=== PATIENT | male | born 1930 | race Caucasian/White ===

== ENCOUNTER 2016-04-29 14:27 | Inpatient (IN) | payer MEDICARE ==
[~2016-04-29] VITALS: Ht 175.3 cm; Wt 71.0 kg
[~2016-04-29 14:27] MED LIST: ALLE24TA PO; AMOX875T PO; APIX2.5 PO; D31000TA PO; DILT120C49 PO; DILTCD300 PO; DONE10TA14 PO; ECOT81TA2 PO; LIPI80TA16 PO; MONT10TA2 PO; NAME10TA PO; PRED10PA PO; REME15TA PO; VITA500T49 PO; ZITH200S PO
[2016-04-29 14:30] VITALS: BP 109/58; PULSE 65; RESP 15; TEMP 98.2; O2SAT 95
[2016-04-29] MEDS ORDERED: ONDANSETRON HCL 4 MG/2 ML VIAL IVP ONE (15:15)
[2016-04-29] MEDS ORDERED: MORPHINE SULFATE 4 MG/ML INJ IV PUSH ONE (15:15)
[2016-04-29] MEDS ORDERED: SODIUM CHLORIDE 0.9% FLUSH 5 ML FLUSH IVF PRN (15:15)
--- NOTE | 2016-04-29 15:56 | PD ---
HPI . Abdominal pain Chief Complaint: Abdominal Pain Time Seen by Provider: 15:02 Travel History International Travel<30 days: No Contact w/Intl Traveler<30days: No Traveled to known affect area: No History of Present Illness HPI History is obtained mainly from the . The patient is hard of hearing. He is otherwise lucid and able to give his own history. The patient is status post a triple a repair done [place] [address] Zambrano. He has had loose stools for the last 4-5 weeks. He has had lower abdominal pain for about the last 3 weeks. As also been suffering from weight loss. He was seen by his primary care provider who ordered some outpatient labs. He was also seen as an outpatient by gastroenterology. He had a CT of his abdomen and pelvis done this morning. 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 The patient was subsequently instructed to come to the hospital for further evaluation and treatment. The patient reports minimal pain at this time. The patient and his deny any blood loss. He has not been running a fever. He has not had any urinary tract symptoms. PFSH Past Medical History Hx Anticoagulant Therapy: Yes (ELOQUIS) AAA: Yes Alzheimer's Disease: No Arthritis: Yes Asthma: No Atrial Fibrillation: Yes Autoimmune Disease: No Blood Disorders: No Anxiety: Yes Depression: Yes Heart Rhythm Problems: No Cancer: No High Cholesterol: Yes Chemotherapy: No Chest Pain: No Congestive Heart Failure: No COPD: No Cerebrovascular Accident: Yes Dementia: Yes (Per "slight dementia") Diabetes: No Diminished Hearing: No Endocrine: No Gastrointestinal Disorders: Yes (ESOPHAGEAL STRICTURE) GERD: No Glaucoma: No Genitourinary: No Headaches: No Hepatitis: No Hiatal Hernia: No Hypertension: Yes Immune Disorder: No Implanted Vascular Access Dvce: Yes Kidney Stones: No Musculoskeletal: No Neurologic: No Psychiatric: No Reproductive: No Respiratory: No Immunizations Current: Yes Migraines: No Radiation Therapy: Yes Renal Failure: No Seizures: No Sickle Cell Disease: No Sleep Apnea: No Thyroid Disease: No Ulcer: No Influenza Vaccination: Yes (2016) Past Surgical History Abdominal Aneurysm Repair: Yes Abdominal Surgery: No AICD: No Appendectomy: Yes Arteriovenous Shunt: No Body Medical Devices: DENTAL IMPLANTS/ hx ofneuro stimulator but removed Cardiac Surgery: No Cholecystectomy: No Ear Surgery: No Endocrine Surgery: No Eye Surgery: No Genitourinary Surgery: No Gynecologic Surgery: No Insulin Pump: No Joint Replacement: Yes (right hip replacement) Neurologic Surgery: No Oral Surgery: Yes (implants) Pacemaker: No Thoracic Surgery: No Other Surgery: Yes (,REPAIR OF THE STOMACH LINING) Social History Alcohol Use: No Tobacco Use: No Substance Use: No Allergies-Medications (Allergen,Severity, Reaction): Coded Allergies: Hydrocodone (Verified Allergy, Severe, RASH, 03/07/15) Lisinopril (Verified Allergy, Severe, esophageal spasms, 03/07/15) Pentoxifylline (Verified Allergy, Severe, 03/07/15) Pletal (Verified Allergy, Severe, tachycardia.PENTOXIFYLINE CAUSES UNKNOWN REACTION, 03/07/15) Nonsteroidal Anti-Inflammatory Agts (Verified Allergy, Intermediate, RED RASH, 03/07/15) Sulfa (Verified Adverse Reaction, Unknown, 03/07/15) Reported Meds & Prescriptions Reported Meds & Active Scripts Active Zithromax (Azithromycin) 200 Mg/5 Ml Prema 500 Mg PO DAILY 5 Days UNKNOWN DOSE Amoxil (Amoxicillin) 875 Mg Tab 875 Mg PO BID 14 Days Sterapred Ds 12 Day Pack (Prednisone) 10 Mg Cristóbal 10 Mg PO DIRECTED USE DIRECTED Diltiazem Cd 120 mg 120 Mg Cap 120 Mg PO DAILY 30 Days Diltiazem Cd 300 mg (Diltiazem HCl) 300 Mg Cap 300 Mg PO DAILY 30 Days Ecotrin Low Strength (Aspirin) 81 Mg Tabec 81 Mg PO DAILY 30 Days Eliquis (Apixaban) 2.5 Mg Tab 2.5 Mg PO BID 30 Days Reported Vitamin B12 (Cyanocobalamin) Unknown Strength Tab Unknown Dose PO DAILY Judie-D 24 Hour Allergy (Fexofenadine-Pseudoephedrine) 24 Hour Tab 24 Hour PO DAILY Remeron 15 mg (Mirtazapine) 15 Mg Tab 1 Tab PO HS Namenda (Memantine) 10 Mg Tab 10 Mg PO BID D3 (Cholecalciferol) 1,000 Unit Tab 1,000 Unit PO DAILY Donepezil 10 mg 10 Mg Tab 10 Mg PO HS Singulair (Montelukast Sodium) 10 Mg Tab 10 Mg PO DAILY Lipitor (Atorvastatin Calcium) 80 Mg Tab 80 Mg PO HS Review of Systems Except as stated in HPI: all other systems reviewed are Neg General / Constitutional: No: Fever, Chills Respiratory: No: Shortness of Breath Gastrointestinal: Positive: Diarrhea, Abdominal Pain, No: Nausea, Vomiting, Hematemesis, Hematochezia Genitourinary: No: Urgency, Frequency, Dysuria Neurologic: No: Weakness, Dizziness Physical Exam Narrative GENERAL: Pleasant, elderly man who got in no acute distress. SKIN: Warm and dry. HEENT. HEAD: Atraumatic. Normocephalic. EYES: Pupils equal and round. ENT: No nasal bleeding or discharge. Mucous membranes pink and moist. NECK: Trachea midline. Neck is supple. CARDIOVASCULAR: Regular rate and rhythm. Heart sounds are normal. RESPIRATORY: No accessory muscle use. Lungs are clear with full air movement throughout. GASTROINTESTINAL: Abdomen soft. Minimal lower abdominal tenderness. Nondistended. MUSCULOSKELETAL: No obvious deformities. No edema. NEUROLOGICAL: Awake and alert. No obvious cranial nerve deficits. Motor grossly within normal limits. Normal speech. PSYCHIATRIC: Appropriate mood and affect; insight and judgment normal. Data Data Last Documented VS Vital Signs Date Time Temp Pulse Resp B/P Pulse Ox O2 Delivery O2 Flow Rate FiO2 04/29/16 14:30 98.2 65 15 109/58 95 Orders Complete Blood Count With Diff (04/29/16 15:10) Comprehensive Metabolic Panel (04/29/16 15:10) Lactic Acid (04/29/16 15:10) Prothrombin Time / Inr (Pt) (04/29/16 15:10) Act Partial Throm Time (Ptt) (04/29/16 15:10) Urinalysis - C+S If Indicated (04/29/16 15:10) Iv Access Insert/Monitor (04/29/16 15:10) Ecg Monitoring (04/29/16 15:10) Oximetry (04/29/16 15:10) Morphine Inj (Morphine Inj) (04/29/16 15:15) Ondansetron Inj (Zofran Inj) (04/29/16 15:15) Sodium Chloride 0.9% Flush (Ns Flush) (04/29/16 15:15) Electrocardiogram (04/29/16 15:10) Piperacil-Tazo 4.5 Gm Premix (Zosyn 4.5 (04/29/16 16:00) Blood Culture (04/29/16 15:47) Consult Vascular Surgery (04/29/16 ) Consult Gastroenterology (04/29/16 ) Consult Infectious Disease (04/29/16 ) Admit Order (Ed Use Only) (04/29/16 15:59) Labs Laboratory Tests Test 04/29/16 04/29/16 15:40 15:45 White Blood Count 9.4 TH/MM3 Red Blood Count 4.44 MIL/MM3 Hemoglobin 12.7 GM/DL Hematocrit 38.9 % Mean Corpuscular Volume 87.8 FL Mean Corpuscular Hemoglobin 28.6 PG Mean Corpuscular Hemoglobin 32.5 % Concent Red Cell Distribution Width 14.1 % Platelet Count 356 TH/MM3 Mean Platelet Volume 8.0 FL Neutrophils (%) (Auto) 72.8 % Lymphocytes (%) (Auto) 14.4 % Monocytes (%) (Auto) 11.8 % Eosinophils (%) (Auto) 0.7 % Basophils (%) (Auto) 0.3 % Neutrophils # (Auto) 6.9 TH/MM3 Lymphocytes # (Auto) 1.4 TH/MM3 Monocytes # (Auto) 1.1 TH/MM3 Eosinophils # (Auto) 0.1 TH/MM3 Basophils # (Auto) 0.0 TH/MM3 CBC Comment DIFF FINAL Differential Comment Prothrombin Time 12.3 SEC Prothromb Time International 1.1 RATIO Ratio Activated Partial 30.3 SEC Thromboplast Time Sodium Level 140 MEQ/L Potassium Level 4.0 MEQ/L Chloride Level 106 MEQ/L Carbon Dioxide Level 25.0 MEQ/L Anion Gap 9 MEQ/L Blood Urea Nitrogen 9 MG/DL Creatinine 0.89 MG/DL Estimat Glomerular Filtration 81 ML/MIN Rate Random Glucose 115 MG/DL Calcium Level 9.4 MG/DL Total Bilirubin 0.5 MG/DL Aspartate Amino Transf 17 U/L (AST/SGOT) Alanine Aminotransferase 15 U/L (ALT/SGPT) Alkaline Phosphatase 71 U/L Total Protein 7.1 GM/DL Albumin 2.8 GM/DL Lactic Acid Level 1.4 mmol/L MDM Medical Decision Making Medical Screen Exam Complete: Yes Emergency Medical Condition: Yes Differential Diagnosis Differential diagnosis of abdominal pain includes but is not limited to gastritis, pancreatitis, hepatitis, gastroenteritis, gallbladder disease, constipation, urinary retention, UTI, peptic ulcer disease, diverticulitis or appendicitis Narrative Course Patient presents to us at the request of Dr. 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 I have discussed the case with Dr. Zambrano. He has requested that I admit the patient to the hospitalist service. He has requested antibiotics along with blood cultures and a consult ID. He also requests that I consult Dr. Clement. Physician Communication Physician Communication Dr. Zambrano, Dr. Khan Diagnosis Primary Impression: Abdominal pain Qualified Code: R10.30 - Lower abdominal pain Admitting Information Admitting Physician Requests: Admit Condition: Stable Orly Lawson MD Apr 29, 2016 15:56
[2016-04-29] MEDS ORDERED: PIPERACIL-TAZO 4.5 GM PREMIX 100 ML IV ONE (16:00)
[2016-04-29 16:13] LABS: AUTOMATED NEUTROPHIL # 6.9 TH/MM3 (1.8-7.7); BASOPHIL % 0.3 % (0.0-2.0); EOSINOPHIL # 0.1 TH/MM3 (0-0.4); EOSINOPHIL % 0.7 % (0.0-4.0); HEMATOCRIT 38.9 % (39.0-51.0); HEMO FLAGS DIFF FINAL; LYMPH % 14.4 % (9.0-44.0); LYMPHOCYTE # 1.4 TH/MM3 (1.0-4.8); MEAN CELL VOLUME 87.8 FL (80.0-100.0); MEAN CORPUSCULAR HEMOGLOBIN 28.6 PG (27.0-34.0); MEAN CORPUSCULAR HGB CONC 32.5 % (32.0-36.0); MONO % 11.8 % (0.0-8.0); NEUT % 72.8 % (16.0-70.0); PLATELET COUNT 356 TH/MM3 (150-450); RED BLOOD COUNT 4.44 MIL/MM3 (4.50-5.90); RED CELL DISTRIBUTION WIDTH 14.1 % (11.6-17.2); WHITE BLOOD COUNT 9.4 TH/MM3 (4.0-11.0)
[2016-04-29 16:27] VITALS: O2SAT 100
[2016-04-29 16:32] LABS: APTT (PATIENT) 30.3 SEC (24.3-30.1); INTERNATIONAL NORMALIZED RATIO 1.1 RATIO; PROTHROMBIN TIME - PATIENT 12.3 SEC (9.8-11.6)
[2016-04-29 16:40] LABS: ANION GAP 9 MEQ/L (5-15); AST (GOT) 17 U/L (15-37); BLOOD UREA NITROGEN 9 MG/DL (7-18); CHLORIDE 106 MEQ/L (98-107); GLOMERULAR FILTRATION RATE 81 ML/MIN (>89); SODIUM (NA) 140 MEQ/L (136-145)
[2016-04-29 16:43] LABS: ALKALINE PHOSPHATASE 71 U/L (45-117); ALT (GPT) 15 U/L (12-78); TOTAL BILIRUBIN ADULT 0.5 MG/DL (0.2-1.0)
[2016-04-29] MEDS ORDERED: SODIUM CHLORIDE 0.9% FLUSH 5 ML FLUSH FLUSH PRN (16:45)
[2016-04-29] MEDS ORDERED: NALOXONE HCL 0.4 MG/ML AMP IV PRN (16:45)
--- NOTE | 2016-04-29 16:53 | HHI.HP ---
[facility] Service [facility] Primary Care Physician Clinton Clements MD Admission Diagnosis abdominal pain Diagnoses: Chief Complaint: abdominal pain Travel History International Travel<30 Days: No Contact w/Intl Traveler <30 Da: No Traveled to Known Affected Are: No History of Present Illness [age] past medical history of abdominal aortic aneurysm repair, peripheral vascular disease status post endarterectomy, history of atrial fibrillation, and dementia who presented with abdominal pain. Patient is a very poor historian secondary to dementia and most medical history taken from his was at the bedside. Per patient's patient's been having diarrhea for the past 5-6 weeks that has been intermittent. She then stated that three weeks ago he started to have chronic abdominal pain. Patient went to see Dr. 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 At the moment patient denies any abdominal pain. He denies nausea or vomiting. Patient has never had any fevers the past few weeks. He has no complaints at all. Review of Systems Constitutional: DENIES: Diaphoretic episodes, Fatigue, Fever, Weight gain, Weight loss, Chills, Dizziness, Change in appetite, Night Sweats Endocrine: DENIES: Heat/cold intolerance, Polydipsia, Polyuria, Polyphagia Eyes: DENIES: Blurred vision, Diplopia, Eye inflammation, Eye pain, Vision loss , Photosensitivity, Double Vision Ears, nose, mouth, throat: DENIES: Tinnitus, Hearing loss, Vertigo, Nasal discharge, Oral lesions, Throat pain, Hoarseness, Ear Pain, Running Nose, Epistaxis, Sinus Pain, Toothache, Odynophagia Respiratory: DENIES: Apneas, Cough, Snoring, Wheezing, Hemoptysis, Sputum production, Shortness of breath Cardiovascular: DENIES: Chest pain, Palpitations, Syncope, Dyspnea on Exertion , PND, Lower Extremity Edema, Orthopnea, Claudication Gastrointestinal: DENIES: Abdominal pain, Black stools, Bloody stools, Constipation, Diarrhea, Nausea, Vomiting, Difficulty Swallowing, Anorexia Genitourinary: DENIES: Sexual dysfunction, Urinary frequency, Urinary incontinence, Urgency, Hematuria, Dysuria, Nocturia, Penile Discharge, Testicular Pain, Testicular Swelling Musculoskeletal: DENIES: Joint pain, Muscle aches, Stiffness, Joint Swelling, Back pain, Neck pain Integumentary: DENIES: Abnormal pigmentation, Nail changes, Pruritus, Rash Hematologic/lymphatic: DENIES: Bruising, Lymphadenopathy Immunologic/allergic: DENIES: Eczema, Urticaria Neurologic: DENIES: Abnormal gait, Headache, Localized weakness, Paresthesias, Seizures, Speech Problems, Tremor, Poor Balance Psychiatric: DENIES: Anxiety, Confusion, Mood changes, Depression, Hallucinations, Agitation, Suicidal Ideation, Homicidal Ideation, Delusions Past Family Social History Past Medical History History of atrial fibrillation Dementia Questionable TIA History bacteremia History of benign polyps Abdomen aneurysm Cataracts Past Surgical History Right hip replacement, thoracic picomole endoscopy, endarterectomy the left leg peripheral vascular disease Positive removal, MRI of interest repair, prostate seed Reported Medications Reported Meds & Active Scripts Active Zithromax (Azithromycin) 200 Mg/5 Ml Prema 500 Mg PO DAILY 5 Days UNKNOWN DOSE Amoxil (Amoxicillin) 875 Mg Tab 875 Mg PO BID 14 Days Sterapred Ds 12 Day Pack (Prednisone) 10 Mg Cristóbal 10 Mg PO DIRECTED USE DIRECTED Diltiazem Cd 120 mg 120 Mg Cap 120 Mg PO DAILY 30 Days Diltiazem Cd (Diltiazem HCl) 300 Mg Cap 300 Mg PO DAILY 30 Days Ecotrin (Aspirin) 81 Mg Tabec 81 Mg PO DAILY 30 Days Eliquis (Apixaban) 2.5 Mg Tab 2.5 Mg PO BID 30 Days Reported Vitamin B12 (Cyanocobalamin) Unknown Strength Tab Unknown Dose PO DAILY Judie-D 24 Hour Allergy (Fexofenadine-Pseudoephedrine) 24 Hour Tab 24 Hour PO DAILY Remeron 15 mg (Mirtazapine) 15 Mg Tab 1 Tab PO HS Namenda (Memantine) 10 Mg Tab 10 Mg PO BID D3 (Cholecalciferol) 1,000 Unit Tab 1,000 Unit PO DAILY Donepezil 10 mg 10 Mg Tab 10 Mg PO HS Singulair (Montelukast Sodium) 10 Mg Tab 10 Mg PO DAILY Lipitor (Atorvastatin Calcium) 80 Mg Tab 80 Mg PO HS Allergies: Coded Allergies: Hydrocodone (Verified Allergy, Severe, RASH, 03/07/15) Lisinopril (Verified Allergy, Severe, esophageal spasms, 03/07/15) Pentoxifylline (Verified Allergy, Severe, 03/07/15) Pletal (Verified Allergy, Severe, tachycardia.PENTOXIFYLINE CAUSES UNKNOWN REACTION, 03/07/15) Nonsteroidal Anti-Inflammatory Agts (Verified Allergy, Intermediate, RED RASH, 03/07/15) Sulfa (Verified Adverse Reaction, Unknown, 03/07/15) Family History Noncontributory Social History Patient was at home with his . He smoked for 40+ years but stopped thirty years ago. Denies any alcohol is her drug use. Physical Exam Vital Signs Vital Signs Date Time Temp Pulse Resp B/P Pulse Ox O2 Delivery O2 Flow Rate FiO2 04/29/16 16:27 100 Room Air 04/29/16 14:30 98.2 65 15 109/58 95 Physical Exam GENERAL: This is a well-nourished, well-developed patient, in no apparent distress. SKIN: No rashes, ecchymoses or lesions. Cool and dry. HEAD: Atraumatic. Normocephalic. No temporal or scalp tenderness. EYES: Pupils equal round and reactive. Extraocular motions intact. No scleral icterus. No injection or drainage. ENT: Nose without bleeding, purulent drainage or septal hematoma. Throat without erythema, tonsillar hypertrophy or exudate. Uvula midline. Airway patent. NECK: Trachea midline. No JVD or lymphadenopathy. Supple, nontender, no meningeal signs. CARDIOVASCULAR: Regular rate and rhythm without murmurs, gallops, or rubs. RESPIRATORY: Clear to auscultation. Breath sounds equal bilaterally. No wheezes , rales, or rhonchi. GASTROINTESTINAL: Abdomen soft, non-tender, nondistended. No hepato-splenomegaly , or palpable masses. No guarding. MUSCULOSKELETAL: Extremities without clubbing, cyanosis, or edema. No joint tenderness, effusion, or edema noted. No calf tenderness. Negative Homans sign bilaterally. NEUROLOGICAL: Awake and alert. Cranial nerves II through XII intact. Motor and sensory grossly within normal limits. Five out of 5 muscle strength in all muscle groups. Normal speech. Laboratory Laboratory Tests Test 04/29/16 04/29/16 15:40 15:45 White Blood Count 9.4 Red Blood Count 4.44 Hemoglobin 12.7 Hematocrit 38.9 Mean Corpuscular Volume 87.8 Mean Corpuscular Hemoglobin 28.6 Mean Corpuscular Hemoglobin 32.5 Concent Red Cell Distribution Width 14.1 Platelet Count 356 Mean Platelet Volume 8.0 Neutrophils (%) (Auto) 72.8 Lymphocytes (%) (Auto) 14.4 Monocytes (%) (Auto) 11.8 Eosinophils (%) (Auto) 0.7 Basophils (%) (Auto) 0.3 Neutrophils # (Auto) 6.9 Lymphocytes # (Auto) 1.4 Monocytes # (Auto) 1.1 Eosinophils # (Auto) 0.1 Basophils # (Auto) 0.0 CBC Comment DIFF FINAL Differential Comment Prothrombin Time 12.3 Prothromb Time International 1.1 Ratio Activated Partial 30.3 Thromboplast Time Sodium Level 140 Potassium Level 4.0 Chloride Level 106 Carbon Dioxide Level 25.0 Anion Gap 9 Blood Urea Nitrogen 9 Creatinine 0.89 Estimat Glomerular Filtration 81 Rate Random Glucose 115 Calcium Level 9.4 Aspartate Amino Transf 17 (AST/SGOT) Albumin 2.8 Lactic Acid Level 1.4 Date/Time Procedure Status Source Growth 04/29/16 16:00 Aerobic Blood Culture Received Blood Peripheral Pending 04/29/16 16:00 Anaerobic Blood Culture Received Blood Peripheral Pending Result Diagram: 04/29/16 1540 04/29/[address] scan report showed 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 -Patient given a dose of Zosyn will continue his Zosyn. -Pending labs. -ED physician already consulted and spoke to Dr. Zambrano Vascular surgeon, GI and infectious disease consults were also placed. History of atrial fibrillation, chronic anticoagulation, dementia, peripheral vascular disease -Resume home medication but will hold this for possible surgery. DVT prophylaxis -On Lovenox but eliquis held for possible surgery. Code Status full Discussed Condition With patient and his Physician Certification 2 Midnight Certification Type: Admission for Inpatient Services Order for Inpatient Services The services are ordered in accordance with Medicare regulations or non- Medicare payer requirements, as applicable. In the case of services not specified as inpatient-only, they are appropriately provided as inpatient services in accordance with the 2-midnight benchmark. Estimated LOS (days): 3 3 days is the estimated time the patient will need to remain in the hospital, assuming treatment plan goals are met and no additional complications. Post-Hospital Plan: Margareth Broussard MD Apr 29, 2016 16:53
[2016-04-29 17:52] VITALS: BP 119/58; PULSE 54; RESP 12; O2SAT 98
[2016-04-29] MEDS ORDERED: VITA10003 PO (17:55)
[2016-04-29] MEDS ORDERED: FEXO15TA PO (17:55)
[2016-04-29] MEDS ORDERED: NAME10TA PO (17:55)
[2016-04-29] MEDS ORDERED: MONT10TA2 PO (17:55)
[2016-04-29] MEDS ORDERED: ATOR1TAB18 PO (17:55)
[2016-04-29] MEDS ORDERED: ALIG4CAP PO (17:55)
[2016-04-29] MEDS ORDERED: ARIC10TA PO (17:55)
[2016-04-29] MEDS ORDERED: APIX2.5T PO (17:55)
[2016-04-29] MEDS ORDERED: METO25TA3 PO (17:55)
[2016-04-29] MEDS ORDERED: SENITAB3 PO (17:55)
[2016-04-29] MEDS ORDERED: OMEP20TA PO (17:55)
[2016-04-29] MEDS: SODIUM CHLOR 0.45% 1000 ML INJ 1,000 ML IV SCH (19:09)
[2016-04-29] MEDS: ENOXAPARIN SODIUM 40 MG/0.4 ML SYRINGE SQ SCH (19:32)
[2016-04-29] MEDS: SODIUM CHLORIDE 0.9% FLUSH 5 ML FLUSH FLUSH SCH (21:00)
[2016-04-29] MEDS ORDERED: ONDANSETRON HCL 4 MG/2 ML VIAL IVP PRN (21:00)
[2016-04-29] MEDS: ATORVASTATIN 80 MG TAB PO SCH (21:43)
[2016-04-29] MEDS: DONEPEZIL HCL 5 MG TAB PO SCH (21:43)
[2016-04-29] MEDS: MIRTAZAPINE 15 MG TAB PO SCH (21:43)
[2016-04-29] MEDS: MEMANTINE HCL 10 MG TAB PO SCH (21:43)
[2016-04-29 21:45] VITALS: BP 145/70; PULSE 65; RESP 16; O2SAT 97
[2016-04-29] MEDS: PIPERACIL-TAZO 3.375 GM PREMIX 50 ML IV SCH (23:04)
[2016-04-30] VITALS (9 sets, daily range): BP systolic 107–145; BP diastolic 54–65; PULSE 54–70; RESP 16–20; TEMP 96–97.7; O2SAT 96–99
[2016-04-30] MEDS: PIPERACIL-TAZO 3.375 GM PREMIX 50 ML IV SCH ×4 (05:27→22:31)
--- NOTE | 2016-04-30 05:43 | MB ---
cc: FREDERICK ROPER MD DATE OF CONSULTATION April 29, 2009. ROOM NUMBER A12 in the emergency department REFERRING PHYSICIAN Dr. 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 HISTORY This is an 85-year-old male with a several-week history of upper mid-abdominal pain, not really related to eating. He saw Dr. Gómez Clement in the office a few days ago for this pain. 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 I do not have the report but I have looked at the films with the radiologist here at the hospital. I also discussed the case with Dr. Clement and communicated with Dr. Zambrano. The patient had an abdominal aortic aneurysm repaired by Dr. Zambrano in 2007. He has had no sign of GI bleeding, no black stools. Recently has had decreased appetite and not eating as well and has been losing some weight according to his . He also has some dementia. SOCIAL HISTORY He is . His is with him at the bedside. PAST MEDICAL HISTORY His medical history is remarkable for - 1. Gastroesophageal reflux disease. 2. Hypertension. 3. Peripheral vascular disease. 4. Hyperlipidemia. 5. Dementia. 6. Peptic ulcer in 1998. SURGICAL HISTORY 1. He has had rotator cuff repair in 2013. 2. He had a colonoscopy in [address] Adkins and may have had another scope done 2014 by [facility]. 3. He has had nasal polyps removed. 4. He has had prostate seeds for prostate cancer. 5. He had a right hip replacement. 6. Left cataract extraction. 7. Right cataract extraction. 8. Left carpal tunnel surgery. 9. Left leg endarterectomy in 1991. 10. Esophageal dilation in the past. 11. He suffered a broken leg in 1947. 12. Appendectomy in 1941. PRIMARY CARE DOCTOR Dr. Clinton Clements. MEDICATIONS His medications include - 1. Memantine which is a substitute for Namenda 10 mg twice daily. 2. Eliquis 2.5 mg twice daily. 3. Omeprazole 20 mg daily. 4. Judie 180 mg daily. 5. Align probiotic daily. 6. Vitamin D3 1000 international units daily. 7. Metoprolol 25 mg twice daily. 8. Montelukast 10 mg daily. 9. Donepezil L 10 mg daily. 10. Atorvastatin 80 mg daily. 11. Senior multivitamin daily. ALLERGIES CELEBREX. PLETAL. LISINOPRIL. SULFAMETHOXAZOLE. FAMILY HISTORY Negative for colon cancer, polyps or Crohn's disease. REVIEW OF SYSTEMS Remarkable for the recent lower epigastric pain and decreased appetite and some modest weight loss. He states his bowel movements have been normal. No shortness of breath. No fever or chills. The remainder of the review of systems is negative. PHYSICAL EXAMINATION GENERAL: A well-developed male in no acute distress. VITAL SIGNS: Blood pressure is 109/58, pulse 65 and regular, respirations are 15, nonlabored; temperature is 98.2. EYES: Sclerae anicteric. NECK: Supple without masses. No lymphadenopathy or JVD. LUNGS: Clear to auscultation and percussion. HEART SOUNDS: Regular, without murmur, gallop or rub. ABDOMEN: Soft with some mild firmness in the mid-abdomen just above the umbilicus and he also has some mild tenderness in that area. He has a well-healed transverse scar. Bowel sounds are normoactive and there are no audible bruits. No organomegaly. No detectable ascites. RECTAL: Deferred. EXTREMITIES: No cyanosis, clubbing or edema. SKIN: Warm and dry. NEUROLOGIC: He was alert with a pleasant affect, but not or completely oriented. He knew the correct year but not the month. LABORATORY DATA His lab work reveals normal electrolytes. Creatinine is 0.89. Lactic acid 1.4. LFTs are normal. Albumin is low at 2.8. INR is 1.1. Hemoglobin is 12.7 with a normal MCV of 87.8, white count 9.4, platelet count 356,000. IMAGING STUDIES The outpatient CT as discussed above. IMPRESSION Several weeks of upper abdominal pain with a localized inflammatory reaction noted between his graft repair and a loop of mid-jejunum. PLAN Per Dr. Zambrano, the patient has had blood cultures drawn and will be getting a WBC scan. Depending upon the results, consideration will be given for enteroscopy to try to reach this area in question. Judging from its location on CT scan, it may be difficult to reach with a standard enteroscope. Other options include double balloon enteroscopy, barium contrast studies and CT enterography or MR enterography. I reviewed the risks of the enteroscopy with the patient and his at the bedside as well as the options and informed consent obtained. We will follow with you. We will also discuss possibly holding his Eliquis for the endoscopic procedure. MD WENDI Huynh/BHAVIN /5:49 PM /5:23 AM MO
[2016-04-30] MEDS: SODIUM CHLOR 0.45% 1000 ML INJ 1,000 ML IV SCH ×2 (05:59→19:19)
[2016-04-30 07:48] LABS: HEMATOCRIT 38.6 % (39.0-51.0); MEAN CELL VOLUME 88.2 FL (80.0-100.0); MEAN CORPUSCULAR HEMOGLOBIN 29.4 PG (27.0-34.0); MEAN CORPUSCULAR HGB CONC 33.4 % (32.0-36.0); PLATELET COUNT 284 TH/MM3 (150-450); RED BLOOD COUNT 4.38 MIL/MM3 (4.50-5.90); RED CELL DISTRIBUTION WIDTH 14.3 % (11.6-17.2); REVIEW FLAG FINAL; WHITE BLOOD COUNT 10.1 TH/MM3 (4.0-11.0)
[2016-04-30 08:01] LABS: BICARBONATE 25.6 MEQ/L (21.0-32.0)
[2016-04-30] MEDS: SODIUM CHLORIDE 0.9% FLUSH 5 ML FLUSH FLUSH SCH ×2 (09:00→21:00)
[2016-04-30] MEDS ORDERED: DILTIAZEM-CD 300 MG CAP ER PO SCH (09:00)
[2016-04-30] MEDS: ASPIRIN EC 81 MG TABEC PO SCH (09:26)
[2016-04-30] MEDS: MONTELUKAST SODIUM 10 MG TAB PO SCH (09:26)
[2016-04-30] MEDS: MEMANTINE HCL 10 MG TAB PO SCH ×2 (09:26→21:12)
[2016-04-30] MEDS: DILTIAZEM-CD 120 MG CAP ER PO SCH (09:26)
--- NOTE | 2016-04-30 10:33 | HHI.GIFU ---
GI Follow-up Note Consult Follow-up Subjective: Patient laying in bed comfortably, no new complaints and denies any current abdominal pain. at bedside. WBC scan planned for today. BC neg so far. Labs stable. Objective: PHYSICAL EXAMINATION: Vitals signs stable No fever CHEST: non-labored breathing ABDOMEN: Soft, nondistended, no tenderness today. EXTREMITIES: No clubbing, cyanosis, or edema. SKIN: warm and dry AUCTIONEER TOBACCO: pleasant affect Available Data (labs, X- Rays, Procedues) : ASSESSMENT/PLAN: 1. Abdominal pain-improved. 2.Small bowel inflammatory process-etiology to be determined. Await results WBC scan. If suggests infection suggest cooling off further with antibiotics. Will follow. It was a pleasure seeing Doni Lujan. Thank you for this consult. Entered by: Ciraan Armas MD Apr 30, 2016 10:33
--- NOTE | 2016-04-30 10:44 | HHI.PR ---
Subjective Remarks f/u for abdominal pain Patient only complaint is that the room is too cold. His is at the bedside. patient denied any abdominal pain today. Denied any N/V and remains afebrile. Objective Vitals Vital Signs Date Time Temp Pulse Resp B/P Pulse Ox O2 Delivery O2 Flow Rate FiO2 04/30/16 08:00 96.0 61 20 145/65 97 04/30/16 04:37 60 04/30/16 03:38 97.7 57 18 145/64 96 04/30/16 01:45 70 16 125/63 97 Room Air 04/29/16 21:45 65 16 145/70 97 Room Air 04/29/16 17:52 54 12 119/58 98 Room Air 04/29/16 16:27 100 Room Air 04/29/16 14:30 98.2 65 15 109/58 95 I/O 04/29/16 04/29/16 04/29/16 04/30/16 04/30/16 04/30/16 07:00 15:00 23:00 07:00 15:00 23:00 Output Total 300 ml Balance -300 ml Output Urine Total 300 ml Result Diagram: 04/30/16 0628 04/30/16627 Objective Remarks GENERAL: in NAD CARDIOVASCULAR: Regular rate and rhythm without murmurs, gallops, or rubs. RESPIRATORY: Breath sounds equal bilaterally. No accessory muscle use. GASTROINTESTINAL: Abdomen soft, non-tender, nondistended. MUSCULOSKELETAL: No cyanosis, or edema. BACK: Nontender without obvious deformity. No CVA tenderness. Medications and IVs Current Medications Morphine Sulfate (Morphine Inj) 4 mg ONCE ONCE IV PUSH ; Start 04/29/16 at 15:15 ; Stop 04/29/16 at 15:16; Status DC Ondansetron HCl (Zofran Inj) 4 mg ONCE ONCE IVP ; Start 04/29/16 at 15:15; Stop 04/29/16 at 15:16; Status DC IV Flush 2 ml 2 ml UNSCH PRN IVF FLUSH AFTER USING IV ACCESS; Start 04/29/16 at 15:15; Stop 04/29/16 at 17:59; Status DC Piperacillin Sod/ Tazobactam Sod 100 ml @ 200 mls/hr ONCE ONCE IV Last administered on 04/29/16t 16:53; Start 04/29/16 at 16:00; Stop 04/29/16 at 16:30; Status DC Sodium Chloride (1/2 NS 1000 ml Inj) 1,000 ml @ 75 mls/hr [id number] IV Last administered on 04/29/16 19:09; Start 04/29/16 at 16:39 IV Flush (NS Flush) 2 ml UNSCH PRN FLUSH FLUSH AFTER USING IV ACCESS; Start 04/29/16 at 16:45 IV Flush (NS Flush) 2 ml BID FLUSH ; Start 04/29/16 at 21:00 Ondansetron HCl (Zofran Inj) 4 mg Q6H PRN IVP NAUSEA OR VOMITING; Start at 21:00 Enoxaparin Sodium (Lovenox Inj) 40 mg Q24H SQ ; Start 04/29/16 at 18:00 Naloxone HCl 0.4 mg 0.4 mg UNSCH PRN IV SEE LABEL COMMENTS; Start 04/29/16 at 16 :45 Piperacillin Sod/ Tazobactam Sod (Zosyn 3.375 Gm Premix) 50 ml @ 100 mls/hr Q6H IV Last administered on 04/30/16 05:27; Start 04/29/16 at 23:00 Aspirin (Ecotrin Ec) 81 mg DAILY PO Last administered on 04/30/16 09:26; Start 04/30/16 at 09:00 Atorvastatin Calcium (Lipitor) 80 mg HS PO Last administered on 04/29/16 21:43 ; Start 04/29/16 at 21:00 Diltiazem HCl (Cardizem Cd) 120 mg DAILY PO Last administered on 04/30/16 09: 26; Start 04/30/16 at 09:00 Diltiazem HCl (Cardizem Cd) 300 mg DAILY PO ; Start 04/30/16 at 09:00; Status UNV Memantine (Namenda) 10 mg BID PO Last administered on 04/30/16 09:26; Start at 21:00 Mirtazapine (Remeron) 15 mg HS PO Last administered on 04/29/16 21:43; Start at 21:00 Montelukast Sodium (Singulair) 10 mg DAILY PO Last administered on 04/30/16 09 :26; Start 04/30/16 at 09:00 Donepezil HCl (Aricept) 10 mg HS PO Last administered on 04/29/16 21:43; Start 04/29/16 at 21:00 A/P Assessment and Plan 85 y/o with a history of abdominal aortic repair Acute abdominal pain -asymptomatic at the moment. 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 -continue Zosyn. -pending WBC scan to determine further management. -Vascular and GI ff. -pending ID recommendations. History of atrial fibrillation, chronic anticoagulation, dementia, peripheral vascular disease -per vascular wants to proceed with endoscopic evaluation will need to hold eliquis. -continue with current medication. DVT prophylaxis -On Lovenox but eliquis held for possible surgery. Margareth Khan MD Apr 30, 2016 10:44
--- NOTE | 2016-04-30 12:55 | MB ---
cc: NABIL HECK M.D., KETUL AGNONE, LOUIS M. MD BILLMEIER, DAVID W. M.D. DATE OF CONSULTATION: 04/30/[address] scan questioned aortoenteric fistula. HISTORY OF PRESENT ILLNESS This 85-year-old old male on June 13, 2007 underwent open surgical repair of his enlarging pararenal aortic aneurysm. He recovered uneventfully. Beginning in February of this year, he developed diarrhea. With medical treatment, diarrhea dissipated but he then began experiencing vague mid abdominal pain and lost his appetite. As a result, he has lost approximately 10 pounds. The mid abdominal pain has gradually progressed. No associated constipation or diarrhea. No nausea or vomiting. No fever or chills. He has seen no evidence of blood in his bowel movements. He was evaluated earlier this week by Gómez Clement MD. He requested a CT scan of the abdomen which was performed yesterday. Dr. Jed Loya described "The appearance of aorta has changed since the previous CT angiogram performed February 2013 with indurated changes now present in the paraaortic tissues at the infrarenal level. There are a couple of loops of small bowel now seen in close proximity to the endo graft most conspicuously seen in the left paraaortic region. A tiny low-density collection containing a bubble of gas is present in intimate association with the anterolateral wall of the aortic graft. The appearance is worsened for infectious/inflammatory complication, either on the endo graft, bowel or both." PHYSICAL EXAMINATION GENERAL: A well-developed, well-nourished 85-year-old male with diminished cognitive function. He is alert, oriented to person, place and time, but his recent and remote recall seem somewhat impaired. His answers many of his medical questions for him. LUNGS: Symmetrically expanded and clear. CARDIAC: Rhythm is sinus. ABDOMEN: Soft, nontender. A well-healed transverse supraumbilical trans birectus scar is noted. No incisional hernias. No palpable masses, aneurysms or peritoneal signs. NEUROLOGIC: No gross focal deficit. I reviewed the CT scan and discussed the radiographic findings with Clinton Childers. I also discussed clinical findings with Gómez Clement MD. 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 White blood cell scan to evaluate paraaortic inflammation. Blood cultures. Empiric IV antibiotics - broad-spectrum. I will follow with you. Thank you for allowing me to participate in this gentleman's care. MD ZENON Michael/ANTONIETA /9:08 AM /12:40 PM
--- NOTE | 2016-04-30 16:59 | PD.ID.CON ---
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 Primary Care Physician Clinton Clements MD Diagnoses: History of Present Illness is an 85 y/o CM with PMHx of open surgical repair of enlarging pararenal aortic aneurysm (May 2007), PVD status post endarterectomy, h/o atrial fibrillation, and dementia who presented with abdominal pain. Patient is a very poor historian secondary to dementia and most medical history taken from medical records. Per patient's patient's been having diarrhea for the past 5-6 weeks that has been intermittent. She then stated that three weeks ago he started to have abdominal pain. Patient went to see Dr. 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 Patient has been seen by Vascular Surgery and is undergoing WBC scan. At the time of my evaluation, patient denies any abdominal pain. He denies nausea or vomiting. Patient has never had any fevers the past few weeks. He has no complaints at all. Weight loss of 10 pounds. No blood in stool or tarry stools. ID is consulted for evaluation and Mment of abdominal aortic fistula and possible aortitis. Review of Systems ROS Limitations: Poor Historian Constitutional: DENIES: Diaphoretic episodes, Fatigue, Fever, Weight gain, Weight loss, Chills, Dizziness, Change in appetite, Night Sweats Endocrine: DENIES: Heat/cold intolerance, Polydipsia, Polyuria, Polyphagia Eyes: DENIES: Blurred vision, Diplopia, Eye inflammation, Eye pain, Vision loss , Photosensitivity, Double Vision Ears, nose, mouth, throat: DENIES: Tinnitus, Hearing loss, Vertigo, Nasal discharge, Oral lesions, Throat pain, Hoarseness, Ear Pain, Running Nose, Epistaxis, Sinus Pain, Toothache, Odynophagia Respiratory: DENIES: Apneas, Cough, Snoring, Wheezing, Hemoptysis, Sputum production, Shortness of breath Cardiovascular: DENIES: Chest pain, Palpitations, Syncope, Dyspnea on Exertion , PND, Lower Extremity Edema, Orthopnea, Claudication Gastrointestinal: COMPLAINS OF: Abdominal pain, DENIES: Black stools, Bloody stools, Constipation, Diarrhea, Nausea, Vomiting, Difficulty Swallowing, Anorexia Genitourinary: DENIES: Sexual dysfunction, Urinary frequency, Urinary incontinence, Urgency, Hematuria, Dysuria, Nocturia, Penile Discharge, Testicular Pain, Testicular Swelling Musculoskeletal: DENIES: Joint pain, Muscle aches, Stiffness, Joint Swelling, Back pain, Neck pain Integumentary: DENIES: Abnormal pigmentation, Nail changes, Pruritus, Rash Hematologic/lymphatic: DENIES: Bruising, Lymphadenopathy Immunologic/allergic: DENIES: Eczema, Urticaria Neurologic: DENIES: Abnormal gait, Headache, Localized weakness, Paresthesias, Seizures, Speech Problems, Tremor, Poor Balance Psychiatric: DENIES: Anxiety, Confusion, Mood changes, Depression, Hallucinations, Agitation, Suicidal Ideation, Homicidal Ideation, Delusions Except as stated in HPI: all other systems reviewed are Neg Past Family Social History Allergies: Coded Allergies: Hydrocodone (Verified Allergy, Severe, RASH, 03/07/15) Lisinopril (Verified Allergy, Severe, esophageal spasms, 03/07/15) Pentoxifylline (Verified Allergy, Severe, 03/07/15) Pletal (Verified Allergy, Severe, tachycardia.PENTOXIFYLINE CAUSES UNKNOWN REACTION, 03/07/15) Nonsteroidal Anti-Inflammatory Agts (Verified Allergy, Intermediate, RED RASH, 03/07/15) Sulfa (Verified Adverse Reaction, Unknown, 03/07/15) Past Medical History History of atrial fibrillation Dementia Questionable TIA History bacteremia History of benign polyps Abdomen aneurysm Cataracts Past Surgical History 1. He has had rotator cuff repair in 2013. 2. He had a colonoscopy [place] [address] Adkins and may have had another scope done 2014 by [facility]. 3. He has had nasal polyps removed. 4. He has had prostate seeds for prostate cancer. 5. He had a right hip replacement. 6. Left cataract extraction. 7. Right cataract extraction. 8. Left carpal tunnel surgery. 9. Left leg endarterectomy in 1991. 10. Esophageal dilation in the past. 11. He suffered a broken leg in 194. 12. Appendectomy in 194. Reported Medications Reported Meds & Active Scripts Active Reported Senior Vites (Multiple Vitamins W/ Minerals) 1 Tab Tab 1 Tab PO HS Atorvastatin (Atorvastatin Calcium) 80 Mg Tab 80 Mg PO HS Aricept (Donepezil) 10 Mg Tab 10 Mg PO HS Singulair (Montelukast Sodium) 10 Mg Tab 10 Mg PO HS Metoprolol Tartrate 25 Mg Tab 25 Mg PO BID Vitamin D-3 (Cholecalciferol) 1,000 Unit Tab 1,000 Units PO DAILY Align (Lactobacillus Rhamnosus (GG)) Unknown Strength Cap 1 Cap PO DAILY Judie Allergy (Fexofenadine HCl) 180 Mg Tab 180 Mg PO DAILY Omeprazole 20 Mg Tab 20 Mg PO DAILY Namenda (Memantine) 10 Mg Tab 10 Mg PO BID Eliquis (Apixaban) 2.5 Mg Tab 2.5 Mg PO BID Active Ordered Medications Current Medications Medications (Trade) Dose Ordered Sig/Yuri Route Start Time Stop Time Status Last Admin (02/22 NS 1000 ml Inj) 1,000 ml @ 75 mls/hr [id number] IV 04/29/16 16:39 04/29/16 19:09 (NS Flush) 2 ml UNSCH PRN FLUSH 04/29/16 16:45 (NS Flush) 2 ml BID FLUSH 04/29/16 21:00 (Zofran Inj) 4 mg Q6H PRN IVP 04/29/16 21:00 (Lovenox Inj) 40 mg Q24H SQ 04/29/16 18:00 Naloxone HCl 0.4 mg 0.4 mg UNSCH PRN IV 04/29/16 16:45 (Zosyn 3.375 Gm Premix) 50 ml @ 100 mls/hr Q6H IV 04/29/16 23:00 04/30/16 17:11 (Ecotrin Ec) 81 mg DAILY PO 04/30/16 09:00 04/30/16 09:26 (Lipitor) 80 mg HS PO 04/29/16 21:00 04/29/16 21:43 (Cardizem Cd) 120 mg DAILY PO 04/30/16 09:00 04/30/16 09:26 (Namenda) 10 mg BID PO 04/29/16 21:00 04/30/16 09:26 (Remeron) 15 mg HS PO 04/29/16 21:00 04/29/16 21:43 (Singulair) 10 mg DAILY PO 04/30/16 09:00 04/30/16 09:26 Donepezil HCl 10 mg 10 mg HS PO 04/29/16 21:00 04/29/16 21:43 (Diflucan 100 Mg Premix Bag) 50 ml @ 50 mls/hr Q24H IV 04/30/16 18:00 Family History reviewed and NC to ID issues. Social History Patient was at home with his . He smoked for 40+ years but stopped thirty years ago. Denies any alcohol is her drug use. Physical Exam Vital Signs Vital Signs Date Time Temp Pulse Resp B/P Pulse Ox O2 Delivery O2 Flow Rate FiO2 04/30/16 16:00 96.2 54 18 107/54 97 04/30/16 15:48 62 04/30/16 12:00 96.0 62 18 119/58 99 04/30/16 08:00 96.0 61 20 145/65 97 04/30/16 04:37 60 04/30/16 03:38 97.7 57 18 145/64 96 04/30/16 01:45 70 16 125/63 97 Room Air 04/29/16 21:45 65 16 145/70 97 Room Air 04/29/16 17:52 54 12 119/58 98 Room Air Physical Exam GENERAL: This is a well-nourished, well-developed patient, in no apparent distress. SKIN: No rashes, ecchymoses or lesions. Cool and dry. HEAD: Atraumatic. Normocephalic. No temporal or scalp tenderness. EYES: Pupils equal round and reactive. Extraocular motions intact. No scleral icterus. No injection or drainage. ENT: Nose without bleeding, purulent drainage or septal hematoma. Throat without erythema, tonsillar hypertrophy or exudate. Uvula midline. Airway patent. NECK: Trachea midline. No JVD or lymphadenopathy. Supple, nontender, no meningeal signs. CARDIOVASCULAR: Regular rate and rhythm without murmurs, gallops, or rubs. RESPIRATORY: Clear to auscultation. Breath sounds equal bilaterally. No wheezes , rales, or rhonchi. GASTROINTESTINAL: Abdomen soft, non-tender, nondistended. No hepato-splenomegaly , or palpable masses. No guarding. MUSCULOSKELETAL: Extremities without clubbing, cyanosis, or edema. No joint tenderness, effusion, or edema noted. No calf tenderness. Negative Homans sign bilaterally. NEUROLOGICAL: Awake and alert. Grossly non focal Psych: cooperative IV line sites with no e.o infection. Laboratory Laboratory Tests Test 04/30/16 06:28 White Blood Count 10.1 Red Blood Count 4.38 Hemoglobin 12.9 Hematocrit 38.6 Mean Corpuscular Volume 88.2 Mean Corpuscular Hemoglobin 29.4 Mean Corpuscular Hemoglobin 33.4 Concent Red Cell Distribution Width 14.3 Platelet Count 284 Mean Platelet Volume 8.0 Sodium Level 142 Potassium Level 4.0 Chloride Level 108 Carbon Dioxide Level 25.6 Anion Gap 8 Blood Urea Nitrogen 8 Creatinine 0.75 Estimat Glomerular Filtration 99 Rate Random Glucose 88 Calcium Level 9.3 Date/Time Procedure Status Source Growth 04/29/16 16:00 Aerobic Blood Culture - Preliminary Resulted Blood Peripheral NO GROWTH IN 1 DAY 04/29/16 16:00 Anaerobic Blood Culture - Preliminary Resulted Blood Peripheral NO GROWTH IN 1 DAY Result Diagram: 04/30/1628 04/30/16627 Assessment and Plan Assessment and Plan 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 s/p Open surgical repair of enlarging pararenal aortic aneurysm (May 2007). Recs: Continue Zosyn IV Start Diflucan IV Follow blood cultures. Check CRP. Follow WBC Scan results. Await Vascular surgery input. If patient undergoes surgery recommend sending specimen to micro as well as pathology. covering for me this weekend. Shannan Luong MD Apr 30, 2016 16:59
[2016-04-30] MEDS: ENOXAPARIN SODIUM 40 MG/0.4 ML SYRINGE SQ SCH (17:01)
[2016-04-30] MEDS: FLUCONAZOLE 100 MG PREMIX BAG 50 ML IV SCH (18:31)
--- NOTE | 2016-04-30 19:57 | EKG ---
Date Performed: 04/29/2016 Time Performed: 15:50:34 PTAGE: 85 years EKG: SINUS BRADYCARDIA BORDERLINE ECG PREVIOUS TRACING : 03/07/2015 20.43 Compared to the previous tracing, now sinus bradycardia DOCTOR: Jose Ramos Interpretating Date/Time 05/03/2016 07:54:38
[2016-04-30] MEDS: DONEPEZIL HCL 5 MG TAB PO SCH (21:12)
[2016-04-30] MEDS: MIRTAZAPINE 15 MG TAB PO SCH (21:12)
[2016-04-30] MEDS: ATORVASTATIN 80 MG TAB PO SCH (21:12)
[2016-05-01] VITALS (8 sets, daily range): BP systolic 102–135; BP diastolic 51–63; PULSE 55–67; RESP 16–22; TEMP 95.7–98.2; O2SAT 93–98
[2016-05-01] MEDS: PIPERACIL-TAZO 3.375 GM PREMIX 50 ML IV SCH ×4 (06:00→23:51)
[2016-05-01] MEDS: SODIUM CHLORIDE 0.9% FLUSH 5 ML FLUSH FLUSH SCH ×2 (09:00→20:56)
[2016-05-01] MEDS: DILTIAZEM-CD 120 MG CAP ER PO SCH (09:23)
[2016-05-01] MEDS: MEMANTINE HCL 10 MG TAB PO SCH ×2 (09:23→20:56)
[2016-05-01] MEDS: ASPIRIN EC 81 MG TABEC PO SCH (09:23)
[2016-05-01] MEDS: MONTELUKAST SODIUM 10 MG TAB PO SCH (09:23)
--- NOTE | 2016-05-01 10:27 | RADRPT ---
EXAM DATE/TIME: 04/30/2016 11:08 [facility] COMPARISON: No previous studies available for comparison. EXTERNAL COMPARISON : [facility], CT ABDOMEN AND PELVIS WITH CONTRAST, April 29, 2016 INDICATIONS : Infection. Abdominal abscess. Aortic enteric fistula. Abdominal pain for two weeks. DOSE: 20.5 mCi Tc99m Ceretec labeled white blood cells IV PLANAR IMAGIN min, 3 hrs, 20 hrs SPECT IMAGIN hrs IMAGNG: SPECT/CT imaging with fusion was performed. RADIATION DOSE: 4.67 CTDIvol (mGy) MEDICAL HISTORY : Carcinoma, prostate. Dementia. Gastroesophageal reflux disease. SURGICAL HISTORY : Abdominal aortic aneurysm repair. Right hip replacement. ENCOUNTER: Initial ACUITY: 2 weeks PAIN SCALE: 5/10 LOCATION: Bilateral lower quadrant TECHNIQUE: Following the in vitro labeling of autologous white cells and reinjection, whole body scan was perfor med at the specified times. Imaging was performed at specified times in sagittal, axial and coronal planes. Attenuation correction was performed with computed tomography and both the attenuation corre ction and non-attenuation corrected data sets were reviewed. FINDINGS: There is a 3.7 cm abdominal aortic aneurysm. There is increased activity along the anterior left late ral aspect of the distal abdominal aorta. There some minimal activity seen in the sigmoid colon. Ther e are diverticula seen throughout the sigmoid colon. No abscess is seen. CONCLUSION: Increased activity at the anterior left lateral aspect of the aorta consistent with aortitis. Jed Major MD on May 01, 2016 at 10:21 Board Certified Radiologist. This report was verified electronically.
--- NOTE | 2016-05-01 11:14 | HHI.GIFU ---
GI Follow-up Note Consult Follow-up Subjective: Patient laying in bed comfortably, no new complaints and denies abdominal pain. not present. Objective: PHYSICAL EXAMINATION: Vitals signs stable No fever ABDOMEN: Soft, nondistended, nontender. EXTREMITIES: No clubbing, cyanosis, or edema. SKIN: warm and dry. 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 Will review and discuss with Dr Zambrano. Can perform enteroscopy tuesday. ASSESSMENT/PLAN: It was a pleasure seeing Doni Lujan. Thank you for this consult. Entered by: Ciaran Armas MD May 01, 2016 11:14
--- NOTE | 2016-05-01 11:35 | HHI.PR ---
Subjective Remarks f/u for abdominal pain and infection. patient has no complaints. Denied any abdominal pain. remains afebrile. no N/V. Objective Vitals Vital Signs Date Time Temp Pulse Resp B/P Pulse Ox O2 Delivery O2 Flow Rate FiO2 05/01/16 08:00 96.0 60 18 135/63 96 05/01/16 04:17 97.9 67 22 129/58 93 05/01/16 01:53 97.8 63 16 112/57 94 04/30/16 20:04 96.4 58 18 115/56 96 04/30/16 20:00 58 04/30/16 16:00 96.2 54 18 107/54 97 04/30/16 15:48 62 04/30/16 12:00 96.0 62 18 119/58 99 I/O 04/30/16 04/30/16 04/30/16 05/01/16 05/01/16 05/01/16 07:00 15:00 23:00 07:00 15:00 23:00 Intake Total 560 ml 240 ml 690 ml Output Total 300 ml 250 ml 300 ml 250 ml Balance -300 ml 310 ml -60 ml 440 ml Intake Oral 560 ml 240 ml 240 ml IV Total 450 ml Output Urine Total 300 ml 250 ml 300 ml 250 ml # Voids 2 # Bowel Movements 0 Result Diagram: 04/30/1662704/30/16627 Objective Remarks GENERAL: in NAD CARDIOVASCULAR: Regular rate and rhythm without murmurs, gallops, or rubs. RESPIRATORY: Breath sounds equal bilaterally. No accessory muscle use. GASTROINTESTINAL: Abdomen soft, non-tender, nondistended. MUSCULOSKELETAL: No cyanosis, or edema. BACK: Nontender without obvious deformity. No CVA tenderness. Medications and IVs Current Medications Morphine Sulfate (Morphine Inj) 4 mg ONCE ONCE IV PUSH ; Start 04/29/16 at 15:15 ; Stop 04/29/16 at 15:16; Status DC Ondansetron HCl (Zofran Inj) 4 mg ONCE ONCE IVP ; Start 04/29/16 at 15:15; Stop 04/29/16 at 15:16; Status DC IV Flush 2 ml 2 ml UNSCH PRN IVF FLUSH AFTER USING IV ACCESS; Start 04/29/16 at 15:15; Stop 04/29/16 at 17:59; Status DC Piperacillin Sod/ Tazobactam Sod 100 ml @ 200 mls/hr ONCE ONCE IV Last administered on 04/29/16 16:53; Start 04/29/16 at 16:00; Stop 04/29/16 at 16:30; Status DC Sodium Chloride (1/2 NS 1000 ml Inj) 1,000 ml @ 75 mls/hr [id number] IV Last administered on 04/29/16 19:09; Start 04/29/16 at 16:39 IV Flush (NS Flush) 2 ml UNSCH PRN FLUSH FLUSH AFTER USING IV ACCESS; Start 04/29/16 at 16:45 IV Flush (NS Flush) 2 ml BID FLUSH ; Start 04/29/16 at 21:00 Ondansetron HCl (Zofran Inj) 4 mg Q6H PRN IVP NAUSEA OR VOMITING; Start at 21:00 Enoxaparin Sodium (Lovenox Inj) 40 mg Q24H SQ ; Start 04/29/16 at 18:00 Naloxone HCl 0.4 mg 0.4 mg UNSCH PRN IV SEE LABEL COMMENTS; Start 04/29/16 at 16 :45 Piperacillin Sod/ Tazobactam Sod (Zosyn 3.375 Gm Premix) 50 ml @ 100 mls/hr Q6H IV Last administered on 05/01/16 06:00; Start 04/29/16 at 23:00 Aspirin (Ecotrin Ec) 81 mg DAILY PO Last administered on 05/01/16 09:23; Start 04/30/16 at 09:00 Atorvastatin Calcium (Lipitor) 80 mg HS PO Last administered on 04/30/16 21:12 ; Start 04/29/16 at 21:00 Diltiazem HCl (Cardizem Cd) 120 mg DAILY PO Last administered on 05/01/16 09: 23; Start 04/30/16 at 09:00 Diltiazem HCl (Cardizem Cd) 300 mg DAILY PO ; Start 04/30/16 at 09:00; Status UNV Memantine (Namenda) 10 mg BID PO Last administered on 05/01/16 09:23; Start at 21:00 Mirtazapine (Remeron) 15 mg HS PO Last administered on 04/30/16 21:12; Start 04/29/16 at 21:00 Montelukast Sodium (Singulair) 10 mg DAILY PO Last administered on 05/01/16 09 :23; Start 04/30/16 at 09:00 Donepezil HCl 10 mg 10 mg HS PO Last administered on 04/30/16 21:12; Start 04/29/16 at 21:00 Fluconazole/ Sodium Chloride (Diflucan 100 Mg Premix Bag) 50 ml @ 50 mls/hr Q24H IV Last administered on 04/30/16 18:31; Start 04/30/16 at 18:00 A/P Assessment and Plan 85 y/o with a history of abdominal aortic repair Acute abdominal pain -asymptomatic at the moment. 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 -continue Zosyn. - WBC scan shows aortitis. -Vascular and GI ff. -ID started dilfucan and continue with zosyn. History of atrial fibrillation, chronic anticoagulation, dementia, peripheral vascular disease -per vascular wants to proceed with endoscopic evaluation will need to hold eliquis. -continue with current medication. DVT prophylaxis -On Lovenox but eliquis held for possible surgery. If no surgery will restart eliquis. Discharge Planning patient continues to require IV medication. Margareth Khan MD May 01, 2016 11:35
[2016-05-01] MEDS: SODIUM CHLOR 0.45% 1000 ML INJ 1,000 ML IV SCH ×2 (18:30→20:56)
[2016-05-01] MEDS: FLUCONAZOLE 100 MG PREMIX BAG 50 ML IV SCH (18:33)
[2016-05-01] MEDS: ENOXAPARIN SODIUM 40 MG/0.4 ML SYRINGE SQ SCH (18:37)
[2016-05-01] MEDS: ATORVASTATIN 80 MG TAB PO SCH (20:56)
[2016-05-01] MEDS: MIRTAZAPINE 15 MG TAB PO SCH (20:56)
[2016-05-01] MEDS: DONEPEZIL HCL 5 MG TAB PO SCH (20:56)
[2016-05-02 04:00] VITALS: BP 116/49; PULSE 62; RESP 17; TEMP 97.7; O2SAT 98
[2016-05-02] MEDS: PIPERACIL-TAZO 3.375 GM PREMIX 50 ML IV SCH ×4 (04:12→23:05)
[2016-05-02] MEDS: MEMANTINE HCL 10 MG TAB PO SCH ×2 (07:46→20:42)
[2016-05-02] MEDS: MONTELUKAST SODIUM 10 MG TAB PO SCH (07:46)
[2016-05-02] MEDS: ASPIRIN EC 81 MG TABEC PO SCH (07:46)
[2016-05-02] MEDS: DILTIAZEM-CD 120 MG CAP ER PO SCH (07:46)
[2016-05-02] MEDS: SODIUM CHLORIDE 0.9% FLUSH 5 ML FLUSH FLUSH SCH ×2 (07:50→20:41)
[2016-05-02 08:02] VITALS: BP 117/49; PULSE 53; RESP 17; TEMP 97.6; O2SAT 97
--- NOTE | 2016-05-02 10:45 | HHI.GIFU ---
GI Follow-up Note Consult Follow-up Subjective: Patient laying in bed comfortably, no new complaints and denies any abd pain. Had a loose BM this am. at bedside. Objective: PHYSICAL EXAMINATION: Vitals signs stable No fever HEENT: Anicteric CHEST: non-labored breathing CARDIAC: Regular rate and rhythm. ABDOMEN: Soft, nondistended, nontender. EXTREMITIES: No clubbing, cyanosis, or edema. 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 Available Data (labs, X- Rays, Procedues) : ASSESSMENT/PLAN: 1. Aortitis-no pain since starting Abx. Before proceeding with enteroscopy I would like to discuss with Dr Zambrano. May be best to give extended Abx Tx before enteroscopy. If continues to develop diarrhea should check for C.Diff. It was a pleasure seeing Doni Lujan. Thank you for this consult. Entered by: Ciaran Armas MD May 02, 2016 10:45
[2016-05-02 11:50] VITALS: BP 124/47; PULSE 59; RESP 19; TEMP 97.5; O2SAT 96
--- NOTE | 2016-05-02 12:15 | HHI.PR ---
Subjective Remarks f/u for aortitis is at the bedside. Patient has no complaints. Tolerating PO intake. small bout of watery stool this morning. Denied any N/V or abdominal pain. Objective Vitals Vital Signs Date Time Temp Pulse Resp B/P Pulse Ox O2 Delivery O2 Flow Rate FiO2 05/02/16 11:50 97.5 59 19 124/47 96 05/02/16 08:02 97.6 53 17 117/49 97 05/02/16 04:00 97.7 62 17 116/49 98 05/01/16 23:00 98.2 60 17 102/51 97 05/01/16 22:00 61 05/01/16 19:24 97.9 60 21 134/62 98 05/01/16 16:00 95.9 55 18 127/60 98 I/O 05/01/16 05/01/16 05/01/16 05/02/16 05/02/16 05/02/16 07:00 15:00 23:00 07:00 15:00 23:00 Intake Total 690 ml 480 ml 1790 ml 1812 ml 120 ml Output Total 250 ml 300 ml 250 ml 300 ml Balance 440 ml 180 ml 1540 ml 1512 ml 120 ml Intake Oral 240 ml 480 ml 1040 ml 240 ml 120 ml IV Total 450 ml 750 ml 1572 ml Output Urine Total 250 ml 300 ml 250 ml 300 ml # Voids 2 5 # Bowel Movements 0 Result Diagram: 04/30/1662704/30/16627 Objective Remarks GENERAL: in NAD CARDIOVASCULAR: Regular rate and rhythm without murmurs, gallops, or rubs. RESPIRATORY: Breath sounds equal bilaterally. No accessory muscle use. GASTROINTESTINAL: Abdomen soft, non-tender, nondistended. MUSCULOSKELETAL: No cyanosis, or edema. BACK: Nontender without obvious deformity. No CVA tenderness. Medications and IVs Current Medications Morphine Sulfate (Morphine Inj) 4 mg ONCE ONCE IV PUSH ; Start 04/29/16 at 15:15 ; Stop 04/29/16 at 15:16; Status DC Ondansetron HCl (Zofran Inj) 4 mg ONCE ONCE IVP ; Start 04/29/16 at 15:15; Stop 04/29/16 at 15:16; Status DC IV Flush 2 ml 2 ml UNSCH PRN IVF FLUSH AFTER USING IV ACCESS; Start 04/29/16 at 15:15; Stop 04/29/16 at 17:59; Status DC Piperacillin Sod/ Tazobactam Sod 100 ml @ 200 mls/hr ONCE ONCE IV Last administered on 04/29/16 16:53; Start 04/29/16 at 16:00; Stop 04/29/16 at 16:30; Status DC Sodium Chloride (1/2 NS 1000 ml Inj) 1,000 ml @ 75 mls/hr [id number] IV Last administered on 05/01/16 20:56; Start 04/29/16 at 16:39 IV Flush (NS Flush) 2 ml UNSCH PRN FLUSH FLUSH AFTER USING IV ACCESS; Start 04/29/16 at 16:45 IV Flush (NS Flush) 2 ml BID FLUSH ; Start 04/29/16 at 21:00 Ondansetron HCl (Zofran Inj) 4 mg Q6H PRN IVP NAUSEA OR VOMITING; Start at 21:00 Enoxaparin Sodium (Lovenox Inj) 40 mg Q24H SQ Last administered on 05/01/16 18 :37; Start 04/29/16 at 18:00 Naloxone HCl 0.4 mg 0.4 mg UNSCH PRN IV SEE LABEL COMMENTS; Start 04/29/16 at 16 :45 Piperacillin Sod/ Tazobactam Sod (Zosyn 3.375 Gm Premix) 50 ml @ 100 mls/hr Q6H IV Last administered on 05/02/16 11:17; Start 04/29/16 at 23:00 Aspirin (Ecotrin Ec) 81 mg DAILY PO Last administered on 05/02/16 07:46; Start 04/30/16 at 09:00 Atorvastatin Calcium (Lipitor) 80 mg HS PO Last administered on 05/01/16 20:56 ; Start 04/29/16 at 21:00 Diltiazem HCl (Cardizem Cd) 120 mg DAILY PO Last administered on 05/02/16 07: 46; Start 04/30/16 at 09:00 Diltiazem HCl (Cardizem Cd) 300 mg DAILY PO ; Start 04/30/16 at 09:00; Status UNV Memantine (Namenda) 10 mg BID PO Last administered on 05/02/16 07:46; Start at 21:00 Mirtazapine (Remeron) 15 mg HS PO Last administered on 05/01/16 20:56; Start 04/29/16 at 21:00 Montelukast Sodium (Singulair) 10 mg DAILY PO Last administered on 05/02/16 07 :46; Start 04/30/16 at 09:00 Donepezil HCl 10 mg 10 mg HS PO Last administered on 05/01/16 20:56; Start 04/29/16 at 21:00 Fluconazole/ Sodium Chloride (Diflucan 100 Mg Premix Bag) 50 ml @ 50 mls/hr Q24H IV Last administered on 05/01/16 18:33; Start 04/30/16 at 18:00 Apixaban (Eliquis) 2.5 mg BID PO ; Start 05/02/16 at 11:30 A/P Assessment and Plan 85 y/o with a history of abdominal aortic repair Aortitis -asymptomatic at the moment. 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 -continue Zosyn. - WBC scan shows aortitis. -Vascular and GI ff. -on dilfucan and zosyn per ID. - d/w Dr. Rosales over the phone. He wants to hold off on the enteroscopy and stated he will speak to Dr. Zambrano. History of atrial fibrillation, chronic anticoagulation, dementia, peripheral vascular disease -d/w Dr. Rosales since procedure is being held he is okay with me restarting eliquis. I will restart that today. -continue with current medication. watery stool -small amount. -continue to monitor. -start probiotics. DVT prophylaxis -since I am restarting eliquis will d/c lovenox Discharge Planning patient continues to require IV medication and possible procedure. Margareth Khan MD May 02, 2016 12:15
[2016-05-02] MEDS: SODIUM CHLOR 0.45% 1000 ML INJ 1,000 ML IV SCH (12:23)
[2016-05-02] MEDS: APIXABAN 2.5 MG TABLET PO SCH ×2 (12:26→20:42)
[2016-05-02] MEDS: LACTOBACILLUS ACIDOPHILUS TAB PO SCH ×2 (12:58→17:22)
[2016-05-02 16:00] VITALS: BP 99/51; PULSE 57; RESP 17; TEMP 98; O2SAT 98
[2016-05-02] MEDS: FLUCONAZOLE 100 MG PREMIX BAG 50 ML IV SCH (18:01)
[2016-05-02 20:00] VITALS: BP 121/60; PULSE 58; PULSE 61; RESP 17; TEMP 98.3; O2SAT 97
[2016-05-02] MEDS: ATORVASTATIN 80 MG TAB PO SCH (20:41)
[2016-05-02] MEDS: MIRTAZAPINE 15 MG TAB PO SCH (20:42)
[2016-05-02] MEDS: DONEPEZIL HCL 5 MG TAB PO SCH (20:42)
[2016-05-03] VITALS (7 sets, daily range): BP systolic 124–163; BP diastolic 60–68; PULSE 58–73; RESP 17–19; TEMP 96.3–98.2; O2SAT 93–98
[2016-05-03] MEDS: SODIUM CHLOR 0.45% 1000 ML INJ 1,000 ML IV SCH ×2 (00:13→14:39)
[2016-05-03 05:11] LABS: HEMATOCRIT 34.7 % (39.0-51.0); MEAN CELL VOLUME 87.2 FL (80.0-100.0); MEAN CORPUSCULAR HEMOGLOBIN 29.1 PG (27.0-34.0); MEAN CORPUSCULAR HGB CONC 33.3 % (32.0-36.0); PLATELET COUNT 299 TH/MM3 (150-450); RED BLOOD COUNT 3.98 MIL/MM3 (4.50-5.90); RED CELL DISTRIBUTION WIDTH 14.4 % (11.6-17.2); REVIEW FLAG FINAL
[2016-05-03] MEDS: PIPERACIL-TAZO 3.375 GM PREMIX 50 ML IV SCH ×3 (05:14→16:46)
[2016-05-03 05:33] LABS: BICARBONATE 24.8 MEQ/L (21.0-32.0); POTASSIUM 3.8 MEQ/L (3.5-5.1)
[2016-05-03] MEDS: SODIUM CHLORIDE 0.9% FLUSH 5 ML FLUSH FLUSH SCH ×2 (09:00→21:00)
[2016-05-03] MEDS: LACTOBACILLUS ACIDOPHILUS TAB PO SCH ×3 (10:05→16:46)
[2016-05-03] MEDS: APIXABAN 2.5 MG TABLET PO SCH ×2 (10:06→21:00)
[2016-05-03] MEDS: MEMANTINE HCL 10 MG TAB PO SCH ×2 (10:06→21:00)
[2016-05-03] MEDS: MONTELUKAST SODIUM 10 MG TAB PO SCH (10:07)
[2016-05-03] MEDS: ASPIRIN EC 81 MG TABEC PO SCH (10:07)
[2016-05-03] MEDS: DILTIAZEM-CD 120 MG CAP ER PO SCH (10:07)
--- NOTE | 2016-05-03 14:01 | HHI.IDPN ---
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 Patient is a very poor historian secondary to dementia and most medical history taken from medical records. Per patient's patient's been having diarrhea for the past 5-6 weeks that has been intermittent. She then stated that three weeks ago he started to have abdominal pain. Patient went to see Dr. 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 Patient has been seen by Vascular Surgery and underwent a WBC scan. ID is following for evaluation and Mment of abdominal aortic fistula and possible aortitis. Overnight events reviewed No fevers No rash No diarrhea Patients reports dementia is mild. She also reports symptoms of watery diarrhea since feb 2016. She also reports patient has been on flagyl prior to admission. Antibiotics Zosyn IV Diflucan IV Lines Line sites with no e.o infection. Past Medical History reviewed Allergies: Coded Allergies: Hydrocodone (Verified Allergy, Severe, RASH, 03/07/15) Lisinopril (Verified Allergy, Severe, esophageal spasms, 03/07/15) Pentoxifylline (Verified Allergy, Severe, 03/07/15) Pletal (Verified Allergy, Severe, tachycardia.PENTOXIFYLINE CAUSES UNKNOWN REACTION, 03/07/15) Nonsteroidal Anti-Inflammatory Agts (Verified Allergy, Intermediate, RED RASH, 03/07/15) Sulfa (Verified Adverse Reaction, Unknown, 03/07/15) Objective . Vital Signs Date Time Temp Pulse Resp B/P Pulse Ox O2 Delivery O2 Flow Rate FiO2 05/03/16 11:59 96.5 67 18 140/64 97 05/03/16 08:00 96.7 62 17 163/68 93 05/03/16 04:00 97.8 71 17 124/61 96 05/03/16 00:00 98.1 73 17 130/61 94 05/02/16 20:00 98.3 61 17 121/60 97 05/02/16 20:00 58 05/02/16 16:00 98.0 57 17 99/51 98 05/02/16 05/02/16 05/03/16 15:00 23:00 07:00 Intake Total 1300 ml 712 ml 890 ml Output Total 400 ml 900 ml 400 ml Balance 900 ml -188 ml 490 ml Intake Oral 600 ml 240 ml 240 ml IV Total 700 ml 472 ml 650 ml Output Urine Total 400 ml 900 ml 400 ml # Bowel Movements 1 . Laboratory Tests Test 05/03/16 04:23 White Blood Count 8.0 TH/MM3 Red Blood Count 3.98 MIL/MM3 Hemoglobin 11.6 GM/DL Hematocrit 34.7 % Mean Corpuscular Volume 87.2 FL Mean Corpuscular Hemoglobin 29.1 PG Mean Corpuscular Hemoglobin 33.3 % Concent Red Cell Distribution Width 14.4 % Platelet Count 299 TH/MM3 Mean Platelet Volume 7.9 FL Laboratory Tests Test 05/02/16 05/03/16 13:55 04:23 C-Reactive Protein 1.90 MG/DL Sodium Level 143 MEQ/L Potassium Level 3.8 MEQ/L Chloride Level 110 MEQ/L Carbon Dioxide Level 24.8 MEQ/L Anion Gap 8 MEQ/L Blood Urea Nitrogen 6 MG/DL Creatinine 0.64 MG/DL Estimat Glomerular Filtration 119 ML/MIN Rate Random Glucose 89 MG/DL Calcium Level 9.3 MG/DL Imaging Last Impressions Tumor Localization 04/30/16 0000 Signed Impressions: Service Date/Time: Saturday, April 30, 2016 11:08 - CONCLUSION: Increased activity at the anterior left lateral aspect of the aorta consistent with aortitis. Jed Major MD Physical Exam GENERAL: This is a well-nourished, well-developed patient, in no apparent distress. SKIN: No rashes, ecchymoses or lesions. Cool and dry. HEAD: Atraumatic. Normocephalic. No temporal or scalp tenderness. EYES: Pupils equal round and reactive. Extraocular motions intact. No scleral icterus. No injection or drainage. ENT: Nose without bleeding, purulent drainage or septal hematoma. Throat without erythema, tonsillar hypertrophy or exudate. Uvula midline. Airway patent. NECK: Trachea midline. Supple, nontender, no meningeal signs. CARDIOVASCULAR: HS audible. No murmur. RESPIRATORY: Clear to auscultation. Breath sounds equal bilaterally. GASTROINTESTINAL: Abdomen soft, non-tender, nondistended. MUSCULOSKELETAL: Extremities without clubbing, cyanosis, or edema. No joint tenderness, effusion, or edema noted. No calf tenderness. Negative Homans sign bilaterally. NEUROLOGICAL: Awake and alert. Grossly non focal Psych: cooperative IV line sites with no e.o infection. 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 s/p Open surgical repair of enlarging pararenal aortic aneurysm (May 2007). Recs: Continue Zosyn IV Continue Diflucan IV Follow blood cultures. Reviewed WBC scan results concerning for infection related aortitis. Follow RPR, hepatitis and HIV as part of workup for aortitis. Await Vascular surgery input. If patient undergoes surgery recommend sending specimen to micro as well as pathology. [email or web address] patients D.w Shannan Elliott MD May 03, 2016 14:01
--- NOTE | 2016-05-03 16:02 | HHI.PR ---
Subjective Remarks f/u for abdominal pain. Patient has no complaints. Denied any N/V. his at bedside. patient stated he is doing well. Objective Vitals Vital Signs Date Time Temp Pulse Resp B/P Pulse Ox O2 Delivery O2 Flow Rate FiO2 05/03/16 11:59 96.5 67 18 140/64 97 05/03/16 08:00 96.7 62 17 163/68 93 05/03/16 04:00 97.8 71 17 124/61 96 05/03/16 00:00 98.1 73 17 130/61 94 05/02/16 20:00 98.3 61 17 121/60 97 05/02/16 20:00 58 05/02/16 16:00 98.0 57 17 99/51 98 I/O 05/02/16 05/02/16 05/02/16 05/03/16 05/03/16 05/03/16 07:00 15:00 23:00 07:00 15:00 23:00 Intake Total 1812 ml 1300 ml 712 ml 890 ml 720 ml Output Total 300 ml 400 ml 900 ml 400 ml 850 ml Balance 1512 ml 900 ml -188 ml 490 ml -130 ml Intake Oral 240 ml 600 ml 240 ml 240 ml 720 ml IV Total 1572 ml 700 ml 472 ml 650 ml Output Urine Total 300 ml 400 ml 900 ml 400 ml 850 ml # Bowel Movements 1 1 Result Diagram: 05/03/16 0423 05/03/16 042 Objective Remarks GENERAL: in NAD CARDIOVASCULAR: Regular rate and rhythm without murmurs, gallops, or rubs. RESPIRATORY: Breath sounds equal bilaterally. No accessory muscle use. GASTROINTESTINAL: Abdomen soft, non-tender, nondistended. MUSCULOSKELETAL: No cyanosis, or edema. BACK: Nontender without obvious deformity. No CVA tenderness. Medications and IVs Current Medications Morphine Sulfate (Morphine Inj) 4 mg ONCE ONCE IV PUSH ; Start 04/29/16 at 15:15 ; Stop 04/29/16 at 15:16; Status DC Ondansetron HCl (Zofran Inj) 4 mg ONCE ONCE IVP ; Start 04/29/16 at 15:15; Stop 04/29/16 at 15:16; Status DC IV Flush 2 ml 2 ml UNSCH PRN IVF FLUSH AFTER USING IV ACCESS; Start 04/29/16 at 15:15; Stop 04/29/16 at 17:59; Status DC Piperacillin Sod/ Tazobactam Sod 100 ml @ 200 mls/hr ONCE ONCE IV Last administered on 04/29/16 16:53; Start 04/29/16 at 16:00; Stop 04/29/16 at 16:30; Status DC Sodium Chloride (1/2 NS 1000 ml Inj) 1,000 ml @ 75 mls/hr [id number] IV Last administered on 05/03/16 14:39; Start 04/29/16 at 16:39 IV Flush (NS Flush) 2 ml UNSCH PRN FLUSH FLUSH AFTER USING IV ACCESS; Start 04/29/16 at 16:45 IV Flush (NS Flush) 2 ml BID FLUSH ; Start 04/29/16 at 21:00 Ondansetron HCl (Zofran Inj) 4 mg Q6H PRN IVP NAUSEA OR VOMITING; Start at 21:00 Enoxaparin Sodium (Lovenox Inj) 40 mg Q24H SQ Last administered on 05/01/16 18 :37; Start 04/29/16 at 18:00; Stop 05/02/16 at 12:16; Status DC Naloxone HCl 0.4 mg 0.4 mg UNSCH PRN IV SEE LABEL COMMENTS; Start 04/29/16 at 16 :45 Piperacillin Sod/ Tazobactam Sod (Zosyn 3.375 Gm Premix) 50 ml @ 100 mls/hr Q6H IV Last administered on 05/03/16 14:42; Start 04/29/16 at 23:00 Aspirin (Ecotrin Ec) 81 mg DAILY PO Last administered on 05/03/16 10:07; Start 04/30/16 at 09:00 Atorvastatin Calcium (Lipitor) 80 mg HS PO Last administered on 05/02/16 20:41 ; Start 04/29/16 at 21:00 Diltiazem HCl (Cardizem Cd) 120 mg DAILY PO Last administered on 05/03/16 10: 07; Start 04/30/16 at 09:00 Diltiazem HCl (Cardizem Cd) 300 mg DAILY PO ; Start 04/30/16 at 09:00; Status UNV Memantine (Namenda) 10 mg BID PO Last administered on 05/03/16 10:06; Start at 21:00 Mirtazapine (Remeron) 15 mg HS PO Last administered on 05/02/16 20:42; Start 04/29/16 at 21:00 Montelukast Sodium (Singulair) 10 mg DAILY PO Last administered on 05/03/16 10 :07; Start 04/30/16 at 09:00 Donepezil HCl 10 mg 10 mg HS PO Last administered on 05/02/16 20:42; Start 04/29/16 at 21:00 Fluconazole/ Sodium Chloride (Diflucan 100 Mg Premix Bag) 50 ml @ 50 mls/hr Q24H IV Last administered on 05/02/16 18:01; Start 04/30/16 at 18:00 Apixaban (Eliquis) 2.5 mg BID PO Last administered on 05/03/16 10:06; Start at 11:30 Lactobacillus Acidophilus (Lactinex) 1 tab TID PO Last administered on 14:39; Start 05/02/16 at 13:00 A/P Assessment and Plan 85 y/o with a history of abdominal aortic repair Aortitis -asymptomatic at the moment. 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 -continue Zosyn. - WBC scan shows aortitis. -Vascular and GI ff. -on dilfucan and zosyn per ID. - d/w Dr. Zambrano over the phone. He stated that patient is high risk for complication with surgery so want to continue with conservative management since he is doing well. recommend antibiotics per ID and f/u with him in 2 weeks. He will repeat the scan today. -d/w ID and need ECHO for final antibiotics recommendations. Due to dx he will need IV antibiotics. History of atrial fibrillation, chronic anticoagulation, dementia, peripheral vascular disease -on eliquis. -continue with current medication. watery stool -small amount. -continue to monitor. -on probiotics. DVT prophylaxis -on eliquis Discharge Planning patient will need long course IV antibiotics pending ECHO. Margareth Khan MD May 03, 2016 16:02
[2016-05-03] MEDS: FLUCONAZOLE 100 MG PREMIX BAG 50 ML IV SCH (16:43)
[2016-05-03] MEDS ORDERED: cefTRIAXone INJ 2,000 MG in SODIUM CHLORIDE 0.9% INJ 100 ML IV SCH (21:00)
[2016-05-03] MEDS: DONEPEZIL HCL 5 MG TAB PO SCH (21:00)
[2016-05-03] MEDS: MIRTAZAPINE 15 MG TAB PO SCH (21:00)
[2016-05-03] MEDS: ATORVASTATIN 80 MG TAB PO SCH (21:00)
--- NOTE | 2016-05-03 21:02 | HHI.PR ---
Addendum to Inpatient Note Addendum Reason: Additional Documentation Additional Information d/w : who in turn d.w : conservative medical management as infective aortitis at present time. DC Zosyn IV DC Diflucan IV Start Ceftriaxone IV Start flagyl oral. Will follow 2D ECHO results in am PICC line consult. Will provide DC antibiotic orders in am. Shannan Luong MD May 03, 2016 21:02
[2016-05-03] MEDS ORDERED: SOLU250I IV PUSH (21:04)
[2016-05-03] MEDS ORDERED: EPIN1INJ21 SQ (21:04)
[2016-05-03] MEDS ORDERED: EPIN1INJ21 IV PUSH (21:04)
[2016-05-03] MEDS ORDERED: CEFT2INJ2 IV (21:04)
[2016-05-03] MEDS ORDERED: METR-1 PO (21:06)
--- NOTE | 2016-05-03 21:11 | HHI.FF ---
cc: Clinton Clements MD; Nilda Rangel MD Infusion Therapy Location of Infusion Therapy: [facility] IV Infusion Order Patient Information Appointment Date: May 03, 2016 Patient Weight 71 kg Diagnosis: Diagnosis Infective aortitis Coded Allergies: Hydrocodone (Verified Allergy, Severe, RASH, 03/07/15) Lisinopril (Verified Allergy, Severe, esophageal spasms, 03/07/15) Pentoxifylline (Verified Allergy, Severe, 03/07/15) Pletal (Verified Allergy, Severe, tachycardia.PENTOXIFYLINE CAUSES UNKNOWN REACTION, 03/07/15) Nonsteroidal Anti-Inflammatory Agts (Verified Allergy, Intermediate, RED RASH, 03/07/15) Sulfa (Verified Adverse Reaction, Unknown, 03/07/15) Administer Medication Ceftriaxone 2 grams IV q 24 hours Start Treatment: May 03, 2016 Stop Treatment: Jun 11, 2016 Additional Information Additional Medications flagyl 500 mg po tid for 30 days. Venous access: PICC Line Additional Instructions [x] Peripheral flush and dressing changes per protocol [x] Implanted port and central pipelines manager: * Implanted port: 10 ml Normal Saline followed by 5 ml Heparin 100 units/ml Heparin flush after each use and monthly to maintain. [] May leave port accessed during therapy. [] May leave peripheral site accessed for duration of therapy. [x] If patient has SOB or respiratory distress, check oxygen saturation. If less than 90% or clinical signs of respiratory distress, administer oxygen at 2 L/min. via nasal cannula and notify physician. [x] Anaphylaxis/Reaction orders: * Stop infusion. * Keep IV line open with saline flush. * Notify physician. * Monitor vital signs every 15 minutes until symptoms resolve. * Check Oxygen saturation; Oxygen at 2 L/min. via nasal cannula if less than 90% or clinical signs of respiratory distress. * Administer diphenhydramine (Benadryl) 25 mg IV STAT, (unless patient has received as pre-med). May repeat once, if necessary. * Solu-Cortef 250 mg IVP over 30-60 seconds, use 100 mg vials for each dissolution. * Epinephrine (1mg/1 ml) 0.3 mg subcutaneously or IVP now with any signs of respiratory distress. * Check with physician for new additional pre-med orders if patient is re- challenged or re-treated. [x] May remove PICC line when treatment complete, after confirming with Physician. [x] If the patient is admitted to the hospital, the ED, or transferred via [facility] , complete transfer form including medication reconciliation order sheet. Laboratory Tests Weekly Labs: CBC w/diff, Creatinine, CRP, LFT's (Hepatic function test) Additional Information Please draw weekly labs, fax to number below and Call with abnormals, change in clinical condition or problems to: Dr.Reba Rangel or or covering ID Physician Follow up appt: Patient to schedule follow up appt with Dr.Reba Rangel within 2 weeks post discharge. Follow up with PCP Follow up with other MDs as planned. Counseling: Counseled about medication side effects Counseled about PICC line care and hand hygiene. Shannan Luong MD May 03, 2016 21:11
[2016-05-03] MEDS: metroNIDAZOLE 500 MG TAB PO SCH (22:00)
[2016-05-04 01:10] VITALS: BP 132/60; PULSE 70; RESP 18; TEMP 98.5; O2SAT 94
[2016-05-04 04:36] VITALS: BP 120/53; PULSE 67; RESP 18; TEMP 98.2; O2SAT 94
[2016-05-04] MEDS: metroNIDAZOLE 500 MG TAB PO SCH ×2 (05:47→14:21)
[2016-05-04] MEDS: SODIUM CHLOR 0.45% 1000 ML INJ 1,000 ML IV SCH (05:47)
[2016-05-04 08:05] VITALS: BP 118/56; PULSE 57; RESP 18; TEMP 96.3; O2SAT 94
[2016-05-04] MEDS: ASPIRIN EC 81 MG TABEC PO SCH (08:09)
[2016-05-04] MEDS: APIXABAN 2.5 MG TABLET PO SCH (08:09)
[2016-05-04] MEDS: LACTOBACILLUS ACIDOPHILUS TAB PO SCH ×2 (08:10→13:00)
[2016-05-04] MEDS: MEMANTINE HCL 10 MG TAB PO SCH (08:10)
[2016-05-04] MEDS: MONTELUKAST SODIUM 10 MG TAB PO SCH (08:10)
[2016-05-04] MEDS: DILTIAZEM-CD 120 MG CAP ER PO SCH (08:11)
[2016-05-04] MEDS: SODIUM CHLORIDE 0.9% FLUSH 5 ML FLUSH FLUSH SCH (08:11)
--- NOTE | 2016-05-04 08:46 | EC ---
Study Study Date:05/03/2016 STUDY CONCLUSIONS SUMMARY - Left ventricle: The cavity size was normal. Wall thickness was increased in a pattern of mild LVH. There was concentric hypertrophy. Systolic function was normal. The estimated ejection fraction was in the range of 60% to 65%. Wall motion was normal; there were no regional wall motion abnormalities. Features are consistent with a pseudonormal left ventricular filling pattern, with concomitant abnormal relaxation and increased filling pressure (grade 2 diastolic dysfunction). - Mitral valve: Mildly calcified annulus. Mildly thickened leaflets, . - Pericardium, extracardiac: A small pericardial effusion was identified circumferential to the heart. There was no evidence of hemodynamic compromise. If LV function is below 40, please consider prescribing an ACEI or ARB or document rationale for non-use. PROCEDURE DATA STUDY STATUS: Elective. Procedure: Transthoracic echocardiography. Image quality was good. Scanning was performed from the parasternal, apical, and subcostal acoustic windows. Study completion: The patient tolerated the procedure well. Transthoracic echocardiography. M-mode, complete 2D, complete spectral Doppler, and color Doppler. Height: Height: 69in. Weight: Weight: 155.7lb. Body mass index: BMI: 23kg/m^2. Body surface area: BSA: 1.86m^2. Patient status: Inpatient. CARDIAC ANATOMY LEFT VENTRICLE: The cavity size was normal. Wall thickness was increased in a pattern of mild LVH. There was concentric hypertrophy. Systolic function was normal. The estimated ejection fraction was in the range of 60% to 65%. Wall motion was normal; there were no regional wall motion abnormalities. Features are consistent with a pseudonormal left ventricular filling pattern, with concomitant abnormal relaxation and increased filling pressure (grade 2 diastolic dysfunction). AORTIC VALVE: Mildly thickened leaflets. Doppler: There was no stenosis. Trace to mild regurgitation. Peak gradient: 12mm Hg (S). MITRAL VALVE: Mildly calcified annulus. Mildly thickened leaflets, . Doppler: There was no evidence for stenosis. Trace regurgitation. Valve area by pressure half-time: 3.44cm^2. Indexed valve area by pressure half-time: 1.85cm^2/m^2. Peak gradient: 4mm Hg (D). LEFT ATRIUM: The atrium was mildly dilated. PULMONIC VALVE: Not well visualized. Doppler: There was no evidence for stenosis. Trace regurgitation. TRICUSPID VALVE: The valve appears to be grossly normal. Doppler: There was no evidence for stenosis. Trace to mild regurgitation. Peak gradient: 29mm Hg (D). PERICARDIUM: A small pericardial effusion was identified circumferential to the heart. There was no evidence of hemodynamic compromise. Patient weight: 155.7lb _Ejection fraction:_ 65-75% _Fractional shortening:_ 32% up to 5Kg 5-11.5Kg 11.6-22.9Kg 23-45Kg 45-57Kg Aortic Root 7-13 <17 13-22 17-27 17-27 LA diam 6-13 <23 24-38 33-47 37-40 RVID 10-17 7-15 7-15 7-18 8-17 LVIDd 12-22 <32 24-38 33-47 37-40 LVPW 2-4 3-6 5-7 6-8 7-8 IVS 2-4 3-6 5-7 6-8 7-8 BASIC MEASUREMENTS ADULT NORMAL Left ventricle LV internal dimension, ED, chordal *38.5 mm 43-52 level, PLAX LV internal dimension, ES, chordal *21.4 mm 23-38 level, PLAX Fractional shortening, chordal level, 44 % >29 PLAX LV posterior wall thickness, ED 12.2 mm IVS/LVPW ratio, ED 1.01 <1.3 Ventricular septum Septal thickness, ED 12.3 mm Aortic valve Leaflet separation *13 mm 15-26 Left atrium Anterior-posterior dimension 48 mm Anterior-posterior dimension index *2.58 cm/m^2 <2.2 BASIC MEASUREMENTS ADULT NORMAL Aortic valve Leaflet separation *13 mm 15-26 Aorta Root diameter, ED 33 mm 20-37 DOPPLER MEASUREMENTS ADULT NORMAL Aortic valve Peak velocity, S 175 cm/s Peak gradient, S 12 mm Hg Mitral valve Peak E-wave velocity 97.2 cm/s Peak A-wave velocity 69.1 cm/s Pressure half-time 64 ms Peak gradient, D 4 mm Hg Peak E/A ratio 1.4 Valve area, pressure half-time 3.44 cm^2 Valve area index, pressure half-time 1.85 cm^2/m^2 Tricuspid valve Peak gradient, D 29 mm Hg Maximal inflow velocity 271 cm/s Systemic veins Estimated CVP 10 mm Hg Pulmonic valve Peak velocity, S 77.4 cm/s LEGEND: Mean values are shown as u=mean value. Asterisk (*) auguste values outside specified normal range. Prepared and signed by Jose Ramos [id number]
--- NOTE | 2016-05-04 09:14 | HHI.GIFU ---
GI Follow-up Note Consult Follow-up Subjective: Patient laying in bed comfortably, denies any further abd pain and eating ok. 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 Aortitis-Per chart notes the plan is for outpt antibiotics per I.D. and f/u with Dr Zambrano in 2 weeks. I did not hear back from Dr Zamrbano regarding endoscopy. Myself or one of my partners available if endoscopic evaluation recommended in the future. Will sign off. It was a pleasure seeing Doni Lujan. Thank you for this consult. Entered by: Ciaran Armas MD May 04, 2016 09:14
--- NOTE | 2016-05-04 10:38 | RADRPT ---
EXAM DATE/TIME: 05/04/2016 10:08 [facility] COMPARISON: CHEST SINGLE AP, May 04, 2016, 9:55. INDICATIONS : Post repositioning of PICC line MEDICAL HISTORY : None. SURGICAL HISTORY : PICC line right arm ENCOUNTER: Subsequent ACUITY: 1 day PAIN SCORE: 0/10 LOCATION: Right chest FINDINGS: A single view of the chest demonstrates repositioning of a right upper extremity PICC line. Its tip i s now in the superior vena cava. Heart and mediastinal structures are stable. Lungs remain free of significant congestion or airspace disease. CONCLUSION: Repositioned right upper extremity PICC line which is now in good position. Erick Bailey MD on May 04, 2016 at 10:34 Board Certified Radiologist. This report was verified electronically.
--- NOTE | 2016-05-04 10:42 | RADRPT ---
EXAM DATE/TIME: 05/04/2016 09:55 [facility] COMPARISON: CHEST SINGLE AP, May 16, 2014, 17:30. INDICATIONS: PIC line placement. MEDICAL HISTORY: None. SURGICAL HISTORY: None. ENCOUNTER: Subsequent ACUITY: 3 days PAIN SCORE: 0/10 LOCATION: Right chest FINDINGS: There is a PICC line in place from the right arm. The tip is directed into the right internal jugula r vein and off the superior aspect of the image. The heart size is normal. There is some minimal in creased density identified at the right base. The left lung is clear. No effusion is seen. CONCLUSION: 1. PICC line in place from the right arm with the tip directed superiorly into the right internal ju gular vein. The superior aspect of the tip is not seen. 2. Patchy consolidation or atelectasis at the right lung base. Jed Major MD on May 04, 2016 at 10:32 Board Certified Radiologist. This report was verified electronically.
--- NOTE | 2016-05-04 11:25 | HHI.PR ---
Addendum to Inpatient Note Addendum Reason: Additional Documentation Additional Information ECHO reviewed: no vegetations. d/w : outpt follow up with no provided. office notified. Will sign off please call back if any change in clinical condition or questions. Shannan Luong MD May 04, 2016 11:25
--- NOTE | 2016-05-04 11:47 | HHI.FF ---
Face to Face Verification Diagnosis: (1) Dementia (2) Aortitis (3) COPD exacerbation (4) Atrial fibrillation Home Health Nursing Order: Medical education Signs/symptoms of disease process Medication education-adverse effect Nursing assessment with vital signs IV medication administration I have seen patient Doni Lujan on 05/04/16. My clinical findings support the need for the requested home health care services because: Ltd mobility - disease progression Limited ability to care for self High risk of falls Infection w/ risk of complications Injectable med education/admin I certify that my clinical findings support that this patient is homebound because: Impaired cognitive ability/safety Unsteady gait/balance Margareth Khan MD May 04, 2016 11:47
[2016-05-04 12:00] VITALS: BP 138/65; PULSE 66; RESP 19; TEMP 96.5; O2SAT 97
--- NOTE | 2016-05-04 15:47 | HHI.DS ---
Discharge Summary Admission Date Apr 29, 2016 at 16:01 Discharge Date: May 04, 2016 Admitting Diagnosis abdominal pain (1) Aortitis ICD Code: I77.6 Diagnosis: Principal Procedures none Brief History - From Admission Is [age] past medical history of abdominal aortic aneurysm repair, peripheral vascular disease status post endarterectomy, history of atrial fibrillation, and dementia who presented with abdominal pain. Patient is a very poor historian secondary to dementia and most medical history taken from his was at the bedside. Per patient's patient's been having diarrhea for the past 5-6 weeks that has been intermittent. She then stated that three weeks ago he started to have chronic abdominal pain. Patient went to see Dr. 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 At the moment patient denies any abdominal pain. He denies nausea or vomiting. Patient has never had any fevers the past few weeks. He has no complaints at all. CBC/BMP: 05/03/16 0423 05/03/16 0423 Significant Findings Laboratory Tests Test 05/02/16 05/03/16 13:55 04:23 C-Reactive Protein 1.90 MG/DL (0.00-0.30) Red Blood Count 3.98 MIL/MM3 (4.50-5.90) Hemoglobin 11.6 GM/DL (13.0-17.0) Hematocrit 34.7 % (39.0-51.0) Chloride Level 110 MEQ/L (98-107) Blood Urea Nitrogen 6 MG/DL (7-18) Imaging Last Impressions Chest X-Ray 05/04/16 0000 Signed Impressions: Service Date/Time: Wednesday, May 04, 2016 10:08 - CONCLUSION: Repositioned right upper extremity PICC line which is now in good position. Erick Bailey MD Tumor Localization 04/30/16 0000 Signed Impressions: Service Date/Time: Saturday, April 30, 2016 11:08 - CONCLUSION: Increased activity at the anterior left lateral aspect of the aorta consistent with aortitis. Jed Major MD PE at Discharge GENERAL: in NAD CARDIOVASCULAR: Regular rate and rhythm without murmurs, gallops, or rubs. RESPIRATORY: Breath sounds equal bilaterally. No accessory muscle use. GASTROINTESTINAL: Abdomen soft, non-tender, nondistended. MUSCULOSKELETAL: No cyanosis, or edema. BACK: Nontender without obvious deformity. No CVA tenderness. Pt update on day of discharge patient had no complaints. had a lot of questions on management. she was at the bedside. patient denied any abdominal pain. no n/v and remained afebrile. Hospital Course 85 y/o with a history of abdominal aortic repair Aortitis -presented with abdominal pain that resolved quickly. 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 -GI and vascular initially consulted and patient was put on Zosyn. -after WBC GI stated most likely GI system is not involved. - d/w Dr. Zambrano over the phone. He stated that patient is high risk for complication with surgery so want to continue with conservative management since he is doing well. recommend antibiotics per ID and f/u with him in 2 weeks. He will repeat scan at visit. -ID d/c with PICC on Rocephin and Flagyl for a total of 6 weeks of treatment.. History of atrial fibrillation, chronic anticoagulation, dementia, peripheral vascular disease -home medication resumed. watery stool -small amount due to antibiotics that resolved quickly. -was put on probiotics. Pt Condition on Discharge: Stable Discharge Disposition: Disch w/ Home Health Serv Discharge Time: > 30 minutes Discharge Instructions DIET: Follow Instructions for: Heart Healthy Diet Activities you can perform: Regular-No Restrictions Follow up Referrals: Appointment for Follow Up - 2 Weeks @ [facility] with Dr.Reba Rangel PCP Follow-up - 10 Days New Medications: Ceftriaxone Inj (Ceftriaxone Inj) 2 Gm/50 Ml Bagp 2 GM IV Q24H Infective aortitis Days 36 Ref 0 BAG Epinephrine Inj (Epinephrine Inj) 1 Mg/Ml Inj 0.3 MG IV PUSH ONCE PRN ALLERGIC REACTION #1 VIAL Epinephrine Inj (Epinephrine Inj) 1 Mg/Ml Inj 0.3 MG SQ ONCE Give with any signs of respiratory distress. PRN ALLERGIC REACTION #1 VIAL Hydrocortisone Inj (Solu-Cortef Inj) 250 Mg Inj 250 MG IV PUSH ONCE Give over 30-60 seconds. PRN ALLERGIC REACTION #1 Ref 0 VIAL Metronidazole (Flagyl) 500 Mg Tab 500 MG PO TID Infective aortitis Days 30 Ref 0 TAB Continued Medications: Apixaban (Eliquis) 2.5 Mg Tab 2.5 MG PO BID Blood Clot Prevention Ref 0 TAB Atorvastatin (Atorvastatin) 80 Mg Tab 80 MG PO HS Cholesterol Management #30 Ref 0 TAB Cholecalciferol (Vitamin D-3) 1,000 Unit Tab 1000 UNITS PO DAILY #30 Ref 0 TAB Donepezil (Aricept) 10 Mg Tab 10 MG PO HS Dementia #30 Ref 0 TAB Fexofenadine (Judie Allergy) 180 Mg Tab 180 MG PO DAILY Allergy Management #30 Ref 0 TAB Lactobacillus Rhamnosus (GG) (Align) Unknown Strength Cap 1 CAP PO DAILY Nutritional Supplement Ref 0 CAP Memantine (Namenda) 10 Mg Tab 10 MG PO BID Alzheimer Disease #30 Ref 0 TAB Metoprolol Tartrate (Metoprolol Tartrate) 25 Mg Tab 25 MG PO BID #60 Ref 0 TAB Montelukast (Singulair) 10 Mg Tab 10 MG PO HS #30 Ref 0 TAB Multiple Vitamins W/ Minerals (Senior Vites) 1 Tab Tab 1 TAB PO HS Omeprazole (Omeprazole) 20 Mg Tab 20 MG PO DAILY #30 Ref 0 TAB Margareth Khan MD May 04, 2016 15:46
== END 2016-05-04 17:31 | disposition home health service (06) | DRG 546 ==
LOC: NEPA 14:27 → NEDA 16:01 → NEDH 20:49 → NEPFCDU 04-30 02:45 → N07A 05-01 23:07
PROVIDERS: ADMIT Family Medicine; ATTEND Family Medicine
PROC: 02HV33Z Insertion of Infusion Device into Superior Vena Cava, Percutaneous Approach (ICD-10-PCS; principal; 2016-05-04)
DX: I77.6 Arteritis, unspecified (principal); I77.2 Rupture of artery; I48.91 Unspecified atrial fibrillation; F03.90 Unspecified dementia, unspecified severity, without behavioral disturbance, psychotic disturbance, mood disturbance, and anxiety; H91.90 Unspecified hearing loss, unspecified ear; R63.4 Abnormal weight loss; M19.90 Unspecified osteoarthritis, unspecified site; I10 Essential (primary) hypertension; I71.4 Abdominal aortic aneurysm, without rupture; I73.9 Peripheral vascular disease, unspecified; K21.9 Gastro-esophageal reflux disease without esophagitis; E78.5 Hyperlipidemia, unspecified; F32.9 Major depressive disorder, single episode, unspecified; F41.9 Anxiety disorder, unspecified; Z68.23 Body mass index [BMI] 23.0-23.9, adult; Z79.01 Long term (current) use of anticoagulants; Z85.46 Personal history of malignant neoplasm of prostate; Z86.73 Personal history of transient ischemic attack (TIA), and cerebral infarction without residual deficits; Z87.891 Personal history of nicotine dependence; Z88.2 Allergy status to sulfonamides; Z96.641 Presence of right artificial hip joint
CPT/HCPCS: 36569; 71010; 76937; 78806; 78807; 78999; 80048; 80053; 80074; 83605; 85025; 85027; 85610; 85730; 86140; 86592; 86703; 87040; 93005; 93306; 99284; A9569; J0696; J1450; J1650; J2543

== ENCOUNTER → 2016-08-20 | Outpatient (CLI) | payer MEDICARE ==
[~2016-08-20] MED LIST changes: +ALIG4CAP PO; -ALLE24TA PO; -AMOX875T PO; -APIX2.5 PO; +APIX2.5T PO; +ARIC10TA PO; +ATOR1TAB18 PO; +CEFT2INJ2 IV; -D31000TA PO; -DILT120C49 PO; -DILTCD300 PO; -DONE10TA14 PO; -ECOT81TA2 PO; +EPIN1INJ21 IV PUSH; +EPIN1INJ21 SQ; +FEXO15TA PO; -LIPI80TA16 PO; +METO25TA3 PO; +METR-1 PO; +OMEP20TA PO; -PRED10PA PO; -REME15TA PO; +SENITAB3 PO; +SOLU250I IV PUSH; +VITA10003 PO; -VITA500T49 PO; -ZITH200S PO
== END ==
LOC: PLAB 10:58
PROVIDERS: ATTEND Specialist
DX: I79.1 Aortitis in diseases classified elsewhere (principal)
CPT/HCPCS: 36415; 86140

== ENCOUNTER → 2016-10-12 | Outpatient (CLI) | payer MEDICARE ==
[~2016-10-12] MED LIST changes: +CEPH-460 PO; +DONE10TA7 PO; +FURO1TAB62 PO; +HYDR-3516 PO; +LEVA750T9 PO; +MULTTAB67 PO; +OXYGENDME NAS.CANULA; +POTA10CA PO; +VITA100064 PO
== END ==
LOC: PLAB 10:33
PROVIDERS: ATTEND Specialist
DX: I79.1 Aortitis in diseases classified elsewhere (principal)
CPT/HCPCS: 36415; 86140

== ENCOUNTER 2016-11-10 08:27 | Emergency (ER) | payer MEDICARE ==
[~2016-11-10] VITALS: Ht 175.3 cm; Wt 65.0 kg
[~2016-11-10 08:27] MED LIST changes: -CEPH-460 PO; -DONE10TA7 PO; -FURO1TAB62 PO; -HYDR-3516 PO; -LEVA750T9 PO; -MULTTAB67 PO; -OXYGENDME NAS.CANULA; -POTA10CA PO; -VITA100064 PO
[2016-11-10 08:39] VITALS: BP 134/63; PULSE 88; RESP 18; TEMP 99.7
[2016-11-10] MEDS ORDERED: VITA100064 PO (09:01)
[2016-11-10] MEDS ORDERED: MULTTAB67 PO (09:01)
[2016-11-10] MEDS ORDERED: DONE10TA7 PO (09:01)
--- NOTE | 2016-11-10 09:12 | PD ---
HPI Chief Complaint: Abdominal Pain Time Seen by Provider: 08:44 Travel History International Travel<30 days: No Contact w/Intl Traveler<30days: No Traveled to known affect area: No History of Present Illness HPI This patient is brought in by his . He has dementia and she provides the history. Tuesday he saw his infectious disease specialist Dr. Nilda Rangel and had a CT of abdomen and pelvis ordered to evaluate his aorta given his history of aortitis earlier this year. At that time he was feeling fine according to the . Literally the following day he developed abdominal pain and fever. Duration of illness is not 24 hours. Symptoms severity was moderate. However waxes and wanes. At this time the patient says he feels fine and has no abdominal pain. No alleviating factors. His appetite is decreased. No diarrhea or vomiting or productive cough or sore throat. No exacerbating factors. Location of abdominal pain was periumbilical. He started on an oral antibiotic 2 days ago but does not know what kind PFSH Past Medical History Hx Anticoagulant Therapy: Yes (ELOQUIS) AAA: Yes Alzheimer's Disease: No Arthritis: Yes Asthma: No Atrial Fibrillation: Yes Autoimmune Disease: No Blood Disorders: No Anxiety: No Depression: No Heart Rhythm Problems: No Cancer: No High Cholesterol: Yes Chemotherapy: No Chest Pain: No Congestive Heart Failure: No COPD: No Cerebrovascular Accident: Yes Dementia: Yes (Per "slight dementia") Diabetes: No Diminished Hearing: No Endocrine: No GERD: No Glaucoma: No Genitourinary: No Headaches: No Hepatitis: No Hiatal Hernia: No Hypertension: Yes Immune Disorder: No Implanted Vascular Access Dvce: Yes Kidney Stones: No Medical other: Yes (REFLUX, GASTRIC ULCERS, ESOPHAGEAL STRICTURE,PROSTATE CANCER) Musculoskeletal: No Neurologic: No Psychiatric: No Reproductive: No Respiratory: No Immunizations Current: Yes Migraines: No Radiation Therapy: Yes Renal Failure: No Seizures: No Sickle Cell Disease: No Sleep Apnea: No Thyroid Disease: No Ulcer: No Past Surgical History Abdominal Aneurysm Repair: Yes Abdominal Surgery: No AICD: No Appendectomy: Yes Arteriovenous Shunt: No Body Medical Devices: DENTAL IMPLANTS/ hx ofneuro stimulator but removed Cardiac Surgery: No Cholecystectomy: No Ear Surgery: No Endocrine Surgery: No Eye Surgery: No Genitourinary Surgery: No Gynecologic Surgery: No Insulin Pump: No Joint Replacement: Yes (right hip replacement) Neurologic Surgery: No Oral Surgery: Yes (implants) Pacemaker: No Thoracic Surgery: No Other Surgery: Yes (,REPAIR OF THE STOMACH LINING) Social History Alcohol Use: No Tobacco Use: No Substance Use: No Allergies-Medications (Allergen,Severity, Reaction): Coded Allergies: cilostazol (Unverified Allergy, Severe, tachycardia.PENTOXIFYLINE CAUSES UNKNOWN REACTION, 11/10/16) hydrocodone (Unverified Allergy, Severe, RASH, 11/10/16) lisinopril (Unverified Allergy, Severe, esophageal spasms, 11/10/16) pentoxifylline (Unverified Allergy, Severe, 11/10/16) diclofenac (Unverified Allergy, Intermediate, RED RASH, 11/10/16) etodolac (Unverified Allergy, Intermediate, RED RASH, 11/10/16) flurbiprofen (Unverified Allergy, Intermediate, RED RASH, 11/10/16) ibuprofen (Unverified Allergy, Intermediate, RED RASH, 11/10/16) indomethacin (Unverified Allergy, Intermediate, RED RASH, 11/10/16) ketoprofen (Unverified Allergy, Intermediate, RED RASH, 11/10/16) ketorolac (Unverified Allergy, Intermediate, RED RASH, 11/10/16) naproxen (Unverified Allergy, Intermediate, RED RASH, 11/10/16) oxaprozin (Unverified Allergy, Intermediate, RED RASH, 11/10/16) celecoxib (Verified Allergy, Unknown, 11/10/16) Sulfa (Sulfonamide Antibiotics) (Unverified Adverse Reaction, Unknown, ) Reported Meds & Prescriptions Reported Meds & Active Scripts Active Epinephrine Inj 1 Mg/Ml Inj 0.3 Mg SQ ONCE PRN Give with any signs of respiratory distress. Epinephrine Inj 1 Mg/Ml Inj 0.3 Mg IV PUSH ONCE PRN Solu-Cortef Inj (Hydrocortisone Sodium Succinate) 250 Mg Inj 250 Mg IV PUSH ONCE PRN Give over 30-60 seconds. Reported Multiple Vitamin 1 Tab 1 Tab PO DAILY Donepezil 10 Mg Tab 10 Mg PO HS Vitamin D3 (Cholecalciferol) 1,000 Unit Tab 1,000 Units PO DAILY Atorvastatin (Atorvastatin Calcium) 80 Mg Tab 80 Mg PO HS Singulair (Montelukast Sodium) 10 Mg Tab 10 Mg PO HS Metoprolol Tartrate 25 Mg Tab 25 Mg PO BID Align (Lactobacillus Rhamnosus (GG)) Unknown Strength Cap 1 Cap PO DAILY Judie Allergy (Fexofenadine HCl) 180 Mg Tab 180 Mg PO DAILY Omeprazole 20 Mg Tab 20 Mg PO DAILY Namenda (Memantine) 10 Mg Tab 10 Mg PO BID Eliquis (Apixaban) 2.5 Mg Tab 2.5 Mg PO BID Review of Systems General / Constitutional: Positive: Fever Eyes: No: Visual changes HENT: No: Headaches Cardiovascular: No: Chest Pain or Discomfort Respiratory: No: Shortness of Breath Gastrointestinal: Positive: Abdominal Pain, Loss of Appetite Genitourinary: No: Dysuria Musculoskeletal: No: Pain Skin: No Rash Neurologic: No: Weakness Psychiatric: No: Depression Endocrine: No: Polydipsia Hematologic/Lymphatic: No: Easy Bruising Physical Exam Narrative GENERAL: Well-nourished, well-developed patient in no apparent distress. SKIN: Focused skin assessment reveals no rash and nodules. Skin is Warm and dry. HEAD: Atraumatic. Normocephalic. EYES: Pupils equal and round. No scleral icterus. No injection or drainage. ENT: No nasal bleeding or discharge. Mucous membranes pink and moist. Throat clear NECK: Trachea midline. No JVD. No meningeal signs CARDIOVASCULAR: Regular rate and rhythm. No murmur appreciated. RESPIRATORY: No accessory muscle use. Clear to auscultation. Breath sounds equal bilaterally. GASTROINTESTINAL: Abdomen soft, non-tender, nondistended. Hepatic and splenic margins not palpable. MUSCULOSKELETAL: No obvious deformities. No clubbing. No cyanosis. No edema. NEUROLOGICAL: Awake and alert. No obvious cranial nerve deficits. Motor grossly within normal limits. Normal speech. PSYCHIATRIC: Appropriate mood and affect; insight and judgment reduced from dementia. Data Data Last Documented VS Vital Signs Date Time Temp Pulse Resp B/P (MAP) Pulse Ox O2 Delivery O2 Flow Rate FiO2 11/10/16 08:39 99.7 88 18 134/63 (86) Room Air Orders Orders Iv Access Insert/Monitor (11/10/16 09:04) Complete Blood Count With Diff (11/10/16 09:04) Comprehensive Metabolic Panel (11/10/16 09:04) Chest, Single Ap (11/10/16 ) Blood Culture (11/10/16 09:04) Urinalysis - C+S If Indicated (11/10/16 09:29) Labs Laboratory Tests Test 11/10/16 09:10 11/10/16 09:19 Urine Collection Type CLEAN CATCH Urine Color YELLOW Urine Turbidity CLEAR Urine pH 5.0 Urine Specific [place] 1.020 Urine Protein TRACE mg/dL Urine Glucose (UA) NEG mg/dL Urine Ketones NEG mg/dL Urine Occult Blood NEG Urine Nitrite NEG Urine Bilirubin NEG Urine Leukocyte Esterase NEG Urine RBC 0-3 /hpf Urine WBC 3-5 /hpf Urine Squamous Epithelial Cells 6-8 /hpf Urine Transitional Epithelial Cells 0-5 /hpf Urine Hyaline Casts 25-49 /lpf Microscopic Urinalysis Comment CULT NOT INDICATED Urine Collection Time 09:10 White Blood Count 12.2 TH/MM3 Red Blood Count 4.80 MIL/MM3 Hemoglobin 13.8 GM/DL Hematocrit 43.2 % Mean Corpuscular Volume 90.0 FL Mean Corpuscular Hemoglobin 28.7 PG Mean Corpuscular Hemoglobin Concent 31.9 % Red Cell Distribution Width 14.8 % Platelet Count 265 TH/MM3 Mean Platelet Volume 7.7 FL Neutrophils (%) (Auto) 94.4 % Lymphocytes (%) (Auto) 2.5 % Monocytes (%) (Auto) 2.4 % Eosinophils (%) (Auto) 0.0 % Basophils (%) (Auto) 0.7 % Neutrophils # (Auto) 11.5 TH/MM3 Lymphocytes # (Auto) 0.3 TH/MM3 Monocytes # (Auto) 0.3 TH/MM3 Eosinophils # (Auto) 0.0 TH/MM3 Basophils # (Auto) 0.1 TH/MM3 CBC Comment DIFF FINAL Differential Comment Blood Urea Nitrogen 17 MG/DL Creatinine 1.10 MG/DL Random Glucose 118 MG/DL Total Protein 7.3 GM/DL Albumin 2.9 GM/DL Calcium Level 10.0 MG/DL Alkaline Phosphatase 107 U/L Aspartate Amino Transf (AST/SGOT) 25 U/L Alanine Aminotransferase (ALT/SGPT) 13 U/L Total Bilirubin 1.0 MG/DL Sodium Level 136 MEQ/L Potassium Level 3.9 MEQ/L Chloride Level 100 MEQ/L Carbon Dioxide Level 23.7 MEQ/L Anion Gap 12 MEQ/L Estimat Glomerular Filtration Rate 63 ML/MIN [facility] Medical Decision Making Medical Screen Exam Complete: Yes Emergency Medical Condition: Yes Medical Record Reviewed: Yes Differential Diagnosis Aortitis, sepsis, pneumonia, flu syndrome Narrative Course I have reviewed the patient's electronic medical record. Reviewed his discharge summary from April 2016 when he was hospitalized for aortitis. I reviewed his outpatient CT from this morning. It is essentially stable from April. No abscess or fistula but there is hazy inflammatory changes around the periaortic fat. IV placed CBC has white cell, 12 otherwise normal Metabolic profile is normal LFTs are normal Urinalysis is normal I reviewed his chest x-ray which shows a new right lower lobe infiltrate, thought likely to be inflammatory 2 blood cultures obtained Patient looks clinically well. He has no tachycardia or hypotension or significant leukocytosis. I reviewed his situation in detail with his infectious disease specialist Dr. Rangel. She knows him well and just saw him [address] findings are chronic and not requiring any acute change of therapy. Given the chest x-ray finding she recommended that I write him one week of Levaquin and she will see him in the office next week. I reviewed in detail with the and questions were answered. Dr. Rangel reports that patient is not an operative candidate and this is palliative therapy. The reports that patient is DNR. Diagnosis Primary Impression: Abdominal pain Qualified Codes: R10.33 - Periumbilical pain Additional Impressions: Aortitis Dementia Qualified Codes: G30.9 - Alzheimer's disease, unspecified; F02.80 - Dementia in other diseases classified elsewhere without behavioral disturbance Community acquired pneumonia Qualified Codes: J18.1 - Lobar pneumonia, unspecified organism Additional Instructions: Follow-up with Dr. Rangel next week Follow-up primary care physician Med/Other Pt SpecificInfo: Prescription(s) given Disposition: 01 DISCHARGE HOME Condition: Stable Jayce Cancino MD Nov 10, 2016 09:12
[2016-11-10 09:35] LABS: AUTOMATED NEUTROPHIL # 11.5 TH/MM3 (1.8-7.7); BASOPHIL # 0.1 TH/MM3 (0-0.2); BASOPHIL % 0.7 % (0.0-2.0); HEMATOCRIT 43.2 % (39.0-51.0); LYMPH % 2.5 % (9.0-44.0); LYMPHOCYTE # 0.3 TH/MM3 (1.0-4.8); MEAN CORPUSCULAR HEMOGLOBIN 28.7 PG (27.0-34.0); MEAN CORPUSCULAR HGB CONC 31.9 % (32.0-36.0); MONO % 2.4 % (0.0-8.0); NEUT % 94.4 % (16.0-70.0); PLATELET COUNT 265 TH/MM3 (150-450); RED CELL DISTRIBUTION WIDTH 14.8 % (11.6-17.2); WHITE BLOOD COUNT 12.2 TH/MM3 (4.0-11.0)
[2016-11-10 09:35] LABS: BLOOD, URINE NEG (NEG); GLUCOSE,URINE NEG (NEG); KETONE, URINE NEG (NEG); NITRITE,URINE NEG (NEG)
--- NOTE | 2016-11-10 09:40 | RADRPT ---
EXAM DATE/TIME: 11/10/2016 09:26 [facility] COMPARISON: CHEST SINGLE AP, May 04, 2016, 10:08. INDICATIONS : Fever. MEDICAL HISTORY : Aneurysm, abdominal. Carcinoma, prostatic. Hypertension. Afib SURGICAL HISTORY : Abdominal aortic aneurysm repair. ENCOUNTER: Initial ACUITY: 2 days PAIN SCORE: 0/10 LOCATION: Bilateral chest FINDINGS: New alveolar infiltrate right lower lobe. Left lung clear. The heart and pulmonary vascularity are n ormal. Degenerative changes present about both shoulders with resection of the distal left clavicle. CONCLUSION: New right lower lobe opacity, probably inflammatory. Stephane Pablo MD FACR on November 10, 2016 at 9:38 Board Certified Radiologist. This report was verified electronically.
[2016-11-10 09:41] LABS: HEMO FLAGS DIFF FINAL
[2016-11-10 09:48] LABS: METHOD OF COLLECTION CLEAN CATCH; URINE COLOR YELLOW (YELLW/STRAW)
[2016-11-10 09:49] LABS: COMMENT (UR) CULT NOT INDICATED; CULTURE IF INDICATED CULT NOT INDICATED; RBC, URINE 0-3 /hpf (0-3); TRANSITIONAL EPI CELLS, URINE 0-5 /hpf
[2016-11-10 09:54] LABS: CHLORIDE 100 MEQ/L (98-107); POTASSIUM 3.9 MEQ/L (3.5-5.1); SODIUM (NA) 136 MEQ/L (136-145)
[2016-11-10 10:00] LABS: ANION GAP 12 MEQ/L (5-15); BICARBONATE 23.7 MEQ/L (21.0-32.0); BLOOD UREA NITROGEN 17 MG/DL (7-18)
[2016-11-10 10:03] LABS: GLOMERULAR FILTRATION RATE 63 ML/MIN (>89)
[2016-11-10 10:04] LABS: ALT (GPT) 13 U/L (12-78)
[2016-11-10 10:06] LABS: ALKALINE PHOSPHATASE 107 U/L (45-117)
[2016-11-10 10:09] LABS: AST (GOT) 25 U/L (15-37)
[2016-11-10] MEDS ORDERED: LEVA750T9 PO (10:19)
== END 2016-11-10 10:37 | disposition home or self-care (01) ==
LOC: PHED 08:27
DX: R10.33 Periumbilical pain (principal); I77.6 Arteritis, unspecified; G30.9 Alzheimer's disease, unspecified; F02.80 Dementia in other diseases classified elsewhere, unspecified severity, without behavioral disturbance, psychotic disturbance, mood disturbance, and anxiety; J18.1 Lobar pneumonia, unspecified organism; B96.20 Unspecified Escherichia coli [E. coli] as the cause of diseases classified elsewhere; I10 Essential (primary) hypertension; I48.91 Unspecified atrial fibrillation; M19.90 Unspecified osteoarthritis, unspecified site; E78.00 Pure hypercholesterolemia, unspecified; Z86.73 Personal history of transient ischemic attack (TIA), and cerebral infarction without residual deficits; Z79.01 Long term (current) use of anticoagulants; Z79.899 Other long term (current) drug therapy; Z85.46 Personal history of malignant neoplasm of prostate; Z87.19 Personal history of other diseases of the digestive system; Z66 Do not resuscitate
CPT/HCPCS: 71010; 80053; 81001; 85025; 87040; 87077; 87186; 87205; 99284

== ENCOUNTER 2016-11-11 10:28 | Inpatient (IN) | payer MEDICARE ==
[~2016-11-11] VITALS: Ht 180.3 cm; Wt 65.8 kg
[~2016-11-11 10:28] MED LIST changes: -ARIC10TA PO; -CEFT2INJ2 IV; +DONE10TA7 PO; +LEVA750T9 PO; -METR-1 PO; +MULTTAB67 PO; -SENITAB3 PO; -VITA10003 PO; +VITA100064 PO
[2016-11-11 10:30] VITALS: BP 123/62; PULSE 111; RESP 20; TEMP 98.4; O2SAT 94
[2016-11-11] MEDS ORDERED: PIPERACIL-TAZO 4.5 GM PREMIX 100 ML IV ONE (11:15)
--- NOTE | 2016-11-11 11:15 | PD ---
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 Given the patient's age conservative treatment was pursued and patient has been following with Dr. Rangel this kept him on oral Keflex since the initial concern that the patient had a systemic infection. He's been doing well but over the past 2 days he's been reporting increasing abdominal discomfort, constant, moderate severity in the center of his abdomen and he's been increasingly weak. He was seen in the emergency department yesterday. He had a CT scan performed at [facility] which was reassuring. Labs were obtained which demonstrated a mild leukocytosis of 12 and the patient was discharged home on Levaquin per Dr. Kendrick recommendations. Patient returns today because blood cultures drawn yesterday grew gram-negative rods in both bottles concerning for bacteremia. PFSH Past Medical History Hx Anticoagulant Therapy: Yes (ELOQUIS) AAA: Yes Alzheimer's Disease: No Arthritis: Yes Asthma: No Atrial Fibrillation: Yes Autoimmune Disease: No Blood Disorders: No Anxiety: No Depression: No Heart Rhythm Problems: No Cancer: No Cardiovascular Problems: Yes (AAA) High Cholesterol: Yes Chemotherapy: No Chest Pain: No Congestive Heart Failure: No COPD: No Cerebrovascular Accident: Yes Dementia: Yes (Per "slight dementia") Diabetes: No Diminished Hearing: No Endocrine: No Gastrointestinal Disorders: Yes (Esophageal stricture, reflux, gastric ulcers ) GERD: No Glaucoma: No Genitourinary: No Headaches: No Hepatitis: No Hiatal Hernia: No Hypertension: Yes Immune Disorder: No Implanted Vascular Access Dvce: Yes Kidney Stones: No Medical other: Yes (Prostate CA) Musculoskeletal: No Neurologic: No Psychiatric: No Reproductive: No Respiratory: No Immunizations Current: Yes Migraines: No Radiation Therapy: Yes Renal Failure: No Seizures: No Sickle Cell Disease: No Sleep Apnea: No Thyroid Disease: No Ulcer: No Tetanus Vaccination: Unknown Influenza Vaccination: Yes Past Surgical History Abdominal Aneurysm Repair: Yes Abdominal Surgery: No AICD: No Appendectomy: Yes Arteriovenous Shunt: No Body Medical Devices: Dental implants Cardiac Surgery: No Cholecystectomy: No Ear Surgery: No Endocrine Surgery: No Eye Surgery: No Genitourinary Surgery: No Gynecologic Surgery: No Insulin Pump: No Joint Replacement: Yes (Right hip replacement) Neurologic Surgery: No Oral Surgery: Yes (Implants) Pacemaker: No Thoracic Surgery: No Other Surgery: Yes (Repair of stomach lining ) Social History Alcohol Use: Yes (1-2 glasses wine/day) Tobacco Use: No Substance Use: No Allergies-Medications (Allergen,Severity, Reaction): Coded Allergies: cilostazol (Unverified Allergy, Severe, tachycardia.PENTOXIFYLINE CAUSES UNKNOWN REACTION, 11/10/16) hydrocodone (Unverified Allergy, Severe, RASH, 11/10/16) lisinopril (Unverified Allergy, Severe, esophageal spasms, 11/10/16) pentoxifylline (Unverified Allergy, Severe, 11/10/16) diclofenac (Unverified Allergy, Intermediate, RED RASH, 11/10/16) etodolac (Unverified Allergy, Intermediate, RED RASH, 11/10/16) flurbiprofen (Unverified Allergy, Intermediate, RED RASH, 11/10/16) ibuprofen (Unverified Allergy, Intermediate, RED RASH, 11/10/16) indomethacin (Unverified Allergy, Intermediate, RED RASH, 11/10/16) ketoprofen (Unverified Allergy, Intermediate, RED RASH, 11/10/16) ketorolac (Unverified Allergy, Intermediate, RED RASH, 11/10/16) naproxen (Unverified Allergy, Intermediate, RED RASH, 11/10/16) oxaprozin (Unverified Allergy, Intermediate, RED RASH, 11/10/16) celecoxib (Verified Allergy, Unknown, 11/10/16) Sulfa (Sulfonamide Antibiotics) (Unverified Adverse Reaction, Unknown, ) Reported Meds & Prescriptions Reported Meds & Active Scripts Active Levaquin (Levofloxacin) 750 Mg Tablet 750 Mg PO DAILY 7 Days Epinephrine Inj 1 Mg/Ml Inj 0.3 Mg SQ ONCE PRN Give with any signs of respiratory distress. Epinephrine Inj 1 Mg/Ml Inj 0.3 Mg IV PUSH ONCE PRN Solu-Cortef Inj (Hydrocortisone Sodium Succinate) 250 Mg Inj 250 Mg IV PUSH ONCE PRN Give over 30-60 seconds. Reported Multiple Vitamin 1 Tab 1 Tab PO DAILY Donepezil 10 Mg Tab 10 Mg PO HS Vitamin D3 (Cholecalciferol) 1,000 Unit Tab 1,000 Units PO DAILY Atorvastatin (Atorvastatin Calcium) 80 Mg Tab 80 Mg PO HS Singulair (Montelukast Sodium) 10 Mg Tab 10 Mg PO HS Metoprolol Tartrate 25 Mg Tab 25 Mg PO BID Align (Lactobacillus Rhamnosus (GG)) Unknown Strength Cap 1 Cap PO DAILY Judie Allergy (Fexofenadine HCl) 180 Mg Tab 180 Mg PO DAILY Omeprazole 20 Mg Tab 20 Mg PO DAILY Namenda (Memantine) 10 Mg Tab 10 Mg PO BID Eliquis (Apixaban) 2.5 Mg Tab 2.5 Mg PO BID Review of Systems ROS Limitations: Poor Historian Physical Exam Narrative GENERAL frail elderly male in no acute distress SKIN: Focused skin assessment warm and dry. HEAD: Atraumatic. Normocephalic. EYES: Pupils equal and round. No injection or drainage. ENT: Dry mucous membranes. NECK: Trachea midline. CARDIOVASCULAR: Regular rate and rhythm. No murmur appreciated. RESPIRATORY: Clear to auscultation. Breath sounds equal bilaterally. GASTROINTESTINAL: Abdomen soft, non-tender, nondistended. MUSCULOSKELETAL: No obvious deformities. NEUROLOGICAL: Awake but confused. No obvious cranial nerve deficits. Moving all extremities. Data Data Last Documented VS Vital Signs Date Time Temp Pulse Resp B/P (MAP) Pulse Ox O2 Delivery O2 Flow Rate FiO2 11/11/16 12:15 87 18 129/51 (77) 98 Room Air 11/11/16 10:30 98.4 Orders Orders Complete Blood Count With Diff (11/11/16 10:56) Basic Metabolic Panel (Bmp) (11/11/16 10:56) Lactic Acid (11/11/16 10:56) ^ Insert Iv (11/11/16 10:56) Piperacil-Tazo 4.5 Gm Premix (Zosyn 4.5 (11/11/16 11:15) Sodium Chlor 0.9% 1000 Ml Inj (Ns 1000 M (11/11/16 12:15) Sodium Chlor 0.9% 1000 Ml Inj (Ns 1000 M (11/11/16 12:15) Admit Order (Ed Use Only) (11/11/16 12:36) Labs Laboratory Tests Test 11/11/16 11:10 White Blood Count 10.7 TH/MM3 Red Blood Count 4.67 MIL/MM3 Hemoglobin 13.4 GM/DL Hematocrit 41.2 % Mean Corpuscular Volume 88.3 FL Mean Corpuscular Hemoglobin 28.7 PG Mean Corpuscular Hemoglobin Concent 32.5 % Red Cell Distribution Width 14.2 % Platelet Count 222 TH/MM3 Mean Platelet Volume 7.4 FL Neutrophils (%) (Auto) 90.7 % Lymphocytes (%) (Auto) 4.1 % Monocytes (%) (Auto) 3.8 % Eosinophils (%) (Auto) 0.1 % Basophils (%) (Auto) 1.3 % Neutrophils # (Auto) 9.8 TH/MM3 Lymphocytes # (Auto) 0.4 TH/MM3 Monocytes # (Auto) 0.4 TH/MM3 Eosinophils # (Auto) 0.0 TH/MM3 Basophils # (Auto) 0.1 TH/MM3 CBC Comment DIFF FINAL Differential Comment Blood Urea Nitrogen 16 MG/DL Creatinine 0.91 MG/DL Random Glucose 104 MG/DL Calcium Level 10.1 MG/DL Sodium Level 137 MEQ/L Potassium Level 4.0 MEQ/L Chloride Level 100 MEQ/L Carbon Dioxide Level 25.3 MEQ/L Anion Gap 12 MEQ/L Estimat Glomerular Filtration Rate 79 ML/MIN Lactic Acid Level 3.0 mmol/L MDM Medical Decision Making Medical Screen Exam Complete: Yes Emergency Medical Condition: Yes Medical Record Reviewed: Yes (patient was admitted with abdominal pain in April and there was concern for a 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 He started to follow with Dr. Rangel and not time and he was maintained on Keflex. He was seen yesterday in the emergency department and blood cultures were obtained.) Interpretation(s) Afebrile, tachycardic, normotensive No leukocytosis 91% neutrophils Lecture lites are reassuring Lactic acid is 3 Differential Diagnosis Sepsis, bacteremia, ischemic colitis, urinary tract infection Narrative Course This is an 86-year-old male who presents to the emergency department with abdominal discomfort. He was seen in the emergency department yesterday and had blood cultures which grew gram-negative rods and 2 bottles. He returns today with persistent abdominal pain. He is tachycardic on arrival. Blood work is notable for a lactic acid of 3. He was given 2 L of IV fluid and he was given Zosyn. Cultures were deferred as they were obtained yesterday. I spoke to Dr. Rangel who recommended the patient be admitted for IV antibiotics and she is concerned that he may be septic in the setting of his chronic aortitis. CT abdomen and pelvis was performed at [facility] yesterday which was unchanged from prior. Physician Communication Physician Communication Discussed with Dr. Rangel and Dr. Art Diagnosis Primary Impression: Sepsis Qualified Codes: A41.9 - Sepsis, unspecified organism Admitting Information Admitting Physician Requests: Admit Latia Martin MD Nov 11, 2016 11:15
[2016-11-11 11:23] LABS: AUTOMATED NEUTROPHIL # 9.8 TH/MM3 (1.8-7.7); BASOPHIL # 0.1 TH/MM3 (0-0.2); BASOPHIL % 1.3 % (0.0-2.0); EOSINOPHIL % 0.1 % (0.0-4.0); HEMATOCRIT 41.2 % (39.0-51.0); LYMPH % 4.1 % (9.0-44.0); LYMPHOCYTE # 0.4 TH/MM3 (1.0-4.8); MEAN CELL VOLUME 88.3 FL (80.0-100.0); MEAN CORPUSCULAR HEMOGLOBIN 28.7 PG (27.0-34.0); MEAN CORPUSCULAR HGB CONC 32.5 % (32.0-36.0); MONO % 3.8 % (0.0-8.0); NEUT % 90.7 % (16.0-70.0); PLATELET COUNT 222 TH/MM3 (150-450); RED BLOOD COUNT 4.67 MIL/MM3 (4.50-5.90); RED CELL DISTRIBUTION WIDTH 14.2 % (11.6-17.2); WHITE BLOOD COUNT 10.7 TH/MM3 (4.0-11.0)
[2016-11-11 11:44] LABS: HEMO FLAGS DIFF FINAL
[2016-11-11 11:51] LABS: BICARBONATE 25.3 MEQ/L (21.0-32.0)
[2016-11-11 12:15] VITALS: BP 129/51; PULSE 87; RESP 18; O2SAT 98
[2016-11-11] MEDS ORDERED: SODIUM CHLOR 0.9% 1000 ML INJ 1,000 ML IV ONE ×2 (12:15)
[2016-11-11] MEDS ORDERED: BISACODYL 10 MG SUPP RECTAL PRN (12:45)
[2016-11-11] MEDS ORDERED: MAGNESIUM HYDROXIDE SUSP 30 ML CUP PO PRN (12:45)
[2016-11-11] MEDS ORDERED: SENNOSIDES 8.6 MG TAB PO PRN (12:45)
[2016-11-11] MEDS ORDERED: ONDANSETRON HCL 4 MG/2 ML VIAL IVP PRN (12:45)
[2016-11-11] MEDS ORDERED: ACETAMINOPHEN 325 MG TAB PO PRN (12:45)
[2016-11-11] MEDS ORDERED: SODIUM CHLORIDE 0.9% FLUSH 10 ML FLUSH IV FLUSH PRN (12:45)
[2016-11-11] MEDS ORDERED: LACTULOSE SYRUP 20 GM/30 ML CUP PO PRN (12:45)
[2016-11-11 13:25] LABS: BLOOD, URINE SMALL (NEG); GLUCOSE,URINE NEG (NEG); KETONE, URINE 15 mg/dL (NEG); NITRITE,URINE NEG (NEG)
[2016-11-11 13:29] LABS: METHOD OF COLLECTION CLEAN CATCH; URINE COLOR YELLOW (YELLW/STRAW)
[2016-11-11 13:30] LABS: COMMENT (UR) CULT NOT INDICATED; CULTURE IF INDICATED CULT NOT INDICATED; WBC, URINE 0-2 /hpf (0-5)
--- NOTE | 2016-11-11 15:28 | HHI.HP ---
[facility] Physician Clinton Clements MD Admission Diagnosis sepsis Diagnoses: (1) Sepsis (2) Abdominal pain (3) Dementia (4) Aortitis (5) Paroxysmal atrial fibrillation Travel History International Travel<30 Days: No Contact w/Intl Traveler <30 Da: No Traveled to Known Affected Are: No Sepsis Criteria SIRS Criteria (2 or more): Temp > 100.9 or < 96.8, Heart rate over 90 Sepsis Criteria (SIRS+source): Infect source susp/known Severe Sepsis (+one): Lactate >2 Criteria Outcome: Meets sepsis criteria History of Present Illness This is a pleasant 86 year-old female with past medical history of dementia, paroxysmal A. 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 He was evaluated by Dr. Zambrano of vascular surgery at that time, the patient and his opting to not pursue surgery. The patient has been on suppressive antibiotics with Keflex and has been followed by Dr. Rangel of infectious disease. History is obtained from the patient's as he has dementia and is a poor historian. 2 days ago his noted that he appeared weak and had difficulty ambulating in the morning. He had a low-grade fever of 100.7 and had shaking chills and was more confused. She got him up out of bed and he later went back to bed. Upon further questioning he did endorse some abdominal upset. He also got a abdominal CT scan at [facility] yesterday which had been ordered by Dr. Rangel. Later in the day he was not any improved and so his brought him to the ER last night, blood cultures were drawn and he was placed on Levaquin by mouth and discharged home. This morning he was still weak and actually fell in the bathroom requiring the help of neighbors to get him up. Today the blood cultures are coming back positive for gram-negative prisca. The patient was called by Dr. Rangel's office to return to the ER for the positive blood cultures. The patient denies any abdominal pain. Denies any dysuria. His states his urine appeared darker but no foul smell. Abdominal CT scan shows a stable abdomen with findings of aortitis but no definite fistula or abscess. Review of Systems ROS Limitations: Poor Historian, Other Constitutional: COMPLAINS OF: Fever (dementia), Chills Cardiovascular: DENIES: Chest pain, Palpitations Gastrointestinal: COMPLAINS OF: Diarrhea (patient had one episode of diarrhea on Tuesday), DENIES: Nausea, Vomiting Genitourinary: DENIES: Urgency, Hematuria, Dysuria Musculoskeletal: DENIES: Back pain, Neck pain Neurologic: COMPLAINS OF: Abnormal gait (disequilibrium), DENIES: Localized weakness Psychiatric: COMPLAINS OF: Confusion, DENIES: Anxiety Past Family Social History Past Medical History Paroxysmal atrial fibrillation Aortitis Abdomen aortic aneurysm status post repair in 2007 Dementia TIA HTN MSSA sepsis 2014 Peripheral vascular disease with endarterectomy in the left leg Cataracts History of pneumonia History of prostate cancer History of benign polyps Past Surgical History Open abdominal aortic aneurysm repair in 2007, Right hip replacement, thoracic picomole endoscopy, endarterectomy the left leg peripheral vascular disease Positive removal, MRI of interest repair, prostate seed Reported Medications Allergies Coded Allergies Type Severity Reaction Last Updated Verified cilostazol Allergy Severe tachycardia.PENTOXIFYLINE CAUSES UNKNOWN REACTION No hydrocodone Allergy Severe RASH 11/10/16 No lisinopril Allergy Severe esophageal spasms 11/10/16 No pentoxifylline Allergy Severe 11/10/16 No diclofenac Allergy Intermediate RED RASH 11/10/16 No etodolac Allergy Intermediate RED RASH 11/10/16 No flurbiprofen Allergy Intermediate RED RASH 11/10/16 No ibuprofen Allergy Intermediate RED RASH 11/10/16 No indomethacin Allergy Intermediate RED RASH 11/10/16 No ketoprofen Allergy Intermediate RED RASH 11/10/16 No ketorolac Allergy Intermediate RED RASH 11/10/16 No naproxen Allergy Intermediate RED RASH 11/10/16 No oxaprozin Allergy Intermediate RED RASH 11/10/16 No celecoxib Allergy Unknown 11/10/16 Yes Sulfa (Sulfonamide Antibiotics) Adverse Reaction Unknown 11/10/16 No Active Scripts Medications Dose Route/Sig Max Daily Dose Days Date Category Dose Instructions Levaquin (Levofloxacin) 750 Mg Tablet 750 Mg PO DAILY 7 11/10/16 Rx Multiple Vitamin 1 Tab 1 Tab PO DAILY 11/10/16 Reported Donepezil 10 Mg Tab 10 Mg PO HS 11/10/16 Reported Vitamin D3 (Cholecalciferol) 1,000 Unit Tab 1,000 Units PO DAILY 11/10/16 Reported Epinephrine Inj 1 Mg/Ml Inj 0.3 Mg SQ ONCE PRN 05/03/16 Rx Give with any signs of respiratory distress. Epinephrine Inj 1 Mg/Ml Inj 0.3 Mg IV PUSH ONCE PRN 05/03/16 Rx Solu-Cortef Inj (Hydrocortisone Sodium Succinate) 250 Mg Inj 250 Mg IV PUSH ONCE PRN 05/03/16 Rx Give over 30-60 seconds. Atorvastatin (Atorvastatin Calcium) 80 Mg Tab 80 Mg PO HS 04/29/16 Reported Singulair (Montelukast Sodium) 10 Mg Tab 10 Mg PO HS 04/29/16 Reported Metoprolol Tartrate 25 Mg Tab 25 Mg PO BID 04/29/16 Reported Align (Lactobacillus Rhamnosus (GG)) Unknown Strength Cap 1 Cap PO DAILY 04/29/16 Reported Judie Allergy (Fexofenadine HCl) 180 Mg Tab 180 Mg PO DAILY 04/29/16 Reported Omeprazole 20 Mg Tab 20 Mg PO DAILY 04/29/16 Reported Namenda (Memantine) 10 Mg Tab 10 Mg PO BID 04/29/16 Reported Eliquis (Apixaban) 2.5 Mg Tab 2.5 Mg PO BID 04/29/16 Reported Allergies: Coded Allergies: cilostazol (Unverified Allergy, Severe, tachycardia.PENTOXIFYLINE CAUSES UNKNOWN REACTION, 11/10/16) hydrocodone (Unverified Allergy, Severe, RASH, 11/10/16) lisinopril (Unverified Allergy, Severe, esophageal spasms, 11/10/16) pentoxifylline (Unverified Allergy, Severe, 11/10/16) diclofenac (Unverified Allergy, Intermediate, RED RASH, 11/10/16) etodolac (Unverified Allergy, Intermediate, RED RASH, 11/10/16) flurbiprofen (Unverified Allergy, Intermediate, RED RASH, 11/10/16) ibuprofen (Unverified Allergy, Intermediate, RED RASH, 11/10/16) indomethacin (Unverified Allergy, Intermediate, RED RASH, 11/10/16) ketoprofen (Unverified Allergy, Intermediate, RED RASH, 11/10/16) ketorolac (Unverified Allergy, Intermediate, RED RASH, 11/10/16) naproxen (Unverified Allergy, Intermediate, RED RASH, 11/10/16) oxaprozin (Unverified Allergy, Intermediate, RED RASH, 11/10/16) celecoxib (Verified Allergy, Unknown, 11/10/16) Sulfa (Sulfonamide Antibiotics) (Unverified Adverse Reaction, Unknown, ) Family History Reviewed and noncontributory Social History He lives with his . No alcohol tobacco or drug use. Physical Exam Vital Signs Vital Signs Date Time Temp Pulse Resp B/P (MAP) Pulse Ox O2 Delivery O2 Flow Rate FiO2 11/11/16 14:00 11/11/16 12:15 87 18 129/51 (77) 98 Room Air 11/11/16 10:30 98.4 111 20 123/62 (82) 94 Room Air Physical Exam GENERAL: Well-nourished, well-developed pleasant, lean elderly CM patient in NAD. SKIN: Warm and dry. HEAD: Normocephalic. EYES: No scleral icterus. No injection or drainage. NECK: Supple, trachea midline. No JVD or lymphadenopathy. CARDIOVASCULAR: Regular rate and rhythm without murmurs, gallops, or rubs. RESPIRATORY: Breath sounds equal bilaterally. No accessory muscle use. GASTROINTESTINAL: BS+. Abdomen soft, non-tender all 4 quadrants, nondistended. EXTREMITIES: No cyanosis, or edema. NEUROLOGICAL: Awake, alert, and oriented to self, place. Non-focal. Laboratory Laboratory Tests Test 11/11/16 11:10 11/11/16 13:20 11/11/16 13:50 White Blood Count 10.7 Red Blood Count 4.67 Hemoglobin 13.4 Hematocrit 41.2 Mean Corpuscular Volume 88.3 Mean Corpuscular Hemoglobin 28.7 Mean Corpuscular Hemoglobin Concent 32.5 Red Cell Distribution Width 14.2 Platelet Count 222 Mean Platelet Volume 7.4 Neutrophils (%) (Auto) 90.7 Lymphocytes (%) (Auto) 4.1 Monocytes (%) (Auto) 3.8 Eosinophils (%) (Auto) 0.1 Basophils (%) (Auto) 1.3 Neutrophils # (Auto) 9.8 Lymphocytes # (Auto) 0.4 Monocytes # (Auto) 0.4 Eosinophils # (Auto) 0.0 Basophils # (Auto) 0.1 CBC Comment DIFF FINAL Differential Comment Blood Urea Nitrogen 16 Creatinine 0.91 Random Glucose 104 Calcium Level 10.1 Sodium Level 137 Potassium Level 4.0 Chloride Level 100 Carbon Dioxide Level 25.3 Anion Gap 12 Estimat Glomerular Filtration Rate 79 Lactic Acid Level 3.0 1.7 Urine Collection Type CLEAN CATCH Urine Color YELLOW Urine Turbidity CLEAR Urine pH 5.0 Urine Specific Remer 1.032 Urine Protein 30 Urine Glucose (UA) NEG Urine Ketones 15 Urine Occult Blood SMALL Urine Nitrite NEG Urine Bilirubin NEG Urine Leukocyte Esterase NEG Urine RBC 10-14 Urine WBC 0-2 Urine Squamous Epithelial Cells 6-8 Microscopic Urinalysis Comment CULT NOT INDICATED Urine Collection Time 13:20 Result Diagram: 11/11/16 1110 11/11/16 1110 Septic Shock Reassessment Heart: Regular rate and rhythm Lungs: Clear Skin: Warm Peripheral Pulses: Bounding Right Radial Bounding Left Radial Capillary Refill: <2 seconds Caprini VTE Risk Assessment Caprini VTE Risk Assessment: Mod/High Risk (score >= 2) Caprini Risk Assessment Model Point Value = 1 Point Value = 2 Point Value = 3 Point Value = 5 Age 41-60 Minor surgery BMI > 25 kg/m2 Swollen legs Varicose veins or History of unexplained or recurrent spontaneous Oral contraceptives or hormone replacement Sepsis (< 1 month) Serious lung disease, including pneumonia (< 1 month) Abnormal pulmonary function Acute myocardial infarction Congestive heart failure (< 1 month) History of inflammatory bowel disease Medical patient at bed rest Age 61-74 Arthroscopic surgery Major open surgery (> 45 min) Laparoscopic surgery (> 45 min) Malignancy Confined to bed (> 72 hours) Immobilizing plaster cast Central venous access Age >= 75 History of VTE Family history of VTE Factor V Leiden Prothrombin [id number] Lupus anticoagulant Anticardiolipin antibodies Elevated serum homocysteine Heparin-induced thrombocytopenia Other congenital or acquired thrombophilia Stroke (< 1 month) Elective arthroplasty Hip, pelvis, or leg fracture Acute spinal cord injury (< 1 month) Prophylaxis Regimen Total Risk Factor Score Risk Level Prophylaxis Regimen 0-1 Low Early ambulation 2 Moderate Order ONE of the following: *Sequential Compression Device (SCD) *Heparin 5000 units SQ BID 3-4 Higher Order ONE of the following medications: *Heparin 5000 units SQ TID *Enoxaparin/Lovenox 40 mg SQ daily (WT < 150 kg, CrCl > 30 mL/min) *Enoxaparin/Lovenox 30 mg SQ daily (WT < 150 kg, CrCl > 10-29 mL/min) *Enoxaparin/Lovenox 30 mg SQ BID (WT < 150 kg, CrCl > 30 mL/min) AND/OR *Sequential Compression Device (SCD) 5 or more Highest Order ONE of the following medications: *Heparin 5000 units SQ TID (Preferred with Epidurals) *Enoxaparin/Lovenox 40 mg SQ daily (WT < 150 kg, CrCl > 30 mL/min) *Enoxaparin/Lovenox 30 mg SQ daily (WT < 150 kg, CrCl > 10-29 mL/min) *Enoxaparin/Lovenox 30 mg SQ BID (WT < 150 kg, CrCl > 30 mL/min) AND *Sequential Compression Device (SCD) Assessment and Plan Assessment and Plan -Gram-negative prisca bacteremia/sepsis - presumed etiology is the aortitis. I reviewed the abdominal CT scan from November [address] scan of the abdomen and pelvis with findings of aortic aneurysm repair and aortitis or periaortitis without evidence of abscess formation or fistula formation. Urinalysis is clear and chest x-rays negative. Initial lactic acid was 3 but repeat is 1.6. We'll place the patient on Zosyn IV. Continue with IV fluids normal saline at 100 mL/h. Consult infectious disease. I discussed the patient with Dr. Rangel. -Paroxysmal atrial fibrillation - continue metoprolol and Eliquis. -Abdomen aortic aneurysm status post repair in 2007 -Dementia - continue Namenda and Aricept -HTN - continue metoprolol -Peripheral vascular disease with endarterectomy in the left leg - continue Eliquis -Generalized weakness - consult PT -FULL CODE status - discussed with patient and at bedside -DVT px - eliquis Problem Qualifiers (1) Sepsis: Qualified Codes: A41.9 - Sepsis, unspecified organism Sydnee Art MD Nov 11, 2016 15:28
[2016-11-11] MEDS: SODIUM CHLOR 0.9% 1000 ML INJ 1,000 ML IV SCH ×2 (16:22→21:20)
[2016-11-11] MEDS: PIPERACIL-TAZO 3.375 GM PREMIX 50 ML IV SCH (17:10)
[2016-11-11 17:33] VITALS: BP 127/62; PULSE 84; RESP 20; TEMP 100.7; O2SAT 93
[2016-11-11 20:00] VITALS: BP 92/47; PULSE 65; RESP 20; TEMP 97.6; O2SAT 92
[2016-11-11] MEDS: DOCUSATE SODIUM 50 MG/SENNA 8.6 MG TAB PO SCH (20:19)
[2016-11-11] MEDS: MONTELUKAST SODIUM 10 MG TAB PO SCH (20:19)
[2016-11-11] MEDS: DONEPEZIL HCL 5 MG TAB PO SCH (20:19)
[2016-11-11] MEDS: MEMANTINE HCL 10 MG TAB PO SCH (20:19)
[2016-11-11] MEDS: APIXABAN 2.5 MG TABLET PO SCH (20:19)
[2016-11-11] MEDS: METOPROLOL TARTRATE 25 MG TAB PO SCH (20:19)
[2016-11-11] MEDS: SODIUM CHLORIDE 0.9% FLUSH 10 ML FLUSH IV FLUSH SCH (20:20)
[2016-11-11] MEDS: ATORVASTATIN 40 MG TAB PO SCH (20:20)
[2016-11-11 22:54] VITALS: PULSE 68
[2016-11-12] VITALS: BP 106/60; PULSE 62; RESP 18; TEMP 97.6; O2SAT 95
[2016-11-12] MEDS: PIPERACIL-TAZO 3.375 GM PREMIX 50 ML IV SCH ×5 (00:12→22:02)
[2016-11-12 04:00] VITALS: BP 120/71; PULSE 67; RESP 18; TEMP 97.8; O2SAT 95
[2016-11-12] MEDS: SODIUM CHLORIDE 0.9% FLUSH 10 ML FLUSH IV FLUSH SCH ×2 (08:14→21:00)
[2016-11-12] MEDS: DOCUSATE SODIUM 50 MG/SENNA 8.6 MG TAB PO SCH ×2 (08:14→21:00)
[2016-11-12 08:16] VITALS: BP 127/68; PULSE 69; RESP 19; TEMP 96.7; O2SAT 91
[2016-11-12] MEDS: MEMANTINE HCL 10 MG TAB PO SCH ×2 (09:00→22:02)
[2016-11-12] MEDS: APIXABAN 2.5 MG TABLET PO SCH ×2 (09:32→22:01)
[2016-11-12] MEDS: METOPROLOL TARTRATE 25 MG TAB PO SCH ×2 (09:33→22:01)
[2016-11-12] MEDS: LORATADINE 10 MG TAB PO SCH (09:33)
[2016-11-12] MEDS: CHOLECALCIFEROL (VIT D3) 1000 UNIT TAB PO SCH (09:33)
[2016-11-12] MEDS: SODIUM CHLOR 0.9% 1000 ML INJ 1,000 ML IV SCH ×2 (09:33→22:03)
[2016-11-12] MEDS: LACTOBACILLUS ACIDOPHILUS TAB PO SCH (09:33)
[2016-11-12] MEDS: PANTOPRAZOLE SOD 20 MG DELAYED RELEASE TAB PO SCH (09:35)
[2016-11-12] MEDS: MULTIVITAMIN TAB PO SCH (09:35)
--- NOTE | 2016-11-12 11:12 | HHI.PR ---
Subjective Remarks Patient denies fever, abdominal pain. About to work with PT. Patient is irritated he has to be in the hospital and tells me that "I pray that you all ." Objective Vitals Vital Signs Date Time Temp Pulse Resp B/P (MAP) Pulse Ox O2 Delivery O2 Flow Rate FiO2 11/12/16 08:16 96.7 69 19 127/68 (87) 91 11/12/16 04:00 97.8 67 18 120/71 (87) 95 11/12/16 00:00 97.6 62 18 106/60 (75) 95 11/11/16 22:54 68 11/11/16 20:00 97.6 65 20 92/47 (62) 92 11/11/16 17:33 100.7 84 20 127/62 (83) 93 11/11/16 14:00 11/11/16 12:15 87 18 129/51 (77) 98 Room Air I/O 11/11/16 11/11/16 11/11/16 11/12/16 11/12/16 11/12/16 07:00 15:00 23:00 07:00 15:00 23:00 Intake Total 2100 ml 1050 ml 1690 ml Output Total 60 ml 503 ml Balance 2040 ml 1050 ml 1187 ml Intake Oral 940 ml IV Total 2100 ml 1050 ml 750 ml Output Urine Total 60 ml 503 ml # Bowel Movements 4 Result Diagram: 11/11/16 1110 11/11/16 1110 Objective Remarks GENERAL: Well-nourished, well-developed elderly male patient. SKIN: Warm and dry. HEAD: Normocephalic. EYES: No scleral icterus. No injection or drainage. NECK: Supple, trachea midline. No JVD or lymphadenopathy. CARDIOVASCULAR: Regular rate and rhythm without murmurs, gallops, or rubs. RESPIRATORY: Breath sounds equal bilaterally. No accessory muscle use. GASTROINTESTINAL: BS+ Abdomen soft, non-tender, nondistended. EXTREMITIES: No cyanosis, or edema. NEUROLOGICAL: Awake, alert, and oriented to self not date. A/P Problem List: (1) Sepsis ICD Code: A41.9 - Sepsis, unspecified organism Status: Acute (2) Abdominal pain ICD Code: R10.9 - Unspecified abdominal pain Status: Acute (3) Dementia ICD Code: F03.90 - Dementia Status: Chronic (4) Aortitis ICD Code: I77.6 - Arteritis, unspecified Status: Acute (5) Paroxysmal atrial fibrillation ICD Code: I48.0 - Paroxysmal atrial fibrillation Status: Acute Assessment and Plan -Gram-negative prisca bacteremia/sepsis - presumed etiology is the aortitis. I reviewed the abdominal CT scan from November [address] scan of the abdomen and pelvis with findings of aortic aneurysm repair and aortitis or periaortitis without evidence of abscess formation or fistula formation. Urinalysis is clear and chest x-rays negative. Initial lactic acid was 3 but repeat is 1.6. Continue patient on Zosyn IV. Continue with IV fluids normal saline at 100 mL/h. Consult infectious disease. I discussed the patient with Dr. Rangel. -Paroxysmal atrial fibrillation - continue metoprolol and Eliquis. -Abdomen aortic aneurysm status post repair in 2007 -Dementia - continue Namenda and Aricept -HTN - continue metoprolol -Peripheral vascular disease with endarterectomy in the left leg - continue Eliquis -Generalized weakness - consult PT -FULL CODE status -DVT px - eliquis Problem Qualifiers (1) Sepsis: Qualified Codes: A41.9 - Sepsis, unspecified organism Sydnee Art MD Nov 12, 2016 11:12
--- NOTE | 2016-11-12 11:46 | PD.CONS ---
History of Present Illness Service Infection disease Consult Requested By Dr Sydnee Art Reason for Consult Bacteremia Primary Care Physician Clinton Clements MD Diagnoses: (1) Gram negative septicemia (2) PNA (pneumonia) (3) Aortitis (4) Dementia History of Present Illness Patient is well known to ID service - he has a h/o Aortitis with strep bacteremia in the past - he is not a candidate for surgery because of his comorbid conditions and he has been on suppressive Cephalexin and he has been stable. On day prior to admission he had a CT scan at [facility] just as a follow up and later that day noticed a low grade fever and ? abdominal pain so he came to ER- work up showed a pneumonia and patient was stable and so he was discharged on PO Levofloxacin. The next day my office was called that his blood cultures 2 of 4 bottles grew GNR and so patient was sent back for admissions. Patient says he feels fine except for a little more mucus production which he says has improved today. Review of Systems Constitutional: COMPLAINS OF: Fever, DENIES: Chills Endocrine: DENIES: Polyuria Eyes: DENIES: Eye inflammation Ears, nose, mouth, throat: DENIES: Nasal discharge, Oral lesions Respiratory: COMPLAINS OF: Sputum production, DENIES: Shortness of breath Cardiovascular: DENIES: Chest pain Gastrointestinal: DENIES: Abdominal pain, Vomiting Genitourinary: DENIES: Urgency, Dysuria Musculoskeletal: DENIES: Back pain Integumentary: DENIES: Pruritus Neurologic: COMPLAINS OF: Poor Balance, DENIES: Headache, Speech Problems Psychiatric: DENIES: Anxiety Past Family Social History Allergies: Coded Allergies: cilostazol (Unverified Allergy, Severe, tachycardia.PENTOXIFYLINE CAUSES UNKNOWN REACTION, 11/10/16) hydrocodone (Unverified Allergy, Severe, RASH, 11/10/16) lisinopril (Unverified Allergy, Severe, esophageal spasms, 11/10/16) pentoxifylline (Unverified Allergy, Severe, 11/10/16) diclofenac (Unverified Allergy, Intermediate, RED RASH, 11/10/16) etodolac (Unverified Allergy, Intermediate, RED RASH, 11/10/16) flurbiprofen (Unverified Allergy, Intermediate, RED RASH, 11/10/16) ibuprofen (Unverified Allergy, Intermediate, RED RASH, 11/10/16) indomethacin (Unverified Allergy, Intermediate, RED RASH, 11/10/16) ketoprofen (Unverified Allergy, Intermediate, RED RASH, 11/10/16) ketorolac (Unverified Allergy, Intermediate, RED RASH, 11/10/16) naproxen (Unverified Allergy, Intermediate, RED RASH, 11/10/16) oxaprozin (Unverified Allergy, Intermediate, RED RASH, 11/10/16) celecoxib (Verified Allergy, Unknown, 11/10/16) Sulfa (Sulfonamide Antibiotics) (Unverified Adverse Reaction, Unknown, ) Past Medical History Paroxysmal atrial fibrillation Aortitis Abdomen aortic aneurysm status post repair in 2007 Dementia TIA HTN MSSA sepsis 2014 Peripheral vascular disease with endarterectomy in the left leg Cataracts History of pneumonia History of prostate cancer History of benign polyps Past Surgical History Open abdominal aortic aneurysm repair in 2007, Right hip replacement, thoracic picomole endoscopy, endarterectomy the left leg peripheral vascular disease Social History 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 SKIN: No rashes, ecchymoses or lesions. Cool and dry. HEAD: Atraumatic. Normocephalic. No temporal or scalp tenderness. EYES: Pupils equal round and reactive. Extraocular motions intact. No scleral icterus. No injection or drainage. ENT: Nose without bleeding, purulent drainage or septal hematoma. Throat without erythema, tonsillar hypertrophy or exudate. Uvula midline. Airway patent. NECK: Trachea midline. No JVD or lymphadenopathy. Supple, nontender, no meningeal signs. CARDIOVASCULAR: Regular rate and rhythm without murmurs, gallops, or rubs. RESPIRATORY: . Breath sounds decreased No wheezes,Occ rales GASTROINTESTINAL: Abdomen soft, non-tender, nondistended. No hepato-splenomegaly , or palpable masses. No guarding. MUSCULOSKELETAL: Extremities without clubbing, cyanosis, or edema. No joint tenderness, effusion, or edema noted. No calf tenderness. Negative Homans sign bilaterally. NEUROLOGICAL: Awake and alert. Some memory loss Cranial nerves II through XII intact. Motor and sensory grossly within normal limits. Five out of 5 muscle strength in all muscle groups. Normal speech. Laboratory Laboratory Tests Test 11/11/16 13:20 11/11/16 13:50 Urine Collection Type CLEAN CATCH Urine Color YELLOW Urine Turbidity CLEAR Urine pH 5.0 Urine Specific [place] 1.032 Urine Protein 30 Urine Glucose (UA) NEG Urine Ketones 15 Urine Occult Blood SMALL Urine Nitrite NEG Urine Bilirubin NEG Urine Leukocyte Esterase NEG Urine RBC 10-14 Urine WBC 0-2 Urine Squamous Epithelial Cells 6-8 Microscopic Urinalysis Comment CULT NOT INDICATED Urine Collection Time 13:20 Lactic Acid Level 1.7 Result Diagram: 11/11/16 1110 11/11/16 1110 Assessment and Plan Problem List: (1) Gram negative septicemia ICD Codes: A41.50 - Gram-negative sepsis, unspecified Status: Acute Plan: Source uncertain CT scan showed stable aortitis with no abscess Continue IV Zosyn Repeat blood culture today to show if clearing bacteremia (2) PNA (pneumonia) ICD Codes: J18.9 - Pneumonia, unspecified organism Status: Acute Plan: Check Sputum culture Add Levofloxacin 500 mg daily (3) Aortitis ICD Codes: I77.6 - Arteritis, unspecified Status: Acute (4) Dementia ICD Codes: F03.90 - Dementia Status: Chronic Nilda Rangel MD Nov 12, 2016 11:46
[2016-11-12] MEDS ORDERED: LEVOFLOXACIN 500 MG TAB PO ONE (12:00)
[2016-11-12 12:33] VITALS: BP 111/55; PULSE 67; RESP 19; TEMP 98.6; O2SAT 91
[2016-11-12 16:58] VITALS: BP 115/62; PULSE 70; RESP 19; TEMP 98; O2SAT 91
[2016-11-12 20:45] VITALS: BP 135/75; PULSE 71; RESP 16; TEMP 97.6; O2SAT 90
[2016-11-12] MEDS: DONEPEZIL HCL 5 MG TAB PO SCH (22:01)
[2016-11-12] MEDS: MONTELUKAST SODIUM 10 MG TAB PO SCH (22:02)
[2016-11-12] MEDS: ATORVASTATIN 40 MG TAB PO SCH (22:02)
[2016-11-13] VITALS (9 sets, daily range): BP systolic 115–128; BP diastolic 59–73; PULSE 55–67; RESP 16–20; TEMP 95.5–97.9; O2SAT 90–97
[2016-11-13] MEDS: PIPERACIL-TAZO 3.375 GM PREMIX 50 ML IV SCH ×4 (05:59→22:11)
[2016-11-13] MEDS: METOPROLOL TARTRATE 25 MG TAB PO SCH ×2 (08:35→20:14)
[2016-11-13] MEDS: PANTOPRAZOLE SOD 20 MG DELAYED RELEASE TAB PO SCH (08:35)
[2016-11-13] MEDS: MEMANTINE HCL 10 MG TAB PO SCH ×2 (08:35→20:14)
[2016-11-13] MEDS: LORATADINE 10 MG TAB PO SCH (08:36)
[2016-11-13] MEDS: APIXABAN 2.5 MG TABLET PO SCH ×2 (08:36→20:14)
[2016-11-13] MEDS: LACTOBACILLUS ACIDOPHILUS TAB PO SCH (08:36)
[2016-11-13] MEDS: DOCUSATE SODIUM 50 MG/SENNA 8.6 MG TAB PO SCH ×2 (08:36→20:15)
[2016-11-13] MEDS: MULTIVITAMIN TAB PO SCH (08:36)
[2016-11-13] MEDS: CHOLECALCIFEROL (VIT D3) 1000 UNIT TAB PO SCH (08:36)
[2016-11-13] MEDS: SODIUM CHLORIDE 0.9% FLUSH 10 ML FLUSH IV FLUSH SCH ×2 (08:37→20:14)
--- NOTE | 2016-11-13 11:31 | HHI.PR ---
Subjective Remarks Patient's states the patient has been complaining of abdominal pain but is unable to qualify it further. No vomiting. The patient has been more sleepy than usual this morning. Nurse states that his oxygen dips to 89% when he is sleeping. Objective Vitals Vital Signs Date Time Temp Pulse Resp B/P (MAP) Pulse Ox O2 Delivery O2 Flow Rate FiO2 11/13/16 08:00 95.5 64 20 120/73 (89) 90 11/13/16 04:38 97.8 67 16 115/65 (82) 97 11/13/16 01:45 97.9 63 18 118/66 (83) 90 11/12/16 20:45 97.6 71 16 135/75 (95) 90 11/12/16 16:58 98.0 70 19 115/62 (79) 91 11/12/16 12:33 98.6 67 19 111/55 (73) 91 I/O 11/12/16 11/12/16 11/12/16 11/13/16 11/13/16 11/13/16 07:00 15:00 23:00 07:00 15:00 23:00 Intake Total 1690 ml 1230 ml 50 ml 100 ml Output Total 503 ml 350 ml Balance 1187 ml 1230 ml 50 ml -250 ml Intake Oral 940 ml IV Total 750 ml 1230 ml 50 ml 100 ml Output Urine Total 503 ml 350 ml # Bowel Movements 4 Result Diagram: 11/11/16 1110 11/11/16 1110 Objective Remarks GENERAL: Well-nourished, well-developed elderly male patient. SKIN: Warm and dry. HEAD: Normocephalic. EYES: No scleral icterus. No injection or drainage. NECK: Supple, trachea midline. No JVD or lymphadenopathy. CARDIOVASCULAR: Regular rate and rhythm without murmurs, gallops, or rubs. RESPIRATORY: Breath sounds equal bilaterally. Clear to auscultation bilaterally. No accessory muscle use. GASTROINTESTINAL: Bowel sounds are hyperactive, Abdomen soft, tender to palpation in the right upper quadrant, nondistended. EXTREMITIES: No cyanosis, or edema. NEUROLOGICAL: Awake, alert, and oriented to self not date. A/P Problem List: (1) Sepsis ICD Code: A41.9 - Sepsis, unspecified organism Status: Acute (2) Abdominal pain ICD Code: R10.9 - Unspecified abdominal pain Status: Acute (3) Dementia ICD Code: F03.90 - Dementia Status: Chronic (4) Aortitis ICD Code: I77.6 - Arteritis, unspecified Status: Acute (5) Paroxysmal atrial fibrillation ICD Code: I48.0 - Paroxysmal atrial fibrillation Status: Acute Assessment and Plan -Escherichia coli bacteremia/sepsis -unclear source. He does have aortitis. Urinalysis was clear. I reviewed the abdominal CT scan from November [address] scan of the abdomen and pelvis with findings of aortic aneurysm repair and aortitis or periaortitis without evidence of abscess formation or fistula formation. Urinalysis is clear and chest x-rays negative. Initial lactic acid was 3 but repeat is 1.6. Continue patient on Zosyn IV. Will DC IV fluids as he is mildly hypoxemic. Infectious disease following/Dr. Rangel. I will order an abdominal ultrasound to evaluate the gallbladder as he' s having some right upper quadrant abdominal pain. -Hypoxemia, lungs are clear on exam. We'll place 2 L oxygen via nasal cannula. DuoNeb's 4 times a day. DC IV fluids. Check chest x-ray. -Paroxysmal atrial fibrillation - continue metoprolol and Eliquis. -Abdomen aortic aneurysm status post repair in 2007 -Dementia - continue Namenda and Aricept -HTN - continue metoprolol -Peripheral vascular disease with endarterectomy in the left leg - continue Eliquis -Generalized weakness - consult PT, discussed with nursing to get him up to chair. -FULL CODE status -DVT px - eliquis Discussed with at bedside. Problem Qualifiers (1) Sepsis: Qualified Codes: A41.9 - Sepsis, unspecified organism Sydnee Art MD Nov 13, 2016 11:31
--- NOTE | 2016-11-13 13:30 | RADRPT ---
EXAM DATE/TIME: 11/13/2016 13:22 [facility] COMPARISON: CHEST SINGLE AP, November 10, 2016, 9:26. INDICATIONS : Short of breath. MEDICAL HISTORY : None. SURGICAL HISTORY : None. ENCOUNTER: Subsequent ACUITY: 3 days PAIN SCORE: 6/10 LOCATION: Bilateral chest FINDINGS: Portable AP view of the chest demonstrates a normal-sized cardiac silhouette with calcification of th e aorta. There are bibasilar pleural-parenchymal opacities, increased from the prior study with bilat eral interstitial opacities. No pneumothorax is present. CONCLUSION: 1. Bilateral pleural effusions, increased from the prior study. 2. Bilateral interstitial and airspace opacities characteristic of pulmonary edema. Jed Ferro MD on November 13, 2016 at 13:28 Board Certified Radiologist. This report was verified electronically.
[2016-11-13] MEDS ORDERED: FUROSEMIDE 40 MG/4 ML VIAL IV PUSH ONE (14:00)
--- NOTE | 2016-11-13 19:16 | RADRPT ---
EXAM DATE/TIME: 11/13/2016 18:42 [facility] COMPARISON: No previous studies available for comparison. INDICATIONS : Right upper quadrant pain. MEDICAL HISTORY : Hypercholesterolemia. Arthritis. Carcinoma, prostate. Dementia. Diarrhea. Hemophilia. CVA. AAA. SURGICAL HISTORY : Abdominal aortic aneurysm repair. Appendectomy. Cataracts. Right hip replacement. Seed implant in p rostate. ENCOUNTER: Initial ACUITY: 1 day PAIN SCORE: 3/10 LOCATION: Right upper quadrant MEASUREMENTS: LIVER: 14.8 cm length COMMON DUCT: 6 mm RIGHT KIDNEY: 11.5 x 6.1 x 5.7 cm FINDINGS: LIVER: Normal echotexture without focal lesion or ductal dilatation. COMMON DUCT: No intraluminal mass or stone visualized. GALLBLADDER: Contains no stones, demonstrates no wall thickening or pericholecystic fluid. PANCREAS: The visualized portions are within normal limits. RIGHT KIDNEY: No evidence of hydronephrosis, stone, or solid mass. A small parapelvic cyst. CONCLUSION: 1. Unremarkable gallbladder. 2. Small right parapelvic cyst. Venkatesh Stahl MD on November 13, 2016 at 19:14 Board Certified Radiologist. This report was verified electronically.
[2016-11-13] MEDS: DONEPEZIL HCL 5 MG TAB PO SCH (20:15)
[2016-11-13] MEDS: ATORVASTATIN 40 MG TAB PO SCH (20:15)
[2016-11-13] MEDS: MONTELUKAST SODIUM 10 MG TAB PO SCH (20:15)
[2016-11-14] VITALS (9 sets, daily range): BP systolic 101–148; BP diastolic 62–76; PULSE 55–73; RESP 16–22; TEMP 96.6–98.6; O2SAT 90–98
[2016-11-14] MEDS: PIPERACIL-TAZO 3.375 GM PREMIX 50 ML IV SCH ×4 (04:56→21:59)
[2016-11-14 07:18] LABS: AUTOMATED NEUTROPHIL # 6.9 TH/MM3 (1.8-7.7); BASOPHIL % 0.5 % (0.0-2.0); EOSINOPHIL # 0.2 TH/MM3 (0-0.4); EOSINOPHIL % 2.1 % (0.0-4.0); HEMO FLAGS DIFF FINAL; LYMPH % 12.4 % (9.0-44.0); LYMPHOCYTE # 1.1 TH/MM3 (1.0-4.8); MEAN CORPUSCULAR HEMOGLOBIN 29.2 PG (27.0-34.0); MEAN CORPUSCULAR HGB CONC 33.2 % (32.0-36.0); MONO % 10.5 % (0.0-8.0); NEUT % 74.5 % (16.0-70.0); PLATELET COUNT 225 TH/MM3 (150-450); RED BLOOD COUNT 4.32 MIL/MM3 (4.50-5.90); RED CELL DISTRIBUTION WIDTH 14.4 % (11.6-17.2); WHITE BLOOD COUNT 9.2 TH/MM3 (4.0-11.0)
[2016-11-14 07:37] LABS: BICARBONATE 27.4 MEQ/L (21.0-32.0); POTASSIUM 3.2 MEQ/L (3.5-5.1)
--- NOTE | 2016-11-14 08:43 | HHI.IDPN ---
Subjective Subjective Remarks Feels well No fever Denies any abdominal pain Has some cough Antibiotics Zosyn and Levofloxacin Lines Peripheral IV line Past Medical History Paroxysmal atrial fibrillation Aortitis Abdomen aortic aneurysm status post repair in 2007 Dementia TIA HTN MSSA sepsis 2014 Peripheral vascular disease with endarterectomy in the left leg Cataracts History of pneumonia History of prostate cancer History of benign polyps Past Surgical History Open abdominal aortic aneurysm repair in 2007, Right hip replacement, thoracic picomole endoscopy, endarterectomy the left leg peripheral vascular disease Allergies: Coded Allergies: cilostazol (Unverified Allergy, Severe, tachycardia.PENTOXIFYLINE CAUSES UNKNOWN REACTION, 11/10/16) hydrocodone (Unverified Allergy, Severe, RASH, 11/10/16) lisinopril (Unverified Allergy, Severe, esophageal spasms, 11/10/16) pentoxifylline (Unverified Allergy, Severe, 11/10/16) diclofenac (Unverified Allergy, Intermediate, RED RASH, 11/10/16) etodolac (Unverified Allergy, Intermediate, RED RASH, 11/10/16) flurbiprofen (Unverified Allergy, Intermediate, RED RASH, 11/10/16) ibuprofen (Unverified Allergy, Intermediate, RED RASH, 11/10/16) indomethacin (Unverified Allergy, Intermediate, RED RASH, 11/10/16) ketoprofen (Unverified Allergy, Intermediate, RED RASH, 11/10/16) ketorolac (Unverified Allergy, Intermediate, RED RASH, 11/10/16) naproxen (Unverified Allergy, Intermediate, RED RASH, 11/10/16) oxaprozin (Unverified Allergy, Intermediate, RED RASH, 11/10/16) celecoxib (Verified Allergy, Unknown, 11/10/16) Sulfa (Sulfonamide Antibiotics) (Unverified Adverse Reaction, Unknown, ) Review of Systems Constitutional Constitutional Remarks No fevers GI/Abdomen GI/Abdomen Remarks Denies abdominal pain, nausea , vomiting Objective . Vital Signs Date Time Temp Pulse Resp B/P (MAP) Pulse Ox O2 Delivery O2 Flow Rate FiO2 11/14/16 08:20 92 Nasal Cannula 4.00 11/14/16 08:00 96.7 55 20 123/70 (87) 97 11/14/16 04:12 98.6 61 22 148/76 (100) 98 11/14/16 00:00 98.0 60 16 101/62 (75) 93 11/13/16 21:30 95 Nasal Cannula 4.00 11/13/16 20:11 97.9 65 16 115/61 (79) 92 11/13/16 16:05 93 Nasal Cannula 4.00 11/13/16 16:00 97.2 67 20 128/59 (82) 91 11/13/16 12:00 96.5 55 20 125/66 (85) 92 11/13/16 11:30 92 Venturi Mask 31 . Laboratory Tests Test 11/14/16 06:47 White Blood Count 9.2 TH/MM3 Red Blood Count 4.32 MIL/MM3 Hemoglobin 12.6 GM/DL Hematocrit 38.0 % Mean Corpuscular Volume 88.0 FL Mean Corpuscular Hemoglobin 29.2 PG Mean Corpuscular Hemoglobin Concent 33.2 % Red Cell Distribution Width 14.4 % Platelet Count 225 TH/MM3 Mean Platelet Volume 7.8 FL Neutrophils (%) (Auto) 74.5 % Lymphocytes (%) (Auto) 12.4 % Monocytes (%) (Auto) 10.5 % Eosinophils (%) (Auto) 2.1 % Basophils (%) (Auto) 0.5 % Neutrophils # (Auto) 6.9 TH/MM3 Lymphocytes # (Auto) 1.1 TH/MM3 Monocytes # (Auto) 1.0 TH/MM3 Eosinophils # (Auto) 0.2 TH/MM3 Basophils # (Auto) 0.0 TH/MM3 CBC Comment DIFF FINAL Differential Comment Laboratory Tests Test 11/14/16 06:47 Blood Urea Nitrogen 8 MG/DL Creatinine 0.54 MG/DL Random Glucose 103 MG/DL Calcium Level 9.2 MG/DL Sodium Level 143 MEQ/L Potassium Level 3.2 MEQ/L Chloride Level 110 MEQ/L Carbon Dioxide Level 27.4 MEQ/L Anion Gap 6 MEQ/L Estimat Glomerular Filtration Rate 144 ML/MIN Microbiology Date/Time Source Procedure Growth Status 11/12/16 12:00 Blood Peripheral Aerobic Blood Culture - Preliminary NO GROWTH IN 1 DAY Resulted 11/12/16 12:00 Blood Peripheral Anaerobic Blood Culture - Preliminary NO GROWTH IN 1 DAY Resulted 11/12/16 11:45 Blood Peripheral Aerobic Blood Culture - Preliminary NO GROWTH IN 1 DAY Resulted 11/12/16 11:45 Blood Peripheral Anaerobic Blood Culture - Preliminary NO GROWTH IN 1 DAY Resulted Physical Exam GENERAL: This is a chronically ill pleasant patient, in no apparent distress- sitting up in chair SKIN: No rashes, ecchymoses or lesions. Cool and dry. HEAD: Atraumatic. Normocephalic. No temporal or scalp tenderness. EYES: Pupils equal round and reactive. Extraocular motions intact. No scleral icterus. No injection or drainage. ENT: Nose without bleeding, purulent drainage or septal hematoma. Throat without erythema, tonsillar hypertrophy or exudate. Uvula midline. Airway patent. NECK: Trachea midline. No JVD or lymphadenopathy. Supple, nontender, no meningeal signs. CARDIOVASCULAR: Regular rate and rhythm without murmurs, gallops, or rubs. RESPIRATORY: . Breath sounds decreased No wheezes,Occ rales GASTROINTESTINAL: Abdomen soft, non-tender, nondistended. No hepato-splenomegaly , or palpable masses. No guarding. No mass felt MUSCULOSKELETAL: Extremities without clubbing, cyanosis, or edema. No joint tenderness, effusion, or edema noted. No calf tenderness. Negative Homans sign bilaterally. NEUROLOGICAL: Awake and alert. Some memory loss Cranial nerves II through XII intact. Motor and sensory grossly within normal limits. Five out of 5 muscle strength in all muscle Assessment & Plan Diagnosis: (1) Gram negative septicemia ICD Codes: A41.50 - Gram-negative sepsis, unspecified Status: Acute Plan: Source uncertain CT scan showed stable aortitis with no abscess Continue IV Zosyn Follow repeat blood cultures- if they remain negative today - patient can be changed to PO antibiotics on 11/15 (2) E coli bacteremia ICD Codes: R78.81 - Bacteremia Plan: Follow repeat blood cultures Check LFTs and CRP today (3) PNA (pneumonia) ICD Codes: J18.9 - Pneumonia, unspecified organism Status: Acute Plan: Check Sputum culture Continue Levofloxacin 500 mg daily (4) Aortitis ICD Codes: I77.6 - Arteritis, unspecified Status: Acute (5) Dementia ICD Codes: F03.90 - Dementia Status: Chronic Nilda Rangel MD Nov 14, 2016 08:43
[2016-11-14] MEDS: DOCUSATE SODIUM 50 MG/SENNA 8.6 MG TAB PO SCH ×2 (09:00→21:58)
[2016-11-14] MEDS: PANTOPRAZOLE SOD 20 MG DELAYED RELEASE TAB PO SCH (09:01)
[2016-11-14] MEDS: LEVOFLOXACIN 500 MG TAB PO SCH (09:01)
[2016-11-14] MEDS: LACTOBACILLUS ACIDOPHILUS TAB PO SCH (09:01)
[2016-11-14] MEDS: APIXABAN 2.5 MG TABLET PO SCH ×2 (09:01→21:59)
[2016-11-14] MEDS: CHOLECALCIFEROL (VIT D3) 1000 UNIT TAB PO SCH (09:02)
[2016-11-14] MEDS: MULTIVITAMIN TAB PO SCH (09:02)
[2016-11-14] MEDS: SODIUM CHLORIDE 0.9% FLUSH 10 ML FLUSH IV FLUSH SCH ×2 (09:02→22:00)
[2016-11-14] MEDS: MEMANTINE HCL 10 MG TAB PO SCH ×2 (09:02→21:58)
[2016-11-14] MEDS: METOPROLOL TARTRATE 25 MG TAB PO SCH ×2 (09:02→21:59)
[2016-11-14] MEDS: LORATADINE 10 MG TAB PO SCH (09:02)
[2016-11-14 09:59] LABS: INDIRECT BILIRUBIN 0.3 MG/DL (0.0-0.8); TOTAL BILIRUBIN ADULT 0.5 MG/DL (0.2-1.0)
[2016-11-14] MEDS: POTASSIUM CHLORIDE 25 MEQ EFFERVESCENT TAB PO SCH ×2 (12:15→21:59)
[2016-11-14] MEDS: FUROSEMIDE 20 MG/2 ML VIAL IV PUSH SCH ×2 (12:16→17:01)
--- NOTE | 2016-11-14 12:43 | HHI.PR ---
Subjective Remarks Patient is doing better today, more alert. Off oxygen, sat on room air was 92% . Drinking coffee. Patient denies abdominal pain or shortness of breath. Discussed with at bedside. Objective Vitals Vital Signs Date Time Temp Pulse Resp B/P (MAP) Pulse Ox O2 Delivery O2 Flow Rate FiO2 11/14/16 12:00 96.9 62 20 117/62 (80) 92 11/14/16 09:03 73 11/14/16 08:20 92 Nasal Cannula 4.00 11/14/16 08:00 96.7 55 20 123/70 (87) 97 11/14/16 04:12 98.6 61 22 148/76 (100) 98 11/14/16 00:00 98.0 60 16 101/62 (75) 93 11/13/16 21:30 95 Nasal Cannula 4.00 11/13/16 20:11 97.9 65 16 115/61 (79) 92 11/13/16 16:05 93 Nasal Cannula 4.00 11/13/16 16:00 97.2 67 20 128/59 (82) 91 I/O 11/13/16 11/13/16 11/13/16 11/14/16 11/14/16 11/14/16 07:00 15:00 23:00 07:00 15:00 23:00 Intake Total 720 ml 100 ml Output Total 1400 ml 600 ml Balance -680 ml 100 ml -600 ml Intake Oral 570 ml IV Total 150 ml 100 ml Output Urine Total 1400 ml 600 ml # Voids 1 2 Result Diagram: 11/14/1647 11/14/16 0647 Objective Remarks GENERAL: Well-nourished, well-developed elderly male patient. SKIN: Warm and dry. HEAD: Normocephalic. EYES: No scleral icterus. No injection or drainage. NECK: Supple, trachea midline. No JVD or lymphadenopathy. CARDIOVASCULAR: Regular rate and rhythm without murmurs, gallops, or rubs. RESPIRATORY: Breath sounds equal bilaterally. Clear to auscultation bilaterally. No accessory muscle use. GASTROINTESTINAL: Bowel sounds are hyperactive, Abdomen soft, tender to palpation in the right upper quadrant, nondistended. EXTREMITIES: No cyanosis, or edema. NEUROLOGICAL: Awake, alert, and oriented to self not date. A/P Problem List: (1) Sepsis ICD Code: A41.9 - Sepsis, unspecified organism Status: Acute (2) Abdominal pain ICD Code: R10.9 - Unspecified abdominal pain Status: Acute (3) Dementia ICD Code: F03.90 - Dementia Status: Chronic (4) Aortitis ICD Code: I77.6 - Arteritis, unspecified Status: Acute (5) Paroxysmal atrial fibrillation ICD Code: I48.0 - Paroxysmal atrial fibrillation Status: Acute Assessment and Plan -Escherichia coli bacteremia/sepsis -unclear source. He does have aortitis. Urinalysis was clear. Abdominal ultrasound showed normal gallbladder. I reviewed the abdominal CT scan from November [address] scan of the abdomen and pelvis with findings of aortic aneurysm repair and aortitis or periaortitis without evidence of abscess formation or fistula formation. Urinalysis is clear and chest x-rays negative. Initial lactic acid was 3 but repeat is 1.6. Infectious disease following/Dr. Rangel. Continue Zosyn and Levaquin as per ID. Blood cultures drawn 11/12 are negative for 2 days. -Hypoxemia due to pulmonary edema, improved now stable on room air status post Lasix. Continue Lasix 20 mg IV twice a day. Check BMP in the morning. I will check a 2-D echocardiogram as well. -Paroxysmal atrial fibrillation - continue metoprolol and Eliquis. -Abdomen aortic aneurysm status post repair in 2007 -Dementia - continue Namenda and Aricept -HTN - continue metoprolol -Peripheral vascular disease with endarterectomy in the left leg - continue Eliquis -Generalized weakness -continue physical therapy. -FULL CODE status -DVT px - eliquis Discussed with at bedside. Problem Qualifiers (1) Sepsis: Qualified Codes: A41.9 - Sepsis, unspecified organism Sydnee Art MD Nov 14, 2016 12:43
[2016-11-14] MEDS: MONTELUKAST SODIUM 10 MG TAB PO SCH (21:58)
[2016-11-14] MEDS: DONEPEZIL HCL 5 MG TAB PO SCH (21:58)
[2016-11-14] MEDS: ATORVASTATIN 40 MG TAB PO SCH (21:59)
[2016-11-15 00:02] VITALS: BP 125/78; PULSE 71; RESP 18; TEMP 97.9; O2SAT 92
[2016-11-15 04:02] VITALS: BP 121/69; PULSE 68; RESP 16; TEMP 97.6; O2SAT 93
[2016-11-15 05:57] LABS: POTASSIUM 3.2 MEQ/L (3.5-5.1)
[2016-11-15] MEDS: PIPERACIL-TAZO 3.375 GM PREMIX 50 ML IV SCH ×3 (05:59→17:00)
[2016-11-15 06:00] LABS: BICARBONATE 27.5 MEQ/L (21.0-32.0)
[2016-11-15 08:00] VITALS: BP 128/72; PULSE 90; RESP 18; TEMP 97.1; O2SAT 96
[2016-11-15] MEDS: DOCUSATE SODIUM 50 MG/SENNA 8.6 MG TAB PO SCH (09:00)
[2016-11-15] MEDS: POTASSIUM CHLORIDE 25 MEQ EFFERVESCENT TAB PO SCH (09:00)
[2016-11-15] MEDS: METOPROLOL TARTRATE 25 MG TAB PO SCH (09:19)
[2016-11-15] MEDS: LORATADINE 10 MG TAB PO SCH (09:19)
[2016-11-15] MEDS: LACTOBACILLUS ACIDOPHILUS TAB PO SCH (09:19)
[2016-11-15] MEDS: APIXABAN 2.5 MG TABLET PO SCH (09:19)
[2016-11-15] MEDS: CHOLECALCIFEROL (VIT D3) 1000 UNIT TAB PO SCH (09:19)
[2016-11-15] MEDS: MEMANTINE HCL 10 MG TAB PO SCH (09:19)
[2016-11-15] MEDS: PANTOPRAZOLE SOD 20 MG DELAYED RELEASE TAB PO SCH (09:20)
[2016-11-15] MEDS: FUROSEMIDE 20 MG/2 ML VIAL IV PUSH SCH (09:20)
[2016-11-15] MEDS: SODIUM CHLORIDE 0.9% FLUSH 10 ML FLUSH IV FLUSH SCH (09:20)
[2016-11-15] MEDS: LEVOFLOXACIN 500 MG TAB PO SCH (09:20)
[2016-11-15] MEDS: MULTIVITAMIN TAB PO SCH (09:20)
[2016-11-15 09:32] VITALS: O2SAT 93
--- NOTE | 2016-11-15 10:05 | HHI.IDPN ---
Subjective Subjective Remarks Feels well No fever Denies any abdominal pain Has some cough Antibiotics Zosyn and Levofloxacin Lines Peripheral IV line Past Medical History Paroxysmal atrial fibrillation Aortitis Abdomen aortic aneurysm status post repair in 2007 Dementia TIA HTN MSSA sepsis 2015 Peripheral vascular disease with endarterectomy in the left leg Cataracts History of pneumonia History of prostate cancer History of benign polyps Past Surgical History Open abdominal aortic aneurysm repair in 2007, Right hip replacement, thoracic picomole endoscopy, endarterectomy the left leg peripheral vascular disease Allergies: Coded Allergies: cilostazol (Unverified Allergy, Severe, tachycardia.PENTOXIFYLINE CAUSES UNKNOWN REACTION, 11/10/16) hydrocodone (Unverified Allergy, Severe, RASH, 11/10/16) lisinopril (Unverified Allergy, Severe, esophageal spasms, 11/10/16) pentoxifylline (Unverified Allergy, Severe, 11/10/16) diclofenac (Unverified Allergy, Intermediate, RED RASH, 11/10/16) etodolac (Unverified Allergy, Intermediate, RED RASH, 11/10/16) flurbiprofen (Unverified Allergy, Intermediate, RED RASH, 11/10/16) ibuprofen (Unverified Allergy, Intermediate, RED RASH, 11/10/16) indomethacin (Unverified Allergy, Intermediate, RED RASH, 11/10/16) ketoprofen (Unverified Allergy, Intermediate, RED RASH, 11/10/16) ketorolac (Unverified Allergy, Intermediate, RED RASH, 11/10/16) naproxen (Unverified Allergy, Intermediate, RED RASH, 11/10/16) oxaprozin (Unverified Allergy, Intermediate, RED RASH, 11/10/16) celecoxib (Verified Allergy, Unknown, 11/10/16) Sulfa (Sulfonamide Antibiotics) (Unverified Adverse Reaction, Unknown, ) Objective . Vital Signs Date Time Temp Pulse Resp B/P (MAP) Pulse Ox O2 Delivery O2 Flow Rate FiO2 11/15/16 09:32 93 Nasal Cannula 4.00 11/15/16 08:00 97.1 90 18 128/72 (90) 96 11/15/16 04:02 97.6 68 16 121/69 (86) 93 11/15/16 00:02 97.9 71 18 125/78 (94) 92 11/14/16 21:10 98.2 70 16 135/72 (93) 97 11/14/16 19:30 95 Nasal Cannula 4.00 11/14/16 15:47 96.6 59 20 111/62 (78) 90 11/14/16 12:00 96.9 62 20 117/62 (80) 92 11/15/16 11/15/16 11/16/16 15:00 23:00 07:00 Output Total 800 ml Balance -800 ml Output Urine Total 800 ml . Laboratory Tests Test 11/14/16 06:47 White Blood Count 9.2 TH/MM3 Red Blood Count 4.32 MIL/MM3 Hemoglobin 12.6 GM/DL Hematocrit 38.0 % Mean Corpuscular Volume 88.0 FL Mean Corpuscular Hemoglobin 29.2 PG Mean Corpuscular Hemoglobin Concent 33.2 % Red Cell Distribution Width 14.4 % Platelet Count 225 TH/MM3 Mean Platelet Volume 7.8 FL Neutrophils (%) (Auto) 74.5 % Lymphocytes (%) (Auto) 12.4 % Monocytes (%) (Auto) 10.5 % Eosinophils (%) (Auto) 2.1 % Basophils (%) (Auto) 0.5 % Neutrophils # (Auto) 6.9 TH/MM3 Lymphocytes # (Auto) 1.1 TH/MM3 Monocytes # (Auto) 1.0 TH/MM3 Eosinophils # (Auto) 0.2 TH/MM3 Basophils # (Auto) 0.0 TH/MM3 CBC Comment DIFF FINAL Differential Comment Laboratory Tests Test 11/14/16 06:47 11/15/16 04:58 Blood Urea Nitrogen 8 MG/DL 9 MG/DL Creatinine 0.54 MG/DL 0.63 MG/DL Random Glucose 103 MG/DL 98 MG/DL Calcium Level 9.2 MG/DL 9.2 MG/DL Sodium Level 143 MEQ/L 142 MEQ/L Potassium Level 3.2 MEQ/L 3.2 MEQ/L Chloride Level 110 MEQ/L 107 MEQ/L Carbon Dioxide Level 27.4 MEQ/L 27.5 MEQ/L Anion Gap 6 MEQ/L 8 MEQ/L Estimat Glomerular Filtration Rate 144 ML/MIN 120 ML/MIN Total Bilirubin 0.5 MG/DL Direct Bilirubin 0.2 MG/DL Indirect Bilirubin 0.3 MG/DL Aspartate Amino Transf (AST/SGOT) 35 U/L Alanine Aminotransferase (ALT/SGPT) 25 U/L Alkaline Phosphatase 69 U/L C-Reactive Protein 10.00 MG/DL Total Protein 5.8 GM/DL Albumin 2.0 GM/DL Microbiology Date/Time Source Procedure Growth Status 11/12/16 12:00 Blood Peripheral Aerobic Blood Culture - Preliminary NO GROWTH IN 2 DAYS Resulted 11/12/16 12:00 Blood Peripheral Anaerobic Blood Culture - Preliminary NO GROWTH IN 2 DAYS Resulted 11/12/16 11:45 Blood Peripheral Aerobic Blood Culture - Preliminary NO GROWTH IN 2 DAYS Resulted 11/12/16 11:45 Blood Peripheral Anaerobic Blood Culture - Preliminary NO GROWTH IN 2 DAYS Resulted Physical Exam GENERAL: This is a chronically ill pleasant patient, in no apparent distress- sitting up in chair SKIN: No rashes, ecchymoses or lesions. Cool and dry. HEAD: Atraumatic. Normocephalic. No temporal or scalp tenderness. EYES: Pupils equal round and reactive. Extraocular motions intact. No scleral icterus. No injection or drainage. ENT: Nose without bleeding, purulent drainage or septal hematoma. Throat without erythema, tonsillar hypertrophy or exudate. Uvula midline. Airway patent. NECK: Trachea midline. No JVD or lymphadenopathy. Supple, nontender, no meningeal signs. CARDIOVASCULAR: Regular rate and rhythm without murmurs, gallops, or rubs. RESPIRATORY: . Breath sounds decreased No wheezes no rales , bases decreased GASTROINTESTINAL: Abdomen soft, non-tender, nondistended. No hepato-splenomegaly , or palpable masses. No guarding. No mass felt MUSCULOSKELETAL: Extremities without clubbing, cyanosis, or edema. No joint tenderness, effusion, or edema noted. No calf tenderness. Negative Homans sign bilaterally. NEUROLOGICAL: Awake and alert. Some memory loss Cranial nerves II through XII intact. Motor and sensory grossly within normal limits. Five out of 5 muscle strength in all muscle Assessment & Plan Diagnosis: (1) Bacteremia ICD Codes: R78.81 - Bacteremia Status: Acute Plan: repeat cultures have been negative plan to dc on levaquin x 2 weeks he should hold keflex until completion fu in office 2 weeks cbc bmp bc crp in 2 weeks (2) Dementia ICD Codes: F03.90 - Dementia Status: Chronic (3) Aortitis ICD Codes: I77.6 - Arteritis, unspecified Status: Acute (4) Chronic pain ICD Codes: G89.29 - Chronic pain Status: Acute Yolande Olmos Nov 15, 2016 10:05
--- NOTE | 2016-11-15 10:15 | ECHRPT ---
Indication: shortness of breath CONCLUSIONS Normal left ventricular size and wall thickness. The left ventricular systolic function is normal wi th an estimated ejection fraction in the range of 60-65%. Left ventricular diastolic function parameters a re normal. The right ventricle is mildly dilated. Mild thickening of the mitral valve leaflets. Mild mitral valve regurgitation. Moderate mitral annular calcification. Mild mitral valve stenosis. Mild mitral valve regurgitation. Diffuse calcification of the aortic valve. Mild aortic valve regurgitation. Mild aortic valve stenosis. There is mild tricuspid valve regurgitation. Moderate pulmonary hypertension. The estimated pulmonary arterial pressure is 56 mmHg. Mild pulmonary valve regurgitation. There is a small pericardial effusion present. A moderate left sided pleural effusion is noted. BP: 121 / 69 HR: 86 Rhythm: Sinus MEASUREMENTS (Male / Female) Normal Values Technical Quality:Fair 2D ECHO LV Diastolic Diameter PLAX 3.4 cm 4.2 - 5.9 / 3.9 - 5.3 cm LV Systolic Diameter PLAX 2.2 cm IVS Diastolic Thickness 1.0 cm 0.6 - 1.0 / 0.6 - 0.9 cm LVPW Diastolic Thickness 1.0 cm 0.6 - 1.0 / 0.6 - 0.9 cm LV Relative Wall Thickness 0.6 RV Internal Dim ED PLAX 3.3 cm LVOT Diameter 2.0 cm LA Systolic Diameter LX 3.9 cm 3.0 - 4.0 / 2.7 - 3.8 cm M-MODE Aortic Root Diameter MM 2.3 cm LA Systolic Diameter MM 3.9 cm LA Ao Ratio MM 1.7 AV Cusp Separation MM 0.9 cm DOPPLER AV Peak Velocity 229.0 cm/s AV Peak Gradient 21.0 mmHg AV Mean Gradient 9.0 mmHg AV Velocity Time Integral 43.7 cm AI Peak Velocity 239.0 cm/s AI Peak Gradient 22.8 mmHg AI Pressure Half Time 404.0 ms LVOT Peak Velocity 87.2 cm/s LVOT Peak Gradient 3.0 mmHg LVOT Velocity Time Integral 16.0 cm LVOT Cardiac Index 2365.7 cm/minm AV Area Cont Eq vti 1.2 cm AV Area Cont Eq pk 1.2 cm MV Peak Velocity 106.0 cm/s MV Peak Gradient 4.5 mmHg MV Mean Velocity 53.8 cm/s MV Mean Gradient 1.0 mmHg MV Area PHT 2.0 cm Mitral E Point Velocity 88.8 cm/s Mitral A Point Velocity 70.6 cm/s Mitral E to A Ratio 1.3 LV E' Lateral Velocity 5.9 cm/s Mitral E to LV E' Lateral Ratio 14.9 LV E' Septal Velocity 4.3 cm/s Mitral E to LV E' Septal Ratio 20.7 TR Peak Velocity 339.0 cm/s TR Peak Gradient 46.0 mmHg Right Atrial Pressure 10.0 mmHg Pulmonary Artery Systolic Pressu 56.0 mmHg Right Ventricular Systolic Press 56.0 mmHg PV Peak Velocity 70.0 cm/s PV Peak Gradient 2.0 mmHg FINDINGS LEFT VENTRICLE Normal left ventricular size and wall thickness. The left ventricular systolic function is normal wi th an estimated ejection fraction in the range of 60-65%. Left ventricular diastolic function parameters a re normal. RIGHT VENTRICLE The right ventricle is mildly dilated. LEFT ATRIUM The left atrial size is normal. RIGHT ATRIUM The right atrial size is normal. ATRIAL SEPTUM Normal atrial septal thickness without atrial level shunting by limited color doppler interrogation. AORTA The aortic root and proximal ascending aorta are normal in size on limited imaging. MITRAL VALVE Mild thickening of the mitral valve leaflets. Mild mitral valve regurgitation. Moderate mitral annular calcification. Mild mitral valve stenosis. Mild mitral valve regurgitation. AORTIC VALVE Diffuse calcification of the aortic valve. Mild aortic valve regurgitation. Mild aortic valve stenosis. Aortic valve area is 1.2 cm. Aortic valve mean gradient is 9 mmHg. TRICUSPID VALVE There is mild tricuspid valve regurgitation. The estimated pulmonary arterial pressure is 56 mmHg. PULMONARY VALVE Mild pulmonary valve regurgitation. VESSELS The inferior vena cava is normal in size. PERICARDIUM There is a small pericardial effusion present. A moderate left sided pleural effusion is noted. Tran Hoyos MD, FACC (Electronically Signed) Final Date:15 November 2016 10:13
--- NOTE | 2016-11-15 11:54 | HHI.FF ---
Face to Face Verification Diagnosis: (1) Dementia (2) E coli bacteremia (3) Sepsis Physical Therapy Order: Evaluate and Treat Home Health Nursing Order: Medical education I have seen patient Doni Lujan on 11/15/16. My clinical findings support the need for the requested home health care services because: Ltd mobility - disease progression Need for psychosocial assistance Impaired cognition/judgement I certify that my clinical findings support that this patient is homebound because: Impaired cognitive ability/safety Need for psychosocial assistance Sydnee Art MD Nov 15, 2016 11:54
[2016-11-15] MEDS ORDERED: LEVA750T9 PO (11:55)
[2016-11-15 12:00] VITALS: BP 130/76; PULSE 85; RESP 17; TEMP 97.7; O2SAT 95
--- NOTE | 2016-11-15 12:06 | HHI.DS ---
Discharge Summary Admission Date Nov 11, 2016 at 12:37 Discharge Date: Nov 15, 2016 Admitting Diagnosis sepsis (1) Sepsis ICD Code: A41.9 - Sepsis, unspecified organism Status: Acute (2) Abdominal pain ICD Code: R10.9 - Unspecified abdominal pain Status: Acute (3) Dementia ICD Code: F03.90 - Dementia Status: Chronic (4) Aortitis ICD Code: I77.6 - Arteritis, unspecified Status: Acute (5) Paroxysmal atrial fibrillation ICD Code: I48.0 - Paroxysmal atrial fibrillation Status: Acute Procedures none Brief History - From Admission This is a pleasant 86 year-old female with past medical history of dementia, paroxysmal A. 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 He was evaluated by Dr. Zambrano of vascular surgery at that time, the patient and his opting to not pursue surgery. The patient has been on suppressive antibiotics with Keflex and has been followed by Dr. Rangel of infectious disease. History is obtained from the patient's as he has dementia and is a poor historian. 2 days ago his noted that he appeared weak and had difficulty ambulating in the morning. He had a low-grade fever of 100.7 and had shaking chills and was more confused. She got him up out of bed and he later went back to bed. Upon further questioning he did endorse some abdominal upset. He also got a abdominal CT scan at [facility] yesterday which had been ordered by Dr. Rangel. Later in the day he was not any improved and so his brought him to the ER last night, blood cultures were drawn and he was placed on Levaquin by mouth and discharged home. This morning he was still weak and actually fell in the bathroom requiring the help of neighbors to get him up. Today the blood cultures are coming back positive for gram-negative prisca. The patient was called by Dr. Rangel's office to return to the ER for the positive blood cultures. The patient denies any abdominal pain. Denies any dysuria. His states his urine appeared darker but no foul smell. Abdominal CT scan shows a stable abdomen with findings of aortitis but no definite fistula or abscess. CBC/BMP: 11/14/16 0647 11/15/16 0458 Significant Findings Laboratory Tests Test 11/14/16 06:47 11/15/16 04:58 Red Blood Count 4.32 MIL/MM3 (4.50-5.90) Hemoglobin 12.6 GM/DL (13.0-17.0) Hematocrit 38.0 % (39.0-51.0) Neutrophils (%) (Auto) 74.5 % (16.0-70.0) Monocytes (%) (Auto) 10.5 % (0.0-8.0) Monocytes # (Auto) 1.0 TH/MM3 (0-0.9) Creatinine 0.54 MG/DL (0.60-1.30) Potassium Level 3.2 MEQ/L (3.5-5.1) 3.2 MEQ/L (3.5-5.1) Chloride Level 110 MEQ/L (98-107) C-Reactive Protein 10.00 MG/DL (0.00-0.30) Total Protein 5.8 GM/DL (6.4-8.2) Albumin 2.0 GM/DL (3.4-5.0) Imaging Last Impressions Gall Bladder Ultrasound 11/13/16 0000 Signed Impressions: Service Date/Time: Sunday, November 13, 2016 18:42 - CONCLUSION: 1. Unremarkable gallbladder. 2. Small right parapelvic cyst. Venkatesh Stahl MD Chest X-Ray 11/13/16 0000 Signed Impressions: Service Date/Time: Sunday, November 13, 2016 13:22 - CONCLUSION: 1. Bilateral pleural effusions, increased from the prior study. 2. Bilateral interstitial and airspace opacities characteristic of pulmonary edema. Jed Ferro MD PE at Discharge GENERAL: Well-nourished, well-developed elderly male patient. SKIN: Warm and dry. HEAD: Normocephalic. EYES: No scleral icterus. No injection or drainage. NECK: Supple, trachea midline. No JVD or lymphadenopathy. CARDIOVASCULAR: Regular rate and rhythm without murmurs, gallops, or rubs. RESPIRATORY: Breath sounds equal bilaterally. Clear to auscultation bilaterally. No accessory muscle use. GASTROINTESTINAL: Bowel sounds are hyperactive, Abdomen soft, tender to palpation in the right upper quadrant, nondistended. EXTREMITIES: No cyanosis, or edema. NEUROLOGICAL: Awake, alert, and oriented to self not date. Hospital Course The patient was admitted and treated for Escherichia coli bacteremia sepsis. The source was not clear. Abdominal ultrasound showed a normal gallbladder. Urinalysis was clear.- He does have aortitis, however abdominal CT scan from November [address] scan of the abdomen and pelvis with findings of aortic aneurysm repair and aortitis or periaortitis without evidence of abscess formation or fistula formation. [place] disease Dr. Rangel was consulted. The patient was treated with Zosyn and Levaquin. Repeat blood cultures drawn 11/12 are negative for 3 days. The patient is recommended to continue on Levaquin by mouth for 14 more days and to follow-up with Dr. Rangel within 2 weeks of discharge. The patient also had mild hypoxemia due to pulmonary edema/fluid overload. He was treated with diuretics and is stable on room air. 2-D echocardiogram revealed preserved ejection fraction. The patient will be discharged home today with home health care and physical therapy. I discussed follow-up plans with his . Pt Condition on Discharge: Stable Discharge Disposition: Disch w/ Home Health Serv Discharge Time: > 30 minutes Discharge Instructions DIET: Follow Instructions for: As Tolerated, No Restrictions Activities you can perform: Regular-No Restrictions Continued Medications: Apixaban (Eliquis) 2.5 Mg Tab 2.5 MG PO BID for Blood Clot Prevention, TAB 0 Refills Atorvastatin (Atorvastatin) 80 Mg Tab 80 MG PO HS for Cholesterol Management, #30 TAB 0 Refills Cholecalciferol (Vitamin D3) 1,000 Unit Tab 1000 UNITS PO DAILY for Nutritional Supplement, #1 BOTTLE 0 Refills Donepezil (Donepezil) 10 Mg Tab 10 MG PO HS for Dementia, #30 TAB 0 Refills Epinephrine Inj (Epinephrine Inj) 1 Mg/Ml Inj 0.3 MG IV PUSH ONCE PRN for ALLERGIC REACTION, #1 VIAL Epinephrine Inj (Epinephrine Inj) 1 Mg/Ml Inj 0.3 MG SQ ONCE PRN for ALLERGIC REACTION, #1 VIAL Give with any signs of respiratory distress. Fexofenadine (Judie Allergy) 180 Mg Tab 180 MG PO DAILY for Allergy Management, #30 TAB 0 Refills Hydrocortisone Inj (Solu-Cortef Inj) 250 Mg Inj 250 MG IV PUSH ONCE PRN for ALLERGIC REACTION, #1 VIAL 0 Refills Give over 30-60 seconds. Lactobacillus Rhamnosus (GG) (Align) Unknown Strength Cap 1 CAP PO DAILY for Nutritional Supplement, CAP 0 Refills Levofloxacin (Levaquin) 750 Mg Tablet 750 MG PO DAILY for Infection, #14 TAB 0 Refills (This prescription has been renewed) Memantine (Namenda) 10 Mg Tab 10 MG PO BID for Alzheimer Disease, #30 TAB 0 Refills Metoprolol Tartrate (Metoprolol Tartrate) 25 Mg Tab 25 MG PO BID, #60 TAB 0 Refills Montelukast (Singulair) 10 Mg Tab 10 MG PO HS, #30 TAB 0 Refills Multiple Vitamin (Multiple Vitamin) 1 Tab 1 TAB PO DAILY for Nutritional Supplement, TAB 0 Refills Omeprazole (Omeprazole) 20 Mg Tab 20 MG PO DAILY, #30 TAB 0 Refills Sydnee Art MD Nov 15, 2016 12:06
[2016-11-15] MEDS ORDERED: OXYGENDME NAS.CANULA (16:21)
[2016-11-15] MEDS ORDERED: POTA10CA PO (16:21)
[2016-11-15] MEDS ORDERED: FURO1TAB62 PO (16:21)
== END 2016-11-15 17:28 | disposition home or self-care (01) | DRG 871 ==
LOC: PHED 10:28 → PHEDA 12:37 → PH3A 14:00
PROVIDERS: ADMIT Family Medicine; ATTEND Family Medicine
DX: A41.51 Sepsis due to Escherichia coli [E. coli] (principal); J18.9 Pneumonia, unspecified organism; J81.1 Chronic pulmonary edema; E87.70 Fluid overload, unspecified; I48.0 Paroxysmal atrial fibrillation; F03.90 Unspecified dementia, unspecified severity, without behavioral disturbance, psychotic disturbance, mood disturbance, and anxiety; I73.9 Peripheral vascular disease, unspecified; I77.6 Arteritis, unspecified; E78.00 Pure hypercholesterolemia, unspecified; R09.02 Hypoxemia; I10 Essential (primary) hypertension; G89.29 Other chronic pain; K21.9 Gastro-esophageal reflux disease without esophagitis; Z79.2 Long term (current) use of antibiotics; Z85.46 Personal history of malignant neoplasm of prostate; Z86.73 Personal history of transient ischemic attack (TIA), and cerebral infarction without residual deficits; Z86.79 Personal history of other diseases of the circulatory system; Z87.01 Personal history of pneumonia (recurrent); Z87.11 Personal history of peptic ulcer disease; Z96.641 Presence of right artificial hip joint; W19.XXXA Unspecified fall, initial encounter; Y92.002 Bathroom of unspecified non-institutional (private) residence as the place of occurrence of the external cause; Z79.01 Long term (current) use of anticoagulants; M19.90 Unspecified osteoarthritis, unspecified site; R00.0 Tachycardia, unspecified; R10.33 Periumbilical pain
CPT/HCPCS: 71010; 76705; 80048; 80053; 80076; 81001; 83605; 85025; 86140; 87040; 87077; 87186; 87205; 93306; 94150; 94620; 96365; 99284; J1940; J2543; J7030

== ENCOUNTER → 2016-11-30 | Outpatient (CLI) | payer MEDICARE ==
[~2016-11-30] MED LIST changes: +CEPH-460 PO; +FURO1TAB62 PO; +HYDR-3516 PO; +OXYGENDME NAS.CANULA; +POTA10CA PO
[2016-11-30 16:47] LABS: HEMATOCRIT 40.2 % (39.0-51.0); MEAN CELL VOLUME 88.7 FL (80.0-100.0); MEAN CORPUSCULAR HEMOGLOBIN 28.5 PG (27.0-34.0); MEAN CORPUSCULAR HGB CONC 32.1 % (32.0-36.0); PLATELET COUNT 363 TH/MM3 (150-450); RED BLOOD COUNT 4.53 MIL/MM3 (4.50-5.90); RED CELL DISTRIBUTION WIDTH 14.7 % (11.6-17.2); REVIEW FLAG FINAL; WHITE BLOOD COUNT 9.2 TH/MM3 (4.0-11.0)
[2016-11-30 16:52] LABS: ANION GAP 7 MEQ/L (5-15); AST (GOT) 24 U/L (15-37); BICARBONATE 26.6 MEQ/L (21.0-32.0); BLOOD UREA NITROGEN 9 MG/DL (7-18); CHLORIDE 105 MEQ/L (98-107); GLOMERULAR FILTRATION RATE 118 ML/MIN (>89); POTASSIUM 4.3 MEQ/L (3.5-5.1); SODIUM (NA) 139 MEQ/L (136-145)
[2016-11-30 16:53] LABS: ALT (GPT) 24 U/L (12-78)
[2016-11-30 16:55] LABS: ALKALINE PHOSPHATASE 110 U/L (45-117); TOTAL BILIRUBIN ADULT 0.4 MG/DL (0.2-1.0)
== END ==
LOC: PLAB 12:21
PROVIDERS: ATTEND Family Medicine
DX: R78.81 Bacteremia (principal); I79.1 Aortitis in diseases classified elsewhere
CPT/HCPCS: 36415; 80053; 85027; 86140; 87040

== ENCOUNTER 2016-12-05 10:01 | Inpatient (IN) | payer MEDICARE ==
[~2016-12-05 10:01] MED LIST changes: -CEPH-460 PO; -HYDR-3516 PO
[2016-12-05 10:03] VITALS: BP 109/51; PULSE 53; RESP 12; TEMP 97.9; O2SAT 95
[2016-12-05] MEDS ORDERED: CEPH-460 PO (10:37)
[2016-12-05] MEDS ORDERED: SODIUM CHLOR 0.9% 1000 ML INJ 1,000 ML IV SCH (11:09)
[2016-12-05] MEDS ORDERED: SODIUM CHLORIDE 0.9% FLUSH 10 ML FLUSH IV FLUSH PRN ×2 (11:15→16:30)
[2016-12-05 11:37] LABS: AUTOMATED NEUTROPHIL # 6.2 TH/MM3 (1.8-7.7); BASOPHIL % 0.5 % (0.0-2.0); EOSINOPHIL # 0.3 TH/MM3 (0-0.4); EOSINOPHIL % 3.1 % (0.0-4.0); HEMO FLAGS DIFF FINAL; LYMPH % 18.2 % (9.0-44.0); LYMPHOCYTE # 1.7 TH/MM3 (1.0-4.8); MEAN CELL VOLUME 87.4 FL (80.0-100.0); MEAN CORPUSCULAR HEMOGLOBIN 29.2 PG (27.0-34.0); MEAN CORPUSCULAR HGB CONC 33.4 % (32.0-36.0); MONO % 10.7 % (0.0-8.0); NEUT % 67.5 % (16.0-70.0); PLATELET COUNT 263 TH/MM3 (150-450); RED BLOOD COUNT 4.35 MIL/MM3 (4.50-5.90); RED CELL DISTRIBUTION WIDTH 14.6 % (11.6-17.2); WHITE BLOOD COUNT 9.1 TH/MM3 (4.0-11.0)
[2016-12-05 11:59] LABS: ALT (GPT) 18 U/L (12-78); ANION GAP 8 MEQ/L (5-15); AST (GOT) 20 U/L (15-37); BICARBONATE 25.8 MEQ/L (21.0-32.0); BLOOD UREA NITROGEN 9 MG/DL (7-18); CHLORIDE 106 MEQ/L (98-107); GLOMERULAR FILTRATION RATE 135 ML/MIN (>89); POTASSIUM 4.3 MEQ/L (3.5-5.1); SODIUM (NA) 140 MEQ/L (136-145)
[2016-12-05 12:02] LABS: ALKALINE PHOSPHATASE 106 U/L (45-117); TOTAL BILIRUBIN ADULT 0.4 MG/DL (0.2-1.0)
--- NOTE | 2016-12-05 12:09 | PD ---
HPI Chief Complaint: GI Complaint Time Seen by Provider: 11:08 Travel History International Travel<30 days: No Contact w/Intl Traveler<30days: No Traveled to known affect area: No History of Present Illness HPI This is a 86 male with history of aortic aneurysm with recent aortitis, who presents today with complaints of continued lower abdominal pain. The patient reports the pain as a continuous sharp and dull pain. There is no social nausea vomiting diarrhea. There is reported decreased appetite. is at the bedside states she's also been not drinking enough fluid over the last several weeks. There is no reported fevers, chills. He was recently diagnosed with bacteremia with Escherichia coli. He sees Dr. Rangel, infectious disease physician. As no dysuria, urgency, frequency. PFSH Past Medical History Hx Anticoagulant Therapy: Yes (ELQUIS) AAA: Yes Alzheimer's Disease: No Arthritis: Yes Asthma: No Atrial Fibrillation: Yes Autoimmune Disease: No Blood Disorders: No Anxiety: No Depression: No Heart Rhythm Problems: No Cancer: No Cardiovascular Problems: Yes (AAA) High Cholesterol: Yes Chemotherapy: No Chest Pain: No Congestive Heart Failure: No COPD: No Cerebrovascular Accident: Yes Dementia: Yes (Per "slight dementia") Diabetes: No Diminished Hearing: No Endocrine: No Gastrointestinal Disorders: Yes (Esophageal stricture, reflux, gastric ulcers ) GERD: No Glaucoma: No Genitourinary: No Headaches: No Hepatitis: No Hiatal Hernia: No Hypertension: Yes Immune Disorder: No Implanted Vascular Access Dvce: Yes Kidney Stones: No Medical other: Yes (REFLUX, GASTRIC ULCERS, ESOPHAGEAL STRICTURE,PROSTATE CANCER) Musculoskeletal: No Neurologic: No Psychiatric: No Reproductive: No Respiratory: Yes Immunizations Current: Yes Migraines: No Radiation Therapy: Yes Renal Failure: No Seizures: No Sickle Cell Disease: No Sleep Apnea: No Thyroid Disease: No Ulcer: No Past Surgical History Abdominal Aneurysm Repair: Yes Abdominal Surgery: No AICD: No Appendectomy: Yes Arteriovenous Shunt: No Body Medical Devices: Dental implants Cardiac Surgery: No Cholecystectomy: No Ear Surgery: No Endocrine Surgery: No Eye Surgery: No Genitourinary Surgery: No Gynecologic Surgery: No Insulin Pump: No Joint Replacement: Yes (Right hip replacement) Oral Surgery: Yes (Implants) Pacemaker: No Thoracic Surgery: No Other Surgery: Yes (Repair of stomach lining ) Social History Alcohol Use: Yes (1-2 glasses wine/day) Tobacco Use: No Substance Use: No Allergies-Medications (Allergen,Severity, Reaction): Coded Allergies: cilostazol (Unverified Allergy, Severe, tachycardia.PENTOXIFYLINE CAUSES UNKNOWN REACTION, 12/05/16) lisinopril (Unverified Allergy, Severe, esophageal spasms, 12/05/16) pentoxifylline (Unverified Allergy, Severe, 12/05/16) diclofenac (Unverified Allergy, Intermediate, RED RASH, 12/05/16) etodolac (Unverified Allergy, Intermediate, RED RASH, 12/05/16) flurbiprofen (Unverified Allergy, Intermediate, RED RASH, 12/05/16) ibuprofen (Unverified Allergy, Intermediate, RED RASH, 12/05/16) indomethacin (Unverified Allergy, Intermediate, RED RASH, 12/05/16) ketoprofen (Unverified Allergy, Intermediate, RED RASH, 12/05/16) ketorolac (Unverified Allergy, Intermediate, RED RASH, 12/05/16) naproxen (Unverified Allergy, Intermediate, RED RASH, 12/05/16) oxaprozin (Unverified Allergy, Intermediate, RED RASH, 12/05/16) celecoxib (Verified Allergy, Unknown, 12/05/16) Sulfa (Sulfonamide Antibiotics) (Unverified Adverse Reaction, Unknown, ) Reported Meds & Prescriptions Reported Meds & Active Scripts Active Oxygen (O2) Device Liter DOMITILA.CANULA CONTINUOUS Oxygen Concentrator Portable Gaseous 2 L/min via Nasal Canula Continuous For 99 months Epinephrine Inj 1 Mg/Ml Inj 0.3 Mg SQ ONCE PRN Give with any signs of respiratory distress. Epinephrine Inj 1 Mg/Ml Inj 0.3 Mg IV PUSH ONCE PRN Solu-Cortef Inj (Hydrocortisone Sodium Succinate) 250 Mg Inj 250 Mg IV PUSH ONCE PRN Give over 30-60 seconds. Reported Multiple Vitamin 1 Tab 1 Tab PO DAILY Donepezil 10 Mg Tab 10 Mg PO HS Vitamin D3 (Cholecalciferol) 1,000 Unit Tab 1,000 Units PO DAILY Atorvastatin (Atorvastatin Calcium) 80 Mg Tab 80 Mg PO HS Singulair (Montelukast Sodium) 10 Mg Tab 10 Mg PO HS Metoprolol Tartrate 25 Mg Tab 25 Mg PO BID Align (Lactobacillus Rhamnosus (GG)) Unknown Strength Cap 1 Cap PO DAILY Judie Allergy (Fexofenadine HCl) 180 Mg Tab 180 Mg PO DAILY Omeprazole 20 Mg Tab 20 Mg PO DAILY Namenda (Memantine) 10 Mg Tab 10 Mg PO BID Eliquis (Apixaban) 2.5 Mg Tab 2.5 Mg PO BID Review of Systems Except as stated in HPI: all other systems reviewed are Neg General / Constitutional: No: Fever, Chills HENT: No: Headaches, Vertigo, Lightheadedness Cardiovascular: No: Chest Pain or Discomfort, Palpitations, Irregular Rhythm Respiratory: No: Cough, Shortness of Breath Gastrointestinal: Positive: Abdominal Pain, Loss of Appetite, No: Nausea, Vomiting Genitourinary: No: Dysuria, Decreased Urinary Output Musculoskeletal: No: Weakness, Pain Neurologic: Positive: Weakness (generalized), No: Dizziness, Headache, Change in Mentation Physical Exam Narrative GENERAL: Elderly male in no acute respiratory distress. SKIN: Focused skin assessment warm/dry. HEAD: Atraumatic. Normocephalic. EYES: Pupils equal and round. No scleral icterus. No injection or drainage. ENT: No nasal bleeding or discharge. Mucous membranes pink and dry. NECK: Trachea midline. Supple. CARDIOVASCULAR: Regular rate and rhythm. No murmur appreciated. RESPIRATORY: No accessory muscle use. Clear to auscultation. Breath sounds equal bilaterally. GASTROINTESTINAL: Abdomen soft, non-tender, nondistended. Subjective lower abdominal pain. No rebound or guarding on exam. No obvious pulsatile masses palpated. MUSCULOSKELETAL: No obvious deformities. No clubbing. No cyanosis. No edema. NEUROLOGICAL: Awake and alert. No obvious cranial nerve deficits. Motor grossly within normal limits. Normal speech. He does appear to be weak. PSYCHIATRIC: Appropriate mood and affect; insight and judgment normal. Data Data Last Documented VS Vital Signs Date Time Temp Pulse Resp B/P (MAP) Pulse Ox O2 Delivery O2 Flow Rate FiO2 12/05/16 10:03 97.9 53 12 109/51 (70) 95 Orders Orders Complete Blood Count With Diff (12/05/16 11:09) Comprehensive Metabolic Panel (12/05/16 11:09) Urinalysis - C+S If Indicated (12/05/16 11:09) Iv Access Insert/Monitor (12/05/16 11:09) Ecg Monitoring (12/05/16 11:09) Oximetry (12/05/16 11:09) Sodium Chlor 0.9% 1000 Ml Inj (Ns 1000 M (12/05/16 11:09) Sodium Chloride 0.9% Flush (Ns Flush) (12/05/16 11:15) Ct Abd/Pel W Iv Contrast(Rout) (12/05/16 12:09) Oral Contrast - Adult (12/05/16 12:51) Diatrizoate Liq ( Gastrokell Liq) (12/05/16 12:54) Iohexol 350 Inj (Omnipaque 350 Inj) (12/05/16 14:30) Morphine Inj (Morphine Inj) (12/05/16 16:00) Ondansetron Inj (Zofran Inj) (12/05/16 16:00) Admit Order (Ed Use Only) (12/05/16 16:05) Labs Laboratory Tests Test 12/05/16 11:28 12/05/16 11:35 White Blood Count 9.1 TH/MM3 Red Blood Count 4.35 MIL/MM3 Hemoglobin 12.7 GM/DL Hematocrit 38.0 % Mean Corpuscular Volume 87.4 FL Mean Corpuscular Hemoglobin 29.2 PG Mean Corpuscular Hemoglobin Concent 33.4 % Red Cell Distribution Width 14.6 % Platelet Count 263 TH/MM3 Mean Platelet Volume 7.5 FL Neutrophils (%) (Auto) 67.5 % Lymphocytes (%) (Auto) 18.2 % Monocytes (%) (Auto) 10.7 % Eosinophils (%) (Auto) 3.1 % Basophils (%) (Auto) 0.5 % Neutrophils # (Auto) 6.2 TH/MM3 Lymphocytes # (Auto) 1.7 TH/MM3 Monocytes # (Auto) 1.0 TH/MM3 Eosinophils # (Auto) 0.3 TH/MM3 Basophils # (Auto) 0.0 TH/MM3 CBC Comment DIFF FINAL Differential Comment Blood Urea Nitrogen 9 MG/DL Creatinine 0.57 MG/DL Random Glucose 90 MG/DL Total Protein 6.6 GM/DL Albumin 2.4 GM/DL Calcium Level 9.9 MG/DL Alkaline Phosphatase 106 U/L Aspartate Amino Transf (AST/SGOT) 20 U/L Alanine Aminotransferase (ALT/SGPT) 18 U/L Total Bilirubin 0.4 MG/DL Sodium Level 140 MEQ/L Potassium Level 4.3 MEQ/L Chloride Level 106 MEQ/L Carbon Dioxide Level 25.8 MEQ/L Anion Gap 8 MEQ/L Estimat Glomerular Filtration Rate 135 ML/MIN Urine Color YELLOW Urine Turbidity CLEAR Urine pH 7.0 Urine Specific [place] 1.015 Urine Protein NEG mg/dL Urine Glucose (UA) NEG mg/dL Urine Ketones NEG mg/dL Urine Occult Blood NEG Urine Nitrite NEG Urine Bilirubin NEG Urine Urobilinogen 2.0 MG/DL Urine Leukocyte Esterase NEG Urine WBC LESS THAN 1 /hpf Microscopic Urinalysis Comment CULT NOT INDICATED MDM Medical Decision Making Medical Screen Exam Complete: Yes Emergency Medical Condition: Yes Differential Diagnosis Diverticulitis versus recurrent aortitis versus metabolic derangement Narrative Course 86-year-old male presents with persistent abdominal pain. The patient has a history of aortitis. The patient has not been eating or drinking well. Patient also has history of dementia. CT scan shows continued aortitis. The patient also has a pericardial effusion and bilateral pleural effusions. He'll be admitted under observation to the medicine service. They'll be a formal 2-D echo. Case was discussed with the admitting physician. Diagnosis Primary Impression: persistent aortitis Additional Impressions: Pericardial effusion Bilateral pleural effusion Atrial fibrillation Admitting Information Admitting Physician Requests: Observation Scripts Hydrocodone-Acetaminophen (Hydrocodone-Acetaminophen) 5-325 mg Tab 1 TAB PO Q8HR Y for PAIN SCALE 6-10, #9 TAB Prov: Marcos Mane 12/06/16 Levofloxacin (Levaquin) 750 Mg Tablet 750 MG PO DAILY for Infection, #7 TAB Prov: Marcos Mane 12/06/16 Justus Logan MD Dec 05, 2016 12:09
[2016-12-05 12:12] LABS: BLOOD, URINE NEG (NEG); COMMENT (UR) CULT NOT INDICATED; CULTURE IF INDICATED CULT NOT INDICATED; GLUCOSE,URINE NEG (NEG); KETONE, URINE NEG (NEG); NITRITE,URINE NEG (NEG); URINE COLOR YELLOW (YELLW/STRAW)
[2016-12-05] MEDS ORDERED: DIATRIZOATE MEGLUM/DIATRIZOATE SOD 9 ML CUP ONE (12:54)
[2016-12-05] MEDS ORDERED: IOHEXOL 350 MG/ML 10 ML VIAL (for RAD DIAG) IVCONTRAST ONE (14:30)
--- NOTE | 2016-12-05 15:17 | RADRPT ---
EXAM DATE/TIME: 12/05/2016 14:21 [facility] COMPARISON: CT ABDOMEN & PELVIS W CONTRAST, May 12, 2014, 7:05. INDICATIONS : Diffuse abdomen pain for one month. IV CONTRAST: 87 cc Omnipaque 350 (iohexol) IV ORAL CONTRAST: Prescribed oral contrast ingested. RADIATION DOSE: 4.93 CTDIvol (mGy) MEDICAL HISTORY : Stroke. Aneurysm, abdominal. Carcinoma, prostate. SURGICAL HISTORY : Appendectomy. ENCOUNTER: Initial ACUITY: 1 month PAIN SCALE: 6/10 LOCATION: Bilateral abodmen TECHNIQUE: Volumetric scanning of the abdomen and pelvis was performed. Using automated exposure control and ad justment of the mA and/or kV according to patient size, radiation dose was kept as low as reasonably achievable to obtain optimal diagnostic quality images. DICOM format image data is available electro nically for review and comparison. FINDINGS: Moderate size bilateral pleural effusions are identified. A small pericardial effusion is present. Th e liver and spleen are normal in size and no focal defects are identified. The gallbladder and pancre as are unremarkable. No intrahepatic or extrahepatic ductal dilatation is seen. The adrenal glands an d kidneys appear normal bilaterally. No hydronephrosis or mass lesions are identified. Examination de monstrates an infrarenal abdominal aortic aneurysm measuring 3.8 cm. There is stranding in the preaur icular soft tissues which may reflect an inflammatory process. 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 Examination of the pelvis demonstrates no evidence of free fluid or pelvic mass. No abnormally enlarg ed inguinal or retroperitoneal lymph nodes are present. The bladder is unremarkable. There is diverti culosis without evidence of diverticulitis. There are radiotherapy seeds in the prostate bed. CONCLUSION: 1. No evidence of acute abdominal or pelvic process. No masses are identified. 2. 3.8 cm abdominal aortic aneurysm with surrounding inflammatory changes without rupture. 3. Diverticulosis without evidence of diverticulitis. 4. Bilateral effusions 5. Small pericardial effusion Clinton Childers MD on December 05, 2016 at 15:11 Board Certified Radiologist. This report was verified electronically.
[2016-12-05] MEDS ORDERED: ONDANSETRON HCL 4 MG/2 ML VIAL IV PUSH ONE (16:00)
[2016-12-05] MEDS ORDERED: MORPHINE SULFATE 4 MG/ML INJ IV PUSH ONE (16:00)
[2016-12-05 16:17] VITALS: RESP 18
[2016-12-05 16:18] VITALS: BP 117/58; PULSE 57; RESP 18; O2SAT 96
[2016-12-05] MEDS ORDERED: HYDROmorphone HCL PF 1 MG/ML VIAL IV PUSH PRN (16:30)
[2016-12-05] MEDS ORDERED: ACETAMINOPHEN/HYDROcodone 325 MG/5 MG TAB PO PRN (16:30)
[2016-12-05] MEDS ORDERED: ONDANSETRON HCL 4 MG/2 ML VIAL IVP PRN (16:30)
[2016-12-05] MEDS ORDERED: ACETAMINOPHEN 325 MG TAB PO PRN (16:30)
[2016-12-05] MEDS ORDERED: NALOXONE HCL 0.4 MG/ML AMP IV PUSH PRN (16:30)
[2016-12-05] MEDS ORDERED: RESP: ALBUTEROL 2.5 MG/IPRATROPIUM 0.5 MG NEB (PRN) NEB (16:45)
--- NOTE | 2016-12-05 16:45 | HHI.HP ---
HPI Service [facility] Hospitalists Primary Care Physician Clinton Clements MD Admission Diagnosis Aortitis, bilateral pleural effusions, pericardial effusion. Diagnoses: Chief Complaint: Abdominal pain Travel History International Travel<30 Days: No Contact w/Intl Traveler <30 Da: No Traveled to Known Affected Are: No History of Present Illness 86-year-old well with past medical history of aortitis, HLD, A. fib on anticoagulation, dementia, GERD who presented for continued abdominal pain. Patient has a history of chronic aortitis. He's been having constant pain in his mid abdomen for several weeks. He is not on any medication for pain at home , okay with hydrocodone in the past. He was recently admitted for Escherichia coli bacteremia and seen by his infectious disease physician, Dr. Rangel. He has been on Keflex, Levaquin, Cefdinir, now back on Keflex. He follows with vascular surgery, Dr. Zambrano, previously for abdominal aneurysm repair, and most recently evaluated back in April for this aortitis and reportedly recommended against surgery. Currently the patient denies any fever, chills, nausea, vomiting, chest pain. He has shortness of breath at baseline, denies any change. Occasional diarrhea. He does have some mild dementia, states the year is 2017, the president's Trump, he is in [place], oriented to self, but does not know the month or day. Review of Systems Constitutional: DENIES: Diaphoretic episodes, Fatigue, Fever, Weight gain, Weight loss, Chills Endocrine: DENIES: Heat/cold intolerance, Polydipsia, Polyuria Eyes: DENIES: Blurred vision, Diplopia, Eye inflammation Ears, nose, mouth, throat: DENIES: Tinnitus, Hearing loss, Vertigo Respiratory: DENIES: Apneas, Cough, Snoring Cardiovascular: DENIES: Chest pain, Palpitations Gastrointestinal: COMPLAINS OF: Abdominal pain, Constipation, DENIES: Black stools, Bloody stools Genitourinary: DENIES: Sexual dysfunction, Urinary frequency Musculoskeletal: COMPLAINS OF: Joint pain, DENIES: Muscle aches Integumentary: DENIES: Abnormal pigmentation, Nail changes Hematologic/lymphatic: DENIES: Bruising, Lymphadenopathy Immunologic/allergic: DENIES: Eczema, Urticaria Neurologic: DENIES: Abnormal gait, Headache, Localized weakness Psychiatric: COMPLAINS OF: Anxiety, Confusion, Depression, Agitation, DENIES: Mood changes, Hallucinations Except as stated in HPI: all other systems reviewed are Neg Past Family Social History Past Medical History Aortitis Hyperlipidemia Dementia GERD Atrial fibrillation on chronic anticoagulation Past Surgical History Abdominal aortic aneurysm repair Cataract surgery Hip replacement Appendectomy Rotator cuff surgery Reported Medications Reported Keflex (Cephalexin) 500 Mg Capsule 500 Mg PO BID Multiple Vitamin 1 Tab 1 Tab PO DAILY Donepezil 10 Mg Tab 10 Mg PO HS Vitamin D3 (Cholecalciferol) 1,000 Unit Tab 1,000 Units PO DAILY Atorvastatin (Atorvastatin Calcium) 80 Mg Tab 80 Mg PO HS Singulair (Montelukast Sodium) 10 Mg Tab 10 Mg PO HS Metoprolol Tartrate 25 Mg Tab 25 Mg PO BID Align (Lactobacillus Rhamnosus (GG)) Unknown Strength Cap 1 Cap PO DAILY Judie Allergy (Fexofenadine HCl) 180 Mg Tab 180 Mg PO DAILY Omeprazole 20 Mg Tab 20 Mg PO DAILY Namenda (Memantine) 10 Mg Tab 10 Mg PO BID Eliquis (Apixaban) 2.5 Mg Tab 2.5 Mg PO BID Allergies: Coded Allergies: cilostazol (Unverified Allergy, Severe, tachycardia.PENTOXIFYLINE CAUSES UNKNOWN REACTION, 12/05/16) lisinopril (Unverified Allergy, Severe, esophageal spasms, 12/05/16) pentoxifylline (Unverified Allergy, Severe, 12/05/16) diclofenac (Unverified Allergy, Intermediate, RED RASH, 12/05/16) etodolac (Unverified Allergy, Intermediate, RED RASH, 12/05/16) flurbiprofen (Unverified Allergy, Intermediate, RED RASH, 12/05/16) ibuprofen (Unverified Allergy, Intermediate, RED RASH, 12/05/16) indomethacin (Unverified Allergy, Intermediate, RED RASH, 12/05/16) ketoprofen (Unverified Allergy, Intermediate, RED RASH, 12/05/16) ketorolac (Unverified Allergy, Intermediate, RED RASH, 12/05/16) naproxen (Unverified Allergy, Intermediate, RED RASH, 12/05/16) oxaprozin (Unverified Allergy, Intermediate, RED RASH, 12/05/16) celecoxib (Verified Allergy, Unknown, 12/05/16) Sulfa (Sulfonamide Antibiotics) (Unverified Adverse Reaction, Unknown, ) Active Ordered Medications Current Medications Medications (Trade) Dose Ordered Sig/Yuri Route Start Time Stop Time Status Last Admin Sodium Chloride 1,000 ml @ 125 mls/hr Q8H IV 12/05/16 11:09 12/05/16 19:08 12/05/16 11:31 (NS Flush) 2 ml UNSCH PRN IV FLUSH 12/05/16 11:15 (Eliquis) 2.5 mg BID PO 12/05/16 21:00 UNV (Lipitor) 80 mg HS PO 12/05/16 21:00 UNV (Aricept) 10 mg HS PO 12/05/16 21:00 UNV (Namenda) 10 mg BID PO 12/05/16 21:00 UNV (Lopressor) 25 mg BID PO 12/05/16 21:00 UNV (Singulair) 10 mg HS PO 12/05/16 21:00 UNV Non-Formulary Medication 180 mg DAILY PO 12/06/16 09:00 UNV Non-Formulary Medication 1 cap DAILY PO 12/06/16 09:00 UNV Non-Formulary Medication 20 mg DAILY PO 12/06/16 09:00 UNV (NS Flush) 2 ml UNSCH PRN IV FLUSH 12/05/16 16:30 UNV (NS Flush) 2 ml BID IV FLUSH 12/05/16 21:00 UNV (Tylenol) 650 mg Q4H PRN PO 12/05/16 16:30 UNV (Zofran Inj) 4 mg Q6H PRN IVP 12/05/16 16:30 UNV (Frederick 5-325 Mg) 1 tab Q4H PRN PO 12/05/16 16:30 UNV (Dilaudid Pf Inj) 0.2 mg Q3H PRN IV PUSH 12/05/16 16:30 UNV (Narcan Inj) 0.4 mg UNSCH PRN IV PUSH 12/05/16 16:30 UNV Family History Father had some kind of aneurysm Social History Quit smoking 30 years ago Occasionally drinks wine Lives at home with his Physical Exam Vital Signs Vital Signs Date Time Temp Pulse Resp B/P (MAP) Pulse Ox O2 Delivery O2 Flow Rate FiO2 12/05/16 16:18 57 18 117/58 (77) 96 Nasal Cannula 2.00 12/05/16 16:17 18 Nasal Cannula 2.00 12/05/16 10:03 97.9 53 12 109/51 (70) 95 Physical Exam GENERAL: Well-developed thin, fair-nourished elderly male. In no acute distress. Oriented 2.5. SKIN: Warm and dry. No lesions noted. HEENT: Normocephalic. Pupils equal and round. Mucous membranes pink and moist. CARDIOVASCULAR: Regular rate and rhythm. No murmur appreciated. RESPIRATORY: No accessory muscle use. Clear to auscultation. Breath sounds equal bilaterally. GASTROINTESTINAL: Abdomen soft, non-tender, nondistended. Bowel sounds x4. MUSCULOSKELETAL: No obvious deformities. No clubbing or cyanosis. No edema. NEUROLOGICAL: Awake and alert. No focal neurological deficits. Moves upper and lower extremities spontaneously. Normal speech. PSYCHIATRIC: Appropriate mood and affect; insight and judgment fair. Laboratory Laboratory Tests Test 12/05/16 11:28 12/05/16 11:35 White Blood Count 9.1 Red Blood Count 4.35 Hemoglobin 12.7 Hematocrit 38.0 Mean Corpuscular Volume 87.4 Mean Corpuscular Hemoglobin 29.2 Mean Corpuscular Hemoglobin Concent 33.4 Red Cell Distribution Width 14.6 Platelet Count 263 Mean Platelet Volume 7.5 Neutrophils (%) (Auto) 67.5 Lymphocytes (%) (Auto) 18.2 Monocytes (%) (Auto) 10.7 Eosinophils (%) (Auto) 3.1 Basophils (%) (Auto) 0.5 Neutrophils # (Auto) 6.2 Lymphocytes # (Auto) 1.7 Monocytes # (Auto) 1.0 Eosinophils # (Auto) 0.3 Basophils # (Auto) 0.0 CBC Comment DIFF FINAL Differential Comment Blood Urea Nitrogen 9 Creatinine 0.57 Random Glucose 90 Total Protein 6.6 Albumin 2.4 Calcium Level 9.9 Alkaline Phosphatase 106 Aspartate Amino Transf (AST/SGOT) 20 Alanine Aminotransferase (ALT/SGPT) 18 Total Bilirubin 0.4 Sodium Level 140 Potassium Level 4.3 Chloride Level 106 Carbon Dioxide Level 25.8 Anion Gap 8 Estimat Glomerular Filtration Rate 135 Urine Color YELLOW Urine Turbidity CLEAR Urine pH 7.0 Urine Specific [place] 1.015 Urine Protein NEG Urine Glucose (UA) NEG Urine Ketones NEG Urine Occult Blood NEG Urine Nitrite NEG Urine Bilirubin NEG Urine Urobilinogen 2.0 Urine Leukocyte Esterase NEG Urine WBC LESS THAN 1 Microscopic Urinalysis Comment CULT NOT INDICATED Result Diagram: 12/05/16 1128 12/05/161127 Caprini VTE Risk Assessment Caprini VTE Risk Assessment: Mod/High Risk (score >= 2) Caprini Risk Assessment Model Point Value = 1 Point Value = 2 Point Value = 3 Point Value = 5 Age 41-60 Minor surgery BMI > 25 kg/m2 Swollen legs Varicose veins or History of unexplained or recurrent spontaneous Oral contraceptives or hormone replacement Sepsis (< 1 month) Serious lung disease, including pneumonia (< 1 month) Abnormal pulmonary function Acute myocardial infarction Congestive heart failure (< 1 month) History of inflammatory bowel disease Medical patient at bed rest Age 61-74 Arthroscopic surgery Major open surgery (> 45 min) Laparoscopic surgery (> 45 min) Malignancy Confined to bed (> 72 hours) Immobilizing plaster cast Central venous access Age >= 75 History of VTE Family history of VTE Factor V Leiden Prothrombin [id number] Lupus anticoagulant Anticardiolipin antibodies Elevated serum homocysteine Heparin-induced thrombocytopenia Other congenital or acquired thrombophilia Stroke (< 1 month) Elective arthroplasty Hip, pelvis, or leg fracture Acute spinal cord injury (< 1 month) Prophylaxis Regimen Total Risk Factor Score Risk Level Prophylaxis Regimen 0-1 Low Early ambulation 2 Moderate Order ONE of the following: *Sequential Compression Device (SCD) *Heparin 5000 units SQ BID 3-4 Higher Order ONE of the following medications: *Heparin 5000 units SQ TID *Enoxaparin/Lovenox 40 mg SQ daily (WT < 150 kg, CrCl > 30 mL/min) *Enoxaparin/Lovenox 30 mg SQ daily (WT < 150 kg, CrCl > 10-29 mL/min) *Enoxaparin/Lovenox 30 mg SQ BID (WT < 150 kg, CrCl > 30 mL/min) AND/OR *Sequential Compression Device (SCD) 5 or more Highest Order ONE of the following medications: *Heparin 5000 units SQ TID (Preferred with Epidurals) *Enoxaparin/Lovenox 40 mg SQ daily (WT < 150 kg, CrCl > 30 mL/min) *Enoxaparin/Lovenox 30 mg SQ daily (WT < 150 kg, CrCl > 10-29 mL/min) *Enoxaparin/Lovenox 30 mg SQ BID (WT < 150 kg, CrCl > 30 mL/min) AND *Sequential Compression Device (SCD) Assessment and Plan Assessment and Plan 86-year-old well with past medical history of aortitis, HLD, A. fib on anticoagulation, dementia, GERD who presented for continued abdominal pain Aortitis with continued abdominal pain: Acute on chronic. Reviewed: Afebrile with no leukocytosis. Abdominal CT shows 3.8 cm abdominal aortic aneurysm with surrounding inflammatory changes without rupture. -Consult patient's infectious disease physician and vascular surgeon. -Pain control with Frederick and IV Dilaudid as needed -Consider steroids pending specialist input Bilateral pleural effusion: Incidentally seen on abdominal CT. Present on previous x-ray 11/13. Patient with no acute respiratory complaints. Echocardiogram 11/15/16 with normal systolic function, EF 60-65 %, moderate pulmonary hypertension and small pericardial effusion. -Repeat chest x-ray -Continue O2 and nebs as needed Atrial fibrillation: Chronic. Rate is controlled. -Continue home metoprolol, statin, and Eliquis Dementia: Chronic. Currently at baseline. -Continue home donepezil and Namenda DVT prophylaxis: Eliquis GI prophylaxis: PPI The exam, history, and the medical decision-making described in the above note were completed with the assistance of the mid-level provider. I reviewed and agree with the findings presented. I attest that I had a [id number] encounter with the patient on the same day, and personally performed and documented my assessment and findings in the medical record. 3 days is the estimated time the patient will need to remain in the hospital, assuming treatment plan goals are met and no additional complications. The services are ordered in accordance with Medicare regulations or non- Medicare payer requirements, as applicable. In the case of services not specified as inpatient-only, they are appropriately provided as inpatient services in accordance with the 2-midnight benchmark. Code Status FULL Code Discussed Condition With Patient with and Dr. Magana at bedside, Marcos Torres Dec 05, 2016 16:45 Stephane Magana DO Dec 05, 2016 16:58
--- NOTE | 2016-12-05 16:54 | RADRPT ---
EXAM DATE/TIME: 12/05/2016 16:31 [place] COMPARISON: CHEST SINGLE AP, May 04, 2016, 9:55. CHEST SINGLE AP, November 13, 2016, 13:22. INDICATIONS : Cough. MEDICAL HISTORY : None. SURGICAL HISTORY : None. ENCOUNTER: Initial ACUITY: 1 day PAIN SCORE: 0/10 LOCATION: Bilateral chest FINDINGS: The cardiac silhouette is enlarged in transverse diameter. There is prominence of the aortic knob is with calcification characteristic of atherosclerotic vascular disease. There is left lower lobe atele ctasis versus pneumonia. No pleural effusions are identified. CONCLUSION: 1. Left lower lobe atelectasis versus pneumonia. Clinton Childers MD on December 05, 2016 at 16:51 Board Certified Radiologist. This report was verified electronically.
[2016-12-05 17:19] VITALS: O2SAT 96
[2016-12-05 17:41] VITALS: BP 116/58; PULSE 56; RESP 16; TEMP 97.9; O2SAT 97
[2016-12-05 20:15] VITALS: BP 92/54; PULSE 63; RESP 17; TEMP 98.1; O2SAT 91
[2016-12-05] MEDS: METOPROLOL TARTRATE 25 MG TAB PO SCH (20:24)
[2016-12-05] MEDS: MEMANTINE HCL 10 MG TAB PO SCH (20:24)
[2016-12-05] MEDS ORDERED: SODIUM CHLORIDE 0.9% FLUSH 10 ML FLUSH IV FLUSH SCH (21:00)
[2016-12-05] MEDS ORDERED: MONTELUKAST SODIUM 10 MG TAB PO SCH (21:00)
[2016-12-05] MEDS ORDERED: DONEPEZIL HCL 5 MG TAB PO SCH (21:00)
[2016-12-05] MEDS ORDERED: ATORVASTATIN 80 MG TAB PO SCH (21:00)
[2016-12-05] MEDS: APIXABAN 2.5 MG TABLET PO SCH (21:30)
[2016-12-06 00:06] VITALS: BP 98/50; PULSE 50; RESP 16; TEMP 97.9; O2SAT 98
[2016-12-06 03:58] VITALS: BP 105/57; PULSE 57; RESP 17; TEMP 98.4; O2SAT 98
[2016-12-06 07:35] LABS: AUTOMATED NEUTROPHIL # 5.6 TH/MM3 (1.8-7.7); BASOPHIL % 0.6 % (0.0-2.0); EOSINOPHIL # 0.3 TH/MM3 (0-0.4); EOSINOPHIL % 3.9 % (0.0-4.0); HEMATOCRIT 36.8 % (39.0-51.0); HEMO FLAGS DIFF FINAL; LYMPH % 17.2 % (9.0-44.0); LYMPHOCYTE # 1.4 TH/MM3 (1.0-4.8); MEAN CELL VOLUME 88.2 FL (80.0-100.0); MEAN CORPUSCULAR HEMOGLOBIN 28.7 PG (27.0-34.0); MEAN CORPUSCULAR HGB CONC 32.6 % (32.0-36.0); MONO % 11.1 % (0.0-8.0); NEUT % 67.2 % (16.0-70.0); PLATELET COUNT 263 TH/MM3 (150-450); RED BLOOD COUNT 4.18 MIL/MM3 (4.50-5.90); RED CELL DISTRIBUTION WIDTH 14.8 % (11.6-17.2); WHITE BLOOD COUNT 8.3 TH/MM3 (4.0-11.0)
[2016-12-06 08:00] VITALS: BP 108/52; PULSE 50; RESP 16; TEMP 97.6; O2SAT 98
[2016-12-06 08:18] LABS: BICARBONATE 29.4 MEQ/L (21.0-32.0); POTASSIUM 4.5 MEQ/L (3.5-5.1)
[2016-12-06 08:47] VITALS: O2SAT 92
[2016-12-06] MEDS ORDERED: FEXOFENADINE HYDROCHLORIDE 180 MG PO SCH (09:00)
[2016-12-06] MEDS ORDERED: PANTOPRAZOLE SOD 20 MG DELAYED RELEASE TAB PO SCH (09:00)
[2016-12-06] MEDS ORDERED: LACTOBACILLUS ACIDOPHILUS TAB PO SCH (09:00)
--- NOTE | 2016-12-06 09:56 | HHI.PR ---
Subjective Remarks Follow-up for aortitis. The patient is doing well today. Eating breakfast with no complaints. He doesn't really recall why he came to the hospital. He denies any abdominal pain at this time and has not required any pain medication overnight. He denies any nausea, vomiting. No bowel movement since arrival. He denies any chest pain or shortness of breath. He'd like to go home today. Objective Vitals Vital Signs Date Time Temp Pulse Resp B/P (MAP) Pulse Ox O2 Delivery O2 Flow Rate FiO2 12/06/16 08:47 92 Nasal Cannula 2.00 12/06/16 08:00 97.6 50 16 108/52 (70) 98 12/06/16 03:58 98.4 57 17 105/57 (73) 98 12/06/16 00:06 97.9 50 16 98/50 (66) 98 12/05/16 20:15 98.1 63 17 92/54 (67) 91 12/05/16 20:00 Nasal Cannula 2.00 12/05/16 17:49 12/05/16 17:41 97.9 56 16 116/58 (77) 97 12/05/16 17:19 96 Nasal Cannula 2.00 12/05/16 16:18 57 18 117/58 (77) 96 Nasal Cannula 2.00 12/05/16 16:17 18 Nasal Cannula 2.00 12/05/16 10:03 97.9 53 12 109/51 (70) 95 Result Diagram: 12/06/16 0707 12/06/16 0707 Imaging Last Impressions Abdomen/Pelvis CT 12/05/16 1209 Signed Impressions: Service Date/Time: Monday, December 05, 2016 14:21 - CONCLUSION: 1. No evidence of acute abdominal or pelvic process. No masses are identified. 2. 3.8 cm abdominal aortic aneurysm with surrounding inflammatory changes without rupture. 3. Diverticulosis without evidence of diverticulitis. 4. Bilateral effusions 5. Small pericardial effusion Clinton Childers MD Chest X-Ray 12/05/16 0000 Signed Impressions: Service Date/Time: Monday, December 05, 2016 16:31 - CONCLUSION: 1. Left lower lobe atelectasis versus pneumonia. Clinton Childers MD Objective Remarks GENERAL: Well-developed well-nourished. In no acute distress. Currently on room air. SKIN: Warm and dry. No generalized rash noted. HEENT: Normocephalic. Pupils equal and round. Mucous membranes pink and moist. CARDIOVASCULAR: Regular rate and rhythm. No murmur appreciated. RESPIRATORY: No accessory muscle use. Clear to auscultation. Breath sounds equal bilaterally. GASTROINTESTINAL: Abdomen soft, non-tender, nondistended. Bowel sounds x4. No pulsatile masses palpable. MUSCULOSKELETAL: No obvious deformities. No clubbing or cyanosis. No edema. NEUROLOGICAL: Awake and alert. No focal neurological deficits. Moves upper and lower extremities spontaneously. Normal speech. PSYCHIATRIC: Pleasantly confused mood and affect; insight and judgment fair. A/P Assessment and Plan 86-year-old well with past medical history of aortitis, HLD, A. 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 Symptoms currently resolved. Reviewed: Afebrile with no leukocytosis. Abdominal CT shows 3.8 cm abdominal aortic aneurysm with surrounding inflammatory changes without rupture. -Consulted patient's infectious disease physician and vascular surgeon. -Pain control with Munday as needed Bilateral pleural effusion?: Incidentally seen on abdominal CT. Present on previous x-ray 11/13. Patient with no acute respiratory complaints. Echocardiogram 11/15/16 with normal systolic function, EF 60-65 %, moderate pulmonary hypertension and small pericardial effusion. -Repeat chest x-ray with left base atelectasis. -Incentive spirometry -O2 and nebs if needed Atrial fibrillation: Chronic. Rate is controlled. -Continue home metoprolol, statin, and Eliquis Dementia: Chronic. Currently at baseline. -Continue home donepezil and Namenda DVT prophylaxis: Eliquis GI prophylaxis: PPI Discharge Planning D/W Dr. White. Symptoms have improved at this time. Follow-up with specialists input. When cleared by specialists, discharge planning. 1730 no further abdominal pain, patient's does request a prescription for pain control at discharge if symptoms recur. ID evaluated the patient and recommended restarting on Levaquin, ESR and CRP, blood cultures, and outpatient follow-up with ID who will follow up on cultures. Discussed with vascular surgery, Dr. Sheikh, patient is cleared for discharge from his standpoint. The patient's is upset because the patient is demented and has been waiting to go home all day. Discharge home today for outpatient follow-up with his infectious disease doctor and his vascular surgeon with prescriptions for Munday and Levaquin. Marcos Mane Dec 06, 2016 09:56
[2016-12-06] MEDS: MEMANTINE HCL 10 MG TAB PO SCH (10:54)
[2016-12-06] MEDS: APIXABAN 2.5 MG TABLET PO SCH (10:55)
[2016-12-06] MEDS: METOPROLOL TARTRATE 25 MG TAB PO SCH (10:56)
[2016-12-06] MEDS ORDERED: ARTIFICIAL TEARS OPTH SOLN 15 ML BTL EACH EYE PRN (11:00)
[2016-12-06 11:36] VITALS: BP 98/55; PULSE 57; RESP 16; TEMP 97.9; O2SAT 93
--- NOTE | 2016-12-06 15:30 | PD.CONS ---
History of Present Illness Service Infectious Disease Consult Requested By Dr Kori White Reason for Consult Evaluate with known aortitis Primary Care Physician Clinton Clements MD Diagnoses: History of Present Illness Patient seen and examined. Records reviewed. Patient is an 86-year-old male, presented to the hospital for further evaluation of ongoing abdominal pain. Patient had prior abdominal aortic aneurysm repair in 2007. Back in April he had MSSA bacteremia, and workup revealed findings suggestive of aortitis. Inflammatory changes right around his aneurysm repair. He was given IV antibiotics and was treated conservatively. He was placed on chronic suppression with Keflex, and in October of this year he was readmitted in [facility] and he had ongoing weakness at that time. He was also complaining of abdominal pain. His blood cultures then grew Escherichia coli, and the patient was discharge on oral Levaquin. According to the continued to have abdominal pain, and his antibiotic was switched to a different antibiotic, in case that the abdominal pain was getting worsen by the Levaquin. However his abdominal pain really did not improve. The pain was occurring almost on a daily basis. Patient completed a course of antibiotic, and he was restarted on his chronic suppression about 4 days ago. Patient however continued with his abdominal pain , and it was decided to bring him to the hospital for further evaluation and treatment. There's been no fever or chills or sweats. He has not had any nausea or vomiting or any diarrhea. He denies any urinary complaints. Since admission patient has been afebrile. His WBC is normal. CT of the abdomen and pelvis showed no change in the inflammatory changes around his aneurysm. Currently patient is free of abdominal pain. Patient had some blood work done last week, and his C-reactive protein was down to 5 from 10. Infectious disease consultation has been requested to evaluate the patient. Review of Systems Constitutional: DENIES: Fever, Chills, Night Sweats Eyes: DENIES: Eye pain Ears, nose, mouth, throat: DENIES: Nasal discharge, Oral lesions, Throat pain, Ear Pain, Sinus Pain Respiratory: DENIES: Cough, Sputum production, Shortness of breath Cardiovascular: DENIES: Chest pain, Palpitations, Syncope Gastrointestinal: COMPLAINS OF: Abdominal pain, DENIES: Diarrhea, Nausea, Vomiting, Difficulty Swallowing Genitourinary: DENIES: Urgency, Hematuria, Dysuria Musculoskeletal: DENIES: Joint pain, Joint Swelling Integumentary: DENIES: Rash Psychiatric: DENIES: Hallucinations Past Family Social History Allergies: Coded Allergies: cilostazol (Unverified Allergy, Severe, tachycardia.PENTOXIFYLINE CAUSES UNKNOWN REACTION, 12/05/16) lisinopril (Unverified Allergy, Severe, esophageal spasms, 12/05/16) pentoxifylline (Unverified Allergy, Severe, 12/05/16) diclofenac (Unverified Allergy, Intermediate, RED RASH, 12/05/16) etodolac (Unverified Allergy, Intermediate, RED RASH, 12/05/16) flurbiprofen (Unverified Allergy, Intermediate, RED RASH, 12/05/16) ibuprofen (Unverified Allergy, Intermediate, RED RASH, 12/05/16) indomethacin (Unverified Allergy, Intermediate, RED RASH, 12/05/16) ketoprofen (Unverified Allergy, Intermediate, RED RASH, 12/05/16) ketorolac (Unverified Allergy, Intermediate, RED RASH, 12/05/16) naproxen (Unverified Allergy, Intermediate, RED RASH, 12/05/16) oxaprozin (Unverified Allergy, Intermediate, RED RASH, 12/05/16) celecoxib (Verified Allergy, Unknown, 12/05/16) Sulfa (Sulfonamide Antibiotics) (Unverified Adverse Reaction, Unknown, ) Past Medical History Atrial fibrillation Dementia Questionable TIA Previous bacteremia Benign polyp Abdominal aortic aneurysm Cataract MSSA bacteremia back in April 2016, treated Escherichia coli bacteremia in October 2016 Past Surgical History Rotator cuff repair Previous colonoscopy Nasal polypectomy Prostate cancer and prostate seeds Right hip replacement Bilateral cataract surgery Left carpal tunnel surgery Endarterectomy left lower extremity Esophageal dilatated Previous fracture in the leg Appendectomy Abdominal aneurysm repair Reported Medications I attest that I obtained, updated or reviewed the home and current medications. Reported Meds & Active Scripts Active Oxygen (O2) Device Liter DOMITILA.CANULA CONTINUOUS Oxygen Concentrator Portable Gaseous 2 L/min via Nasal Canula Continuous For 99 months Epinephrine Inj 1 Mg/Ml Inj 0.3 Mg SQ ONCE PRN Give with any signs of respiratory distress. Epinephrine Inj 1 Mg/Ml Inj 0.3 Mg IV PUSH ONCE PRN Solu-Cortef Inj (Hydrocortisone Sodium Succinate) 250 Mg Inj 250 Mg IV PUSH ONCE PRN Give over 30-60 seconds. Reported Keflex (Cephalexin) 500 Mg Capsule 500 Mg PO BID Multiple Vitamin 1 Tab 1 Tab PO DAILY Donepezil 10 Mg Tab 10 Mg PO HS Vitamin D3 (Cholecalciferol) 1,000 Unit Tab 1,000 Units PO DAILY Atorvastatin (Atorvastatin Calcium) 80 Mg Tab 80 Mg PO HS Singulair (Montelukast Sodium) 10 Mg Tab 10 Mg PO HS Metoprolol Tartrate 25 Mg Tab 25 Mg PO BID Align (Lactobacillus Rhamnosus (GG)) Unknown Strength Cap 1 Cap PO DAILY Judie Allergy (Fexofenadine HCl) 180 Mg Tab 180 Mg PO DAILY Omeprazole 20 Mg Tab 20 Mg PO DAILY Namenda (Memantine) 10 Mg Tab 10 Mg PO BID Eliquis (Apixaban) 2.5 Mg Tab 2.5 Mg PO BID Active Ordered Medications Tylenol prn [place] prn Albuterol prn Eliquis Lipitor Aricept Judie Lactinex Namenda Lopressor Singulair Narcan prn ZOfran prn Protonix Family History Noncontributory to current ID issues Social History Patient is , lives at home with the Ex-smoker No alcohol abuse No illicit drugs Physical Exam Vital Signs Vital Signs Date Time Temp Pulse Resp B/P (MAP) Pulse Ox O2 Delivery O2 Flow Rate FiO2 12/06/16 11:36 97.9 57 16 98/55 (69) 93 12/06/16 08:47 92 Nasal Cannula 2.00 12/06/16 08:00 97.6 50 16 108/52 (70) 98 12/06/16 03:58 98.4 57 17 105/57 (73) 98 12/06/16 00:06 97.9 50 16 98/50 (66) 98 12/05/16 20:15 98.1 63 17 92/54 (67) 91 12/05/16 20:00 Nasal Cannula 2.00 12/05/16 17:49 12/05/16 17:41 97.9 56 16 116/58 (77) 97 12/05/16 17:19 96 Nasal Cannula 2.00 12/05/16 16:18 57 18 117/58 (77) 96 Nasal Cannula 2.00 12/05/16 16:17 18 Nasal Cannula 2.00 Physical Exam GENERAL: Patient is a well-nourished, well-developed male, awake and alert, not in respiratory distress. Not a good historian SKIN: Warm and dry. No generalized rash, no ecchymoses and no evidence of embolic lesions. HEAD: Atraumatic. Normocephalic. No temporal wasting, or tenderness. EYES: [place] conjunctiva. No petechia or hemorrhage. Pupils equal, round and reactive to light. Extraocular movements full and intact. No scleral icterus. No injection or drainage. EARS, NOSE AND THROAT: Nose without bleeding or purulent nasal discharge. No sinus tenderness. Mucous membranes pink and moist. No oral lesions noted. No exudate. No oral thrush. NECK: Trachea midline. Supple and not tender, no meningeal signs CARDIOVASCULAR: Regular rate and rhythm. No murmurs, rubs or gallops heard RESPIRATORY: Clear to auscultation. Breath sounds equal bilaterally. No rales , wheezing or rhonchi ABDOMEN: Soft, non-tender, nondistended. Bowel sounds present and normoactive. No guarding. No rebound. No organomegaly. EXTREMITIES: No clubbing, cyanosis, or edema.No joint effusion, has good ROM. No calf tenderness. Well perfused and warm. NEUROLOGICAL: Awake and alert. Cranial nerves grossly intact. Motor grossly within normal limits. PSYCHIATRIC: Normal affect, calm and cooperative. LINE: No evidence of infection Laboratory Laboratory Tests Test 12/06/16 07:07 White Blood Count 8.3 Red Blood Count 4.18 Hemoglobin 12.0 Hematocrit 36.8 Mean Corpuscular Volume 88.2 Mean Corpuscular Hemoglobin 28.7 Mean Corpuscular Hemoglobin Concent 32.6 Red Cell Distribution Width 14.8 Platelet Count 263 Mean Platelet Volume 7.7 Neutrophils (%) (Auto) 67.2 Lymphocytes (%) (Auto) 17.2 Monocytes (%) (Auto) 11.1 Eosinophils (%) (Auto) 3.9 Basophils (%) (Auto) 0.6 Neutrophils # (Auto) 5.6 Lymphocytes # (Auto) 1.4 Monocytes # (Auto) 0.9 Eosinophils # (Auto) 0.3 Basophils # (Auto) 0.0 CBC Comment DIFF FINAL Differential Comment Blood Urea Nitrogen 11 Creatinine 0.60 Random Glucose 80 Calcium Level 9.0 Sodium Level 141 Potassium Level 4.5 Chloride Level 107 Carbon Dioxide Level 29.4 Anion Gap 5 Estimat Glomerular Filtration Rate 127 Result Diagram: 12/06/16 0707 12/06/16 0707 Imaging Last Impressions Abdomen/Pelvis CT 12/05/16 1209 Signed Impressions: Service Date/Time: Monday, December 05, 2016 14:21 - CONCLUSION: 1. No evidence of acute abdominal or pelvic process. No masses are identified. 2. 3.8 cm abdominal aortic aneurysm with surrounding inflammatory changes without rupture. 3. Diverticulosis without evidence of diverticulitis. 4. Bilateral effusions 5. Small pericardial effusion Clinton Childers MD Chest X-Ray 12/05/16 0000 Signed Impressions: Service Date/Time: Monday, December 05, 2016 16:31 - CONCLUSION: 1. Left lower lobe atelectasis versus pneumonia. Clinton Childers MD Assessment and Plan Assessment and Plan IMPRESSION Persistent abdominal pain, currently pain free Known aortitis, S/P Rx, has been on chronic suppression - previous aortic aneurysm repair Episode of MSSA bacteremia, Rx April 2016 Episode of E coli bacteremia, S/P Rx with levaquin RECOMMENDATION 2 BC today ESR and CRP Restart Levaquin and if pain free, D/C on levaquin and follow-up with Dr Rangel - Dr rangel can follow up on results of his BC Vascular surgery has sen the patient If no further pain, he can be D/C and have ID fup Thank you for this consultation Discussed Condition With Explained plan to the patient Yamilka Mcclelland MD Dec 06, 2016 15:30
[2016-12-06 15:37] VITALS: BP 100/54; PULSE 57; RESP 18; TEMP 97.9; O2SAT 94
[2016-12-06] MEDS ORDERED: HYDR-3516 PO (17:40)
[2016-12-06] MEDS ORDERED: LEVA750T9 PO (17:40)
--- NOTE | 2016-12-06 17:54 | MB ---
cc: SARAH PUENTE MD DATE OF CONSULTATION 12/06/[address] Puente / vascular surgery. REASON FOR CONSULTATION Abdominal pain, aortitis and abdominal artery aneurysm. HISTORY OF THE PRESENT ILLNESS This pleasant 86-year-old gentleman who is awake and alert, is admitted to the hospital with abdominal pain. The patient had the pain for several weeks. It has been fairly constant and dull. He has been seen several times in this hospital and CT scan performed reveals about a 3.2 cm abdominal aortic aneurysm extending into the iliacs and some diffuse haziness around the distal aneurysm questioning some inflammation or infection, therefore the consultation. PAST MEDICAL HISTORY Is that of: 1. Known parotitis. 2. Hyperlipidemia. 3. Atrial fibrillation on chronic anticoagulation. PAST SURGICAL HISTORY Surgical history is that of: 1. Hip replacement. 2. Appendectomy. 3. Rotator cuff surgery. MEDICATIONS Can be found on the record and include Eliquis. PHYSICAL EXAMINATION GENERAL: Physical examination reveals a pleasant 86-year-old gentleman, actually awake, alert and oriented while I talked to him. HEENT: Normocephalic. No trauma to the head. The pupils are equal. Extraocular muscles intact. NECK: Bilateral carotid pulses. No bruits. CHEST: Bilateral breath sounds decreased over both lung nolan consistent with a moderate degree of emphysema and COPD. HEART: Irregular rhythm. The patient is in slow, controlled, atrial fibrillation of about 80 a minute. ABDOMEN: Soft. Active bowel sounds. No masses. No rebound or guarding. I do not feel a 3 cm aneurysm as anything distinct. EXTREMITIES: The patient has palpable femoral pulses, palpable dorsalis pedis and dopplerable posterior tibial pulses. No signs of acute vascular deficit. BACK: Normal. IMPRESSION An 86-year-old gentleman with abdominal aortic aneurysm. I reviewed all the studies and discussed this with the patient and his daughter. 1. The patient has bilateral pleural effusions right more than left, so he may need some more diuresis and if he is not short of breath, then I would leave it alone but if he becomes short of breath he probably would benefit from pleural tap especially on the right. 2. As far as the aneurysm is concerned, the patient has infrarenal abdominal aortic aneurysm about 3.8 cm with some haziness in the perirenal tissue which may be inflammatory. The aneurysm extends somewhat into the common iliac arteries which is slightly dilated. At this point the patient does not require any surgery. Inflammatory changes in aneurysm are seen fairly often, they may be related to infection which this is not the case, and then sometimes inflammatory disease or periaortitis most of the time of immune origin or unspecified origin. [id number] inflammatory aneurysm stent to a rupture much less than the non inflammatory because of thickness of the aortic wall. This particular gentleman does not need any further special therapy considering that he is on Eliquis he does not need nonsteroidal anti-inflammatory in addition. Steroids would not probably fix this in any way and I would avoid things like methotrexate and immunomodulators. Therefore the patient just needs to be followed. 3. As far as the pleural effusions are concerned, as stated above he may need a pleural tap to be more comfortable but that is about it. I thank you much for referral. Sarah LESLIE/CECIL /4:22 PM /5:20 PM
[2016-12-07] MEDS ORDERED: LEVOFLOXACIN 750 MG TAB PO SCH (09:00)
== END 2016-12-06 18:42 | disposition home or self-care (01) | DRG 546 ==
LOC: NEPE 10:01 → NEDA 16:08 → OBSVTOIN 16:50 → NEPGCP 17:55
PROVIDERS: ADMIT Internal Medicine; ATTEND Internal Medicine
DX: I77.6 Arteritis, unspecified (principal); J90 Pleural effusion, not elsewhere classified; I48.2 Chronic atrial fibrillation; F03.90 Unspecified dementia, unspecified severity, without behavioral disturbance, psychotic disturbance, mood disturbance, and anxiety; Z79.01 Long term (current) use of anticoagulants; E78.5 Hyperlipidemia, unspecified; K21.9 Gastro-esophageal reflux disease without esophagitis; Z87.891 Personal history of nicotine dependence; Z96.641 Presence of right artificial hip joint; Z85.46 Personal history of malignant neoplasm of prostate
CPT/HCPCS: 71010; 74177; 80048; 80053; 81001; 85025; 85652; 86140; 87040; 94150; 96360; 96361; J2270; J2405; J7030; Q9963; Q9967

== ENCOUNTER 2017-01-17 10:19 | Inpatient (IN) | payer MEDICARE ==
[2017-01-17] VITALS (12 sets, daily range): BP systolic 98–166; BP diastolic 51–85; PULSE 56–83; RESP 12–20; TEMP 97.1–98.3; O2SAT 93–100
[~2017-01-17] VITALS: Ht 175.3 cm; Wt 59.8 kg
[~2017-01-17 10:19] MED LIST changes: -ATOR1TAB18 PO; +ATOR80TA45 PO; -FURO1TAB62 PO; +HYDR-3516 PO; -OMEP20TA PO; +OMEP20TA93 PO; -POTA10CA PO
[2017-01-17] MEDS ORDERED: CEPH500C PO (10:39)
--- NOTE | 2017-01-17 10:52 | PD ---
HPI Chief Complaint: Back/ Neck Pain or Injury Time Seen by Provider: 10:33 Travel History International Travel<30 days: No Contact w/Intl Traveler<30days: No Traveled to known affect area: No History of Present Illness HPI This 86-year-old male is complaining of right flank pain and some generalized abdominal pain. He's been having the flank pain since about last . He does have a history of back pain but this seems a little bit different. He does have a history of dementia. His says he is quite forgetful. He had repair of an abdominal aortic aneurysm in 2007. Recently he has been thought to have possible aortitis and has been on antibiotic suppression. He sees Dr. Rangel. His says that his appetite has been quite bad for some time and she has to force him to eat. She says he has eaten very little over the last few days. She took tramadol for pain without much response and took a Lortab last night without much response. He is on Eliquis because of atrial fibrillation. He says the pain has been fairly constant. There is been no vomiting. There has been no fever or chills. PFSH Past Medical History Hx Anticoagulant Therapy: Yes (ELQUIS) AAA: Yes Alzheimer's Disease: No Arthritis: Yes Asthma: No Atrial Fibrillation: Yes Autoimmune Disease: No Blood Disorders: No Anxiety: No Depression: No Heart Rhythm Problems: Yes (A-FIB) Cancer: Yes (PROSTATE CANCER) Cardiovascular Problems: Yes (AAA, A-FIB) High Cholesterol: Yes Chemotherapy: No Chest Pain: No Congestive Heart Failure: No COPD: No Cerebrovascular Accident: Yes Dementia: Yes (Per "slight dementia") Diabetes: No Diminished Hearing: No Endocrine: No Gastrointestinal Disorders: Yes (Esophageal stricture, reflux, gastric ulcers ) GERD: No Glaucoma: No Genitourinary: No Headaches: No Hepatitis: No Hiatal Hernia: No Hypertension: Yes Immune Disorder: No Implanted Vascular Access Dvce: Yes Kidney Stones: No Medical other: Yes (REFLUX, GASTRIC ULCERS, ESOPHAGEAL STRICTURE,PROSTATE CANCER) Musculoskeletal: Yes (LOWER BACK PAIN) Neurologic: Yes (TIA IN " ABOUT 2014" PER PATIENT'S ) Psychiatric: No Reproductive: No Respiratory: Yes (CHRONIC ALLERGY S/S) Immunizations Current: Yes Migraines: No Radiation Therapy: Yes Renal Failure: No Seizures: No Sickle Cell Disease: No Sleep Apnea: No Thyroid Disease: No Ulcer: No Past Surgical History Abdominal Aneurysm Repair: Yes Abdominal Surgery: No AICD: No Appendectomy: Yes Arteriovenous Shunt: No Body Medical Devices: Dental implants Cardiac Surgery: No Cholecystectomy: No Ear Surgery: No Endocrine Surgery: No Eye Surgery: No Genitourinary Surgery: No Gynecologic Surgery: No Insulin Pump: No Joint Replacement: Yes (Right hip replacement) Oral Surgery: Yes (Implants) Pacemaker: No Thoracic Surgery: No Other Surgery: Yes (Repair of stomach lining ) Social History Alcohol Use: Yes (1-2 glasses wine/day) Tobacco Use: No Substance Use: No Allergies-Medications (Allergen,Severity, Reaction): Coded Allergies: cilostazol (Unverified Allergy, Severe, tachycardia.PENTOXIFYLINE CAUSES UNKNOWN REACTION, 01/17/17) lisinopril (Unverified Allergy, Severe, esophageal spasms, 01/17/17) pentoxifylline (Unverified Allergy, Severe, 01/17/17) diclofenac (Unverified Allergy, Intermediate, RED RASH, 01/17/17) etodolac (Unverified Allergy, Intermediate, RED RASH, 01/17/17) flurbiprofen (Unverified Allergy, Intermediate, RED RASH, 01/17/17) ibuprofen (Unverified Allergy, Intermediate, RED RASH, 01/17/17) indomethacin (Unverified Allergy, Intermediate, RED RASH, 01/17/17) ketoprofen (Unverified Allergy, Intermediate, RED RASH, 01/17/17) ketorolac (Unverified Allergy, Intermediate, RED RASH, 01/17/17) naproxen (Unverified Allergy, Intermediate, RED RASH, 01/17/17) oxaprozin (Unverified Allergy, Intermediate, RED RASH, 01/17/17) celecoxib (Verified Allergy, Unknown, 01/17/17) Sulfa (Sulfonamide Antibiotics) (Unverified Adverse Reaction, Unknown, ) Reported Meds & Prescriptions Reported Meds & Active Scripts Active Reported Cephalexin 500 Mg Cap 500 Mg PO Q12H Multiple Vitamin 1 Tab 1 Tab PO DAILY Donepezil 10 Mg Tab 10 Mg PO HS Vitamin D3 (Cholecalciferol) 1,000 Unit Tab 1,000 Units PO DAILY Atorvastatin (Atorvastatin Calcium) 80 Mg Tab 80 Mg PO HS Singulair (Montelukast Sodium) 10 Mg Tab 10 Mg PO HS Judie Allergy (Fexofenadine HCl) 180 Mg Tab 180 Mg PO DAILY Omeprazole 20 Mg Tab 20 Mg PO DAILY Namenda (Memantine) 10 Mg Tab 10 Mg PO BID Eliquis (Apixaban) 2.5 Mg Tab 2.5 Mg PO BID Review of Systems General / Constitutional: No: Fever, Chills Eyes: No: Diploplia HENT: No: Headaches, Vertigo Cardiovascular: No: Chest Pain or Discomfort, Palpitations Respiratory: No: Cough, Shortness of Breath Gastrointestinal: Positive: Abdominal Pain, No: Nausea, Vomiting, Diarrhea Genitourinary: Positive: Flank Pain, No: Urgency, Frequency Skin: No Rash Neurologic: No: Weakness, Dizziness Endocrine: No: Heat Intolerance Hematologic/Lymphatic: No: Easy Bruising Physical Exam Narrative GENERAL: Elderly male SKIN: Focused skin assessment warm/dry. HEAD: Atraumatic. Normocephalic. EYES: Pupils equal and round. No scleral icterus. No injection or drainage. ENT: No nasal bleeding or discharge. Mucous membranes pink and moist. NECK: Trachea midline. No JVD. CARDIOVASCULAR: Regular rate and rhythm. No murmur appreciated. RESPIRATORY: No accessory muscle use. Clear to auscultation. Breath sounds equal bilaterally. GASTROINTESTINAL: Abdomen soft, there is some mild diffuse tenderness, nondistended. Hepatic and splenic margins not palpable. There is some tenderness in the right lower paraspinal area. MUSCULOSKELETAL: No obvious deformities. No clubbing. No cyanosis. No edema. NEUROLOGICAL: Awake and alert. No obvious cranial nerve deficits. Motor grossly within normal limits. Normal speech. PSYCHIATRIC: Appropriate mood and affect; insight and judgment normal. Data Data Last Documented VS Vital Signs Date Time Temp Pulse Resp B/P (MAP) Pulse Ox O2 Delivery O2 Flow Rate FiO2 01/17/17 12:51 73 16 144/75 (98) 99 Nasal Cannula 2.00 01/17/17 10:32 97.9 Orders Orders Complete Blood Count With Diff (01/17/17 10:46) Comprehensive Metabolic Panel (01/17/17 10:46) Prothrombin Time / Inr (Pt) (01/17/17 10:46) Act Partial Throm Time (Ptt) (01/17/17 10:46) Blood Culture (01/17/17 10:46) C-Reactive Protein (Crp) (01/17/17 10:46) Urinalysis - C+S If Indicated (01/17/17 10:46) Westergren Sedimentation Rate (01/17/17 10:46) Ct Abd/Pel W Iv Contrast(Rout) (01/17/17 10:46) Sodium Chlor 0.9% 1000 Ml Inj (Ns 1000 M (01/17/17 11:00) Ondansetron Inj (Zofran Inj) (01/17/17 11:00) Morphine Inj (Morphine Inj) (01/17/17 11:00) Iohexol 350 Inj (Omnipaque 350 Inj) (01/17/17 11:54) Morphine Inj (Morphine Inj) (01/17/17 12:30) Type And Screen (01/17/17 12:28) Piperacil-Tazo 4.5 Gm Premix (Zosyn 4.5 (01/17/17 13:00) Vancomycin Inj (Vancomycin Inj) (01/17/17 13:00) Consult Vascular Surgery (01/17/17 ) Consult Infectious Disease (01/17/17 ) Labs Laboratory Tests Test 01/17/17 10:55 White Blood Count 12.9 TH/MM3 Red Blood Count 4.95 MIL/MM3 Hemoglobin 13.5 GM/DL Hematocrit 42.0 % Mean Corpuscular Volume 84.9 FL Mean Corpuscular Hemoglobin 27.3 PG Mean Corpuscular Hemoglobin Concent 32.1 % Red Cell Distribution Width 14.2 % Platelet Count 417 TH/MM3 Mean Platelet Volume 7.4 FL Neutrophils (%) (Auto) 73.9 % Lymphocytes (%) (Auto) 13.3 % Monocytes (%) (Auto) 8.1 % Eosinophils (%) (Auto) 1.1 % Basophils (%) (Auto) 3.6 % Neutrophils # (Auto) 9.6 TH/MM3 Lymphocytes # (Auto) 1.7 TH/MM3 Monocytes # (Auto) 1.0 TH/MM3 Eosinophils # (Auto) 0.1 TH/MM3 Basophils # (Auto) 0.5 TH/MM3 CBC Comment DIFF FINAL Differential Comment Erythrocyte Sedimentation Rate 42 mm/hr Prothrombin Time 12.0 SEC Prothromb Time International Ratio 1.1 RATIO Activated Partial Thromboplast Time 33.4 SEC Blood Urea Nitrogen 11 MG/DL Creatinine 0.59 MG/DL Random Glucose 87 MG/DL Total Protein 7.4 GM/DL Albumin 2.7 GM/DL Calcium Level 9.9 MG/DL Alkaline Phosphatase 96 U/L Aspartate Amino Transf (AST/SGOT) 20 U/L Alanine Aminotransferase (ALT/SGPT) 13 U/L Total Bilirubin 0.7 MG/DL Sodium Level 138 MEQ/L Potassium Level 3.7 MEQ/L Chloride Level 102 MEQ/L Carbon Dioxide Level 25.0 MEQ/L Anion Gap 11 MEQ/L Estimat Glomerular Filtration Rate 130 ML/MIN MDM Medical Decision Making Medical Screen Exam Complete: Yes Emergency Medical Condition: Yes Medical Record Reviewed: Yes Differential Diagnosis Differential includes renal colic, nonspecific abdominal pain, aortitis, ruptured aneurysm Narrative Course CT scan has been done. There is periaortic induration low density collection concerning for periaortic aortitis. I discussed the case with Dr. Zambrano. He will see the patient in consultation and recommends infectious disease consults. He will be transferred to the main hospital. He has received 4 mg of morphine with minimal relief and is getting a second dose. Diagnosis Primary Impression: Aortitis Additional Impression: Abdominal pain Jared Howe MD Jan 17, 2017 10:52
[2017-01-17] MEDS ORDERED: ONDANSETRON HCL 4 MG/2 ML VIAL IV PUSH ONE (11:00)
[2017-01-17] MEDS ORDERED: MORPHINE SULFATE 4 MG/ML INJ IV PUSH ONE ×2 (11:00→12:30)
[2017-01-17] MEDS ORDERED: SODIUM CHLOR 0.9% 1000 ML INJ 1,000 ML IV SCH (11:00)
[2017-01-17 11:17] LABS: AUTOMATED NEUTROPHIL # 9.6 TH/MM3 (1.8-7.7); BASOPHIL # 0.5 TH/MM3 (0-0.2); BASOPHIL % 3.6 % (0.0-2.0); EOSINOPHIL # 0.1 TH/MM3 (0-0.4); EOSINOPHIL % 1.1 % (0.0-4.0); LYMPH % 13.3 % (9.0-44.0); LYMPHOCYTE # 1.7 TH/MM3 (1.0-4.8); MEAN CELL VOLUME 84.9 FL (80.0-100.0); MEAN CORPUSCULAR HEMOGLOBIN 27.3 PG (27.0-34.0); MEAN CORPUSCULAR HGB CONC 32.1 % (32.0-36.0); MONO % 8.1 % (0.0-8.0); NEUT % 73.9 % (16.0-70.0); PLATELET COUNT 417 TH/MM3 (150-450); RED BLOOD COUNT 4.95 MIL/MM3 (4.50-5.90); RED CELL DISTRIBUTION WIDTH 14.2 % (11.6-17.2); WHITE BLOOD COUNT 12.9 TH/MM3 (4.0-11.0)
[2017-01-17 11:24] LABS: CHLORIDE 102 MEQ/L (98-107); POTASSIUM 3.7 MEQ/L (3.5-5.1); SODIUM (NA) 138 MEQ/L (136-145)
[2017-01-17 11:27] LABS: ANION GAP 11 MEQ/L (5-15); BLOOD UREA NITROGEN 11 MG/DL (7-18)
[2017-01-17 11:28] LABS: APTT (PATIENT) 33.4 SEC (24.3-30.1); INTERNATIONAL NORMALIZED RATIO 1.1 RATIO
[2017-01-17 11:29] LABS: HEMO FLAGS DIFF FINAL
[2017-01-17 11:30] LABS: ALT (GPT) 13 U/L (12-78); AST (GOT) 20 U/L (15-37); GLOMERULAR FILTRATION RATE 130 ML/MIN (>89)
[2017-01-17 11:32] LABS: TOTAL BILIRUBIN ADULT 0.7 MG/DL (0.2-1.0)
[2017-01-17 11:33] LABS: ALKALINE PHOSPHATASE 96 U/L (45-117)
[2017-01-17] MEDS ORDERED: IOHEXOL 350 MG/ML 10 ML VIAL (for RAD DIAG) IVCONTRAST ONE (11:54)
--- NOTE | 2017-01-17 12:11 | RADRPT ---
EXAM DATE/TIME: 01/17/2017 11:47 [facility] COMPARISON: CT ABDOMEN & PELVIS W CONTRAST, December 05, 2016, 14:21. INDICATIONS : Right mid back pain. History of abdominal aortic aneurysm repair. IV CONTRAST: 90 cc Omnipaque 350 (iohexol) IV ORAL CONTRAST: No oral contrast ingested. RADIATION DOSE: 5.82 CTDIvol (mGy) MEDICAL HISTORY : Aneurysm, abdominal. Carcinoma, prostate. Cerebrovascular disease.Hypertension. Anticoagulant therapy . SURGICAL HISTORY : Abdominal aortic aneurysm repair. Appendectomy.Prostate seeds. Orthopedic surgery. ENCOUNTER: Initial ACUITY: 1 month PAIN SCALE: 4/10 LOCATION: Right flank abdomen TECHNIQUE: Volumetric scanning of the abdomen and pelvis was performed. Using automated exposure control and ad justment of the mA and/or kV according to patient size, radiation dose was kept as low as reasonably achievable to obtain optimal diagnostic quality images. DICOM format image data is available electro nically for review and comparison. FINDINGS: LOWER LUNGS: Bilateral pleural effusions persist, right larger than left however these are smaller than on the pre vious exam. LIVER: Homogeneous density without lesion. There is no dilation of the biliary tree. No calcified gallston es. SPLEEN: Normal size without lesion. PANCREAS: Within normal limits. KIDNEYS: Normal in size and shape. There is no mass, stone or hydronephrosis. ADRENAL GLANDS: Within normal limits. VASCULAR: Patient is status post open aortic aneurysm repair. There is a slightly greater than 2 cm triangular shaped low density collection in the para-aortic soft tissues on the right in the infrarenal region, anteriorly displacing the inferior vena cava. There is mild adjacent induration and there is some mil d enlargement of the regional retroperitoneal lymph nodes. The appearance would be worrisome for rupali aortitis, possibly with small abscess. BOWEL/MESENTERY: Distal colonic diverticulosis. No abnormal dilatation, wall thickening or pericolic inflammatory haq ges ABDOMINAL WALL: Within normal limits. RETROPERITONEUM: See above BLADDER: No wall thickening or mass. REPRODUCTIVE: Prostate seed implants INGUINAL: There is no lymphadenopathy or hernia. MUSCULOSKELETAL: Right total hip arthroplasty. Degenerative changes in the spine and left hip CONCLUSION: Decreasing pleural effusions. Para-aortic induration and low density collections worrisome for periaortitis. See above discussion Jed Loya MD on January 17, 2017 at 12:00 Board Certified Radiologist. This report was verified electronically.
[2017-01-17] MEDS ORDERED: VANCOMYCIN INJ 900 MG in SODIUM CHLOR 0.9% 250 ML INJ 250 ML IV ONE (13:00)
[2017-01-17] MEDS ORDERED: PIPERACIL-TAZO 4.5 GM PREMIX 100 ML IV ONE (13:00)
--- NOTE | 2017-01-17 13:01 | HHI.HP ---
[facility] Primary Care Physician Clinton Clements MD Admission Diagnosis Diagnoses: (1) Aortitis Diagnosis: Principal (2) Abdominal pain Diagnosis: Principal Chief Complaint: Abdominal pain Travel History International Travel<30 Days: No Contact w/Intl Traveler <30 Da: No Traveled to Known Affected Are: No Sepsis Criteria SIRS Criteria (2 or more): WBC > 51474, < 4000 or > 10% bands History of Present Illness Written by Jayce Whitt, acting as scribe for Dr. Moon on 01/17/17 at 12 :59. 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 The patient does have dementia and information was taken from patient, medical records, medical staff, . Indicated that for 3 days now the patient is had abdominal/flank pain which has not been getting any better. The patient does have history of chronic aortitis and has been on antibiotic suppression with cephalexin by Dr. Kendrick. The patient has not had an appetite has not eaten anything for the last 4-5 days. is concerned about his weight loss. He did take his pain medication at home without any significant relief. Because of the continued pain he came to emergency department for evaluation. Patient has CT scan done in the ER and was found to have aortitis with possible small abscess. Because of those findings is recommended by the ER physician the patient be admitted to the main hospital with vascular surgery consultation. Review of Systems Constitutional: COMPLAINS OF: Weight loss, Change in appetite Gastrointestinal: COMPLAINS OF: Abdominal pain Musculoskeletal: COMPLAINS OF: Back pain Except as stated in HPI: all other systems reviewed are Neg Past Family Social History Past Medical History Atrial fibrillation Hyperlipidemia Dementia Gastroesophageal reflux Chronic aortitis on suppression treatment with cephalexin Previous admissions with bacteremia staph aureus, Escherichia coli History of prostate cancer History of esophageal stricture History of abdominal aortic aneurysm status post repair Past Surgical History Abdominal Aortic aneurysm repair Cataract surgery Appendectomy Right hip replacement EGD Rotator cuff surgery Prostatic seed implantation Reported Medications Reported Meds & Active Scripts Active Reported Cephalexin 500 Mg Cap 500 Mg PO Q12H Multiple Vitamin 1 Tab 1 Tab PO DAILY Donepezil 10 Mg Tab 10 Mg PO HS Vitamin D3 (Cholecalciferol) 1,000 Unit Tab 1,000 Units PO DAILY Atorvastatin (Atorvastatin Calcium) 80 Mg Tab 80 Mg PO HS Singulair (Montelukast Sodium) 10 Mg Tab 10 Mg PO HS Judie Allergy (Fexofenadine HCl) 180 Mg Tab 180 Mg PO DAILY Omeprazole 20 Mg Tab 20 Mg PO DAILY Namenda (Memantine) 10 Mg Tab 10 Mg PO BID Eliquis (Apixaban) 2.5 Mg Tab 2.5 Mg PO BID Allergies: Coded Allergies: cilostazol (Unverified Allergy, Severe, tachycardia.PENTOXIFYLINE CAUSES UNKNOWN REACTION, 01/17/17) lisinopril (Unverified Allergy, Severe, esophageal spasms, 01/17/17) pentoxifylline (Unverified Allergy, Severe, 01/17/17) diclofenac (Unverified Allergy, Intermediate, RED RASH, 01/17/17) etodolac (Unverified Allergy, Intermediate, RED RASH, 01/17/17) flurbiprofen (Unverified Allergy, Intermediate, RED RASH, 01/17/17) ibuprofen (Unverified Allergy, Intermediate, RED RASH, 01/17/17) indomethacin (Unverified Allergy, Intermediate, RED RASH, 01/17/17) ketoprofen (Unverified Allergy, Intermediate, RED RASH, 01/17/17) ketorolac (Unverified Allergy, Intermediate, RED RASH, 01/17/17) naproxen (Unverified Allergy, Intermediate, RED RASH, 01/17/17) oxaprozin (Unverified Allergy, Intermediate, RED RASH, 01/17/17) celecoxib (Verified Allergy, Unknown, 01/17/17) Sulfa (Sulfonamide Antibiotics) (Unverified Adverse Reaction, Unknown, ) Family History Reviewed is significant for father with aneurysm Social History Patient quit smoking 30 years ago, prior to that. Drinks wine occasionally. No indication of any illicit drug use Physical Exam Vital Signs Vital Signs Date Time Temp Pulse Resp B/P (MAP) Pulse Ox O2 Delivery O2 Flow Rate FiO2 01/17/17 12:51 73 16 144/75 (98) 99 Nasal Cannula 2.00 01/17/17 12:10 Nasal Cannula 2.00 01/17/17 12:09 75 16 134/63 (86) 97 Nasal Cannula 2.00 01/17/17 10:32 97.9 83 20 166/85 (112) 94 Physical Exam GENERAL: Well-developed, well-nourished, in no acute distress. alert and orientated HEENT: Head is normocephalic without any lesions or masses noted. Facial features are symmetric. Eyes: Pupils equal round reactive to light. Extraocular muscles are intact. Conjunctivae were clear. Oropharyngeal: Pharynx without any erythema edema. Tongue is midline without deviation. Buccal mucosa is moist without any masses or lesions NECK: Supple without any masses. Trachea midline no deviation. No JVD, no bruits are appreciated CARDIAC: Regular rhythm, regular rate. S1/S2 are heard. No murmurs gallops or rubs. LUNGS: Clear to auscultation bilaterally. No wheeze, rhonchi or rales. No use of accessory muscles on inspiration or expiration. ABDOMEN: Soft, nontender. Nondistended. Bowel sounds heard in all 4 quadrants. No organomegaly or masses. Negative rebound, negative guarding EXTREMITIES: No edema, pulses are equal bilaterally. No cyanosis or clubbing NEUROLOGY: Mood and affect appear appropriate. Cranial nerves II through XII grossly intact. Muscle strength 5/5 in upper and lower extremities bilaterally. Deep tendon reflexes are 2+ in upper and lower extremities bilaterally. Laboratory Laboratory Tests Test 01/17/17 10:55 White Blood Count 12.9 Red Blood Count 4.95 Hemoglobin 13.5 Hematocrit 42.0 Mean Corpuscular Volume 84.9 Mean Corpuscular Hemoglobin 27.3 Mean Corpuscular Hemoglobin Concent 32.1 Red Cell Distribution Width 14.2 Platelet Count 417 Mean Platelet Volume 7.4 Neutrophils (%) (Auto) 73.9 Lymphocytes (%) (Auto) 13.3 Monocytes (%) (Auto) 8.1 Eosinophils (%) (Auto) 1.1 Basophils (%) (Auto) 3.6 Neutrophils # (Auto) 9.6 Lymphocytes # (Auto) 1.7 Monocytes # (Auto) 1.0 Eosinophils # (Auto) 0.1 Basophils # (Auto) 0.5 CBC Comment DIFF FINAL Differential Comment Erythrocyte Sedimentation Rate 42 Prothrombin Time 12.0 Prothromb Time International Ratio 1.1 Activated Partial Thromboplast Time 33.4 Blood Urea Nitrogen 11 Creatinine 0.59 Random Glucose 87 Total Protein 7.4 Albumin 2.7 Calcium Level 9.9 Alkaline Phosphatase 96 Aspartate Amino Transf (AST/SGOT) 20 Alanine Aminotransferase (ALT/SGPT) 13 Total Bilirubin 0.7 Sodium Level 138 Potassium Level 3.7 Chloride Level 102 Carbon Dioxide Level 25.0 Anion Gap 11 Estimat Glomerular Filtration Rate 130 Date/Time Source Procedure Growth Status 01/17/17 11:00 Blood Peripheral Aerobic Blood Culture Pending Received 01/17/17 11:00 Blood Peripheral Anaerobic Blood Culture Pending Received Result Diagram: 01/17/17 1055 01/17/17 1055 Caprini VTE Risk Assessment Caprini VTE Risk Assessment: Mod/High Risk (score >= 2) Caprini Risk Assessment Model Point Value = 1 Point Value = 2 Point Value = 3 Point Value = 5 Age 41-60 Minor surgery BMI > 25 kg/m2 Swollen legs Varicose veins or History of unexplained or recurrent spontaneous Oral contraceptives or hormone replacement Sepsis (< 1 month) Serious lung disease, including pneumonia (< 1 month) Abnormal pulmonary function Acute myocardial infarction Congestive heart failure (< 1 month) History of inflammatory bowel disease Medical patient at bed rest Age 61-74 Arthroscopic surgery Major open surgery (> 45 min) Laparoscopic surgery (> 45 min) Malignancy Confined to bed (> 72 hours) Immobilizing plaster cast Central venous access Age >= 75 History of VTE Family history of VTE Factor V Leiden Prothrombin [id number] Lupus anticoagulant Anticardiolipin antibodies Elevated serum homocysteine Heparin-induced thrombocytopenia Other congenital or acquired thrombophilia Stroke (< 1 month) Elective arthroplasty Hip, pelvis, or leg fracture Acute spinal cord injury (< 1 month) Prophylaxis Regimen Total Risk Factor Score Risk Level Prophylaxis Regimen 0-1 Low Early ambulation 2 Moderate Order ONE of the following: *Sequential Compression Device (SCD) *Heparin 5000 units SQ BID 3-4 Higher Order ONE of the following medications: *Heparin 5000 units SQ TID *Enoxaparin/Lovenox 40 mg SQ daily (WT < 150 kg, CrCl > 30 mL/min) *Enoxaparin/Lovenox 30 mg SQ daily (WT < 150 kg, CrCl > 10-29 mL/min) *Enoxaparin/Lovenox 30 mg SQ BID (WT < 150 kg, CrCl > 30 mL/min) AND/OR *Sequential Compression Device (SCD) 5 or more Highest Order ONE of the following medications: *Heparin 5000 units SQ TID (Preferred with Epidurals) *Enoxaparin/Lovenox 40 mg SQ daily (WT < 150 kg, CrCl > 30 mL/min) *Enoxaparin/Lovenox 30 mg SQ daily (WT < 150 kg, CrCl > 10-29 mL/min) *Enoxaparin/Lovenox 30 mg SQ BID (WT < 150 kg, CrCl > 30 mL/min) AND *Sequential Compression Device (SCD) Assessment and Plan Problem List: (1) Aortitis ICD Code: I77.6 - Arteritis, unspecified Status: Acute (2) Dementia ICD Code: F03.90 - Dementia Status: Chronic Assessment and Plan 86-year-old male who presented with abdominal pain Aortitis with abscess Patient does have history of staph aureus and Escherichia coli bacteremia in the past Patient with recent admission on 12/05/16 for aortitis. Patient was discharged on Levaquin with follow-up with Dr. Rangel's Vascular surgery consulted for recommendations Consult infectious disease for recommendations Patient started on empirical antibiotics to include vancomycin and Zosyn Sedimentation rate continues to be elevated, C-reactive protein is pending Atrial fibrillation Heart rate is controlled Hold Eliquis at this time for possible intervention, await clearance from vascular surgery to restart medication Dementia Continue home medications DVT prevention Patient is on Eliquis which will be on hold at this time Sequential compression devices This note was transcribed by raymundo Whitt. I, Dr. Suresh Moon personally performed the history, physical exam, and medical decision making; and confirmed the accuracy of the information in the transcribed note. Authenticated by Dr. Suresh Moon on 01/17/17 at 12:59. Code Status DO NOT RESUSCITATE Discussed Condition With patient, , ED physician Physician Certification 2 Midnight Certification Type: Admission for Inpatient Services Order for Inpatient Services The services are ordered in accordance with Medicare regulations or non- Medicare payer requirements, as applicable. In the case of services not specified as inpatient-only, they are appropriately provided as inpatient services in accordance with the 2-midnight benchmark. Estimated LOS (days): 3 days is the estimated time the patient will need to remain in the hospital, assuming treatment plan goals are met and no additional complications. Post-Hospital Plan: Not yet determined Jayce Whitt Jan 17, 2017 13:01 Suresh Moon MD Jan 17, 2017 13:03
[2017-01-17] MEDS ORDERED: NALOXONE HCL 0.4 MG/ML AMP IV PUSH PRN (13:30)
[2017-01-17] MEDS ORDERED: SODIUM CHLORIDE 0.9% FLUSH 10 ML FLUSH IV FLUSH PRN (13:30)
[2017-01-17] MEDS ORDERED: SENNOSIDES 8.6 MG TAB PO PRN (13:30)
[2017-01-17] MEDS ORDERED: MAGNESIUM HYDROXIDE SUSP 30 ML CUP PO PRN (13:30)
[2017-01-17] MEDS ORDERED: LACTULOSE SYRUP 20 GM/30 ML CUP PO PRN (13:30)
[2017-01-17] MEDS ORDERED: ONDANSETRON HCL 4 MG/2 ML VIAL IVP PRN (13:30)
[2017-01-17] MEDS ORDERED: TEMAZEPAM 15 MG CAP PO PRN (13:30)
[2017-01-17] MEDS ORDERED: BISACODYL 10 MG SUPP RECTAL PRN (13:30)
[2017-01-17] MEDS: ACETAMINOPHEN 325 MG TAB PO PRN (14:14)
[2017-01-17] MEDS: NS + KCL 20 MEQ INJ 1,000 ML IV SCH (14:19)
[2017-01-17] MEDS ORDERED: Vancomycin Consult Pharmacy 1 EA OTHER SCH (15:00)
[2017-01-17 15:51] LABS: BLOOD, URINE NEG (NEG); GLUCOSE,URINE NEG (NEG); KETONE, URINE 15 mg/dL (NEG); NITRITE,URINE NEG (NEG); PH, URINE 5.5 (5.0-8.5)
[2017-01-17 16:27] LABS: SQUAMOUS EPITHELIAL CELL URINE 0-5 /hpf (0-5); URINE COLOR YELLOW (YELLW/STRAW)
[2017-01-17 16:28] LABS: COMMENT (UR) CULT NOT INDICATED; CULTURE IF INDICATED CULT NOT INDICATED
--- NOTE | 2017-01-17 17:57 | HHI.HCPN ---
Contacted patient's Ciera Lujan via telephone to introduce Palliative care role and services to patients/family in the hospital. Planned family meeting tomorrow at 1100 to discuss goals of care, treatment options, benefits/burdens of medical treatment options. Palliative care contact information provided. Shweta Bustos Jan 17, 2017 17:56
[2017-01-17] MEDS: SODIUM CHLORIDE 0.9% FLUSH 10 ML FLUSH IV FLUSH SCH (21:00)
[2017-01-17] MEDS: DOCUSATE SODIUM 50 MG/SENNA 8.6 MG TAB PO SCH (22:00)
[2017-01-17] MEDS: PIPERACIL-TAZO 3.375 GM PREMIX 50 ML IV SCH (22:00)
[2017-01-17] MEDS: ATORVASTATIN 40 MG TAB PO SCH (22:00)
[2017-01-17] MEDS: DONEPEZIL HCL 5 MG TAB PO SCH (22:05)
[2017-01-17] MEDS: MEMANTINE HCL 10 MG TAB PO SCH (22:05)
[2017-01-18] VITALS (27 sets, daily range): BP systolic 118–124; BP diastolic 51–58; PULSE 61–81; RESP 16–20; TEMP 97.1–98.3; O2SAT 93–96
[2017-01-18] MEDS: PIPERACIL-TAZO 3.375 GM PREMIX 50 ML IV SCH ×4 (01:47→20:31)
[2017-01-18] MEDS: MORPHINE SULFATE 2 MG/ML INJ IV PUSH PRN ×2 (01:47→06:35)
[2017-01-18 05:38] LABS: AUTOMATED NEUTROPHIL # 8.2 TH/MM3 (1.8-7.7); BASOPHIL # 0.1 TH/MM3 (0-0.2); BASOPHIL % 0.6 % (0.0-2.0); EOSINOPHIL # 0.2 TH/MM3 (0-0.4); EOSINOPHIL % 1.5 % (0.0-4.0); HEMATOCRIT 36.4 % (39.0-51.0); HEMO FLAGS DIFF FINAL; LYMPH % 13.3 % (9.0-44.0); LYMPHOCYTE # 1.4 TH/MM3 (1.0-4.8); MEAN CELL VOLUME 87.1 FL (80.0-100.0); MEAN CORPUSCULAR HEMOGLOBIN 28.2 PG (27.0-34.0); MEAN CORPUSCULAR HGB CONC 32.4 % (32.0-36.0); MONO % 9.5 % (0.0-8.0); NEUT % 75.1 % (16.0-70.0); PLATELET COUNT 356 TH/MM3 (150-450); RED BLOOD COUNT 4.18 MIL/MM3 (4.50-5.90); RED CELL DISTRIBUTION WIDTH 15.3 % (11.6-17.2); WHITE BLOOD COUNT 10.9 TH/MM3 (4.0-11.0)
[2017-01-18 05:57] LABS: BICARBONATE 26.6 MEQ/L (21.0-32.0)
[2017-01-18] MEDS ORDERED: VANCOMYCIN 1,000 MG/NS 250 ML IV SCH ×2 (06:00)
[2017-01-18] MEDS: NS + KCL 20 MEQ INJ 1,000 ML IV SCH ×2 (06:12→14:12)
[2017-01-18] MEDS: DOCUSATE SODIUM 50 MG/SENNA 8.6 MG TAB PO SCH ×2 (08:13→20:31)
[2017-01-18] MEDS: PANTOPRAZOLE SOD 20 MG DELAYED RELEASE TAB PO SCH (08:13)
[2017-01-18] MEDS: MEMANTINE HCL 10 MG TAB PO SCH ×2 (08:13→20:31)
[2017-01-18] MEDS: SODIUM CHLORIDE 0.9% FLUSH 10 ML FLUSH IV FLUSH SCH ×2 (08:13→20:31)
--- NOTE | 2017-01-18 10:35 | PD.ID.CON ---
History of Present Illness Service ID Consult Requested By Dr Howe Reason for Consult aortitis Primary Care Physician Clinton Clements MD Diagnoses: History of Present Illness 86 year-old male with known history of abdominal aortic aneurysm status post repair and recurrent aortitis on suppression treatment with cephalexin, previous bacteremia with staph aureus and Escherichia coli, chronic atrial fibrillation on anticoagulation, gastroesophageal reflux and prostate cancer Pt has dementia and unable to provide history History was obtained from the spouse at b/s and from his infectiounist , Dr Mojica Pt is sp aortic repair w graft in 2007 In 2014 pt developped staph bacteremia in Feb this year strep bacteremia of unclear source, but 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 Pt received CFTX for 3 mos, he was discharged on chronic Keflex suppression therapy in Sep pt was treated for E.coli bacteremia He is a pt iof Dr Zambrano, but is not considered to be a surgical candidate He ppresented this time with chief c/o R hip pain, sever, unbale to move it CT abd/pelvis showed Para-aortic induration and low density collections worrisome for periaortitis , no leukocytosis, ESR @ baseline no fever Review of Systems ROS Limitations: Clinical Condition, Altered Mental Status (demential) Past Family Social History Allergies: Coded Allergies: cilostazol (Unverified Allergy, Severe, tachycardia.PENTOXIFYLINE CAUSES UNKNOWN REACTION, 01/17/17) lisinopril (Unverified Allergy, Severe, esophageal spasms, 01/17/17) pentoxifylline (Unverified Allergy, Severe, 01/17/17) diclofenac (Unverified Allergy, Intermediate, RED RASH, 01/17/17) etodolac (Unverified Allergy, Intermediate, RED RASH, 01/17/17) flurbiprofen (Unverified Allergy, Intermediate, RED RASH, 01/17/17) ibuprofen (Unverified Allergy, Intermediate, RED RASH, 01/17/17) indomethacin (Unverified Allergy, Intermediate, RED RASH, 01/17/17) ketoprofen (Unverified Allergy, Intermediate, RED RASH, 01/17/17) ketorolac (Unverified Allergy, Intermediate, RED RASH, 01/17/17) naproxen (Unverified Allergy, Intermediate, RED RASH, 01/17/17) oxaprozin (Unverified Allergy, Intermediate, RED RASH, 01/17/17) celecoxib (Verified Allergy, Unknown, 01/17/17) Sulfa (Sulfonamide Antibiotics) (Unverified Adverse Reaction, Unknown, ) Past Medical History Atrial fibrillation Hyperlipidemia Dementia Gastroesophageal reflux Chronic aortitis on suppression treatment with cephalexin Previous admissions with bacteremia staph aureus, Escherichia coli History of prostate cancer History of esophageal stricture History of abdominal aortic aneurysm status post repair Past Surgical History Abdominal Aortic aneurysm repair Cataract surgery Appendectomy Right hip replacement EGD Rotator cuff surgery Prostatic seed implantation Active Ordered Medications Medications where reviewed in EMR Antibiotics Include: zosyn vancomycin Family History Reviewed is significant for father with aneurysm Social History Patient quit smoking 30 years ago, prior to that. Drinks wine occasionally. No indication of any illicit drug use Physical Exam Vital Signs Vital Signs Date Time Temp Pulse Resp B/P (MAP) Pulse Ox O2 Delivery O2 Flow Rate FiO2 01/18/17 10:00 61 01/18/17 09:00 64 01/18/17 08:00 61 01/18/17 07:23 97.5 68 20 121/56 (77) 96 01/18/17 07:00 68 01/18/17 06:39 16 01/18/17 06:05 72 01/18/17 05:06 66 01/18/17 04:00 71 01/18/17 03:22 77 01/18/17 02:27 97.1 72 16 118/51 (73) 95 01/18/17 02:03 70 01/18/17 01:07 69 01/17/17 23:02 97.1 73 16 119/56 (77) 95 01/17/17 23:00 70 01/17/17 19:00 98.0 69 16 114/56 (75) 93 01/17/17 19:00 70 01/17/17 18:22 98.3 69 18 126/58 (80) 99 01/17/17 17:42 01/17/17 17:41 100 Nasal Cannula 2.00 01/17/17 17:27 56 12 104/54 (71) 100 Nasal Cannula 2.00 01/17/17 16:16 67 12 98/51 (67) 96 Nasal Cannula 2.00 01/17/17 14:37 74 16 120/54 (76) 97 Nasal Cannula 2.00 01/17/17 13:21 72 16 114/78 (90) 99 Nasal Cannula 2.00 01/17/17 12:51 73 16 144/75 (98) 99 Nasal Cannula 2.00 01/17/17 12:10 Nasal Cannula 2.00 01/17/17 12:09 75 16 134/63 (86) 97 Nasal Cannula 2.00 01/17/17 10:32 97.9 83 20 166/85 (112) 94 Physical Exam CONSTITUTIONAL/GENERAL: This is a thin chronically ill appearing patient, in moderate distress with R hip pain TUBES/LINES/DRAINS: SKIN: No jaundice, rashes, or lesions. Skin temperature appropriate. Not diaphoretic. HEAD: Atraumatic. Normocephalic. EYES: Pupils equal and round and reactive. Extraocular motions intact. No scleral icterus. No injection or drainage. Fundi not examined. ENT: Hearing grossly normal. Nose without bleeding or purulent drainage. Throat without visible erythema, exudates, masses, or lesions. NECK: Trachea midline. Supple, nontender. CARDIOVASCULAR: Regular rate and rhythm without murmurs, gallops, or rubs. No JVD. Peripheral pulses symmetric. RESPIRATORY/CHEST: Symmetric, unlabored respirations. Clear to auscultation. Breath sounds equal bilaterally. No wheezes, rales, or rhonchi. GASTROINTESTINAL: Abdomen soft, non-tender, nondistended. No hepato-splenomegaly , or palpable masses. No guarding. Bowel sounds present. GENITOURINARY: Without palpable bladder distension. MUSCULOSKELETAL: Extremities without clubbing, cyanosis, or edema. No joint tenderness or effusion noted. No calf tenderness. No mottling or clubbing. R hip area with well healed incision NEUROLOGICAL: Awake and alert. Motor and sensory grossly within normal limits. Follows commands. Clear speech Moves all extremities. PSYCHIATRIC: No obvious anxiety/depression. no apparent hallucinations or other psychotic thought process. Laboratory Laboratory Tests Test 01/17/17 10:55 01/17/17 15:10 01/18/17 04:55 White Blood Count 12.9 10.9 Red Blood Count 4.95 4.18 Hemoglobin 13.5 11.8 Hematocrit 42.0 36.4 Mean Corpuscular Volume 84.9 87.1 Mean Corpuscular Hemoglobin 27.3 28.2 Mean Corpuscular Hemoglobin Concent 32.1 32.4 Red Cell Distribution Width 14.2 15.3 Platelet Count 417 356 Mean Platelet Volume 7.4 7.3 Neutrophils (%) (Auto) 73.9 75.1 Lymphocytes (%) (Auto) 13.3 13.3 Monocytes (%) (Auto) 8.1 9.5 Eosinophils (%) (Auto) 1.1 1.5 Basophils (%) (Auto) 3.6 0.6 Neutrophils # (Auto) 9.6 8.2 Lymphocytes # (Auto) 1.7 1.4 Monocytes # (Auto) 1.0 1.0 Eosinophils # (Auto) 0.1 0.2 Basophils # (Auto) 0.5 0.1 CBC Comment DIFF FINAL DIFF FINAL Differential Comment Erythrocyte Sedimentation Rate 42 Prothrombin Time 12.0 Prothromb Time International Ratio 1.1 Activated Partial Thromboplast Time 33.4 Blood Urea Nitrogen 11 9 Creatinine 0.59 0.60 Random Glucose 87 61 Total Protein 7.4 Albumin 2.7 Calcium Level 9.9 9.2 Alkaline Phosphatase 96 Aspartate Amino Transf (AST/SGOT) 20 Alanine Aminotransferase (ALT/SGPT) 13 Total Bilirubin 0.7 Sodium Level 138 141 Potassium Level 3.7 4.0 Chloride Level 102 105 Carbon Dioxide Level 25.0 26.6 Anion Gap 11 9 Estimat Glomerular Filtration Rate 130 127 C-Reactive Protein 13.30 Urine Color YELLOW Urine Turbidity CLEAR Urine pH 5.5 Urine Specific [place] GREATER THAN 1.035 Urine Protein NEG Urine Glucose (UA) NEG Urine Ketones 15 Urine Occult Blood NEG Urine Nitrite NEG Urine Bilirubin NEG Urine Leukocyte Esterase NEG Urine Squamous Epithelial Cells 0-5 Microscopic Urinalysis Comment CULT NOT INDICATED Date/Time Source Procedure Growth Status 01/17/17 11:00 Blood Peripheral Aerobic Blood Culture Pending Received 01/17/17 11:00 Blood Peripheral Anaerobic Blood Culture Pending Received Result Diagram: 01/18/17 0455 01/18/17 0455 Imaging Last Impressions Abdomen/Pelvis CT 01/17/17 1046 Signed Impressions: Service Date/Time: Tuesday, January 17, 2017 11:47 - CONCLUSION: Decreasing pleural effusions. Para-aortic induration and low density collections worrisome for periaortitis. See above discussion Jed Loya MD Assessment and Plan Assessment and Plan Chronic aortitis ? Aorto- enteric fistula R hip pain cont current abx R hip MRI consult Dr Zambrano Discussed Condition With Floresita Olivas MD Jan 18, 2017 10:34
--- NOTE | 2017-01-18 12:46 | PD.CONS ---
Consult Service Palliative Care Consult Requested By PA. Josh . Primary Care Physician Clinton Clements MD . Reason for Consultation a. To assist with evaluation and management of symptoms including: b. To assist medical decision maker(s) with: better understanding of current medical conditions; weighing benefits/burdens of medical treatment options; making medical treatment decisions. 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 Upon presentation the patient's reported that the patient was experiencing abdominal and flank pain for 3 days, as well as decreased appetite. Of note the patient has been hospitalized for abdominal pain three times in the past year, first from 04/29/16 to 05/06/16 it was found that he had MSSA bacteremia and aortitis, GI R/O any gastrointestinal causes for the abdominal pain, vascular surgery declined any surgical intervention at that time due to patient's advanced age and to continue conservative management since the patient was responding well to treatment, at that time he was placed on suppressive cephalexin therapy. The patient again presented to the hospital in October with complaints of abdominal pain/discomfort with accompanying weakness, fever, and chills, at that time his hospitalization was from 11/11/16 to 11/15/16, during that hospitalization the patient's blood cultures were positive for Escherichia coli, the patient was treated for bacteremia sepsis, and was discharged home on Levaquin. In November the patient was hospitalized overnight to evaluate abdominal pain, CT of the abdomen at this time was unchanged, vascular surgery again evaluated the patient and determined that surgery was not indicated, the patient was again discharged home on Levaquin. * ED workup included the following: Vital signs: T:97.9, HR:83, RR:20, BP:168/85 , SPO2:94. Laboratory data: WBC:12.9, ESR:42, CRP:13.3, Albumin:2.7. CT abdomen/ pelvis: Decreasing pleural effusions. Para-aortic induration and low density collections worrisome for periaortitis, possibly with small abscess. Patient admitted for evaluation of aortitis. Patient seen and evaluated, at bedside. Patient is resting comfortably in bed, alert, awake, oriented to person and to place, intermittent confusion and forgetfulness. Patient complaining of right sided hip and flank pain, rates his pain 7/10 and describes the pain as a constant ache. Patient denies any abdominal pain, chest pain, denies any shortness of breath, nausea, or vomiting. Palliative Care was consulted to assist with symptom management and to discuss with the patient/family the benefits and burdens of his current illnesses and the options regarding future care. Function/Cognitive Trajectory Patient has a history of dementia and relies on his to take care of any important decisions/matters. Patient is able to ambulate with assistive device and was receiving home health physical therapy three times a week. . Review of Systems ROS Limitations: Poor Historian (ROS obtained from EMR, clinical assessment, and via patient's ) Constitutional: COMPLAINS OF: Fatigue, Weight loss, Change in appetite ( Decreased), Generalized weakness Respiratory: DENIES: Cough, Shortness of breath Cardiovascular: DENIES: Chest pain, Palpitations Gastrointestinal: COMPLAINS OF: Abdominal pain Musculoskeletal: COMPLAINS OF: Joint pain, Muscle aches, Back pain (chronic), Decreased range of motion Neurologic: COMPLAINS OF: Poor Balance Psychiatric: COMPLAINS OF: Confusion Past Family Social History Coded Allergies: cilostazol (Unverified Allergy, Severe, tachycardia.PENTOXIFYLINE CAUSES UNKNOWN REACTION, 01/17/17) lisinopril (Unverified Allergy, Severe, esophageal spasms, 01/17/17) pentoxifylline (Unverified Allergy, Severe, 01/17/17) diclofenac (Unverified Allergy, Intermediate, RED RASH, 01/17/17) etodolac (Unverified Allergy, Intermediate, RED RASH, 01/17/17) flurbiprofen (Unverified Allergy, Intermediate, RED RASH, 01/17/17) ibuprofen (Unverified Allergy, Intermediate, RED RASH, 01/17/17) indomethacin (Unverified Allergy, Intermediate, RED RASH, 01/17/17) ketoprofen (Unverified Allergy, Intermediate, RED RASH, 01/17/17) ketorolac (Unverified Allergy, Intermediate, RED RASH, 01/17/17) naproxen (Unverified Allergy, Intermediate, RED RASH, 01/17/17) oxaprozin (Unverified Allergy, Intermediate, RED RASH, 01/17/17) celecoxib (Verified Allergy, Unknown, 01/17/17) Sulfa (Sulfonamide Antibiotics) (Unverified Adverse Reaction, Unknown, ) Past Medical History Atrial fibrillation Hyperlipidemia Dementia Gastroesophageal reflux Chronic aortitis on suppression treatment with cephalexin Previous admissions with bacteremia staph aureus, Escherichia coli History of prostate cancer History of esophageal stricture History of abdominal aortic aneurysm status post repair . Past Surgical History Abdominal Aortic aneurysm repair Cataract surgery Appendectomy Right hip replacement EGD Rotator cuff surgery Prostatic seed implantation . Reported Medications Reported Meds & Active Scripts Active Reported Cephalexin 500 Mg Cap 500 Mg PO Q12H Multiple Vitamin 1 Tab 1 Tab PO DAILY Donepezil 10 Mg Tab 10 Mg PO HS Vitamin D3 (Cholecalciferol) 1,000 Unit Tab 1,000 Units PO DAILY Atorvastatin (Atorvastatin Calcium) 80 Mg Tab 80 Mg PO HS Singulair (Montelukast Sodium) 10 Mg Tab 10 Mg PO HS Judie Allergy (Fexofenadine HCl) 180 Mg Tab 180 Mg PO DAILY Omeprazole 20 Mg Tab 20 Mg PO DAILY Namenda (Memantine) 10 Mg Tab 10 Mg PO BID Eliquis (Apixaban) 2.5 Mg Tab 2.5 Mg PO BID . Current Medications Medications (Trade) Dose Ordered Sig/Yuri Route Start Time Stop Time Status Last Admin (NS Flush) 2 ml UNSCH PRN IV FLUSH 01/17/17 13:30 (NS Flush) 2 ml BID IV FLUSH 01/17/17 21:00 (Tylenol) 650 mg Q4H PRN PO 01/17/17 13:30 01/17/17 14:14 (Zofran Inj) 4 mg Q6H PRN IVP 01/17/17 13:30 01/17/17 16:41 (Restoril) 15 mg HS PRN PO 01/17/17 13:30 (Narcan Inj) 0.4 mg UNSCH PRN IV PUSH 01/17/17 13:30 (Leora-Colace) 1 tab BID PO 01/17/17 21:00 01/18/17 08:13 (Milk Of Magnesia Liq) 30 ml Q12H PRN PO 01/17/17 13:30 (Senokot) 17.2 mg Q12H PRN PO 01/17/17 13:30 (Dulcolax Supp) 10 mg DAILY PRN RECTAL 01/17/17 13:30 (Lactulose Liq) 30 ml DAILY PRN PO 01/17/17 13:30 Pharmacy Profile Note 0 ml @ 0 mls/hr UNSCH OTHER 01/17/17 15:00 Piperacillin Sod/ Tazobactam Sod 50 ml @ 100 mls/hr Q6H IV 01/17/17 20:00 01/18/17 08:13 Potassium Chloride/Sodium Chloride 1,000 ml @ 84 mls/hr [id number] IV 01/17/17 14:00 01/18/17 06:12 (Lipitor) 80 mg HS PO 01/17/17 21:00 01/17/17 22:00 (Aricept) 10 mg HS PO 01/17/17 21:00 01/17/17 22:05 (Namenda) 10 mg BID PO 01/17/17 21:00 01/18/17 08:13 (Protonix) 20 mg DAILY PO 01/18/17 09:00 01/18/17 08:13 Miscellaneous Information SPECIFIC LAB TO BE DRAWN:VANCOMYCIN TROUGH DATE TO... ONCE ONCE .XX 01/20/17 05:45 01/20/17 05:46 Vancomycin HCl 1000 mg/Sodium Chloride 250 ml @ 250 mls/hr Q12H IV 01/18/17 18:00 Family History Father with aortic aneurysm and CVA. Mother from pneumonia. . Substance Use Tobacco: Former smoker, quit over 30 years ago. Alcohol: None reported. Prescription med abuse: None reported. Illicits: None reported. . 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 He has been to his current Ciera for 26 years and moved down to [place] back in the 1980s. . Spiritual/Cultural Factors Judaism. Living Will: Copy in medical record Health Care Surrogate: Copy in medical record Date completed: 08/06/15 . Health Care Surrogate(s): Ciera Lujan () Alternate HCS: Terri Glasgow (daughter), Darlene Salinas Documented care wishes: Standard living will verbiage. It does state in the living will that they patient wants to be a DNR. Today's verbally stated goals: Patient verbalized today his goals are aggressive short of resuscitation. Family/friends goals: Patient's stated today her goals of care are aggressive, however she also verbalized that she has seen him "fade away" over the past year, that she wants him to be comfortable, and she is "realistic" about his health given his advanced age. Ethical and Legal Issues None known. . Physical Exam Vital Signs Date Time Temp Pulse Resp B/P (MAP) Pulse Ox O2 Delivery O2 Flow Rate FiO2 01/18/17 11:23 97.9 69 16 122/57 (78) 95 01/18/17 10:00 61 01/18/17 09:00 64 01/18/17 08:00 61 01/18/17 07:23 97.5 68 20 121/56 (77) 96 01/18/17 07:00 68 01/18/17 06:39 16 01/18/17 06:05 72 01/18/17 05:06 66 01/18/17 04:00 71 01/18/17 03:22 77 01/18/17 02:27 97.1 72 16 118/51 (73) 95 01/18/17 02:03 70 01/18/17 01:07 69 01/17/17 23:02 97.1 73 16 119/56 (77) 95 01/17/17 23:00 70 01/17/17 19:00 98.0 69 16 114/56 (75) 93 01/17/17 19:00 70 01/17/17 18:22 98.3 69 18 126/58 (80) 99 01/17/17 17:42 01/17/17 17:41 100 Nasal Cannula 2.00 01/17/17 17:27 56 12 104/54 (71) 100 Nasal Cannula 2.00 01/17/17 16:16 67 12 98/51 (67) 96 Nasal Cannula 2.00 01/17/17 14:37 74 16 120/54 (76) 97 Nasal Cannula 2.00 01/17/17 13:21 72 16 114/78 (90) 99 Nasal Cannula 2.00 01/17/17 12:51 73 16 144/75 (98) 99 Nasal Cannula 2.00 Exam CONSTITUTIONAL/GENERAL: This is a thin elderly male patient, in no apparent distress. TUBES/LINES/DRAINS: PIV x 1 SKIN: No jaundice, rashes, or lesions. Ecchymoses on upper extremities. No wounds seen anteriorly. Skin temperature appropriate. Not diaphoretic. HEAD: Atraumatic. Normocephalic. EYES: Pupils equal and round and reactive. Extraocular motions intact. No scleral icterus. No injection or drainage. Fundi not examined. ENT: Hearing grossly normal. Nose without bleeding or purulent drainage. NECK: Trachea midline. Supple, nontender. CARDIOVASCULAR: Regular rate and rhythm without murmurs, gallops, or rubs. No JVD. Peripheral pulses symmetric. RESPIRATORY/CHEST: Symmetric, unlabored respirations. Clear to auscultation. Breath sounds equal bilaterally. No wheezes, rales, or rhonchi. GASTROINTESTINAL: Abdomen soft, non-tender, nondistended. No guarding. Bowel sounds present. GENITOURINARY: Without palpable bladder distension. MUSCULOSKELETAL: Extremities without clubbing, cyanosis, or edema. No mottling or clubbing. LYMPHATICS: No palpable cervical or supraclavicular adenopathy. NEUROLOGICAL: Awake and alert. Intermittent forgetfulness/confusion. Motor and sensory grossly within normal limits. Follows commands. Moves all extremities. PSYCHIATRIC: No obvious anxiety/depression. No apparent hallucinations or other psychotic thought process. Diagnostic Tests Laboratory Laboratory Tests Test 01/17/17 10:55 01/17/17 15:10 01/18/17 04:55 White Blood Count 12.9 TH/MM3 (4.0-11.0) 10.9 TH/MM3 (4.0-11.0) Red Blood Count 4.95 MIL/MM3 (4.50-5.90) 4.18 MIL/MM3 (4.50-5.90) Hemoglobin 13.5 GM/DL (13.0-17.0) 11.8 GM/DL (13.0-17.0) Hematocrit 42.0 % (39.0-51.0) 36.4 % (39.0-51.0) Mean Corpuscular Volume 84.9 FL (80.0-100.0) 87.1 FL (80.0-100.0) Mean Corpuscular Hemoglobin 27.3 PG (27.0-34.0) 28.2 PG (27.0-34.0) Mean Corpuscular Hemoglobin Concent 32.1 % (32.0-36.0) 32.4 % (32.0-36.0) Red Cell Distribution Width 14.2 % (11.6-17.2) 15.3 % (11.6-17.2) Platelet Count 417 TH/MM3 (150-450) 356 TH/MM3 (150-450) Mean Platelet Volume 7.4 FL (7.0-11.0) 7.3 FL (7.0-11.0) Neutrophils (%) (Auto) 73.9 % (16.0-70.0) 75.1 % (16.0-70.0) Lymphocytes (%) (Auto) 13.3 % (9.0-44.0) 13.3 % (9.0-44.0) Monocytes (%) (Auto) 8.1 % (0.0-8.0) 9.5 % (0.0-8.0) Eosinophils (%) (Auto) 1.1 % (0.0-4.0) 1.5 % (0.0-4.0) Basophils (%) (Auto) 3.6 % (0.0-2.0) 0.6 % (0.0-2.0) Neutrophils # (Auto) 9.6 TH/MM3 (1.8-7.7) 8.2 TH/MM3 (1.8-7.7) Lymphocytes # (Auto) 1.7 TH/MM3 (1.0-4.8) 1.4 TH/MM3 (1.0-4.8) Monocytes # (Auto) 1.0 TH/MM3 (0-0.9) 1.0 TH/MM3 (0-0.9) Eosinophils # (Auto) 0.1 TH/MM3 (0-0.4) 0.2 TH/MM3 (0-0.4) Basophils # (Auto) 0.5 TH/MM3 (0-0.2) 0.1 TH/MM3 (0-0.2) CBC Comment DIFF FINAL DIFF FINAL Differential Comment Erythrocyte Sedimentation Rate 42 mm/hr (0-20) Prothrombin Time 12.0 SEC (9.8-11.6) Prothromb Time International Ratio 1.1 RATIO Activated Partial Thromboplast Time 33.4 SEC (24.3-30.1) Blood Urea Nitrogen 11 MG/DL (7-18) 9 MG/DL (7-18) Creatinine 0.59 MG/DL (0.60-1.30) 0.60 MG/DL (0.60-1.30) Random Glucose 87 MG/DL (74-106) 61 MG/DL (74-106) Total Protein 7.4 GM/DL (6.4-8.2) Albumin 2.7 GM/DL (3.4-5.0) Calcium Level 9.9 MG/DL (8.5-10.1) 9.2 MG/DL (8.5-10.1) Alkaline Phosphatase 96 U/L (45-117) Aspartate Amino Transf (AST/SGOT) 20 U/L (15-37) Alanine Aminotransferase (ALT/SGPT) 13 U/L (12-78) Total Bilirubin 0.7 MG/DL (0.2-1.0) Sodium Level 138 MEQ/L (136-145) 141 MEQ/L (136-145) Potassium Level 3.7 MEQ/L (3.5-5.1) 4.0 MEQ/L (3.5-5.1) Chloride Level 102 MEQ/L (98-107) 105 MEQ/L (98-107) Carbon Dioxide Level 25.0 MEQ/L (21.0-32.0) 26.6 MEQ/L (21.0-32.0) Anion Gap 11 MEQ/L (5-15) 9 MEQ/L (5-15) Estimat Glomerular Filtration Rate 130 ML/MIN (>89) 127 ML/MIN (>89) C-Reactive Protein 13.30 MG/DL (0.00-0.30) Urine Color YELLOW (YELLW/STRAW) Urine Turbidity CLEAR (CLEAR) Urine pH 5.5 (5.0-8.5) Urine Specific [place] GREATER THAN 1.035 Urine Protein NEG mg/dL (NEG-TRACE) Urine Glucose (UA) NEG mg/dL (NEG) Urine Ketones 15 mg/dL (NEG) Urine Occult Blood NEG (NEG) Urine Nitrite NEG (NEG) Urine Bilirubin NEG (NEG) Urine Leukocyte Esterase NEG (NEG) Urine Squamous Epithelial Cells 0-5 /hpf (0-5) Microscopic Urinalysis Comment CULT NOT INDICATED Result Diagram: 01/18/17 0455 01/18/17 0455 Microbiology Microbiology Date/Time Source Procedure Growth Status 01/17/17 11:00 Blood Peripheral Aerobic Blood Culture - Preliminary NO GROWTH IN 1 DAY Resulted 01/17/17 11:00 Blood Peripheral Anaerobic Blood Culture - Preliminary NO GROWTH IN 1 DAY Resulted 01/17/17 10:55 Blood Peripheral Aerobic Blood Culture - Preliminary NO GROWTH IN 1 DAY Resulted 01/17/17 10:55 Blood Peripheral Anaerobic Blood Culture - Preliminary NO GROWTH IN 1 DAY Resulted Imaging Last 72 hours Impressions Abdomen/Pelvis CT 01/17/17 1046 Signed Impressions: Service Date/Time: Tuesday, January 17, 2017 11:47 - CONCLUSION: Decreasing pleural effusions. Para-aortic induration and low density collections worrisome for periaortitis. See above discussion Jed Loya MD Patient/Family Conference Present at Family Conference: Ciera Lujan () Family Conference Location: Bedside Issues Discussed: * Palliative care role, purpose, approach * Additional medical, psychosocial, and spiritual history * Patients general health, functional status, and cognitive changes in the months leading up to the current hospitalization * Patient/family understanding of the current medical problems * Patient/family understanding of prognosis * Patients goals of care as best understood from advance directives and/or conversations and/or values * Code status * Questions answered to the best of my ability * Palliative care contact information provided Assessment and Plan Disease Oriented Problem List: (1) Aortitis (2) Abdominal pain (3) Right hip pain Symptom Scale: (1) Debility (2) Malnutrition (3) Pain Pertinent Non-Medical Issues Psychosocial: 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 He has been to his current Ciera for 26 years and moved down to [place] back in the 1980s. Spiritual: Judaism. Legal: None known. Ethical issues impacting care: None known. . Important Contacts Ciera Lujan (/HCS): [phone] Elva Glasgow (daughter/alternate HCS): [phone] . Prognosis Patient is a 86 year old male with a past medical history significant for abdominal aortic aneurysm, chronic aortitis, prostate cancer, and dementia. Patient has had a progressive decline in appetite, suffered weight loss, and increased debility over the past year. The patient has presented to the hospital three times in the past year for evaluation of abdominal pain and has been on suppressive antibiotic therapy for chronic aortitis. Due to patient's multiple comorbidities and advance age he is at an increased risk for setbacks/ complications. Code Status: No Code Plan * Legal decision maker: Patient has a history of dementia, is a poor historian , and has intermittent confusion/forgetfulness. Patient is still able to make his needs known. Suggest shared decision making with his and documented HCS Ciera Lujan as patient appears to lack the capacity to make informed health care decisions independently. * Goals: Aggressive short of CPR. Patient's stated today her goals of care are aggressive, however she also verbalized that she has seen him "fade away" over the past year, that she wants him to be comfortable, and she is "realistic " about his health given his advanced age. * CODE STATUS: DNR * SYMPTOMS: --Malnutrition: Patient has had a progressive decrease in appetite and lack of interest in food for almost a year. Albumin 2.7 on admission. The patient would benefit from a nutritional supplement like ensure with meals. --Pain: Secondary to aortitis, potential musculoskeletal pain on righ hip/ flank of unknown origin. Morphine 2mg q 3 hours PRN ordered. Patient would benefit from a scheduled long acting opioid. --Debility: Secondary to pain, malnutrition. PT following and working with the patient. No recommendations at this time. * Palliative care will continue to follow during hospital course as condition evolves, to assist patient/decision-maker with understanding of medical conditions, weighing benefits/burdens of treatment options, for clarification of goals of treatment. Additionally will assist with any symptoms of palliative concern Thank you for the opportunity to participate in the care of Mr. Lujan. Shweta Bustos Jan 18, 2017 12:46
[2017-01-18] MEDS ORDERED: MORPHINE SULFATE 4 MG/ML INJ IV ONE (13:15)
[2017-01-18] MEDS: GABAPENTIN 300 MG CAP PO SCH ×2 (13:18→17:46)
--- NOTE | 2017-01-18 14:50 | HHI.PR ---
Subjective Remarks Follow-up aortitis/intractable back pain 01/18/17-patient seen and examined, still complains of back pain. Currently afebrile. Case discussed with Dr. Zambrano, vascular surgery Objective Vitals Vital Signs Date Time Temp Pulse Resp B/P (MAP) Pulse Ox O2 Delivery O2 Flow Rate FiO2 01/18/17 14:00 71 01/18/17 13:00 68 01/18/17 12:00 69 01/18/17 11:23 97.9 69 16 122/57 (78) 95 01/18/17 11:00 67 01/18/17 10:00 61 01/18/17 09:00 64 01/18/17 08:00 61 01/18/17 07:23 97.5 68 20 121/56 (77) 96 01/18/17 07:00 68 01/18/17 06:39 16 01/18/17 06:05 72 01/18/17 05:06 66 01/18/17 04:00 71 01/18/17 03:22 77 01/18/17 02:27 97.1 72 16 118/51 (73) 95 01/18/17 02:03 70 01/18/17 01:07 69 01/17/17 23:02 97.1 73 16 119/56 (77) 95 01/17/17 23:00 70 01/17/17 19:00 98.0 69 16 114/56 (75) 93 01/17/17 19:00 70 01/17/17 18:22 98.3 69 18 126/58 (80) 99 01/17/17 17:42 01/17/17 17:41 100 Nasal Cannula 2.00 01/17/17 17:27 56 12 104/54 (71) 100 Nasal Cannula 2.00 01/17/17 16:16 67 12 98/51 (67) 96 Nasal Cannula 2.00 I/O 01/17/17 01/17/17 01/17/17 01/18/17 01/18/17 01/18/17 07:00 15:00 23:00 07:00 15:00 23:00 Intake Total 300 ml 250 ml 1176 ml Output Total 200 ml Balance 300 ml 250 ml 976 ml Intake Oral 0 ml IV Total 300 ml 250 ml 1176 ml Output Urine Total 200 ml Result Diagram: 01/18/17 0455 01/18/17 0455 Imaging Last Impressions Abdomen/Pelvis CT 01/17/17 1046 Signed Impressions: Service Date/Time: Tuesday, January 17, 2017 11:47 - CONCLUSION: Decreasing pleural effusions. Para-aortic induration and low density collections worrisome for periaortitis. See above discussion Jed Loya MD Objective Remarks GENERAL: NAD SKIN: Warm and dry. HEAD: Normocephalic. EYES: No scleral icterus. No injection or drainage. NECK: Supple, trachea midline. No JVD or lymphadenopathy. CARDIOVASCULAR: Regular rate and rhythm without murmurs, gallops, or rubs. RESPIRATORY: Breath sounds equal bilaterally. No accessory muscle use. GASTROINTESTINAL: Abdomen soft, non-tender, nondistended. MUSCULOSKELETAL: No cyanosis, or edema. BACK: tender without obvious deformity. No CVA tenderness. A/P Problem List: (1) Aortitis ICD Code: I77.6 - Arteritis, unspecified Status: Acute (2) Dementia ICD Code: F03.90 - Dementia Status: Chronic Assessment and Plan 86-year-old male who presented with abdominal pain Aortitis Patient with recent admission on 12/05/16 for aortitis. Patient was discharged on Levaquin with follow-up with Dr. Rangel's Case discussed with Dr. Zambrano, vascular surgery and recommended nonoperative management Appreciate input from infectious disease Currently on vancomycin IV pending culture reports Awaiting recommendations from palliative care medicine for pain management Continue with Neurontin Atrial fibrillation Heart rate is controlled Will resume Eliquis Dementia Continue home medications DVT prevention Resume Eliquis Sequential compression devices Suresh Moon MD Jan 18, 2017 14:49
[2017-01-18] MEDS: VANCOMYCIN 1,000 MG/NS 250 ML IV SCH ×2 (17:46)
[2017-01-18] MEDS: MORPHINE SULFATE 4 MG/ML INJ IV PRN (20:27)
[2017-01-18] MEDS: DONEPEZIL HCL 5 MG TAB PO SCH (20:31)
[2017-01-18] MEDS: ATORVASTATIN 40 MG TAB PO SCH (20:31)
[2017-01-19] VITALS (24 sets, daily range): BP systolic 110–123; BP diastolic 52–58; PULSE 62–88; RESP 16–17; TEMP 97.6–98.2; O2SAT 92–98
[2017-01-19] MEDS: PIPERACIL-TAZO 3.375 GM PREMIX 50 ML IV SCH ×4 (01:07→20:17)
[2017-01-19] MEDS: MORPHINE SULFATE 4 MG/ML INJ IV PRN ×4 (03:04→17:07)
[2017-01-19] MEDS: VANCOMYCIN 1,000 MG/NS 250 ML IV SCH ×4 (05:16→17:06)
--- NOTE | 2017-01-19 09:35 | HHI.PR ---
Subjective Remarks Follow-up aortitis/intractable back pain 01/18/17-patient seen and examined, still complains of back pain. Currently afebrile. Case discussed with Dr. Zambrano, vascular surgery 01/19/17-patient seen and examined, stable the back pain hasn't improved however hasn't worsened either. He is able to ambulate without significant complaint Objective Vitals Vital Signs Date Time Temp Pulse Resp B/P (MAP) Pulse Ox O2 Delivery O2 Flow Rate FiO2 01/19/17 08:22 94 21 01/19/17 08:00 62 01/19/17 07:30 98.2 72 17 112/56 (74) 96 01/19/17 07:15 68 01/19/17 06:12 65 01/19/17 05:25 67 01/19/17 04:05 71 01/19/17 03:16 69 01/19/17 03:16 97.8 70 16 123/58 (79) 94 01/19/17 02:08 65 01/19/17 01:09 66 01/19/17 00:04 65 01/18/17 23:02 97.5 66 17 118/56 (76) 93 01/18/17 23:02 64 01/18/17 22:08 65 01/18/17 21:00 64 01/18/17 20:15 74 01/18/17 19:25 98.3 71 16 124/58 (80) 94 01/18/17 19:25 65 01/18/17 18:00 65 01/18/17 17:00 66 01/18/17 16:00 68 01/18/17 15:25 97.6 77 20 124/58 (80) 94 01/18/17 15:00 81 01/18/17 14:00 71 01/18/17 13:00 68 01/18/17 12:00 69 01/18/17 11:23 97.9 69 16 122/57 (78) 95 01/18/17 11:00 67 01/18/17 10:00 61 I/O 01/18/17 01/18/17 01/18/17 01/19/17 01/19/17 01/19/17 07:00 15:00 23:00 07:00 15:00 23:00 Intake Total 1176 ml 1952 ml 240 ml Output Total 200 ml 500 ml 450 ml Balance 976 ml 1452 ml -210 ml Intake Oral 0 ml 720 ml 240 ml IV Total 1176 ml 1232 ml Output Urine Total 200 ml 500 ml 450 ml Result Diagram: 01/18/1745401/18/17454 Objective Remarks GENERAL: NAD SKIN: Warm and dry. HEAD: Normocephalic. EYES: No scleral icterus. No injection or drainage. NECK: Supple, trachea midline. No JVD or lymphadenopathy. CARDIOVASCULAR: Regular rate and rhythm without murmurs, gallops, or rubs. RESPIRATORY: Breath sounds equal bilaterally. No accessory muscle use. GASTROINTESTINAL: Abdomen soft, non-tender, nondistended. MUSCULOSKELETAL: No cyanosis, or edema. BACK: tender without obvious deformity. No CVA tenderness. A/P Problem List: (1) Aortitis ICD Code: I77.6 - Arteritis, unspecified Status: Acute (2) Dementia ICD Code: F03.90 - Dementia Status: Chronic Assessment and Plan 86-year-old male who presented with abdominal pain Aortitis Patient with recent admission on 12/05/16 for aortitis. Patient was discharged on Levaquin with follow-up with Dr. Rangel's Case discussed with Dr. Zambrano , vascular surgery 01/10/17 and recommended nonoperative management Appreciate input from infectious disease Currently on vancomycin and Zosyn IV pending culture reports Awaiting recommendations from palliative care medicine for pain management Continue with Neurontin Right hip MRI pending Atrial fibrillation Heart rate is controlled Continue Eliquis Dementia Continue home medications DVT prevention Eliquis Sequential compression devices Suresh Moon MD Jan 19, 2017 09:35
[2017-01-19] MEDS: MEMANTINE HCL 10 MG TAB PO SCH ×2 (09:41→20:45)
[2017-01-19] MEDS: PANTOPRAZOLE SOD 20 MG DELAYED RELEASE TAB PO SCH (09:41)
[2017-01-19] MEDS: APIXABAN 2.5 MG TABLET PO SCH ×2 (09:41→20:45)
[2017-01-19] MEDS: DOCUSATE SODIUM 50 MG/SENNA 8.6 MG TAB PO SCH ×2 (09:41→20:44)
[2017-01-19] MEDS: GABAPENTIN 300 MG CAP PO SCH ×3 (09:41→17:06)
[2017-01-19] MEDS: SODIUM CHLORIDE 0.9% FLUSH 10 ML FLUSH IV FLUSH SCH ×2 (09:47→20:44)
--- NOTE | 2017-01-19 11:39 | HHI.IDPN ---
Subjective Subjective Remarks doing OK confused no active c/o RN reports agitation episode no fever Antibiotics vancomycin zosyn Allergies: Coded Allergies: cilostazol (Unverified Allergy, Severe, tachycardia.PENTOXIFYLINE CAUSES UNKNOWN REACTION, 01/17/17) lisinopril (Unverified Allergy, Severe, esophageal spasms, 01/17/17) pentoxifylline (Unverified Allergy, Severe, 01/17/17) diclofenac (Unverified Allergy, Intermediate, RED RASH, 01/17/17) etodolac (Unverified Allergy, Intermediate, RED RASH, 01/17/17) flurbiprofen (Unverified Allergy, Intermediate, RED RASH, 01/17/17) ibuprofen (Unverified Allergy, Intermediate, RED RASH, 01/17/17) indomethacin (Unverified Allergy, Intermediate, RED RASH, 01/17/17) ketoprofen (Unverified Allergy, Intermediate, RED RASH, 01/17/17) ketorolac (Unverified Allergy, Intermediate, RED RASH, 01/17/17) naproxen (Unverified Allergy, Intermediate, RED RASH, 01/17/17) oxaprozin (Unverified Allergy, Intermediate, RED RASH, 01/17/17) celecoxib (Verified Allergy, Unknown, 01/17/17) Sulfa (Sulfonamide Antibiotics) (Unverified Adverse Reaction, Unknown, ) Objective . Vital Signs Date Time Temp Pulse Resp B/P (MAP) Pulse Ox O2 Delivery O2 Flow Rate FiO2 01/19/17 11:00 88 01/19/17 11:00 98.2 76 17 110/55 (73) 94 01/19/17 10:00 84 01/19/17 09:50 17 01/19/17 08:22 94 21 01/19/17 08:00 62 01/19/17 07:30 98.2 72 17 112/56 (74) 96 01/19/17 07:15 68 01/19/17 06:12 65 01/19/17 05:25 67 01/19/17 04:05 71 01/19/17 03:16 69 01/19/17 03:16 97.8 70 16 123/58 (79) 94 01/19/17 02:08 65 01/19/17 01:09 66 01/19/17 00:04 65 01/18/17 23:02 97.5 66 17 118/56 (76) 93 01/18/17 23:02 64 01/18/17 22:08 65 01/18/17 21:00 64 01/18/17 20:15 74 01/18/17 19:25 98.3 71 16 124/58 (80) 94 01/18/17 19:25 65 01/18/17 18:00 65 01/18/17 17:00 66 01/18/17 16:00 68 01/18/17 15:25 97.6 77 20 124/58 (80) 94 01/18/17 15:00 81 01/18/17 14:00 71 01/18/17 13:00 68 01/18/17 12:00 69 . Laboratory Tests Test 01/18/17 04:55 White Blood Count 10.9 TH/MM3 Red Blood Count 4.18 MIL/MM3 Hemoglobin 11.8 GM/DL Hematocrit 36.4 % Mean Corpuscular Volume 87.1 FL Mean Corpuscular Hemoglobin 28.2 PG Mean Corpuscular Hemoglobin Concent 32.4 % Red Cell Distribution Width 15.3 % Platelet Count 356 TH/MM3 Mean Platelet Volume 7.3 FL Neutrophils (%) (Auto) 75.1 % Lymphocytes (%) (Auto) 13.3 % Monocytes (%) (Auto) 9.5 % Eosinophils (%) (Auto) 1.5 % Basophils (%) (Auto) 0.6 % Neutrophils # (Auto) 8.2 TH/MM3 Lymphocytes # (Auto) 1.4 TH/MM3 Monocytes # (Auto) 1.0 TH/MM3 Eosinophils # (Auto) 0.2 TH/MM3 Basophils # (Auto) 0.1 TH/MM3 CBC Comment DIFF FINAL Differential Comment Laboratory Tests Test 01/18/17 04:55 Blood Urea Nitrogen 9 MG/DL Creatinine 0.60 MG/DL Random Glucose 61 MG/DL Calcium Level 9.2 MG/DL Sodium Level 141 MEQ/L Potassium Level 4.0 MEQ/L Chloride Level 105 MEQ/L Carbon Dioxide Level 26.6 MEQ/L Anion Gap 9 MEQ/L Estimat Glomerular Filtration Rate 127 ML/MIN Microbiology Date/Time Source Procedure Growth Status 01/17/17 11:00 Blood Peripheral Aerobic Blood Culture - Preliminary NO GROWTH IN 2 DAYS Resulted 01/17/17 11:00 Blood Peripheral Anaerobic Blood Culture - Preliminary NO GROWTH IN 2 DAYS Resulted 01/17/17 10:55 Blood Peripheral Aerobic Blood Culture - Preliminary NO GROWTH IN 2 DAYS Resulted 01/17/17 10:55 Blood Peripheral Anaerobic Blood Culture - Preliminary NO GROWTH IN 2 DAYS Resulted Imaging Last Impressions Abdomen/Pelvis CT 01/17/17 1046 Signed Impressions: Service Date/Time: Tuesday, January 17, 2017 11:47 - CONCLUSION: Decreasing pleural effusions. Para-aortic induration and low density collections worrisome for periaortitis. See above discussion Jed Loya MD Physical Exam CONSTITUTIONAL/GENERAL: This is a thin chronically ill appearing patient, in moderate distress with R hip pain TUBES/LINES/DRAINS: SKIN: No jaundice, rashes, or lesions. Skin temperature appropriate. Not diaphoretic. EYES: Pupils equal and round and reactive. Extraocular motions intact. No scleral icterus. No injection or drainage. Fundi not examined. ENT: Hearing grossly normal. Nose without bleeding or purulent drainage. Throat without visible erythema, exudates, masses, or lesions. CARDIOVASCULAR: Regular rate and rhythm without murmurs, gallops, or rubs. No JVD. Peripheral pulses symmetric. RESPIRATORY/CHEST: Symmetric, unlabored respirations. Clear to auscultation. Breath sounds equal bilaterally. No wheezes, rales, or rhonchi. GASTROINTESTINAL: Abdomen soft, non-tender, nondistended. No hepato-splenomegaly , or palpable masses. No guarding. Bowel sounds present. GENITOURINARY: Without palpable bladder distension. MUSCULOSKELETAL: Extremities without clubbing, cyanosis, or edema. NEUROLOGICAL: Awake and alert. Motor and sensory grossly within normal limits. Follows commands. Clear speech Moves all extremities. PSYCHIATRIC: No obvious anxiety/depression. no apparent hallucinations or other psychotic thought process. 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 Aorto- enteric fistula R hip pain doing better with pain and no s/o sepsis cont current abx awaiting R hip MRI dw Floresita Klein MD Jan 19, 2017 11:39
--- NOTE | 2017-01-19 15:27 | HHI.HCPN ---
Reason for visit a. To assist with evaluation and management of symptoms including: malnutrition, pain, debility b. To assist medical decision maker(s) with: better understanding of current medical conditions; weighing benefits/burdens of medical treatment options; making medical treatment decisions. Subjective/Interval History Patient seen and examined today for follow up regarding goals of care, no family or visitors present at time of exam. Patient sleeping, resting comfortably in bed, awakens briefly during time of exam but quickly closes eyes and falls asleep. Patient minimally participates during exam, when asked if he is experiencing any pain he nods yes but then falls back asleep and does not verbalize pain intensity or quality when asked. Last dose of morphine 4mg PRN for pain administered at 1331, gabapentin 300mg TID added yesterday, last dose also at 1331, which may be contributing to the patient's drowsiness. Laboratory data is largely unremarkable, leukocytosis has resolved, vital signs stable, MRI of hip still pending. Family/friend interactions Voicemail left for patient's to further discuss goals of care, treatment options, and benefits/burdens of available treatment options. Advance Directives Living Will: Copy in medical record Health Care Surrogate: Copy in medical record Advance Directive Specifics Date completed: 08/06/15 . Health Care Surrogate(s): Ciera Lujan () Alternate HCS: Terri Glasgow (daughter), Darlene Salinas Documented care wishes: Standard living will verbiage. It does state in the living will that they patient wants to be a DNR. Objective Vital Signs Date Time Temp Pulse Resp B/P (MAP) Pulse Ox O2 Delivery O2 Flow Rate FiO2 01/19/17 13:42 16 01/19/17 12:00 76 01/19/17 11:00 88 01/19/17 11:00 98.2 76 17 110/55 (73) 94 01/19/17 10:00 84 01/19/17 08:22 94 21 01/19/17 08:00 62 01/19/17 07:30 98.2 72 17 112/56 (74) 96 01/19/17 07:15 68 01/19/17 06:12 65 01/19/17 05:25 67 01/19/17 04:05 71 01/19/17 03:16 69 01/19/17 03:16 97.8 70 16 123/58 (79) 94 01/19/17 02:08 65 01/19/17 01:09 66 01/19/17 00:04 65 01/18/17 23:02 97.5 66 17 118/56 (76) 93 01/18/17 23:02 64 01/18/17 22:08 65 01/18/17 21:00 64 01/18/17 20:15 74 01/18/17 19:25 98.3 71 16 124/58 (80) 94 01/18/17 19:25 65 01/18/17 18:00 65 01/18/17 17:00 66 01/18/17 16:00 68 01/18/17 15:25 97.6 77 20 124/58 (80) 94 Intake & Output 01/19/17 01/19/17 07:00 19:00 Intake Total 240 ml Output Total 450 ml Balance -210 ml Intake Oral 240 ml Output Urine Total 450 ml . Physical Exam CONSTITUTIONAL/GENERAL: This is a thin elderly male patient, in no apparent distress. TUBES/LINES/DRAINS: PIV x 2 SKIN: No jaundice, rashes, or lesions. Ecchymoses on upper extremities. No wounds seen anteriorly. Skin temperature appropriate. Not diaphoretic. ENT: Hearing grossly normal. Nose without bleeding or purulent drainage. CARDIOVASCULAR: Regular rate and rhythm without murmurs, gallops, or rubs. No JVD. Peripheral pulses symmetric. RESPIRATORY/CHEST: Symmetric, unlabored respirations. Clear to auscultation. Breath sounds equal bilaterally. No wheezes, rales, or rhonchi. GASTROINTESTINAL: Abdomen soft, non-tender, nondistended. No guarding. Bowel sounds present. MUSCULOSKELETAL: Extremities without clubbing, cyanosis, or edema. No mottling or clubbing. NEUROLOGICAL: Drowsy, minimal participation in exam today. Confused, oriented to person. PSYCHIATRIC: Unable to assess secondary to drowsiness/minimal participation Diagnostic Tests Laboratory Laboratory Tests Test 01/17/17 10:55 01/17/17 15:10 01/18/17 04:55 White Blood Count 12.9 TH/MM3 (4.0-11.0) 10.9 TH/MM3 (4.0-11.0) Red Blood Count 4.95 MIL/MM3 (4.50-5.90) 4.18 MIL/MM3 (4.50-5.90) Hemoglobin 13.5 GM/DL (13.0-17.0) 11.8 GM/DL (13.0-17.0) Hematocrit 42.0 % (39.0-51.0) 36.4 % (39.0-51.0) Mean Corpuscular Volume 84.9 FL (80.0-100.0) 87.1 FL (80.0-100.0) Mean Corpuscular Hemoglobin 27.3 PG (27.0-34.0) 28.2 PG (27.0-34.0) Mean Corpuscular Hemoglobin Concent 32.1 % (32.0-36.0) 32.4 % (32.0-36.0) Red Cell Distribution Width 14.2 % (11.6-17.2) 15.3 % (11.6-17.2) Platelet Count 417 TH/MM3 (150-450) 356 TH/MM3 (150-450) Mean Platelet Volume 7.4 FL (7.0-11.0) 7.3 FL (7.0-11.0) Neutrophils (%) (Auto) 73.9 % (16.0-70.0) 75.1 % (16.0-70.0) Lymphocytes (%) (Auto) 13.3 % (9.0-44.0) 13.3 % (9.0-44.0) Monocytes (%) (Auto) 8.1 % (0.0-8.0) 9.5 % (0.0-8.0) Eosinophils (%) (Auto) 1.1 % (0.0-4.0) 1.5 % (0.0-4.0) Basophils (%) (Auto) 3.6 % (0.0-2.0) 0.6 % (0.0-2.0) Neutrophils # (Auto) 9.6 TH/MM3 (1.8-7.7) 8.2 TH/MM3 (1.8-7.7) Lymphocytes # (Auto) 1.7 TH/MM3 (1.0-4.8) 1.4 TH/MM3 (1.0-4.8) Monocytes # (Auto) 1.0 TH/MM3 (0-0.9) 1.0 TH/MM3 (0-0.9) Eosinophils # (Auto) 0.1 TH/MM3 (0-0.4) 0.2 TH/MM3 (0-0.4) Basophils # (Auto) 0.5 TH/MM3 (0-0.2) 0.1 TH/MM3 (0-0.2) CBC Comment DIFF FINAL DIFF FINAL Differential Comment Erythrocyte Sedimentation Rate 42 mm/hr (0-20) Prothrombin Time 12.0 SEC (9.8-11.6) Prothromb Time International Ratio 1.1 RATIO Activated Partial Thromboplast Time 33.4 SEC (24.3-30.1) Blood Urea Nitrogen 11 MG/DL (7-18) 9 MG/DL (7-18) Creatinine 0.59 MG/DL (0.60-1.30) 0.60 MG/DL (0.60-1.30) Random Glucose 87 MG/DL (74-106) 61 MG/DL (74-106) Total Protein 7.4 GM/DL (6.4-8.2) Albumin 2.7 GM/DL (3.4-5.0) Calcium Level 9.9 MG/DL (8.5-10.1) 9.2 MG/DL (8.5-10.1) Alkaline Phosphatase 96 U/L (45-117) Aspartate Amino Transf (AST/SGOT) 20 U/L (15-37) Alanine Aminotransferase (ALT/SGPT) 13 U/L (12-78) Total Bilirubin 0.7 MG/DL (0.2-1.0) Sodium Level 138 MEQ/L (136-145) 141 MEQ/L (136-145) Potassium Level 3.7 MEQ/L (3.5-5.1) 4.0 MEQ/L (3.5-5.1) Chloride Level 102 MEQ/L (98-107) 105 MEQ/L (98-107) Carbon Dioxide Level 25.0 MEQ/L (21.0-32.0) 26.6 MEQ/L (21.0-32.0) Anion Gap 11 MEQ/L (5-15) 9 MEQ/L (5-15) Estimat Glomerular Filtration Rate 130 ML/MIN (>89) 127 ML/MIN (>89) C-Reactive Protein 13.30 MG/DL (0.00-0.30) Urine Color YELLOW (YELLW/STRAW) Urine Turbidity CLEAR (CLEAR) Urine pH 5.5 (5.0-8.5) Urine Specific [place] GREATER THAN 1.035 Urine Protein NEG mg/dL (NEG-TRACE) Urine Glucose (UA) NEG mg/dL (NEG) Urine Ketones 15 mg/dL (NEG) Urine Occult Blood NEG (NEG) Urine Nitrite NEG (NEG) Urine Bilirubin NEG (NEG) Urine Leukocyte Esterase NEG (NEG) Urine Squamous Epithelial Cells 0-5 /hpf (0-5) Microscopic Urinalysis Comment CULT NOT INDICATED Result Diagram: 01/18/17 0455 01/18/17 0455 Microbiology Microbiology Date/Time Source Procedure Growth Status 01/17/17 11:00 Blood Peripheral Aerobic Blood Culture - Preliminary NO GROWTH IN 2 DAYS Resulted 01/17/17 11:00 Blood Peripheral Anaerobic Blood Culture - Preliminary NO GROWTH IN 2 DAYS Resulted 01/17/17 10:55 Blood Peripheral Aerobic Blood Culture - Preliminary NO GROWTH IN 2 DAYS Resulted 01/17/17 10:55 Blood Peripheral Anaerobic Blood Culture - Preliminary NO GROWTH IN 2 DAYS Resulted Assessment and Plan Disease Oriented Problem List: (1) Aortitis (2) Abdominal pain (3) Right hip pain Symptom Scale: (1) Debility (2) Malnutrition (3) Pain Pertinent Non-Medical Issues Psychosocial: Patient is originally from [place], [place], 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 He has been to his current [place]iera for 26 years and moved down to [place] back in the 1980s. Spiritual: [employer]. Legal: None known. Ethical issues impacting care: None known. . Important Contacts Ciera Lujan (/HCS): [phone] Elva Glasgow (daughter/alternate HCS): [phone] . Prognosis Patient is a 86 year old male with a past medical history significant for abdominal aortic aneurysm, chronic aortitis, prostate cancer, and dementia. Patient has had a progressive decline in appetite, suffered weight loss, and increased debility over the past year. The patient has presented to the hospital three times in the past year for evaluation of abdominal pain and has been on suppressive antibiotic therapy for chronic aortitis. Due to patient's multiple comorbidities and advance age he is at an increased risk for setbacks/ complications. Code Status: No Code Plan * Legal decision maker: Patient has a history of dementia, is a poor historian, and has intermittent confusion/forgetfulness. Patient is still able to make his needs known. Suggest shared decision making with his and documented HCS Ciera Lujan as patient appears to lack the capacity to make informed health care decisions independently. * Goals: Aggressive short of CPR. * Telephone conversation with patient's at 1520, updated on clinical status , discussed pain management, aggressive versus comfort focused goals, and Hospice. Further discussion planned for tomorrow at face to face meeting in the morning at approximately at 1100. * CODE STATUS: DNR * SYMPTOMS: --Malnutrition: Patient has had a progressive decrease in appetite and lack of interest in food for almost a year. Albumin 2.7 on admission. The patient would benefit from a nutritional supplement like ensure with meals. --Pain: Secondary to aortitis, potential musculoskeletal pain on right hip/ flank of unknown origin. Morphine 4mg q 4 hours PRN ordered, 4 doses utilized in the past 24 hours. Gabapentin 300mg TID initiated 01/18/17. Recommend short course of steroids which may aid in pain control and inflammatory process. --Debility: Secondary to pain, malnutrition. PT following and working with the patient. No recommendations at this time. * Palliative care will continue to follow during hospital course as condition evolves, to assist patient/decision-maker with understanding of medical conditions, weighing benefits/burdens of treatment options, for clarification of goals of treatment. Additionally will assist with any symptoms of palliative concern Attestation To help prompt me to consider important information that might be impacting today's encounter and assessment, information from prior notes written by myself or my colleagues may have been "brought forward" into today's note. My signature on this note, however, is an attestation that I personally performed the exam, history, and/or decision-making noted today, and, unless otherwise indicated, the interactions with patient, family, and staff as well as the review of records all occurred today. I also attest that the listed assessment and stated plan reflect my best clinical judgment today based on the combination of historical information, prior notes, and today's exam/ interactions. When time spent is documented, it refers only to time spent today by the signer, or if indicated, combined time spent today by collaborating physician/nurse practitioner. Shweta Bustos Jan 19, 2017 15:27
[2017-01-19] MEDS: ATORVASTATIN 40 MG TAB PO SCH (20:45)
[2017-01-19] MEDS: DONEPEZIL HCL 5 MG TAB PO SCH (20:45)
[2017-01-20] VITALS (28 sets, daily range): BP systolic 98–119; BP diastolic 49–74; PULSE 57–94; RESP 16; TEMP 97.4–98.7; O2SAT 91–97
[2017-01-20] MEDS: PIPERACIL-TAZO 3.375 GM PREMIX 50 ML IV SCH ×4 (02:09→22:25)
[2017-01-20] MEDS ORDERED: VANCOMYCIN TROUGH ONE (05:45)
[2017-01-20] MEDS: VANCOMYCIN 1,000 MG/NS 250 ML IV SCH ×2 (05:53)
[2017-01-20] MEDS: MORPHINE SULFATE 4 MG/ML INJ IV PRN ×3 (05:54→18:00)
[2017-01-20 06:37] LABS: VANCOMYCIN TROUGH 15.4 MCG/ML (5.0-10.0)
[2017-01-20] MEDS: APIXABAN 2.5 MG TABLET PO SCH ×2 (09:56→22:23)
[2017-01-20] MEDS: GABAPENTIN 300 MG CAP PO SCH ×3 (09:56→18:00)
[2017-01-20] MEDS: PANTOPRAZOLE SOD 20 MG DELAYED RELEASE TAB PO SCH (09:56)
[2017-01-20] MEDS: DOCUSATE SODIUM 50 MG/SENNA 8.6 MG TAB PO SCH ×2 (09:56→21:00)
[2017-01-20] MEDS: MEMANTINE HCL 10 MG TAB PO SCH ×2 (09:56→22:23)
[2017-01-20] MEDS: SODIUM CHLORIDE 0.9% FLUSH 10 ML FLUSH IV FLUSH SCH ×2 (09:57→21:00)
--- NOTE | 2017-01-20 11:04 | HHI.PR ---
Subjective Remarks Follow-up aortitis/intractable back pain 01/18/17-patient seen and examined, still complains of back pain. Currently afebrile. Case discussed with Dr. Zambrano, vascular surgery 01/19/17-patient seen and examined, stable the back pain hasn't improved however hasn't worsened either. He is able to ambulate without significant complaint 01/20/17-patient seen and examined, still reports back pain. Afebrile. Blood culture negative 3 days Objective Vitals Vital Signs Date Time Temp Pulse Resp B/P (MAP) Pulse Ox O2 Delivery O2 Flow Rate FiO2 01/20/17 10:00 77 01/20/17 09:00 89 01/20/17 08:00 68 01/20/17 07:00 98.1 91 16 101/58 (72) 91 01/20/17 07:00 66 01/20/17 06:33 16 01/20/17 06:00 71 01/20/17 05:00 63 01/20/17 04:00 78 01/20/17 03:30 97.7 65 16 114/51 (72) 97 01/20/17 03:00 57 01/20/17 02:00 65 01/20/17 01:00 78 01/20/17 00:00 70 01/19/17 23:00 66 01/19/17 23:00 97.9 66 16 110/53 (72) 98 01/19/17 22:00 76 01/19/17 21:45 96 01/19/17 21:00 66 01/19/17 20:00 66 01/19/17 20:00 97.8 68 16 111/52 (71) 98 01/19/17 19:00 66 01/19/17 16:00 97.6 69 16 119/57 (77) 92 01/19/17 16:00 69 01/19/17 15:00 66 01/19/17 14:00 66 01/19/17 13:00 66 01/19/17 12:00 76 I/O 01/19/17 01/19/17 01/19/17 01/20/17 01/20/17 01/20/17 07:00 15:00 23:00 07:00 15:00 23:00 Intake Total 240 ml 570 ml 410 ml Output Total 450 ml 375 ml Balance -210 ml 570 ml 35 ml Intake Oral 240 ml 420 ml 360 ml IV Total 150 ml 50 ml Output Urine Total 450 ml 375 ml # Voids 2 # Bowel Movements 0 0 Result Diagram: 01/18/17 0455 01/20/17 0545 Imaging Last Impressions Abdomen/Pelvis CT 01/17/17 1046 Signed Impressions: Service Date/Time: Tuesday, January 17, 2017 11:47 - CONCLUSION: Decreasing pleural effusions. Para-aortic induration and low density collections worrisome for periaortitis. See above discussion Jed Loya MD Objective Remarks GENERAL: NAD SKIN: Warm and dry. HEAD: Normocephalic. EYES: No scleral icterus. No injection or drainage. NECK: Supple, trachea midline. No JVD or lymphadenopathy. CARDIOVASCULAR: Regular rate and rhythm without murmurs, gallops, or rubs. RESPIRATORY: Breath sounds equal bilaterally. No accessory muscle use. GASTROINTESTINAL: Abdomen soft, non-tender, nondistended. MUSCULOSKELETAL: No cyanosis, or edema. BACK: tender without obvious deformity. No CVA tenderness. A/P Problem List: (1) Aortitis ICD Code: I77.6 - Arteritis, unspecified Status: Acute (2) Dementia ICD Code: F03.90 - Dementia Status: Chronic Assessment and Plan 86-year-old male who presented with abdominal pain Chronic Aortitis Chronically infected aortic prosthesis Patient with recent admission on 12/05/16 for aortitis. Patient was discharged on Levaquin with follow-up with Dr. Rangel's Case discussed with Dr. Zambrano , vascular surgery 01/10/17 and recommended nonoperative management Appreciate input from infectious disease Currently on vancomycin and Zosyn IV , blood cultures NTD Awaiting recommendations from palliative care medicine for pain management Continue with Neurontin Right hip MRI pending Atrial fibrillation Heart rate is controlled Continue Eliquis Dementia Continue home medications DVT prevention Eliquis Sequential compression devices Suresh Moon MD Jan 20, 2017 11:04
--- NOTE | 2017-01-20 13:12 | HHI.HCPN ---
Reason for visit a. To assist with evaluation and management of symptoms including: malnutrition, pain, debility b. To assist medical decision maker(s) with: better understanding of current medical conditions; weighing benefits/burdens of medical treatment options; making medical treatment decisions. Subjective/Interval History Patient seen and examined for follow up today, Ciera at bedside. Patient is alert, awake, resting comfortably in bed, much more interactive today and seems to be in good spirits. Patient is oriented to person and to place. He reports that he is still having back pain, he rates his pain 5/10, and states it has remained unchanged for about a month. Only new laboratory data completed today was creatinine:0.50 and eGFR:157. Blood cultures negative x 3. MRI of hip still pending, discussed with bedside RN, delay was due to questionable history of aneurysm clips, patient was unable to provide this information secondary to dementia, and was not available to obtain history. . Family/friend interactions Bedside meeting with patient and his Ciera, updated on clinical status, discussed plan of care, discussed transitioning to comfort focused goals, and Hospice. Plan to meet tomorrow at 12 with Hospice to discuss Hospice services further. . Advance Directives Living Will: Copy in medical record Health Care Surrogate: Copy in medical record Advance Directive Specifics Date completed: 08/06/15 . Health Care Surrogate(s): Ciera Lujan () Alternate HCS: Terri Glasgow (daughter), Darlene Salinas Documented care wishes: Standard living will verbiage. It does state in the living will that they patient wants to be a DNR. Objective Vital Signs Date Time Temp Pulse Resp B/P (MAP) Pulse Ox O2 Delivery O2 Flow Rate FiO2 01/20/17 12:00 84 01/20/17 11:48 14 01/20/17 11:00 72 01/20/17 11:00 97.4 94 16 98/49 (65) 97 01/20/17 10:00 77 01/20/17 09:00 89 01/20/17 08:00 68 01/20/17 07:00 98.1 91 16 101/58 (72) 91 01/20/17 07:00 66 01/20/17 06:00 71 01/20/17 05:00 63 01/20/17 04:00 78 01/20/17 03:30 97.7 65 16 114/51 (72) 97 01/20/17 03:00 57 01/20/17 02:00 65 01/20/17 01:00 78 01/20/17 00:00 70 01/19/17 23:00 66 01/19/17 23:00 97.9 66 16 110/53 (72) 98 01/19/17 22:00 76 01/19/17 21:45 96 01/19/17 21:00 66 01/19/17 20:00 66 01/19/17 20:00 97.8 68 16 111/52 (71) 98 01/19/17 19:00 66 01/19/17 16:00 97.6 69 16 119/57 (77) 92 01/19/17 16:00 69 01/19/17 15:00 66 01/19/17 14:00 66 Intake & Output 01/20/17 01/20/17 07:00 19:00 Intake Total 460 ml Output Total 375 ml Balance 85 ml Intake Oral 360 ml IV Total 100 ml Output Urine Total 375 ml # Bowel Movements 0 Physical Exam CONSTITUTIONAL/GENERAL: This is a thin elderly male patient, in no apparent distress. TUBES/LINES/DRAINS: PIV x 2 SKIN: No jaundice, rashes, or lesions. Ecchymoses on upper extremities. No wounds seen anteriorly. Skin temperature appropriate. Not diaphoretic. ENT: Hearing grossly normal. Nose without bleeding or purulent drainage. CARDIOVASCULAR: Regular rate and rhythm without murmurs, gallops, or rubs. No JVD. Peripheral pulses symmetric. RESPIRATORY/CHEST: Symmetric, unlabored respirations. Clear to auscultation. Breath sounds equal bilaterally. No wheezes, rales, or rhonchi. GASTROINTESTINAL: Abdomen soft, non-tender, nondistended. No guarding. Bowel sounds present. MUSCULOSKELETAL: Extremities without clubbing, cyanosis, or edema. No mottling or clubbing. NEUROLOGICAL:Awake and alert. Oriented to person and to place. Follows commands. Moves all extremities. PSYCHIATRIC: Unable to assess secondary to drowsiness/minimal participation Diagnostic Tests Laboratory Laboratory Tests Test 01/17/17 15:10 01/18/17 04:55 01/20/17 05:45 Urine Color YELLOW (YELLW/STRAW) Urine Turbidity CLEAR (CLEAR) Urine pH 5.5 (5.0-8.5) Urine Specific [place] GREATER THAN 1.035 Urine Protein NEG mg/dL (NEG-TRACE) Urine Glucose (UA) NEG mg/dL (NEG) Urine Ketones 15 mg/dL (NEG) Urine Occult Blood NEG (NEG) Urine Nitrite NEG (NEG) Urine Bilirubin NEG (NEG) Urine Leukocyte Esterase NEG (NEG) Urine Squamous Epithelial Cells 0-5 /hpf (0-5) Microscopic Urinalysis Comment CULT NOT INDICATED White Blood Count 10.9 TH/MM3 (4.0-11.0) Red Blood Count 4.18 MIL/MM3 (4.50-5.90) Hemoglobin 11.8 GM/DL (13.0-17.0) Hematocrit 36.4 % (39.0-51.0) Mean Corpuscular Volume 87.1 FL (80.0-100.0) Mean Corpuscular Hemoglobin 28.2 PG (27.0-34.0) Mean Corpuscular Hemoglobin Concent 32.4 % (32.0-36.0) Red Cell Distribution Width 15.3 % (11.6-17.2) Platelet Count 356 TH/MM3 (150-450) Mean Platelet Volume 7.3 FL (7.0-11.0) Neutrophils (%) (Auto) 75.1 % (16.0-70.0) Lymphocytes (%) (Auto) 13.3 % (9.0-44.0) Monocytes (%) (Auto) 9.5 % (0.0-8.0) Eosinophils (%) (Auto) 1.5 % (0.0-4.0) Basophils (%) (Auto) 0.6 % (0.0-2.0) Neutrophils # (Auto) 8.2 TH/MM3 (1.8-7.7) Lymphocytes # (Auto) 1.4 TH/MM3 (1.0-4.8) Monocytes # (Auto) 1.0 TH/MM3 (0-0.9) Eosinophils # (Auto) 0.2 TH/MM3 (0-0.4) Basophils # (Auto) 0.1 TH/MM3 (0-0.2) CBC Comment DIFF FINAL Differential Comment Blood Urea Nitrogen 9 MG/DL (7-18) Creatinine 0.60 MG/DL (0.60-1.30) 0.50 MG/DL (0.60-1.30) Random Glucose 61 MG/DL (74-106) Calcium Level 9.2 MG/DL (8.5-10.1) Sodium Level 141 MEQ/L (136-145) Potassium Level 4.0 MEQ/L (3.5-5.1) Chloride Level 105 MEQ/L (98-107) Carbon Dioxide Level 26.6 MEQ/L (21.0-32.0) Anion Gap 9 MEQ/L (5-15) Estimat Glomerular Filtration Rate 127 ML/MIN (>89) 157 ML/MIN (>89) Vancomycin Level Trough 15.4 MCG/ML (5.0-10.0) Result Diagram: 01/18/17 0455 01/20/17 0545 Assessment and Plan Disease Oriented Problem List: (1) Aortitis (2) Abdominal pain (3) Right hip pain Symptom Scale: (1) Debility (2) Malnutrition (3) Pain Pertinent Non-Medical Issues Psychosocial: Patient is originally from [place], [place], 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 He has been to his current Ciera for 26 years and moved down to [place] back in the . Spiritual: Yarsani. Legal: None known. Ethical issues impacting care: None known. . Important Contacts Ciera Lujan (/[facility]): [phone] Elva Glasgow (daughter/alternate HCS): [phone] . Prognosis Patient is a 86 year old male with a past medical history significant for abdominal aortic aneurysm, chronic aortitis, prostate cancer, and dementia. Patient has had a progressive decline in appetite, suffered weight loss, and increased debility over the past year. The patient has presented to the hospital three times in the past year for evaluation of abdominal pain and has been on suppressive antibiotic therapy for chronic aortitis. Due to patient's multiple comorbidities and advance age he is at an increased risk for setbacks/ complications. Code Status: No Code Plan * Legal decision maker: Patient has a history of dementia, is a poor historian, and has intermittent confusion/forgetfulness. Patient is still able to make his needs known. Suggest shared decision making with his and documented HCS Ciera Lujan as patient appears to lack the capacity to make informed health care decisions independently. * Goals: Aggressive short of CPR, potential to transition to comfort focused goals tomorrow. Meeting planned for 12 with Palliative care and Hospice to discuss further once patient's 's daughters also arrive in from out of town. * CODE STATUS: DNR * SYMPTOMS: --Malnutrition: Patient has had a progressive decrease in appetite and lack of interest in food for almost a year. Albumin 2.7 on admission. The patient would benefit from a nutritional supplement like ensure with meals. --Pain: Secondary to aortitis, potential musculoskeletal pain on right hip/ flank of unknown origin. Morphine 4mg q 4 hours PRN ordered, 4 doses utilized in the past 24 hours. Gabapentin 300mg TID initiated 01/18/17. Recommend short course of steroids which may aid in pain control and inflammatory process. --Debility: Secondary to pain, malnutrition. PT following and working with the patient. No recommendations at this time. * Palliative care will continue to follow during hospital course as condition evolves, to assist patient/decision-maker with understanding of medical conditions, weighing benefits/burdens of treatment options, for clarification of goals of treatment. Additionally will assist with any symptoms of palliative concern Attestation To help prompt me to consider important information that might be impacting today's encounter and assessment, information from prior notes written by myself or my colleagues may have been "brought forward" into today's note. My signature on this note, however, is an attestation that I personally performed the exam, history, and/or decision-making noted today, and, unless otherwise indicated, the interactions with patient, family, and staff as well as the review of records all occurred today. I also attest that the listed assessment and stated plan reflect my best clinical judgment today based on the combination of historical information, prior notes, and today's exam/ interactions. When time spent is documented, it refers only to time spent today by the signer, or if indicated, combined time spent today by collaborating physician/nurse practitioner. Shweta Bustos Jan 20, 2017 13:12
[2017-01-20] MEDS ORDERED: GADODIAMIDE PF 287 MG/ML 10 ML VIAL (for RAD MRI) IVCONTRAST ONE (18:30)
--- NOTE | 2017-01-20 19:13 | RADRPT ---
EXAM DATE/TIME: 01/20/2017 17:31 [facility] COMPARISON: CT ABDOMEN & PELVIS W CONTRAST, January 17, 2017, 11:47. INDICATIONS : Right hip pain. CONTRAST: 10 cc Omniscan (gadodiamide) IV MEDICAL HISTORY : Hypertension. Carcinoma, prostate. SURGICAL HISTORY : Abdominal aortic aneurysm repair. Rotator cuff, right. Appendectomy. Right hip replacement. ENCOUNTER: Initial ACUITY: 1 week PAIN SCORE: 7/10 LOCATION: Right Hip. TECHNIQUE: Multiplanar, multisequence MRI examination was performed without contrast and after the intravenous a dministration of gadolinium. FINDINGS: BONE/CARTILAGE: There is a right hip prosthesis in place. This does cause susceptibility artifact in the surrounding tissues. The bony structures appear to demonstrate normal signal. MUSCLES/TENDONS: All of the visualized muscles and tendons are intact. MISCELLANEOUS: No evidence of joint effusion. POST-CONTRAST: There are no abnormal areas of enhancement on the post-contrast images. CONCLUSION: Limited MRI summation of the right hip secondary to a right hip prosthesis. A significant abnormality is not clearly identified. Jed Major MD on January 20, 2017 at 19:07 Board Certified Radiologist. This report was verified electronically.
[2017-01-20] MEDS: ATORVASTATIN 40 MG TAB PO SCH (22:23)
[2017-01-20] MEDS: DONEPEZIL HCL 5 MG TAB PO SCH (22:23)
[2017-01-21] VITALS (31 sets, daily range): BP systolic 87–111; BP diastolic 54–73; PULSE 68–138; RESP 16–18; TEMP 97.1–98.2; O2SAT 94–97
[2017-01-21] MEDS: PIPERACIL-TAZO 3.375 GM PREMIX 50 ML IV SCH ×3 (02:00→14:41)
[2017-01-21] MEDS: VANCOMYCIN 1,000 MG/NS 250 ML IV SCH ×2 (06:00)
[2017-01-21] MEDS ORDERED: DILTIAZEM HCL 25 MG/5 ML VIAL IV ONE (07:00)
--- NOTE | 2017-01-21 07:35 | RADRPT ---
EXAM DATE/TIME: 01/21/2017 07:06 [facility] COMPARISON: CT ABDOMEN & PELVIS W CONTRAST, January 17, 2017, 11:47. CHEST SINGLE AP, December 05, 2016, 16:31. INDICATIONS : Cough and shortness of breath, concern for pulmonary edema. MEDICAL HISTORY : None. SURGICAL HISTORY : None. ENCOUNTER: Initial ACUITY: 1 day PAIN SCORE: 0/10 LOCATION: Bilateral chest FINDINGS: AP portable semiupright view of the chest demonstrates a moderate-sized right-sided pleural effusion, this appears stable as compared to the prior CT. The left hemithorax is clear. The heart size is mil dly enlarged. Pulmonary vessels appear normal in caliber. Osseous structures demonstrate degenerative change. CONCLUSION: No evidence of pulmonary edema. Moderate-sized right-sided pleural effusion appears stable. Saundra Patterson MD on January 21, 2017 at 7:31 Board Certified Radiologist. This report was verified electronically.
[2017-01-21] MEDS: SODIUM CHLORIDE 0.9% FLUSH 10 ML FLUSH IV FLUSH SCH ×2 (09:00→21:00)
[2017-01-21] MEDS: PANTOPRAZOLE SOD 20 MG DELAYED RELEASE TAB PO SCH (11:07)
[2017-01-21] MEDS: DOCUSATE SODIUM 50 MG/SENNA 8.6 MG TAB PO SCH ×2 (11:07→21:00)
[2017-01-21] MEDS: MEMANTINE HCL 10 MG TAB PO SCH ×2 (11:07→23:02)
[2017-01-21] MEDS: GABAPENTIN 300 MG CAP PO SCH ×3 (11:08→19:17)
[2017-01-21] MEDS: APIXABAN 2.5 MG TABLET PO SCH ×2 (11:08→23:02)
[2017-01-21] MEDS: MORPHINE SULFATE 4 MG/ML INJ IV PRN (13:14)
--- NOTE | 2017-01-21 14:07 | HHI.HCPN ---
Reason for visit a. To assist with evaluation and management of symptoms including: malnutrition, pain, debility b. To assist medical decision maker(s) with: better understanding of current medical conditions; weighing benefits/burdens of medical treatment options; making medical treatment decisions. Subjective/Interval History Patient seen and examined for follow up regarding goals of care today, Ciera at bedside and her two daughters upon initial entrance, not present during time of exam. Patient is alert, awake, resting comfortably in bed, reading the news paper. Patient is oriented to person, to place intermittently, frequent forgetfulness. Denies any shortness of breath or nausea. Declines eating lunch, states he is not hungry. Patient reports he is still having ongoing back pain, 3 doses of PRN morphine 4 mg q 4 hours utilized in the past 24 hours. No available laboratory data available today, blood cultures negative x 4. Patient tachycardic this morning, heart rate in the 130s, Cardizem 15mg IV administered once, patient has remained tachycardic throughout the day. Chest CXR revealed no evidence of pulmonary edema with stable moderate sized right-sided pleural effusion. MRI of hip completed yesterday demonstrated a limited study secondary to a right hip prothesis, a significant abnormality is not clearly identified. . Family/friend interactions Meeting in conference room with patient's Ciera, her daughter Mila and her daughter Felecia, and the patient's daughter Elva via telephone. Also present in the meeting was DERRICK Dia with Hospice, FRANK Tucker and Dr. Amezquita. Discussed patient's current clinical status, events that have transpired over the past year that have indicated a progression in his dementia , trajectory of the disease process in the setting of dementia i.e. dysphagia, debility, lethargy, poor prognosis, limited treatment options available, transition to comfort focused goals, documented wishes completed by the patient in his living will, Hospice philosophy/benefits/services. Patient's was appropriately tearful throughout our conversation, she stated that she wants her to be comfortable and would likely move forward with Hospice services at discharge, her family stated they support her in any decision she makes, patient's daughter Elva via telephone stated she "did not want him to suffer" in reference to her father. Patient's Ciera stated she would like a list of the available Hospice organizations in the area so she can meet with other organizations before deciding what Hospice she will elect. DERRICK Dia will obtain list of available Hospice organizations and provide to Ciera. . Advance Directives Living Will: Copy in medical record Health Care Surrogate: Copy in medical record Advance Directive Specifics Date completed: 08/06/15 . Health Care Surrogate(s): Ciera Lujan () Alternate HCS: Terri Glasgow (daughter), Darlene Salinas Documented care wishes: Standard living will verbiage. It does state in the living will that they patient wants to be a DNR. Objective Vital Signs Date Time Temp Pulse Resp B/P (MAP) Pulse Ox O2 Delivery O2 Flow Rate FiO2 01/21/17 13:16 97.1 134 18 111/73 (86) 95 01/21/17 10:44 96 01/21/17 07:25 97.9 131 18 99/66 (77) 95 01/21/17 06:00 138 01/21/17 05:00 68 01/21/17 04:00 72 01/21/17 03:06 98.2 77 16 100/57 (71) 97 01/21/17 03:00 89 01/21/17 02:00 76 01/21/17 01:00 82 01/21/17 00:00 82 01/20/17 23:45 98.2 81 16 119/74 (89) 97 01/20/17 23:00 88 01/20/17 22:00 82 01/20/17 21:00 82 01/20/17 20:00 84 01/20/17 19:45 98.7 82 16 110/54 (72) 97 01/20/17 19:00 84 01/20/17 18:00 71 01/20/17 17:35 97 21 01/20/17 17:00 78 01/20/17 16:31 64 01/20/17 15:00 97.4 94 16 98/49 (65) 97 01/20/17 15:00 67 01/20/17 14:00 65 Intake & Output 01/21/17 01/21/17 07:00 19:00 Intake Total 370 ml Output Total 350 ml Balance 20 ml Intake Oral 120 ml IV Total 250 ml Output Urine Total 350 ml # Bowel Movements 1 . Physical Exam CONSTITUTIONAL/GENERAL: This is a thin elderly male patient, in no apparent distress. TUBES/LINES/DRAINS: PIV x 2 SKIN: No jaundice, rashes, or lesions. Ecchymoses on upper extremities. No wounds seen anteriorly. Skin temperature appropriate. Not diaphoretic. ENT: Hearing grossly normal. Nose without bleeding or purulent drainage. CARDIOVASCULAR: Tachycardic. No JVD. Peripheral pulses symmetric. RESPIRATORY/CHEST: Symmetric, unlabored respirations. Clear to auscultation. Breath sounds equal bilaterally. No wheezes, rales, or rhonchi. GASTROINTESTINAL: Abdomen soft, non-tender, nondistended. No guarding. Bowel sounds present. MUSCULOSKELETAL: Extremities without clubbing, cyanosis, or edema. No mottling or clubbing. NEUROLOGICAL:Awake and alert. Oriented to person and to place. Follows commands. Moves all extremities. PSYCHIATRIC: No obvious signs or symptoms of depression or anxiety. 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 He has been to his current Ciera for 26 years and moved down to [place] back in the . Spiritual: [employer]. Legal: None known. Ethical issues impacting care: None known. . Important Contacts Ciera Lujan (/[facility]): [phone] Elva Glasgow (daughter/alternate HCS): [phone] . Prognosis Patient is a 86 year old male with a past medical history significant for abdominal aortic aneurysm, chronic aortitis, prostate cancer, and dementia. Patient has had a progressive decline in appetite, suffered weight loss, and increased debility over the past year. The patient has presented to the hospital three times in the past year for evaluation of abdominal pain and has been on suppressive antibiotic therapy for chronic aortitis. Due to patient's multiple comorbidities and advance age he is at an increased risk for setbacks/ complications. Patient's prognosis is poor secondary to his advancing dementia. Patient is Hospice appropriate. Code Status: No Code Plan * Legal decision maker: Patient has a history of dementia, is a poor historian, and has intermittent confusion/forgetfulness. Patient is still able to make his needs known. Suggest shared decision making with his and documented HCS Ciera Lujan as patient appears to lack the capacity to make informed health care decisions independently. * Goals: Comfort oriented. Patient's stated that she wants her to be comfortable and would likely move forward with Hospice services at discharge. Patient's Ciera stated she would like a list of the available Hospice organizations in the area so she can meet with other organizations before deciding what Hospice she will elect. DERRICK Dia will obtain list of available Hospice organizations and provide to Ciera. . * CODE STATUS: DNR. * SYMPTOMS: --Malnutrition: Patient has had a progressive decrease in appetite and lack of interest in food for almost a year. Albumin 2.7 on admission. The patient would benefit from a nutritional supplement like ensure with meals. --Pain: Multifactorial, aortitis, potential musculoskeletal pain on right hip /flank, intermittent chronic back pain. Morphine 4mg q 4 hours PRN ordered, 3 doses utilized in the past 24 hours. Gabapentin 300mg TID initiated 01/18/17. Recommend short course of steroids which may aid in pain control and inflammatory process. --Debility: Secondary to pain, malnutrition. PT following and working with the patient. No recommendations at this time. * Palliative care will continue to follow during hospital course as condition evolves, to assist patient/decision-maker with understanding of medical conditions, weighing benefits/burdens of treatment options, for clarification of goals of treatment. Additionally will assist with any symptoms of palliative concern Attestation To help prompt me to consider important information that might be impacting today's encounter and assessment, information from prior notes written by myself or my colleagues may have been "brought forward" into today's note. My signature on this note, however, is an attestation that I personally performed the exam, history, and/or decision-making noted today, and, unless otherwise indicated, the interactions with patient, family, and staff as well as the review of records all occurred today. I also attest that the listed assessment and stated plan reflect my best clinical judgment today based on the combination of historical information, prior notes, and today's exam/ interactions. When time spent is documented, it refers only to time spent today by the signer, or if indicated, combined time spent today by collaborating physician/nurse practitioner. Shweta Bustos Jan 21, 2017 14:07
--- NOTE | 2017-01-21 14:22 | HHI.PR ---
Subjective Remarks Heart rate has been running in the 130s. He received 50 mg IV Cardizem push early this morning however had transient hypotension after that that heart rate increase. Patient denies palpitations or chest pain. Denies dyspnea. Discussed with at bedside. She states he is not really complaining of hip pain it is more in the right lower back. He did ambulate small amount with PT yesterday but was quite weak. Hospice came to see the family today and the has decided to arrange for home hospice. Dr. Purdy is his plant manager. Objective Vitals Vital Signs Date Time Temp Pulse Resp B/P (MAP) Pulse Ox O2 Delivery O2 Flow Rate FiO2 01/21/17 13:16 97.1 134 18 111/73 (86) 95 01/21/17 10:44 96 01/21/17 07:25 97.9 131 18 99/66 (77) 95 01/21/17 06:00 138 01/21/17 05:00 68 01/21/17 04:00 72 01/21/17 03:06 98.2 77 16 100/57 (71) 97 01/21/17 03:00 89 01/21/17 02:00 76 01/21/17 01:00 82 01/21/17 00:00 82 01/20/17 23:45 98.2 81 16 119/74 (89) 97 01/20/17 23:00 88 01/20/17 22:00 82 01/20/17 21:00 82 01/20/17 20:00 84 01/20/17 19:45 98.7 82 16 110/54 (72) 97 01/20/17 19:00 84 01/20/17 18:00 71 01/20/17 17:35 97 21 01/20/17 17:00 78 01/20/17 16:31 64 01/20/17 15:00 97.4 94 16 98/49 (65) 97 01/20/17 15:00 67 I/O 01/20/17 01/20/17 01/20/17 01/21/17 01/21/17 01/21/17 07:00 15:00 23:00 07:00 15:00 23:00 Intake Total 410 ml 350 ml 420 ml Output Total 375 ml 350 ml Balance 35 ml 350 ml 70 ml Intake Oral 360 ml 350 ml 120 ml IV Total 50 ml 300 ml Output Urine Total 375 ml 350 ml # Voids 5 # Bowel Movements 0 1 Result Diagram: 01/18/17 0455 01/20/17 0545 Objective Remarks GENERAL: Lean elderly male patient. SKIN: Warm and dry. HEAD: Normocephalic. EYES: No scleral icterus. No injection or drainage. NECK: Supple, trachea midline. No JVD or lymphadenopathy. CARDIOVASCULAR: Irregularly irregular rate and rhythm without murmurs, gallops, or rubs. RESPIRATORY: Breath sounds equal bilaterally. No accessory muscle use. GASTROINTESTINAL: Abdomen soft, non-tender, nondistended. EXTREMITIES: No cyanosis, or edema. NEUROLOGICAL: Awake, alert, and oriented to self only.. Non-focal. A/P Problem List: (1) Aortitis ICD Code: I77.6 - Arteritis, unspecified Status: Acute (2) Dementia ICD Code: F03.90 - Dementia Status: Chronic (3) Atrial fibrillation with RVR ICD Code: I48.91 - Unspecified atrial fibrillation Assessment and Plan Atrial fibrillation with rapid ventricular rate. Patient does have paroxysmal atrial fibrillation and is on Eliquis. He is not on any rate control medication at home. I will give metoprolol 50 mg every 8 hours and if this does not control the heart rate we will start on a Cardizem drip. Discussed with RN. His plant manager is Dr. Purdy. Right lower back pain/hip pain. Right hip MRI was poor study but did not show acute finding. Pain seems to have improved. Chronic aortitis and chronically infected aortic prosthesis, not a surg candidate per Dr. Zambrano - has had multiple episodes of bacteremia and there has been a question of an aortoenteric fistula. This hospitalization blood cultures have been negative. Discuss with ID/Dr. Power will DC Zosyn and vancomycin and resume him on his previous prophylactic dose of cephalexin. Patient's has decided to bring him home with hospice which I think is very appropriate. Dementia - continue Namenda done episode. DVT px - eliquis, SCDs Sydnee Art MD Jan 21, 2017 14:22
[2017-01-21] MEDS: METOPROLOL TARTRATE 50 MG TAB PO SCH ×2 (14:41→23:02)
--- NOTE | 2017-01-21 15:47 | HHI.PR ---
Addendum to Inpatient Note Additional Information dw Dr Art pt is going to hospice blood clx neg @ 4 days Hip MRI negative - will dc IV abx - switch back to Keflex chronic suppression Floresita Power MD Jan 21, 2017 15:47
[2017-01-21] MEDS: ATORVASTATIN 40 MG TAB PO SCH (23:02)
[2017-01-21] MEDS: DONEPEZIL HCL 5 MG TAB PO SCH (23:02)
[2017-01-21] MEDS: CEPHALEXIN MONOHYDRATE 500 MG CAP PO SCH (23:03)
[2017-01-22] VITALS (10 sets, daily range): BP systolic 91–114; BP diastolic 54–81; PULSE 62–84; RESP 18; TEMP 97–97.8; O2SAT 94–95
[2017-01-22] MEDS ORDERED: PHARMACY ORDERED LAB ONE (05:45)
[2017-01-22] MEDS: METOPROLOL TARTRATE 50 MG TAB PO SCH (05:57)
[2017-01-22] MEDS: ACETAMINOPHEN 325 MG TAB PO PRN ×2 (05:57→12:12)
[2017-01-22] MEDS: CEPHALEXIN MONOHYDRATE 500 MG CAP PO SCH (09:00)
[2017-01-22] MEDS: DOCUSATE SODIUM 50 MG/SENNA 8.6 MG TAB PO SCH (09:37)
[2017-01-22] MEDS: APIXABAN 2.5 MG TABLET PO SCH (09:37)
[2017-01-22] MEDS: GABAPENTIN 300 MG CAP PO SCH ×2 (09:37→12:12)
[2017-01-22] MEDS: MEMANTINE HCL 10 MG TAB PO SCH (09:37)
[2017-01-22] MEDS: PANTOPRAZOLE SOD 20 MG DELAYED RELEASE TAB PO SCH (09:37)
[2017-01-22] MEDS: SODIUM CHLORIDE 0.9% FLUSH 10 ML FLUSH IV FLUSH SCH (09:38)
--- NOTE | 2017-01-22 11:32 | HHI.DS ---
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 The patient does have dementia and information was taken from patient, medical records, medical staff, . Indicated that for 3 days now the patient is had abdominal/flank pain which has not been getting any better. The patient does have history of chronic aortitis and has been on antibiotic suppression with cephalexin by Dr. Kendrick. The patient has not had an appetite has not eaten anything for the last 4-5 days. is concerned about his weight loss. He did take his pain medication at home without any significant relief. Because of the continued pain he came to emergency department for evaluation. Patient has CT scan done in the ER and was found to have aortitis with possible small abscess. Because of those findings is recommended by the ER physician the patient be admitted to the [facility] with vascular surgery consultation. CBC/BMP: 01/18/17 0455 01/20/17 0545 Significant Findings Laboratory Tests Test 01/20/17 05:45 Creatinine 0.50 MG/DL (0.60-1.30) Vancomycin Level Trough 15.4 MCG/ML (5.0-10.0) Imaging Last Impressions Chest X-Ray 01/21/17 0000 Signed Impressions: Service Date/Time: Tuesday, January 21, 2017 07:06 - CONCLUSION: No evidence of pulmonary edema. Moderate-sized right-sided pleural effusion appears stable. Saundra Patterson MD Hip MRI 01/20/17 0000 Signed Impressions: Service Date/Time: December 17:31 - CONCLUSION: Limited MRI summation of the right hip secondary to a right hip prosthesis. A significant abnormality is not clearly identified. Jed Major MD Abdomen/Pelvis CT 01/17/17 1046 Signed Impressions: Service Date/Time: Tuesday, January 17, 2017 11:47 - CONCLUSION: Decreasing pleural effusions. Para-aortic induration and low density collections worrisome for periaortitis. See above discussion Jed Loya MD PE at Discharge GENERAL: Lean elderly male patient. SKIN: Warm and dry. HEAD: Normocephalic. EYES: No scleral icterus. No injection or drainage. NECK: Supple, trachea midline. No JVD or lymphadenopathy. CARDIOVASCULAR: Irregularly irregular rate and rhythm without murmurs, gallops, or rubs. RESPIRATORY: Breath sounds equal bilaterally. No accessory muscle use. GASTROINTESTINAL: Abdomen soft, non-tender, nondistended. EXTREMITIES: No cyanosis, or edema. NEUROLOGICAL: Awake, alert, and oriented to self only.. Non-focal. Pt update on day of discharge The patient denies any pain. No pain in the abdomen, right lower back or right hip. He is still in atrial fibrillation however rate is controlled. Blood pressure slightly low. Hospital Course The patient was admitted to the hospital. Infectious disease and vascular surgery was consulted. Palliative care was also consulted. Blood cultures remain negative for infection. He was treated empirically with vancomycin and Zosyn however these were DC'd after blood cultures were negative [address] Power infectious disease doctor did discuss his case with Dr. Zambrano who performed his aortic graft. Patient is not a surgical candidate. While hospitalized the patient also went into atrial fibrillation with rapid ventricular rate, rate became controlled with by mouth metoprolol. Patient had been on metoprolol and the past but this was discontinued due to hypotension. He is already on Eliquis and followed by Dr. Purdy. After discussion with palliative care consultation with hospice was arranged. Patient's has decided to take him home with hospice. I spent 20 minutes discussing aortitis and risk of recurrent infection and aortoenteric fistula with the and the daughter. Patient will continue on his prophylactic dose of Keflex. He may follow-up with his infectious disease doctor Dr. Kendrick. Patient will be discharged home today with hospice. Pt Condition on Discharge: Stable Discharge Disposition: Hospice/ Home Discharge Time: > 30 minutes Discharge Instructions DIET: Follow Instructions for: As Tolerated, No Restrictions Activities you can perform: Regular-No Restrictions New Medications: Metoprolol Tartrate (Lopressor) 50 Mg Tab 25 MG PO Q12HR for CONTROL HEART RATE, #60 TAB Continued Medications: Apixaban (Eliquis) 2.5 Mg Tab 2.5 MG PO BID for Blood Clot Prevention, TAB 0 Refills Atorvastatin (Atorvastatin) 80 Mg Tab 80 MG PO HS for Cholesterol Management, #30 TAB 0 Refills Cephalexin (Cephalexin) 500 Mg Cap 500 MG PO Q12H for Infection, #60 CAP 0 Refills (This prescription has been renewed) Cholecalciferol (Vitamin D3) 1,000 Unit Tab 1000 UNITS PO DAILY for Nutritional Supplement, #1 BOTTLE 0 Refills Donepezil (Donepezil) 10 Mg Tab 10 MG PO HS for Dementia, #30 TAB 0 Refills Fexofenadine (Judie Allergy) 180 Mg Tab 180 MG PO DAILY for Allergy Management, #30 TAB 0 Refills Memantine (Namenda) 10 Mg Tab 10 MG PO BID for Alzheimer Disease, #30 TAB 0 Refills Montelukast (Singulair) 10 Mg Tab 10 MG PO HS, #30 TAB 0 Refills Multiple Vitamin (Multiple Vitamin) 1 Tab 1 TAB PO DAILY for Nutritional Supplement, TAB 0 Refills Omeprazole (Omeprazole) 20 Mg Tab 20 MG PO DAILY, #30 TAB 0 Refills Sydnee Art MD Jan 22, 2017 11:32
[2017-01-22] MEDS ORDERED: METO-309 PO (11:33)
[2017-01-22] MEDS ORDERED: CEPH500C PO (11:33)
[2017-01-22] MEDS ORDERED: ACETAMINOPHEN 325 MG TAB PO PRN (12:00)
[2017-01-22] MEDS ORDERED: ACETAMINOPHEN/HYDROcodone 325 MG/5 MG TAB PO ONE (12:00)
[2017-01-22] MEDS ORDERED: METOPROLOL TARTRATE 25 MG TAB PO SCH (21:00)
== END 2017-01-22 14:23 | disposition hospice, home (50) | DRG 545 ==
LOC: PHED 10:19 → PHEDA 13:12 → HCPC 18:05 → HCIS 01-19 12:16
PROVIDERS: ADMIT Family Medicine; ATTEND Family Medicine
DX: I77.6 Arteritis, unspecified (principal); K65.1 Peritoneal abscess; E46 Unspecified protein-calorie malnutrition; I48.0 Paroxysmal atrial fibrillation; I48.2 Chronic atrial fibrillation; R13.10 Dysphagia, unspecified; F03.90 Unspecified dementia, unspecified severity, without behavioral disturbance, psychotic disturbance, mood disturbance, and anxiety; Z68.1 Body mass index [BMI] 19.9 or less, adult; T82.7XXD Infection and inflammatory reaction due to other cardiac and vascular devices, implants and grafts, subsequent encounter; E78.5 Hyperlipidemia, unspecified; K21.9 Gastro-esophageal reflux disease without esophagitis; M25.551 Pain in right hip; Y83.2 Surgical operation with anastomosis, bypass or graft as the cause of abnormal reaction of the patient, or of later complication, without mention of misadventure at the time of the procedure; Z51.5 Encounter for palliative care; Z66 Do not resuscitate; Z79.01 Long term (current) use of anticoagulants; Z85.46 Personal history of malignant neoplasm of prostate; Z87.891 Personal history of nicotine dependence; Z88.2 Allergy status to sulfonamides; Z92.3 Personal history of irradiation; Z96.641 Presence of right artificial hip joint
CPT/HCPCS: 71010; 73723; 74177; 76937; 80048; 80053; 80202; 81001; 82565; 85025; 85610; 85652; 85730; 86140; 86850; 86900; 86901; 87040; 96361; 96374; 96375; 96376; A9579; J2270; J2405; J2543; J3370; J3480; J7030; J7050; Q9967